=== PATIENT | female | born 1940 | race Caucasian/White ===

== ENCOUNTER 2018-01-16 08:44 | Inpatient (IN) | payer OTHER, SELFPAY ==
[2018-01-10 08:46] VITALS: BMI 42.5
[2018-01-16] VITALS (14 sets, daily range): BP systolic 90–142; BP diastolic 50–87; PULSE 57–69; RESP 10–16; TEMP 35.3–36.8; O2SAT 94–100; BMI 40.6
[2018-01-16] MEDS: LACTATED RINGERS 1,000 ML 42 ML IV ×2 (09:25→15:40)
[2018-01-16 10:02] LABS: HEMOLYSIS < 15 (0-50)
--- NOTE | 2018-01-16 10:18 | PM.PREOP ---
Pre-operative Note Interval Note Pre-op Check: History & Physical Reviewed by Physician and Exam Performed
[2018-01-16] MEDS: APREPITANT 40 MG CAPSULE PO (10:50)
--- NOTE | 2018-01-16 11:19 | PM.OP.1 ---
Operative Date/Time/Diagnoses - Date of procedure: 01/16/18 Time of procedure: 14:48 Pre-op diagnosis: lumbar stenosis with radiculopathy lumbar spondylolisthesis Post-op diagnosis: same Procedure & Clinicians Procedure: L3-4 laminectomy L4-5 laminectomy L4-5 anterior fusion with cage L4-5 posterior fusion L4, L5 pedicle screws iliac crest bone graft use of microscope placement of epidural catheter Same procedure as scheduled: Yes Indications: 77-year-old female with intractable pain from spinal stenosis. She had failed conservative management and requested operative intervention. Risks and benefits of surgery were discussed and appropriate consents were obtained. Surgeon: Ashkan Devi [employer] Assistant: Delaney Jett Anesthesia Type: General Operative Notes Findings: none Closure Type: primary Specimen(s): none sent Implants & Drains: Nuvasive XLIF cage and Reline Screws Applied: catheter Estimated Blood Loss (mL): 30 Blood products transfused: none Procedure in detail: Patient was brought to the operating room and intubated on the table. Time-out was performed. They were then rolled over to the lateral decubitus position with the [id number]. The table was bent and they were taped down in the correct position. X-rays were taken to confirm a true AP and lateral. Preoperative antibiotics. The left flank was prepped and draped in standard sterile fashion. Using fluoroscopy, a 3 cm incision was made above the iliac crest. We bluntly dissected down with Metzenbaum scissors and split the 3 abdominal muscle layers. We dissected out the retroperitoneal space and using finger guidance, brought our 1st dilator down to the psoas muscle. Using neuromonitoring and fluoroscopy, we placed it through the psoas onto the L4-5 disc space in an anterior position and gradually pulled the dilator posteriorly along the disc space. We placed our guidewire and measured our depth for the retractor. We then dilated with the next 2 dilators and then placed our retractor over the dilators. Position was confirmed with fluoroscopy and the retractor was locked down to the bar. We opened up the retractor and checked with neuro monitoring. We then placed the angela and again checked with neuro monitoring. The retractor was opened further and the ALL retractor was placed. An annulotomy was performed. We then performed a complete diskectomy with ring curette, pituitary, box osteotome. A Williamson was advanced across the disc space under fluoroscopy to release the lateral annulus on the opposite side. We then used sequentially larger trials and confirmed under fluoroscopy. An XL IF cage was packed with Osteocell bone graft and impacted into the L4-5 disc space with fluoroscopy for the anterior fusion at this level. The wound was irrigated. The retractor was closed down. The angela was removed. We carefully removed through a tractor with direct visualization to make sure there was no neurovascular or abdominal injury. Final x-rays were taken. The muscle fascia was closed, superficial tissue was closed. The skin was closed. Sterile dressing was placed. The patient was then rolled over on the well-padded prone position on the Harrison table. Using fluoroscopy for localization, a 6 cm incision was made in the midline. We dissected down the left sided paraspinal muscles to expose the lamina and confirmed our position. We then exposed the transverse processes at the level of fusion. We then began placing our screws. A bur was used to decorticate the junction of the facet and transverse process. We then advanced a gear shifter down the pedicle using neuro monitoring. We checked with the ball probe to confirm a floor and 4 bustillos on the pedicle. We then tapped also with neuro monitoring. We checked again with the ball probe and then placed our screw with neuro monitoring. The screws were placed in this fashion down the left pedicles of L4 and L5. The de was loosely placed and x-rays were taken to confirm positioning and then the set screws were locked down. We then brought in the microscope. A laminectomy was performed at L3-4 and L4-5 with a bur and Kerrison rongeurs. We carefully depressed the dura to reach to the opposite side and decompress the entire central canal. We cleared out the neural foramen. In the in the ball probe could be placed cephalad and caudally across to the opposite side in the foramen and everything was opened. The wound was copiously irrigated. A small stab incision was made over the PSIS and a Jamshidi needle was placed into the iliac crest and several mL of bone marrow was aspirated. This was mixed with our locally harvested bone graft as well as the remaining Osteocell and placed in the posterolateral gutter for fusion at L4-5. An epidural catheter was primed with 4mL of 0.5% bupivacaine, 100 mcg fentanyl, 4 mg Duramorph, 1 mg Stadol. The dura was depressed under the cephalad lamina with a ball probe and the epidural catheter was gently advanced 6 cm cephalad. The fascia was then closed. The epidural was then injected without resistance. The catheter was pulled and we closed more over the fascia. Vancomycin powder was placed in the wound. The superficial and skin were closed. Sterile dressing was placed. The patient was then rolled over, extubated, brought to the recovery room with no complications. Complications: none Condition: stable Disposition: PACU Plan for aftercare: inpatient. Up with physical therapy
[2018-01-16] MEDS: CEFAZOLIN 2 GM/100 ML FROZ.PIGGY IV ×2 (11:22→18:48)
--- NOTE | 2018-01-16 11:30 | DI.RAD.S_ITS ---
PROCEDURE: XR LUMBAR SPINE 2-3V INDICATIONS: 77 year-old female with L4-L5 spine surgery. TECHNIQUE: 2 intraoperative views of the lumbar spine were acquired. COMPARISON: [facility], [place], XR LUMBAR SPINE 2 OR 3 VIEWS, 12[facility]23/2017, 15:21[facility] WITH OBLIQUES, 09/16/2017, 10:37. FINDINGS: Bones: Patient is status post L4-L5 discectomy with interbody fusion and left posterior fixation. Surgical hardware appears intact and in expected positions. Grade 1 L4-L5 spondylolisthesis from facet joint degeneration has decreased. Soft tissues: Overlying bowel gas pattern is normal. No suspicious soft tissue calcifications. IMPRESSION: Fluoroscopic guidance for L4-L5 discectomy with interbody fusion in the posterior fixation. Mild L4-L5 spondylolisthesis has decreased from pre-operative films. Dictated by: Brooks Villavicencio M.D. on 01/16/2018 at 13:50 Approved by: Brooks Villavicencio M.D. on 01/16/2018 at 13:51
--- NOTE | 2018-01-16 13:06 | SUR.OPER ---
Right lateral on padded OR table. Head on pillow, gel axillary roll, pillow to support left arm. Legs flexed, pillows between legs, gel pad under down leg and ankle. Multiple passes of 3 inch cloth tape across shoulder, hip, upper and lower legs to secure patient on OR table.
--- NOTE | 2018-01-16 13:06 | SUR.OPER ---
Prone on spine table, head in foam head support, padded chest and pelvic supports, gel pad at knees, lower legs supported by pillows; nipples, genitalia and toes free of pressure, arms secured on foam padded arm boards at <90 degrees abduction. Tape over blanket at thigh secured to table.
[2018-01-16] MEDS: SODIUM CHLORIDE 0.9% 1,000 ML, GENTAMICIN 80 MG IRR (13:31)
[2018-01-16] MEDS: BUPIVACAINE 0.5% (PF) 4 ML, MORPHINE-PF 4 MG, BUTORPHANOL 1 MG, fentaNYL 100 MCG INJ (13:32)
[2018-01-16] MEDS: THROMBIN (BOVINE) 5,000 UNIT VIAL 5000 UNIT TOP (13:34)
[2018-01-16] MEDS: VANCOMYCIN 1,000 MG VIAL 1000 MG TOP (13:34)
--- NOTE | 2018-01-16 16:40 | PC.NURSE ---
Admit note: Patient admitted to AC from PACU with Yulissa OAKLEY in stable condition. Alert and awake, talkative and pleasant. On RA, O2 sat 98%. SCD to feet bilaterally. No c/o nausea, tolerating sips of water. C/O minimal ache to lower back, placed ice packs with relief. Educated regarding surgical precautions such as no bending and twisting or lifting, verbalized understanding. CMS to BLE intact. Educated regarding plan of care, room, environment. VSS and afebrile. BA active, call light within reach. Friends/family at bedside providing support.
[2018-01-16] MEDS: LACTATED RINGERS 1,000 ML 125 ML IV (16:51)
[2018-01-16] MEDS: HYDROMORPHONE PCA 6 MG/30 ML PCA.VIAL IV ×2 (16:51→22:05)
[2018-01-16] MEDS: CELECOXIB 200 MG CAPSULE 400 MG PO (18:51)
[2018-01-16] MEDS: DOCUSATE 100 MG CAPSULE PO (20:48)
[2018-01-16] MEDS: GABAPENTIN 300 MG CAPSULE PO (20:48)
[2018-01-16] MEDS: SENNOSIDES 8.6 MG TABLET 17.2 MG PO (20:48)
[2018-01-16] MEDS: ONDANSETRON 4 MG/2 ML INJ IV (21:00)
[2018-01-16] MEDS: METOCLOPRAMIDE 10 MG/2 ML INJ IV (21:59)
[2018-01-17 00:07] VITALS: BP 101/53; PULSE 60; RESP 16; TEMP 36.9; O2SAT 93
[2018-01-17] MEDS: LACTATED RINGERS 1,000 ML 125 ML IV ×3 (01:32→19:29)
[2018-01-17] MEDS: CEFAZOLIN 2 GM/100 ML FROZ.PIGGY IV (03:19)
[2018-01-17] MEDS: ONDANSETRON 4 MG/2 ML INJ IV (03:28)
[2018-01-17 03:30] VITALS: BP 112/50; PULSE 65; RESP 18; TEMP 36.6; O2SAT 95
[2018-01-17 05:16] LABS: Hematocrit 37.1 % (36-46); Hemoglobin 12.3 g/dL (12.0-16.0)
[2018-01-17 05:20] LABS: BUN Creatinine Ratio 31.7 (6-22); Blood Urea Nitrogen 19 mg/dL (7-17); Calcium 8.8 mg/dL (8.4-10.2); Carbon Dioxide 30 mmol/L (22-32); Chloride 98 mmol/L (98-107); Estimated Glomerular Filt Rate > 60.0 mL/min (>60); Glucose 140 mg/dL (80-110); HEMOLYSIS < 15 (0-50); Sodium 136 mmol/L (137-145)
[2018-01-17] MEDS: HYDROMORPHONE PCA 6 MG/30 ML PCA.VIAL IV ×3 (06:11→21:36)
--- NOTE | 2018-01-17 07:30 | P.PN_ITS ---
Subjective Date Patient Seen: 01/17/18 Time Patient Seen: 07:28 Interval history: She is having minimal pain at this point. Exam Vital Signs (past 8 hours): Vital Signs - 8 hr 3 01/17/18 00:07 01/17/18 03:30 Temperature 98.4 F 97.8 F Pulse Rate 60 65 Respiratory Rate 16 18 Blood Pressure 101/53 L 112/50 L Pulse Oximetry 93 95 Pulse Oximetry 95 Oxygen Delivery Method Room Air Oxygen Flow Rate 2 Const Orientation: alert and oriented x3 Back/Spine/Pelvis Other: Dressings clean dry and intact. 5/5 motor both lower extremities Objective Labs Result Diagrams: 01/17/18 04:50 01/17/18 04:50 Labs: Laboratory Results - last 24 hr 01/16/18 01/17/18 01/17/18 09:46 04:50 04:50 Hgb 12.3 Hct 37.1 Sodium 136 L Potassium 4.0 5.0 Chloride 98 Carbon Dioxide 30 BUN 19 H Creatinine 0.60 Estimated GFR > 60.0 BUN/Creatinine Ratio 31.7 H Glucose 140 H Calcium 8.8 Assessment & Plan Post-op Postoperative Procedures Operation Date: 01/16/18 10:45 Actual Procedures Side Surgeon p L3-4,L4-5 Laminectomy, L4-5 Ant/Post (XLIF) Instru Fusion w/Bone Graft Ashkan Devi MD she is doing great. We are going to get her up with Physical therapy. I did explain that probably a large amount of her pain relief is due to the epidural and that will probably wear off at some time today. Time Spent With Patient less than 15 minutes Quality VTE Deep Vein Thrombosis/Pulmonary Embolism Present on Admission: No
[2018-01-17 08:20] VITALS: BP 109/52; PULSE 60; RESP 16; TEMP 36.4; O2SAT 96
[2018-01-17] MEDS: LISINOPRIL 20 MG TABLET PO (08:43)
[2018-01-17] MEDS: MULTIVITAMIN 1 TABLET 1 TAB PO (08:43)
[2018-01-17] MEDS: ASCORBIC ACID 500 MG TABLET PO (08:43)
[2018-01-17] MEDS: CELECOXIB 200 MG CAPSULE PO ×2 (08:43→20:30)
[2018-01-17] MEDS: FISH OIL 1,000 MG CAPSULE 1000 MG PO (08:43)
[2018-01-17] MEDS: DOCUSATE 100 MG CAPSULE PO ×2 (08:43→20:30)
[2018-01-17] MEDS: FERROUS SULFATE 325 MG TABLET PO (08:44)
--- NOTE | 2018-01-17 09:45 | PT.IIE ---
Current Diagnoses Spondylolisthesis, lumbar region (01/16/18) Spinal stenosis, lumbar region with neurogenic claudication (01/16/18) Surgery Performed Operation Date: 01/16/18 10:45 Actual Procedures p L3-4,L4-5 Laminectomy, L4-5 Ant/Post (XLIF) Instru Fusion w/Bone Graft - Ashkan Devi MD Surgical History (Last Updated 01/13/18 @ 09:23 by Halie Wilburn, RN) History of arthroplasty of right shoulder (Acute) History of bunionectomy of left great toe (Acute) History of bunionectomy of right great toe (Acute) History of discectomy (Acute) History of thumb surgery (Acute) History of tonsillectomy (Acute) History of tympanoplasty of left ear (Acute) Hx of total knee arthroplasty (Acute) S/P epidural steroid injection (Acute) Medical History (Last Updated 01/10/18 @ 09:07 by Halie Wilburn, RN) Colon polyp (Acute) GERD (gastroesophageal reflux disease) (Acute) Hammer toe (Acute) Hemorrhoids (Acute) History of rectocele (Acute) Hyperlipidemia (Acute) Hypertension (Acute) Insomnia (Acute) Iron deficiency anemia (Acute) Joint pain (Acute) Left bundle branch block (Acute) Leg pain (Acute) Low back pain (Acute) 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) Morbid obesity (Acute) Osteoarthritis (Acute) Spinal stenosis, lumbar region with neurogenic claudication (Acute) Spondylolisthesis at L4-L5 level (Acute) Statin intolerance (Acute) Tinnitus of left ear (Acute) Physical Therapy Inpatient Evaluation/Re-Eval M1 PT/OT-IP Prior Functional Status Start: 01/17/18 09:36 Freq: NEEDED Status: Active Protocol: Document 01/17/18 09:36 AB (Rec: 01/17/18 09:45 AB [id number]) Medical Review Prior Functional Status Medical History Reviewed Yes Mobility and Gait pt stated that she is independent with all mobilities and ambulation without AD Social History Household Members none Living Arrangements House Number of Floors (Floors) One Floor Number of Stairs To Enter/Railing? 3 steps with bilateral rails Home Environment Standard Height Toilet Walk in Shower Home Equipment Front Wheel Walker Employment Status Retired Additional Social History Comment pt plans to stay at her friend 's house and her friend will be able to assist her. Her friends house has 3 steps to enter with bilateral rails. Pt is not sure regarding equipement availability at her friends house. M2 PT-IP Current Condition Start: 01/17/18 09:36 Freq: NEEDED Status: Active Protocol: Document 01/17/18 09:36 AB (Rec: 01/17/18 09:45 AB [id number]) Physical Therapy Current Condition Current Condition Evaluation Date 01/17/18 Treatment Diagnosis s/p lumbar fusion and laminectomy Onset Date 01/16/18 Precautions Lumbar Precautions Log Roll No Twisting Limit Bending Lifting Restriction of 10 lbs Gait Belt above Incisional Area M3 PT-IP Subjective Start: 01/17/18 09:36 Freq: NEEDED Status: Active Protocol: Document 01/17/18 09:36 AB (Rec: 01/17/18 09:45 AB [id number]) Subjective Physical Therapy Visit Type Type Initial Evaluation Visit Start Time 08:50 Visit Stop Time 09:35 Total Visit Minutes 45 Number of TWISTHAND Visits 0 Physical Therapy Visit Comments Patient Comments pt agreeable to do therapy Therapy Pain Assessment Pain When Pain Assessed At Rest Pain Present Pain Present Pain Reported Location Left Buttock Intensity 3 Scale Used Numeric (1 - 10) Pain Management Techniques Apply Cold Timing of Activity with Medications M4 PT-IP Mobility and Gait Start: 01/17/18 09:36 Freq: NEEDED Status: Active Protocol: Document 01/17/18 09:36 AB (Rec: 01/17/18 09:45 AB [id number]) PT-Bed Mobility Assessment Supine to Sit Supine to Sit Standby Assistance PT-Transfer Assessment Sit to and From Stand Sit to and from Stand Contact Guard Assistance Equipment Transfer Assistive Device Gait Belt Front Wheeled Walker Transfers Transfer Destination Chair Gait Assessment Gait Gait Assistance Required: Contact Guard Assist Distance (Feet) (feet) 60 Able to Maintain Weight Bearing Status Yes During Gait Assistive Devices Assistive Device Gait Belt Front Wheeled Walker Gait Deviations General Gait Pattern Decreased Stride Length Factors Limiting Gait Function Factors Limiting Gait Function Decreased Activity Tolerance Decreased Strength Pain Poor Balance PT-Balance Assessment Sitting Balance and Reactions Static Sitting Balance Ability Good Dynamic Sitting Balance Ability Good Standing Balance and Reactions Static Standing Balance Ability Fair Dynamic Standing Balance Ability Fair M5 PT-IP Objective Assessments Start: 01/17/18 09:36 Freq: NEEDED Status: Active Protocol: Document 01/17/18 09:36 AB (Rec: 01/17/18 09:45 AB [id number]) Orientation Orientation/Cognition Level of Alertness Alert Orientation Name Age Birthday Month Date Year Day of Week Place Situation Safety Awareness Understands Safety Issues Strength Lower Extremity Strength Assessment Left Impaired Knee 4-/5 Sensation Assessment Sensation Gross Sensation WNL M6 PT-IP Treatment Start: 01/17/18 09:36 Freq: NEEDED Status: Active Protocol: Document 01/17/18 09:36 AB (Rec: 01/17/18 09:45 AB [id number]) Physical Therapy Treatment Education Education Provided Precautions Safety M7 PT-IP Assessment and Plan Start: 01/17/18 09:36 Freq: NEEDED Status: Active Protocol: Document 01/17/18 09:36 AB (Rec: 01/17/18 09:45 AB [id number]) PT Summary Assessment and Plan Potential Rehabilitation Potential Good Status of Condition at Evaluation Evolving Summary Impairments Pain ROM Strength Balance Bed Mobility Transfers Gait Activity Tolerance Assessment Summary pt requiring CGA with mobility and cues for techniques and safety. pt will likely improve during hospital stay. will conduct stair training prior to d/c. Goals Bed Mobility Goal Standby Assistance Transfer Goal Standby Assistance Gait Goal Standby Assistance Gait Distance 100 Other Goals up/down 3 steps with bilateral rails SBA Days to Meet Goals 3 Frequency of Treatment Frequency Of Treatment Twice a Day Treatment Plan Physical Therapy Treatment Plan Bed Mobility Training Transfer Training Gait Training Therapeutic Exercise Balance Retraining Post Op Education Discharge Planning Hot or Cold Pack Neuromuscular Re-ed Manual Therapy Recommendations To Nursing Amount of Assist Needed 1 Person Assist Discharge Recommendations PT Discharge Recommendations Home with Assistance Provider Visit Care Team Role Provider Type Tanya Sanz MD Family Provider Physician Primary Care Provider Specialty: Internal Medicine Ashkan Devi MD Admit Provider Physician Attending Provider Specialty: Orthopedic Surgery
[2018-01-17 11:55] VITALS: BP 96/47; PULSE 62; RESP 16; TEMP 36.4; O2SAT 97
--- NOTE | 2018-01-17 12:51 | OT.IP.EVAL ---
Current Diagnoses Spondylolisthesis, lumbar region (01/16/18) Spinal stenosis, lumbar region with neurogenic claudication (01/16/18) Surgery Performed Operation Date: 01/16/18 10:45 Actual Procedures p L3-4,L4-5 Laminectomy, L4-5 Ant/Post (XLIF) Instru Fusion w/Bone Graft - Ashkan Devi MD Past Medical History (Last Updated 01/10/18 @ 09:07 by Halie Wilburn, RN) Colon polyp (Acute) GERD (gastroesophageal reflux disease) (Acute) Hammer toe (Acute) Hemorrhoids (Acute) History of rectocele (Acute) Hyperlipidemia (Acute) Hypertension (Acute) Insomnia (Acute) Iron deficiency anemia (Acute) Joint pain (Acute) Left bundle branch block (Acute) Leg pain (Acute) Low back pain (Acute) 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) Morbid obesity (Acute) Osteoarthritis (Acute) Spinal stenosis, lumbar region with neurogenic claudication (Acute) Spondylolisthesis at L4-L5 level (Acute) Statin intolerance (Acute) Tinnitus of left ear (Acute) Surgical History (Last Updated 01/13/18 @ 09:23 by Halie Wilburn, RN) History of arthroplasty of right shoulder (Acute) History of bunionectomy of left great toe (Acute) History of bunionectomy of right great toe (Acute) History of discectomy (Acute) History of thumb surgery (Acute) History of tonsillectomy (Acute) History of tympanoplasty of left ear (Acute) Hx of total knee arthroplasty (Acute) S/P epidural steroid injection (Acute) Occupational Therapy Inpatient Evaluation/Re-Eval M1 PT/OT-IP Prior Functional Status Start: 01/17/18 09:36 Freq: NEEDED Status: Active Protocol: Document 01/17/18 09:36 AB (Rec: 01/17/18 09:45 AB [id number]) Medical Review Prior Functional Status Medical History Reviewed Yes Mobility and Gait pt stated that she is independent with all mobilities and ambulation without AD Social History Household Members none Living Arrangements House Number of Floors (Floors) One Floor Number of Stairs To Enter/Railing? 3 steps with bilateral rails Home Environment Standard Height Toilet Walk in Shower Home Equipment Front Wheel Walker Employment Status Retired Additional Social History Comment pt plans to stay at her friend 's house and her friend will be able to assist her. Her friends house has 3 steps to enter with bilateral rails. Pt is not sure regarding equipement availability at her friends house. M1 PT/OT-IP Prior Functional Status Start: 01/17/18 12:33 Freq: NEEDED Status: Active Protocol: Document 01/17/18 11:00 [facility] (Rec: 01/17/18 12:51 [facility] [id number]) Medical Review Prior Functional Status Medical History Reviewed Yes Diet/Fluid Consistency Regular Mobility and Gait pt stated that she is independent with all mobilities and ambulation without AD Activities of Daily Living and IADL's Completely independent with all ADl and IADl needs. Social History Household Members none Living Arrangements House Number of Floors (Floors) One Floor Number of Stairs To Enter/Railing? 3 steps with bilateral rails Home Environment Standard Height Toilet Walk in Shower Home Equipment Front Wheel Walker Employment Status Retired Additional Social History Comment pt plans to stay at her friend 's house and her friend will be able to assist her. Her friends house has 3 steps to enter with bilateral rails. Pt is not sure regarding equipement availability at her friends house. M2 OT-IP Current Condition Start: 01/17/18 12:33 Freq: Status: Active Protocol: Document 01/17/18 11:00 [facility] (Rec: 01/17/18 12:51 [facility] [id number]) Occupational Therapy Current Condition Post Operative Precautions Lumbar Precautions Log Roll No Twisting Limit Bending Lifting Restriction of 10 lbs Gait Belt above Incisional Area M3 OT- IP Subjective and Pain Start: 01/17/18 12:33 Freq: Status: Active Protocol: Document 01/17/18 11:00 [facility] (Rec: 01/17/18 12:51 [facility] [id number]) OT- Subjective Occupational Therapy Visit Type Type Initial Evaluation Visit Start Time 11:00 Visit Stop Time 11:45 Total Visit Minutes 45 Occupational Therapy Visit Comments Patient/Caregiver Goals Pt states wants to be sure medically ready prior to going home. OT Pain Assessment Pain When Pain Assessed During Mobility Pain Present Pain Present Pain Reported Location Left Buttock Intensity 5 Scale Used Numeric (1 - 10) M4 OT- IP ADL's Start: 01/17/18 12:33 Freq: Status: Active Protocol: Document 01/17/18 11:00 [facility] (Rec: 01/17/18 12:51 [facility] [id number]) OT ADL-Dressing General Eval Upper Body Dressing Ability Standby Assistance Lower Body Dressing Ability Maximum Assistance Areas Needing Assistance Retrieving/Set-up of Clothing Socks Shoes Comments OT Dressing Comments Pt educated with LB AED and now able to do LB dressing with SBA. OT ADL-Toileting General Evaluation Toileting Ability Total Assistance Comments OT Toileting Comments Still use of catheter. educated to stand for pericare needs and given information for toilet aid. Pt's friend to look for FWW, showe chair, and RTS. OT ADL-Bathing Comments OT Bathing Comments No ready at this time. M5 OT- IP IADL's Start: 01/17/18 12:33 Freq: Status: Active Protocol: Document 01/17/18 11:00 [facility] (Rec: 01/17/18 12:51 [facility] [id number]) OT-Instrumental Activities of Daily Living Home Safety Awareness Awareness of Need for Assistance at Home Good Awareness Medication Management Medication Management No Deficits Identified M6 OT- IP Functional Cognition Start: 01/17/18 12:33 Freq: Status: Active Protocol: Document 01/17/18 11:00 [facility] (Rec: 01/17/18 12:51 [facility] [id number]) Cognitive Factors Limiting Selfcare Function Cognitive Ability Level of Alertness Alert Patient Orientation Name Age Birthday Month Date Year Day of Week Place Situation Attention Span Ability Capable of Focused Attention Capable of Sustained Attention Ability to Follow Commands Able to Follow Multi-Step Commands Memory Description No Deficits Noted Problem Solving Ability No deficits Noted Cognitive Comments Cognitive Assessment Comments Pt needing reminders to incorporate back precautions for needs. OT- Vision and Hearing OT- Hearing Assessment OT- Hearing Assessment WFL OT- Vision Assessment Visual Acuity WFL M7 OT- IP Mobility and Balance Start: 01/17/18 12:33 Freq: Status: Active Protocol: Document 01/17/18 11:00 [facility] (Rec: 01/17/18 12:51 [facility] [id number]) OT- Bed Mobility Assessment Sit to Supine Sit to Supine Assist Standby Assistance OT-Transfer Assessment Sit to and From Stand Sit to and from Stand Standby Assistance Transfers Transfer Ability Standby Assistance Contact Guard Assistance Technique Transfer Destination Bed Chair Transfer Technique Stand Step Pivot Devices Transfer Assistive Devices Front Wheeled Walker Comments Mobility Comments Pt tend to move a little fast and needing vc to slow down. OT- Balance Assessment Sitting Balance and Reactions Static Sitting Balance Ability Normal Dynamic Sitting Balance Ability Normal Standing Balance and Reactions Static Standing Balance Ability Good Dynamic Standing Balance Ability Fair M8 OT- IP Objective Assessments Start: 01/17/18 12:33 Freq: Status: Active Protocol: Document 01/17/18 11:00 [facility] (Rec: 01/17/18 12:51 [facility] [id number]) OT Strength Comments Strength Comments WFL for all needs for BUE. M9 OT- IP Assessment and Plan Start: 01/17/18 12:33 Freq: Status: Active Protocol: Document 01/17/18 11:00 [facility] (Rec: 01/17/18 12:51 [facility] [id number]) OT Summary Assessment and Plan Potential Rehabilitation Potential Excellent Analytic Complexity at Evaluation Low Summary OT Impairments Pain Strength Functional Mobility Grooming Dressing Toileting Bathing Toilet Transfers Shower Transfers Progress Towards Goals Progressing Toward Goals Assessment Summary Pt doing well as currently does not have pain. Pt continues to need education to incorporate back precautions for needs. Pt to stay with a friend at discharge. Goals Grooming Goal Standby Assistance Dressing Goal Standby Assistance Toileting Goal Standby Assistance Bathing Goal Minimal Assistance Toilet Transfer Goal Standby Assistance Shower Transfer Goal Standby Assistance Patient/Caregiver Education Goal Caregiver Independent Assisting Patient Days to Meet Goals 5 Frequency of Treatment Frequency Of Treatment Once a Day Treatment Plan OT Treatment Plan ADL Training Functional Mobility Patient/Family Education Discharge Planning Discharge Recommendations OT Discharge Recommendations Home with Assistance Home Equipment Needs FWW, shower chair, RTS
--- NOTE | 2018-01-17 15:00 | PT.IPTN ---
Current Diagnoses Spondylolisthesis, lumbar region (01/16/18) Spinal stenosis, lumbar region with neurogenic claudication (01/16/18) Surgery Performed Operation Date: 01/16/18 10:45 Actual Procedures p L3-4,L4-5 Laminectomy, L4-5 Ant/Post (XLIF) Instru Fusion w/Bone Graft - Ashkan Devi MD Physical Therapy Treatment Note M2 PT-IP Current Condition Start: 01/17/18 09:36 Freq: NEEDED Status: Active Protocol: Document 01/17/18 09:36 AB (Rec: 01/17/18 09:45 AB [id number]) Physical Therapy Current Condition Current Condition Evaluation Date 01/17/18 Treatment Diagnosis s/p lumbar fusion and laminectomy Onset Date 01/16/18 Precautions Lumbar Precautions Log Roll No Twisting Limit Bending Lifting Restriction of 10 lbs Gait Belt above Incisional Area M3 PT-IP Subjective Start: 01/17/18 09:36 Freq: NEEDED Status: Active Protocol: Document 01/17/18 14:52 AB (Rec: 01/17/18 14:58 AB [id number]) Subjective Physical Therapy Visit Type Type Treatment Note Visit Start Time 14:13 Visit Stop Time 14:49 Total Visit Minutes 36 Number of DISTILLING DEPARTMENT SUPERVISOR Visits 0 Physical Therapy Visit Comments Patient Comments pt agreeable to do therapy Therapy Pain Assessment Pain When Pain Assessed At Rest Pain Present Pain Present Pain Reported Location Left Buttock Intensity 3 Scale Used Numeric (1 - 10) Pain Management Techniques Apply Cold Timing of Activity with Medications M4 PT-IP Mobility and Gait Start: 01/17/18 09:36 Freq: NEEDED Status: Active Protocol: Document 01/17/18 14:52 AB (Rec: 01/17/18 14:58 AB [id number]) PT-Bed Mobility Assessment Supine to Sit Supine to Sit Standby Assistance Sit to Supine Sit to Supine Standby Assistance PT-Transfer Assessment Sit to and From Stand Sit to and from Stand Contact Guard Assistance Comments Mobility Comments log roll bed mobility training conducted x 4 reps: pt completed with SBA and initial cues but was able to complete without cues after a few reps Gait Assessment Gait Gait Assistance Required: Contact Guard Assist Distance (Feet) (feet) 75 Able to Maintain Weight Bearing Status Yes During Gait Assistive Devices Assistive Device Gait Belt Front Wheeled Walker Orthotic/Prosthetic Devices or Brace: No Factors Limiting Gait Function Factors Limiting Gait Function Decreased Activity Tolerance Decreased Strength Pain Comments Gait Comments nurse stated that pt's BP tends to run low. BP monitored: supine: 90/56 sitting on EOB: 110/68 after first ambulation: sitting on EOB: 99/69 after 2nd ambulation: sitting on EOB: 95/41 pt without c/o dizziness/ lightheadedness or nausea pt completed ambulation in room using FWW 50 ft and in hallway for 2nd walk using FWW ~ 75 ft requiring CGA and cues for safety. pt requested to sit up on chair afterwards. positioned pt on chair. ice pack provided. call light and table placed within reach. M5 PT-IP Objective Assessments Start: 01/17/18 09:36 Freq: NEEDED Status: Active Protocol: Document 01/17/18 09:36 AB (Rec: 01/17/18 09:45 AB [id number]) Orientation Orientation/Cognition Level of Alertness Alert Orientation Name Age Birthday Month Date Year Day of Week Place Situation Safety Awareness Understands Safety Issues Strength Lower Extremity Strength Assessment Left Impaired Knee 4-/5 Sensation Assessment Sensation Gross Sensation WNL M6 PT-IP Treatment Start: 01/17/18 09:36 Freq: NEEDED Status: Active Protocol: Document 01/17/18 09:36 AB (Rec: 01/17/18 09:45 AB [id number]) Physical Therapy Treatment Education Education Provided Precautions Safety M7 PT-IP Assessment and Plan Start: 01/17/18 09:36 Freq: NEEDED Status: Active Protocol: Document 01/17/18 14:58 AB (Rec: 01/17/18 15:00 AB [id number]) PT Summary Assessment and Plan Potential Rehabilitation Potential Good Summary Impairments Pain Strength Balance Bed Mobility Transfers Gait Activity Tolerance Progress Towards Goals Progressing Toward Goals Assessment Summary pt doing well with mobility but has low BP and stair climbing not completed at this time. pt will have her friend to assist her. Pt stated that she was able to get a FWW and everything is set up for her already. Goals Bed Mobility Goal Standby Assistance Transfer Goal Standby Assistance Gait Goal Standby Assistance Gait Distance 100 Other Goals up/down 3 steps with bilateral rails SBA Days to Meet Goals 3 Frequency of Treatment Frequency Of Treatment Twice a Day Treatment Plan Physical Therapy Treatment Plan Bed Mobility Training Transfer Training Gait Training Therapeutic Exercise Balance Retraining Post Op Education Discharge Planning Hot or Cold Pack Neuromuscular Re-ed Manual Therapy Recommendations To Nursing Amount of Assist Needed 1 Person Assist Discharge Recommendations PT Discharge Recommendations Home with Assistance
--- NOTE | 2018-01-17 15:40 | CM.DANOTE ---
Addendum entered by FORTUNATO English 01/17/18 16:11: Faxed initial clinical to [facility] [phone]. Original Note: DCP Assessment: Pt is a 77 yo female, resident of [place]. Pt admitted for scheduled spinal surgery w/ Dr Devi. Pt's PCP is Dr Sanz; Insurance is [facility]. Met w/pt this morning, explained SW role. Pt lives alone and is very indp and active at baseline. Pt expects to DC to her friend Shante's home (who is a retired RN) for assist and has another friend that can assist if needed. Pt's dtr, Katiuska Davies, is her DPOA. Dtr lives in [place], P# [phone]. Pt appreciative of the visit and reiterates no barriers to safe DC home. Pt does admit her epidural has not worn off yet today and she is waiting for that in order to understand what pain/limitations she can expect in recovery. Home once medically cleared. FORTUNATO English
--- NOTE | 2018-01-17 15:51 | PC.NURSE ---
patient is A&O x3, pleasant and cooperative w/ staff and is able to make needs known when nec. Cassie's b/p has been hypotensive w/ 100/40 at 1552. However, patient's B/P was being read w/ large cuff, suggested to aid to try using reg. size adult cuff and reassess B/P, new readin/43. Patient is asymptomatic w/ B/P readings. POD #1, CMS intact, PP ++, Drg. to site is C.D.I w/ exception of the lower leg corner has a scant sero/sang spot of drainage, graft site to left hip is C.D.I. Call light w/ in reach, bed in low pos. alarm active. Patient is content to in bed from being up to chair all afternoon.
[2018-01-17 16:45] VITALS: BP 117/53; PULSE 73; RESP 16; TEMP 36.6; O2SAT 98
[2018-01-17] MEDS: GABAPENTIN 300 MG CAPSULE PO (20:30)
[2018-01-17] MEDS: SENNOSIDES 8.6 MG TABLET 17.2 MG PO (20:30)
[2018-01-17 20:57] VITALS: BP 106/39; PULSE 69; RESP 16; TEMP 37.1; O2SAT 100
[2018-01-18 03:00] VITALS: BP 103/58; PULSE 61; RESP 19; TEMP 36.8; O2SAT 96
[2018-01-18] MEDS: LACTATED RINGERS 1,000 ML 125 ML IV (03:40)
[2018-01-18] MEDS: HYDROMORPHONE PCA 6 MG/30 ML PCA.VIAL IV (06:34)
--- NOTE | 2018-01-18 08:23 | PM.PNPO.1 ---
Subjective Date Patient Seen: 01/18/18 Time Patient Seen: 08:24 Interval history: Pt is s/p L3-4 lami, L4-5 lami/fusion by Dr. Devi. PD 2. Pt had her gambino removed today. Has walked some with PT but her BP has been running low so PT is cautious with her wlking too far. States she feels great. RAMP AGENT will be stopped today and will be transitioned to oral hydrocodone which she has taken in the past with good pain relief. Exam Vital Signs (past 8 hours): Vital Signs - 8 hr 01/18/18 03:00 Temperature 98.2 F Pulse Rate 61 Respiratory Rate 19 Blood Pressure 103/58 L Pulse Oximetry 96 Pulse Oximetry 96 Oxygen Delivery Method Room Air Oxygen Flow Rate 2 Narrative Exam Narrative: Patient is sitting in chair. Appears comfortable. Alert and orient x3. Dressing is clean dry and intact. 5/5 BLE but some discomfort in left hip groin area with hip flexion. No numbness or tingling. Bilateral calves soft and nontender. Objective Labs Result Diagrams: 01/17/18 04:50 01/17/18 04:50 Assessment & Plan Post-op (1) Spinal stenosis of lumbar region with radiculopathy: Problem details: Patient had a L3 -4 laminectomy and L4-5 Lami/fusion with Dr. Devi. PD 2. Patient will be transitioned from RAMP AGENT to oral Vicodin for pain. Continue physical therapy. Possible discharge home tomorrow. Current Visit: Yes Status: Acute Postoperative Procedures Operation Date: 01/16/18 10:45 Actual Procedures Side Surgeon p L3-4,L4-5 Laminectomy, L4-5 Ant/Post (XLIF) Instru Fusion w/Bone Graft Ashkan Devi MD Postoperative day: 2 Postoperative status: doing well Postoperative plan: routine post-op care and ambulate Time Spent With Patient less than 15 minutes Quality VTE Deep Vein Thrombosis/Pulmonary Embolism Present on Admission: No
[2018-01-18 08:27] VITALS: BP 135/68; PULSE 69; RESP 16; TEMP 36.8; O2SAT 100
[2018-01-18] MEDS: ASCORBIC ACID 500 MG TABLET PO (08:28)
[2018-01-18] MEDS: CELECOXIB 200 MG CAPSULE PO ×2 (08:28→20:47)
[2018-01-18] MEDS: FERROUS SULFATE 325 MG TABLET PO (08:28)
[2018-01-18] MEDS: ROSUVASTATIN 10 MG TABLET PO (08:28)
[2018-01-18] MEDS: DOCUSATE 100 MG CAPSULE PO ×2 (08:29→20:47)
[2018-01-18] MEDS: FISH OIL 1,000 MG CAPSULE 1000 MG PO (08:29)
[2018-01-18] MEDS: MULTIVITAMIN 1 TABLET 1 TAB PO (08:29)
[2018-01-18] MEDS: LISINOPRIL 20 MG TABLET PO (08:29)
--- NOTE | 2018-01-18 08:32 | P.PN_ITS ---
Subjective Date Patient Seen: 01/18/18 Time Patient Seen: 08:24 Interval history: Pt is s/p L3-4 lami, L4-5 lami/fusion by Dr. Devi. PD 2. Pt had her gambino removed today. Has walked some with PT but her BP has been running low so PT is cautious with her wlking too far. States she feels great. INTRAMURAL DIRECTOR will be stopped today and will be transitioned to oral hydrocodone which she has taken in the past with good pain relief. Exam Vital Signs (past 8 hours): Vital Signs - 8 hr 3 01/18/18 03:00 Temperature 98.2 F Pulse Rate 61 Respiratory Rate 19 Blood Pressure 103/58 L Pulse Oximetry 96 Pulse Oximetry 96 Oxygen Delivery Method Room Air Oxygen Flow Rate 2 Narrative Exam Narrative: Patient is sitting in chair. Appears comfortable. Alert and orient x3. Dressing is clean dry and intact. 5/5 BLE but some discomfort in left hip groin area with hip flexion. No numbness or tingling. Bilateral calves soft and nontender. Objective Labs Result Diagrams: 01/17/18 04:50 01/17/18 04:50 Assessment & Plan Post-op (1) Spinal stenosis of lumbar region with radiculopathy: Problem details: Patient had a L3 -4 laminectomy and L4-5 Lami/fusion with Dr. Devi. PD 2. Patient will be transitioned from INTRAMURAL DIRECTOR to oral Vicodin for pain. Continue physical therapy. Possible discharge home tomorrow. Current Visit: Yes Status: Acute Postoperative Procedures Operation Date: 01/16/18 10:45 Actual Procedures Side Surgeon p L3-4,L4-5 Laminectomy, L4-5 Ant/Post (XLIF) Instru Fusion w/Bone Graft Ashkan Devi MD Postoperative day: 2 Postoperative status: doing well Postoperative plan: routine post-op care and ambulate Time Spent With Patient less than 15 minutes Quality VTE Deep Vein Thrombosis/Pulmonary Embolism Present on Admission: No
[2018-01-18] MEDS: HYDROCODONE/ACET 5/325 TABLET 1 TAB PO ×4 (08:37→21:01)
--- NOTE | 2018-01-18 10:19 | PT.IPTN ---
Current Diagnoses Spondylolisthesis, lumbar region (01/16/18) Spinal stenosis, lumbar region without neurogenic claudication (01/16/18) Spinal stenosis, lumbar region with neurogenic claudication (01/16/18) Radiculopathy, lumbar region (01/16/18) Surgery Performed Operation Date: 01/16/18 10:45 Actual Procedures p L3-4,L4-5 Laminectomy, L4-5 Ant/Post (XLIF) Instru Fusion w/Bone Graft - Ashkan Devi MD Physical Therapy Treatment Note M2 PT-IP Current Condition Start: 01/17/18 09:36 Freq: NEEDED Status: Active Protocol: Document 01/18/18 09:45 [facility] (Rec: 01/18/18 10:19 [facility] [id number]) Physical Therapy Current Condition Current Condition Evaluation Date 01/17/18 Treatment Diagnosis s/p lumbar fusion and laminectomy Onset Date 01/16/18 Precautions Lumbar Precautions Log Roll No Twisting Limit Bending Lifting Restriction of 10 lbs Gait Belt above Incisional Area Weight Bearing Status Weight Bearing Status Weight Bear as Tolerated M3 PT-IP Subjective Start: 01/17/18 09:36 Freq: NEEDED Status: Active Protocol: Document 01/18/18 09:45 [facility] (Rec: 01/18/18 10:19 RCC [id number]) Subjective Physical Therapy Visit Type Type Treatment Note Visit Start Time 09:30 Visit Stop Time 09:45 Total Visit Minutes 15 Number of SELVAGE MACHINE OPERATOR Visits 0 Physical Therapy Visit Comments Patient Comments Pt wants to walk a lot today. Therapy Pain Assessment Pain When Pain Assessed During Mobility Pain Present Pain Present Pain Reported Location Left Buttock Intensity 1 Scale Used Numeric (1 - 10) Description Aching Pain Management Techniques Timing of Activity with Medications M4 PT-IP Mobility and Gait Start: 01/17/18 09:36 Freq: NEEDED Status: Active Protocol: Document 01/18/18 09:45 [facility] (Rec: 01/18/18 10:19 RCC [id number]) PT-Transfer Assessment Sit to and From Stand Sit to and from Stand Standby Assistance Equipment Transfer Assistive Device Front Wheeled Walker Transfers Transfer Destination Chair Transfer Technique Stand Step Pivot Transfer Ability Level of Assist Standby Assistance Use of Upper Extremities Comments Mobility Comments No VC required. Gait Assessment Gait Gait Assistance Required: Standby Assistance Distance (Feet) (feet) 300 Assistive Devices Assistive Device Front Wheeled Walker Gait Deviations General Gait Pattern Decreased Feet Clearance Factors Limiting Gait Function Factors Limiting Gait Function Decreased Activity Tolerance Decreased Strength Comments Gait Comments step-through gait pattern, no increase in pain with ambulation. Stair Climbing Assessment Evaluation Level of Assist On Stairs Contact Guard Assistance Devices Stair Climbing Assistive Devices Left Railing Right Railing Technique/Endurance Stair Climbing Direction Ascend and Descend Stair Climbing Technique Step to Step Number of Steps Climbed 3 Query Text: PT-Balance Assessment Sitting Balance and Reactions Static Sitting Balance Ability Good Dynamic Sitting Balance Ability Good Standing Balance and Reactions Static Standing Balance Ability Good Dynamic Standing Balance Ability Good Device Used FWW M5 PT-IP Objective Assessments Start: 01/17/18 09:36 Freq: NEEDED Status: Active Protocol: Document 01/17/18 09:36 AB (Rec: 01/17/18 09:45 AB [id number]) Orientation Orientation/Cognition Level of Alertness Alert Orientation Name Age Birthday Month Date Year Day of Week Place Situation Safety Awareness Understands Safety Issues Strength Lower Extremity Strength Assessment Left Impaired Knee 4-/5 Sensation Assessment Sensation Gross Sensation WNL M6 PT-IP Treatment Start: 01/17/18 09:36 Freq: NEEDED Status: Active Protocol: Document 01/18/18 09:45 [facility] (Rec: 01/18/18 10:19 [facility] [id number]) Physical Therapy Treatment Education Education Provided Precautions Safety M7 PT-IP Assessment and Plan Start: 01/17/18 09:36 Freq: NEEDED Status: Active Protocol: Document 01/18/18 09:45 [facility] (Rec: 01/18/18 10:19 RCC [id number]) PT Summary Assessment and Plan Summary Impairments Strength Activity Tolerance Progress Towards Goals Progressing Toward Goals Safe For Discharge Assessment Summary POD #2 lumbar lami, XLIF. Pt tolerated session well, without increased pain with standing and gait. Pt able to perform stairs safely with use of bilateral rails. Pt has her own FWW and demonstrated good standing balance with this device. Pt required some education on not over-exerting herself during this process, particularly as she just had RESEARCH PROFESSOR discontinued and switched to oral medication for pain control. Will continue to monitor progress, but pt at this point is cleared to d/c home when medically stable with assistance. Goals Bed Mobility Goal Standby Assistance Transfer Goal Standby Assistance Gait Goal Standby Assistance Gait Distance 100 Other Goals up/down 3 steps with bilateral rails SBA Days to Meet Goals 2 Frequency of Treatment Frequency Of Treatment Twice a Day Treatment Plan Physical Therapy Treatment Plan Bed Mobility Training Transfer Training Gait Training Therapeutic Exercise Balance Retraining Post Op Education Discharge Planning Hot or Cold Pack Neuromuscular Re-ed Manual Therapy Recommendations To Nursing Amount of Assist Needed 1 Person Assist Discharge Recommendations PT Discharge Recommendations Home with Assistance
--- NOTE | 2018-01-18 14:39 | OT.IP.TRT ---
Current Diagnoses Spondylolisthesis, lumbar region (01/16/18) Spinal stenosis, lumbar region without neurogenic claudication (01/16/18) Spinal stenosis, lumbar region with neurogenic claudication (01/16/18) Radiculopathy, lumbar region (01/16/18) Surgery Performed Operation Date: 01/16/18 10:45 Actual Procedures p L3-4,L4-5 Laminectomy, L4-5 Ant/Post (XLIF) Instru Fusion w/Bone Graft - Ashkan Devi MD Occupational Therapy Treatment Note M2 OT-IP Current Condition Start: 01/17/18 12:33 Freq: Status: Active Protocol: Document 01/18/18 10:50 [facility] (Rec: 01/18/18 14:39 [facility] [id number]) Occupational Therapy Current Condition Post Operative Precautions Lumbar Precautions Log Roll No Twisting Limit Bending Lifting Restriction of 10 lbs Gait Belt above Incisional Area Weight Bearing Status Weight Bearing Status Weight Bear as Tolerated M3 OT- IP Subjective and Pain Start: 01/17/18 12:33 Freq: Status: Active Protocol: Document 01/18/18 10:50 [facility] (Rec: 01/18/18 14:39 [facility] [id number]) OT- Subjective Occupational Therapy Visit Type Type Treatment Note Visit Start Time 09:50 Visit Stop Time 10:50 Total Visit Minutes 60 Occupational Therapy Visit Comments Patient Comments Pt requesting to shower. Patient/Caregiver Goals To be able to remember and incorporate back precautions with 100% accuracy. OT Pain Assessment Pain When Pain Assessed At Rest Pain Present Pain Present Denied Pain M4 OT- IP ADL's Start: 01/17/18 12:33 Freq: Status: Active Protocol: Document 01/18/18 10:50 [facility] (Rec: 01/18/18 14:39 [facility] [id number]) OT ADL-Grooming General Evaluation Grooming Ability Standby Assistance Areas Needing Assistance Retrieving/Set-up of Grooming Items Comments OT Grooming Comments VC to be areful not to twist. OT ADL-Dressing General Eval Upper Body Dressing Ability Standby Assistance Lower Body Dressing Ability Contact Guard Assistance Areas Needing Assistance Socks Assistive Devices Dressing Assistive Devices Sock Aid Comments OT Dressing Comments Pt able to use sock aid after set-up. SBA and able to use bank analyst to help genaro brief over her feet. CGA as pt trying to stand to genaro socks and vc to sit dwon first for safety. OT ADL-Toileting General Evaluation Toileting Ability Standby Assistance Devices Toileting Assistive Devices Grab Bars Comments OT Toileting Comments Use of grab bar. Pt's friend able to get shower chair, FWW, and RTS to pt. OT ADL-Bathing Bathing Type Bathing Type Shower General Evaluation Bathing Ability Contact Guard Assistance Areas Needing Assistance Wash/Dry Back Devices Bathing Equipment Long Handled Sponge or Director Business Travel Held Shower Sprayer Shower Chair with Arms Grab Bars Comments OT Bathing Comments Assist with back and vc to slow down and not twist. Pt able to use toilet aid to assist for pericare needs. M5 OT- IP IADL's Start: 01/17/18 12:33 Freq: Status: Active Protocol: Document 01/17/18 11:00 [facility] (Rec: 01/17/18 12:51 [facility] [id number]) OT-Instrumental Activities of Daily Living Home Safety Awareness Awareness of Need for Assistance at Home Good Awareness Medication Management Medication Management No Deficits Identified M6 OT- IP Functional Cognition Start: 01/17/18 12:33 Freq: Status: Active Protocol: Document 01/18/18 10:50 [facility] (Rec: 01/18/18 14:39 [facility] [id number]) Cognitive Factors Limiting Selfcare Function Cognitive Ability Level of Alertness Alert Patient Orientation Name Age Birthday Month Date Year Day of Week Place Situation Attention Span Ability Capable of Focused Attention Capable of Sustained Attention Ability to Follow Commands Able to Follow Multi-Step Commands Memory Description No Deficits Noted Safety Awareness Decreased Ability to Apply Precautions Cognitive Comments Cognitive Assessment Comments Pt forgetful to incorporate back precautions of no twisting. Suggested pt to post signs at home. M7 OT- IP Mobility and Balance Start: 01/17/18 12:33 Freq: Status: Active Protocol: Document 01/18/18 10:50 [facility] (Rec: 01/18/18 14:39 [facility] [id number]) OT- Bed Mobility Assessment Sit to Supine Sit to Supine Assist Minimal Assistance OT-Transfer Assessment Sit to and From Stand Sit to and from Stand Contact Guard Assistance Transfers Transfer Ability Standby Assistance Technique Transfer Destination Bed Chair Shower Stall Toilet Transfer Technique Stand Step Pivot Devices Transfer Assistive Devices Front Wheeled Walker Comments Mobility Comments TOM to get legs into the bed, CGA to help steady to stand from lower surfaces. OT- Balance Assessment Sitting Balance and Reactions Static Sitting Balance Ability Normal Dynamic Sitting Balance Ability Normal Standing Balance and Reactions Static Standing Balance Ability Good Dynamic Standing Balance Ability Fair M8 OT- IP Objective Assessments Start: 01/17/18 12:33 Freq: Status: Active Protocol: Document 01/17/18 11:00 [facility] (Rec: 01/17/18 12:51 [facility] [email or web address]) OT Strength Comments Strength Comments WFL for all needs for BUE. M9 OT- IP Assessment and Plan Start: 01/17/18 12:33 Freq: Status: Active Protocol: Document 01/18/18 10:50 [facility] (Rec: 01/18/18 14:39 [facility] [id number]) OT Summary Assessment and Plan Potential Rehabilitation Potential Excellent Analytic Complexity at Evaluation Low Summary OT Impairments Functional Cognition Functional Mobility Dressing Toileting Bathing Progress Towards Goals Progressing Toward Goals Assessment Summary Pt doing well as currently does not have pain. Pt continues to need education to incorporate back precautions for needs. Pt to stay with a friend at discharge. Goals Grooming Goal Independent Toileting Goal Independent Toilet Transfer Goal Independent Patient/Caregiver Education Goal Caregiver Independent Assisting Patient Days to Meet Goals 3 Frequency of Treatment Frequency Of Treatment Once a Day Treatment Plan OT Treatment Plan ADL Training Functional Mobility Patient/Family Education Discharge Planning Discharge Recommendations OT Discharge Recommendations Home with Assistance
--- NOTE | 2018-01-18 15:35 | PT.IPTN ---
Current Diagnoses Spondylolisthesis, lumbar region (01/16/18) Spinal stenosis, lumbar region without neurogenic claudication (01/16/18) Spinal stenosis, lumbar region with neurogenic claudication (01/16/18) Radiculopathy, lumbar region (01/16/18) Surgery Performed Operation Date: 01/16/18 10:45 Actual Procedures p L3-4,L4-5 Laminectomy, L4-5 Ant/Post (XLIF) Instru Fusion w/Bone Graft - Ashkan Devi MD Physical Therapy Treatment Note M2 PT-IP Current Condition Start: 01/17/18 09:36 Freq: NEEDED Status: Active Protocol: Document 01/18/18 15:30 [facility] (Rec: 01/18/18 15:35 [facility] [id number]) Physical Therapy Current Condition Current Condition Evaluation Date 01/17/18 Treatment Diagnosis s/p lumbar fusion and laminectomy Onset Date 01/16/18 Precautions Lumbar Precautions Log Roll No Twisting Limit Bending Lifting Restriction of 10 lbs Gait Belt above Incisional Area Weight Bearing Status Weight Bearing Status Weight Bear as Tolerated M3 PT-IP Subjective Start: 01/17/18 09:36 Freq: NEEDED Status: Active Protocol: Document 01/18/18 15:30 [facility] (Rec: 01/18/18 15:35 [facility] [id number]) Subjective Physical Therapy Visit Type Type Treatment Note Visit Start Time 15:05 Visit Stop Time 15:30 Total Visit Minutes 25 Notes Prior to ambulation, assisted pt to BR with SBA and FWW. Number of COFFEE WEIGHER Visits 0 Physical Therapy Visit Comments Patient Comments Pt needing to attempt BM, then would like to walk. Therapy Pain Assessment Pain When Pain Assessed During Mobility Pain Present Pain Present Pain Reported Location Left Lower Back Intensity 2 Scale Used Numeric (1 - 10) Description Aching M4 PT-IP Mobility and Gait Start: 01/17/18 09:36 Freq: NEEDED Status: Active Protocol: Document 01/18/18 15:30 [facility] (Rec: 01/18/18 15:35 [facility] [id number]) PT-Bed Mobility Assessment Supine to Sit Supine to Sit Standby Assistance PT-Transfer Assessment Sit to and From Stand Sit to and from Stand Standby Assistance Equipment Transfer Assistive Device Front Wheeled Walker Transfers Transfer Destination Chair Transfer Technique Stand Step Pivot Transfer Ability Level of Assist Standby Assistance Use of Upper Extremities Gait Assessment Gait Gait Assistance Required: Standby Assistance Distance (Feet) (feet) 300 Assistive Devices Assistive Device Gait Belt Front Wheeled Walker Comments Gait Comments step-through gait pattern, no increase in pain with ambulation. PT-Balance Assessment Sitting Balance and Reactions Static Sitting Balance Ability Good Dynamic Sitting Balance Ability Good Standing Balance and Reactions Static Standing Balance Ability Good Dynamic Standing Balance Ability Good Device Used FWW M5 PT-IP Objective Assessments Start: 01/17/18 09:36 Freq: NEEDED Status: Active Protocol: Document 01/17/18 09:36 [facility] (Rec: 01/17/18 09:45 [facility] [id number]) Orientation Orientation/Cognition Level of Alertness Alert Orientation Name Age Birthday Month Date Year Day of Week Place Situation Safety Awareness Understands Safety Issues Strength Lower Extremity Strength Assessment Left Impaired Knee 4-/5 Sensation Assessment Sensation Gross Sensation WNL M6 PT-IP Treatment Start: 01/17/18 09:36 Freq: NEEDED Status: Active Protocol: Document 01/18/18 15:30 [facility] (Rec: 01/18/18 15:35 [facility] [id number]) Physical Therapy Treatment Education Education Provided Precautions Safety M7 PT-IP Assessment and Plan Start: 01/17/18 09:36 Freq: NEEDED Status: Active Protocol: Document 01/18/18 15:30 [facility] (Rec: 01/18/18 15:35 [facility] [id number]) PT Summary Assessment and Plan Summary Impairments Strength Activity Tolerance Progress Towards Goals Progressing Toward Goals Safe For Discharge Assessment Summary POD #2. Pt able to ambulate with step-through gait pattern with FWW, requires occasional reminders to avoid twisting, but overall is progressing very well. Pt is cleared to d/ c home when medically stable. Goals Bed Mobility Goal Standby Assistance Transfer Goal Standby Assistance Gait Goal Standby Assistance Gait Distance 100 Other Goals up/down 3 steps with bilateral rails SBA Days to Meet Goals 2 Frequency of Treatment Frequency Of Treatment Twice a Day Treatment Plan Physical Therapy Treatment Plan Bed Mobility Training Transfer Training Gait Training Therapeutic Exercise Balance Retraining Post Op Education Discharge Planning Hot or Cold Pack Neuromuscular Re-ed Manual Therapy Recommendations To Nursing Amount of Assist Needed 1 Person Assist Discharge Recommendations PT Discharge Recommendations Home with Assistance
[2018-01-18 16:00] VITALS: BP 114/49; PULSE 63; RESP 18; TEMP 37; O2SAT 96
[2018-01-18] MEDS: GABAPENTIN 300 MG CAPSULE PO (20:47)
[2018-01-18] MEDS: SENNOSIDES 8.6 MG TABLET 17.2 MG PO (20:48)
[2018-01-19 00:24] VITALS: BP 109/51; PULSE 65; RESP 19; TEMP 36.4; O2SAT 95
[2018-01-19] MEDS: diphenhydrAMINE 25 MG TABLET PO (00:29)
[2018-01-19] MEDS: HYDROCODONE/ACET 5/325 TABLET 1 TAB PO ×2 (05:53→10:30)
--- NOTE | 2018-01-19 07:38 | P.PN_ITS ---
Subjective Date Patient Seen: 01/19/18 Time Patient Seen: 07:38 Interval history: Doing great. walking and transferring well. Exam Vital Signs (past 8 hours): Vital Signs - 8 hr 3 01/19/18 00:24 Temperature 97.5 F L Pulse Rate 65 Respiratory Rate 19 Blood Pressure 109/51 L Pulse Oximetry 95 Pulse Oximetry 95 Oxygen Delivery Method Room Air Oxygen Flow Rate 2 Back/Spine/Pelvis Other: cdi 5/5 motor BLE Objective Labs Result Diagrams: 01/17/18 04:50 01/17/18 04:50 Assessment & Plan Post-op Postoperative Procedures Operation Date: 01/16/18 10:45 Actual Procedures Side Surgeon p L3-4,L4-5 Laminectomy, L4-5 Ant/Post (XLIF) Instru Fusion w/Bone Graft Ashkan Devi MD doing great. dc home Time Spent With Patient less than 15 minutes Quality VTE Deep Vein Thrombosis/Pulmonary Embolism Present on Admission: No
--- NOTE | 2018-01-19 07:40 | P.DS_ITS ---
History of Present Illness Date Patient Seen: 01/19/18 Time Patient Seen: 07:38 Chief complaint: [id number] Narrative: 77 year old female with stenosis and spondylolisthesis Discharge Providers Date of admission: 01/16/18 08:44 Primary care physician: Tanya Sanz MD Consults: 01/16/18 16:04 Consult to Discharge Planning Routine Comment: Consult to Occupational Therapy Evaluate & Treat Comment: Physician Instructions: Evaluate and treat Consult to Physical Therapy Evaluate & Treat Comment: Physician Instructions: Evaluate and Treat Discharge provider: Ashkan Devi MD Summary Discharge Diagnosis: lumbar stenosis and spondylolisthesis Hospital Course: She had a L34 and L45 laminectomy with a L34 anterior/ posterior fusion (XLIF) on 01/16/18. She had an uneventful hospital course. Progressed well with PT. Exam Vital Signs (past 8 hours): Vital Signs - 8 hr 3 01/19/18 00:24 Temperature 97.5 F L Pulse Rate 65 Respiratory Rate 19 Blood Pressure 109/51 L Pulse Oximetry 95 Pulse Oximetry 95 Oxygen Delivery Method Room Air Oxygen Flow Rate 2 Back/Spine/Pelvis Other: dressing cdi 5/5 motor BLE Objective Labs Result Diagrams: 01/17/18 04:50 01/17/18 04:50 Discharge Plan Discharge Plan Patient Disposition: Home, Self-Care Discharge comment: f/u 1.5 wks Discharge Med Rec/Prescriptions Prescriptions: New hydroxyzine pamoate 25 mg Capsule 25 mg PO Q4HR PRN (Reason: spasms) Qty: 20 RF: 0 hydrocodone-acetaminophen 5-325 mg Tablet See Label Instructions .ROUTE .COMPLEX PRN (Reason: Pain, Severe) Qty: 40 RF : 0 Continue lisinopril 20 MG tablet 20 mg PO QDAY Qty: 0 RF: 0 multivitamin Tablet 1 tab PO DAILY RF: 0 acetaminophen [Tylenol Extra Strength] 500 mg Tablet 750 mg PO DAILY RF: 0 ascorbic acid (vitamin C) [Vitamin C] 500 mg Tablet 500 mg PO DAILY RF: 0 ferrous sulfate 325 mg (65 mg iron) Tablet 325 mg PO DAILY RF: 0 zolpidem 5 mg Tablet 5 mg PO BEDTIME PRN (Reason: Insomnia) RF: 0 rosuvastatin [Crestor] 10 mg Tablet 10 mg PO DAILY RF: 0 omega 3-xjc-ssi-fish oil [Fish Oil] 1,000 mg (120 mg-180 mg) Capsule 1 cap PO DAILY RF: 0 naproxen sodium [Aleve] 220 mg Capsule 220 mg PO DAILY RF: 0 Provider Discharge Instructions Activity: limited BLT 10 lbs lift Wound Care Dressing: may change dressing and shower POD #5 Discharge Data Primary Care Provider: Tanya Sanz Attending Provider: Ashkan Devi Admit Date/Time: 01/16/18 08:44 Quality VTE Deep Vein Thrombosis/Pulmonary Embolism Present on Admission: No
[2018-01-19 07:44] VITALS: BP 135/69; PULSE 63; RESP 16; TEMP 36.4; O2SAT 99
[2018-01-19] MEDS: ASCORBIC ACID 500 MG TABLET PO (09:26)
[2018-01-19] MEDS: CELECOXIB 200 MG CAPSULE PO (09:26)
[2018-01-19] MEDS: DOCUSATE 100 MG CAPSULE PO (09:26)
[2018-01-19] MEDS: FERROUS SULFATE 325 MG TABLET PO (09:26)
[2018-01-19] MEDS: LISINOPRIL 20 MG TABLET PO (09:27)
[2018-01-19] MEDS: FISH OIL 1,000 MG CAPSULE 1000 MG PO (09:27)
[2018-01-19] MEDS: MULTIVITAMIN 1 TABLET 1 TAB PO (09:27)
[2018-01-19] MEDS: ROSUVASTATIN 10 MG TABLET PO (09:27)
--- NOTE | 2018-01-19 09:42 | PC.NURSE ---
Addendum entered by Mabel Okeefe R.N. 01/19/18 12:12: Discharge: Given all d/c instructions and reviewed thoroughly. Given scripts for Vistaril and Vicodin, order to continue all home meds as before. Understands she can remove dressings and shower post-op day 5, no baths/swimming until cleared by MD. Instructed to call office with s/sx infection, new CMS issues, bowel/bladder trouble, or with any other symptoms that arise prior to follow up. She knows when her follow up is scheduled. Verbalized understanding of all d/c info and stated no further questions. All personal belongings sent at discharge. Taken out to private vehicle by nursing staff (via wheelchair). Original Note: Alert and oriented X3. Denies much back pain. Dressings to mid low back and L flank C/D/I. CMS+, denies paresthesias. Voiding WNL and had BM this morning. Lungs CTA, HRR. SpO2 on RA 96-97%. Able to make needs known and calls appropriately. Plan is to d/c home later this morning. Has call light in reach.
== END 2018-01-19 12:00 | disposition home or self-care (01) | DRG 454 ==
PROVIDERS: Anesthesiology; Admitting Provider Orthopaedic Surgery; Family Provider Internal Medicine; PCP Internal Medicine; Visit Provider Orthopaedic Surgery
PROC: 0SG00A0 Fusion of Lumbar Vertebral Joint with Interbody Fusion Device, Anterior Approach, Anterior Column, Open Approach (ICD-10-PCS; CPT 22558; principal; 2018-01-16 10:45)
DX: M43.16 Spondylolisthesis, lumbar region (principal); Z68.41 Body mass index [BMI] 40.0-44.9, adult; M48.062 Spinal stenosis, lumbar region with neurogenic claudication; I10 Essential (primary) hypertension; E66.01 Morbid (severe) obesity due to excess calories; G47.00 Insomnia, unspecified; K21.9 Gastro-esophageal reflux disease without esophagitis; E78.5 Hyperlipidemia, unspecified
CPT/HCPCS: 36415; 36592; 72100; 76001; 80048; 84132; 85014; 85018; 94760; 94762; 97116; 97162; 97165; 97530; 97535; C1776; A9270; J0330; J0595; J0690; J2250; J2274; J2405; J2704; J2765; J3010; J8501

== ENCOUNTER 2018-02-15 09:14 | Inpatient (IN) | payer OTHER, SELFPAY ==
[2018-01-16 16:00] VITALS: BMI 40.6
[2018-02-15] VITALS (18 sets, daily range): BP systolic 105–147; BP diastolic 53–79; PULSE 59–76; RESP 12–18; TEMP 35.8–37.2; O2SAT 93–100; BMI 40.6
[2018-02-15 10:17] LABS: Add Manual Diff / Slide Review NO; Basophils Percent Auto 0.9 % (0-2); Hematocrit 42.1 % (36-46); Lymphocytes Percent Auto 22.1 % (25-40); Mean Corpuscular HGB Conc 33.3 % (30-36); Mean Corpuscular Volume 93.1 fL (80-100); Monocytes Percent Auto 14.7 % (3-14); Neutrophils Absolute Auto 4200 /uL (3000-5900); Neutrophils Percent Auto 57.3 % (50-75); Platelet Count 300 X10^3/uL (150-400); Red Blood Cell Count 4.52 X10^6/uL (4.0-5.2); Red Cell Distribution Width 14.1 % (11.6-14.8); White Blood Cell Count 7.3 X10^3/uL (4.5-11.0)
[2018-02-15] MEDS: LACTATED RINGERS 1,000 ML 42 ML IV (10:29)
[2018-02-15 10:35] LABS: BUN Creatinine Ratio 23.3 (6-22); Blood Urea Nitrogen 14 mg/dL (7-17); C-Reactive Protein Quant 0.7 mg/dL (<1.0); Calcium 9.4 mg/dL (8.4-10.2); Carbon Dioxide 29 mmol/L (22-32); Chloride 105 mmol/L (98-107); Estimated Glomerular Filt Rate > 60.0 mL/min (>60); Glucose 106 mg/dL (80-110); HEMOLYSIS < 15 (0-50); Sodium 142 mmol/L (137-145)
[2018-02-15 11:14] LABS: Erythrocyte Sedimentation Rate 15 MM/HR (0-20)
--- NOTE | 2018-02-15 11:24 | PM.PREOP ---
Pre-operative Note Interval Note Pre-op Check: History & Physical Reviewed by Physician and Exam Performed
[2018-02-15] MEDS: CEFAZOLIN 2 GM/100 ML FROZ.PIGGY IV ×2 (12:01→20:35)
[2018-02-15] MEDS: SODIUM CHLORIDE IRRIG SOLUTION 3,000 ML, GENTAMICIN 240 MG IRR (12:10)
--- NOTE | 2018-02-15 12:26 | PM.OP.1 ---
Operative Date/Time/Diagnoses Date of procedure: 02/15/18 Time of procedure: 12:26 Pre-op diagnosis: Postoperative wound dehiscence lumbar spine Post-op diagnosis: same Procedure & Clinicians Procedure: Irrigation and excisional debridement of lumbar spine wound Same procedure as scheduled: Yes Indications: 77-year-old female who presented to the office 3 weeks after her surgery with dehiscence of the upper half of her wound. It was felt that she would need surgical debridement and exploration. Risks and benefits of surgery were discussed and appropriate consents were obtained. These include but not limited to medical risks with heart attack, stroke, , PE, DVT, bleeding, further wound breakdown, ongoing infection, need for further surgery. Surgeon: Ashkan Devi Click Yes if Unassisted: Yes Anesthesia Type: General Operative Notes Findings: No evidence of any purulence. Intact fascial layer Closure Type: primary Specimen(s): other (Cultures of the superficial wound) Implants & Drains: Hemovac drain Estimated Blood Loss (mL): 5 Blood products transfused: none Procedure in detail: Patient was brought to the operating room and intubated on the stretcher. She was rolled over to the well-padded Harrison table. The back was prepped and draped in standard sterile fashion. A time-out was performed. Antibiotics were held. I bluntly dissected and opened up her entire wound. There is no evidence of any purulence. There was fibrinous exudate only. The fascial layer appeared intact. I then sharply debrided the adipose tissue and superficial layer all the way down to the muscle fascia with a sharp Williamson. The wound was then copiously irrigated with pulsatile lavage. I then explored further and the fascial layer was definitely intact. As all of her infection lab values were normal and this layer was intact, I did not want open up the deep tissue and expose the 2 potential external source of infection. We then repeated the sharp excisional debridement until we came down to completely fresh tissue and then finished off with pulsatile lavage. A drain was placed on top of the muscle fascia, approximately 4 cm deep. We then closed the superficial tissue in layers. Retention mattress sutures were used to close the skin. Sterile dressing was placed. She was then rolled over extubated brought to recovery with no complications Complications: none Condition: stable Disposition: PACU Plan for aftercare: Inpatient for IV antibiotics. Probable discharge home in 2 days on just prophylactic oral antibiotics. Awaiting culture results, but with her normal lab values I either anticipate no growth or possible minimal contaminant.
[2018-02-15] MEDS: fentaNYL 100 MCG/2 ML INJ 50 MCG IV ×2 (12:55→13:00)
[2018-02-15] MEDS: HYDROMORPHONE 2 MG INJ 0.5 MG IV (13:05)
--- NOTE | 2018-02-15 14:01 | PC.NURSE ---
Addendum entered by Mabel Okeefe R.N. 02/15/18 14:05: Oriented to room and call light, encouraged to make needs known. Bed alarm on. Original Note: Post-op: Arrived to room 222 approx 1330. Wide awake and alert, oriented X3. Dressing to mid low back C/D/I. Hemovac compressed, sanguinous drainage noted in tubing. IV fluids per order, site in L hand WNL. Primary RN Dali in working on admit assessment now.
[2018-02-15] MEDS: LACTATED RINGERS 1,000 ML 125 ML IV ×2 (14:08→20:41)
[2018-02-15] MEDS: HYDROCODONE/ACET 5/325 TABLET 2 TAB PO ×3 (14:16→23:51)
--- NOTE | 2018-02-15 14:59 | OT.IP.EVAL ---
Current Diagnoses Spondylolisthesis, lumbar region (02/15/18) Spinal stenosis, lumbar region with neurogenic claudication (02/15/18) Disruption of external operation (surgical) wound, not elsewhere classified, initial encounter (02/15/18) Surgery Performed Operation Date: 02/15/18 11:00 Actual Procedures p Incision and Drainage Wound/Spine - Ashkan Devi MD Past Medical History (Last Updated 01/10/18 @ 09:07 by Halie Wilburn, RN) Back pain (Acute) Colon polyp (Acute) GERD (gastroesophageal reflux disease) (Acute) Hammer toe (Acute) Hemorrhoids (Acute) History of rectocele (Acute) Hyperlipidemia (Acute) Hypertension (Acute) Insomnia (Acute) Iron deficiency anemia (Acute) Joint pain (Acute) Left bundle branch block (Acute) Leg pain (Acute) Low back pain (Acute) 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) Morbid obesity (Acute) Osteoarthritis (Acute) Spinal stenosis, lumbar region with neurogenic claudication (Acute) Spondylolisthesis at L4-L5 level (Acute) Statin intolerance (Acute) Tinnitus of left ear (Acute) Surgical History (Last Updated 01/13/18 @ 09:23 by Halie Wilburn, RN) History of arthroplasty of right shoulder (Acute) History of bunionectomy of left great toe (Acute) History of bunionectomy of right great toe (Acute) History of discectomy (Acute) History of thumb surgery (Acute) History of tonsillectomy (Acute) History of tympanoplasty of left ear (Acute) Hx of total knee arthroplasty (Acute) S/P epidural steroid injection (Acute) Occupational Therapy Inpatient Evaluation/Re-Eval M1 PT/OT-IP Prior Functional Status Start: 02/15/18 14:41 Freq: NEEDED Status: Active Protocol: Document 02/15/18 14:42 ADH (Rec: 02/15/18 14:58 ADH [id number]) Medical Review Prior Functional Status Medical History Reviewed Yes Mobility and Gait Pt previously I with all functional mobility, no AD Activities of Daily Living and IADL's I with all bADLs and IADLs including driving, shopping, meals, medications & finances Social History Household Members none Living Arrangements Apartment/Condo Number of Floors (Floors) One Floor Number of Stairs To Enter/Railing? 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 OT-IP Current Condition Start: 02/15/18 14:41 Freq: Status: Active Protocol: Document 02/15/18 14:42 ADH (Rec: 02/15/18 14:58 ADH [id number]) Occupational Therapy Current Condition Current Condition Evaluation Date 02/15/18 Treatment Diagnosis wound dehiscence Diagnosis Onset Date 02/15/2018 Post Operative Precautions Lumbar Precautions Log Roll No Twisting Limit Bending Lifting Restriction of 10 lbs Gait Belt above Incisional Area Weight Bearing Status Weight Bearing Status Weight Bear as Tolerated M3 OT- IP Subjective and Pain Start: 02/15/18 14:41 Freq: Status: Active Protocol: Document 02/15/18 14:42 ADH (Rec: 02/15/18 14:58 ADH [id number]) OT- Subjective Occupational Therapy Visit Type Type Initial Evaluation Visit Start Time 02:00 Visit Stop Time 02:40 Total Visit Minutes 40 Notes Pt agreeable to OT evaluation OT Pain Assessment Pain When Pain Assessed During Mobility Pain Present Pain Present Pain Reported Location Left Buttock Intensity 4 Scale Used Numeric (1 - 10) Management Techniques Apply Cold Distraction Modification of Treatment Re-positioning Timing of Activity with Medications M4 OT- IP ADL's Start: 02/15/18 14:41 Freq: Status: Active Protocol: Document 02/15/18 14:42 ADH (Rec: 02/15/18 14:58 ADH [id number]) OT ZUC-Gcwe-[place] General Evaluation Self-Feeding Ability Independent OT ADL-Grooming General Evaluation Grooming Ability Independent OT ADL-Dressing General Eval Lower Body Dressing Ability Moderate Assistance Areas Needing Assistance Socks M6 OT- IP Functional Cognition Start: 02/15/18 14:41 Freq: Status: Active Protocol: Document 02/15/18 14:42 ADH (Rec: 02/15/18 14:58 ADH [id number]) Cognitive Factors Limiting Selfcare Function Cognitive Ability Level of Alertness Alert Patient Orientation Name Age Month Date Year Day of Week Place Situation Attention Span Ability Capable of Focused Attention Capable of Sustained Attention Ability to Follow Commands Able to Follow Multi-Step Commands Memory Description No Deficits Noted Safety Awareness No Deficits Noted Problem Solving Ability No deficits Noted Executive Function Ability No Deficits Noted Abstract Thinking Ability No Deficits Noted OT- Vision and Hearing OT- Hearing Assessment OT- Hearing Assessment WFL OT- Vision Assessment Visual Acuity Glasses All The Time M7 OT- IP Mobility and Balance Start: 02/15/18 14:41 Freq: Status: Active Protocol: Document 02/15/18 14:42 ADH (Rec: 02/15/18 14:58 ADH [id number]) OT- Bed Mobility Assessment Rolling Type of Rolling Log Rolling Level of Assistance Contact Guard Assistance Supine to Sit Supine to Sit Assist Contact Guard Assistance Sit to Supine Sit to Supine Assist Contact Guard Assistance Scooting Scooting to Edge of Bed Standby Assistance Scooting Up and Down in Bed Standby Assistance OT-Transfer Assessment Sit to and From Stand Sit to and from Stand Contact Guard Assistance Transfers Transfer Ability Contact Guard Assistance Devices Transfer Assistive Devices Gait Belt Front Wheeled Walker Comments Mobility Comments Pt able to demo sit/stand from EOB, and march in place for ~ 1 minute, no increase in pain M8 OT- IP Objective Assessments Start: 02/15/18 14:41 Freq: Status: Active Protocol: Document 02/15/18 14:42 ADH (Rec: 02/15/18 14:58 ADH [id number]) OT Gross Range of Motion Upper Extremity Range of Motion Assessment Within Functional Limits OT Strength Upper Extremity Strength Assessment Within Functional Limits OT- Coordination Assessment Upper Extremity Finger Tapping Test Within Functional Limits M9 OT- IP Assessment and Plan Start: 02/15/18 14:41 Freq: Status: Active Protocol: Document 02/15/18 14:42 ADH (Rec: 02/15/18 14:58 ADH [id number]) OT Summary Assessment and Plan Potential Rehabilitation Potential Excellent Analytic Complexity at Evaluation Low Summary OT Impairments Range of Motion Progress Towards Goals Progressing Toward Goals Assessment Summary Pt presenting with high level of functional mobility and good pain management during OT evaluation. Pt would benefit from practice performing functional tasks while maintaining back precautions. Goals Dressing Goal Standby Assistance Toilet Transfer Goal Independent Treatment Plan OT Treatment Plan ADL Training Discharge Recommendations OT Discharge Recommendations Home with Assistance Other Discharge Recommendations Anticipate pt to continue progressing barring medical or pain management complications . Pt will need assistance upon d/c home for heavy ADLs.
--- NOTE | 2018-02-15 15:02 | PC.NURSE ---
Pt to floor at 1330 after wound closure following dehiscence. Has a hemovac patent and draining SS fluid.
--- NOTE | 2018-02-15 15:35 | PT.IPTN ---
Current Diagnoses Spondylolisthesis, lumbar region (02/15/18) Spinal stenosis, lumbar region with neurogenic claudication (02/15/18) Disruption of external operation (surgical) wound, not elsewhere classified, initial encounter (02/15/18) Surgery Performed Operation Date: 02/15/18 11:00 Actual Procedures p Incision and Drainage Wound/Spine - Ashkan Devi MD Physical Therapy Treatment Note M3 PT-IP Subjective Start: 02/15/18 14:11 Freq: NEEDED Status: Active Protocol: Document 02/15/18 15:33 RS (Rec: 02/15/18 15:35 RS [id number]) Subjective Physical Therapy Visit Type Type Administrative Note Physical Therapy Visit Comments Patient Comments Pt reports feeling really loopy from vicodin, would prefer to wait until tomorrow for participation in PT eval. Pt denies having any mobility issues at home since her surgery, ambulates independently without AD, does stairs just fine.
[2018-02-15] MEDS: DOCUSATE 100 MG CAPSULE PO (20:35)
[2018-02-15] MEDS: SENNOSIDES 8.6 MG TABLET 17.2 MG PO (20:35)
[2018-02-15] MEDS: ZOLPIDEM 5 MG TABLET PO (23:51)
[2018-02-16] MEDS: CEFAZOLIN 2 GM/100 ML FROZ.PIGGY IV ×3 (03:57→21:10)
[2018-02-16] MEDS: LACTATED RINGERS 1,000 ML 125 ML IV ×2 (03:58→12:12)
[2018-02-16] MEDS: HYDROCODONE/ACET 5/325 TABLET 1 TAB PO ×5 (04:00→23:51)
[2018-02-16 04:14] VITALS: BP 134/69; PULSE 59; RESP 16; TEMP 36.2; O2SAT 96
[2018-02-16 08:09] VITALS: BP 123/66; PULSE 59; RESP 16; TEMP 36.6; O2SAT 95
--- NOTE | 2018-02-16 08:20 | P.PN_ITS ---
Subjective Date Patient Seen: 02/16/18 Time Patient Seen: 08:17 Interval history: She is doing fine. Minimal pain. Exam Vital Signs (past 8 hours): - 02/16/18 04:14 02/16/18 08:09 Temperature 97.2 F L 98 F Pulse Rate 59 L 59 L Respiratory Rate 16 16 Blood Pressure 134/69 H 123/66 H Pulse Oximetry 96 95 Oxygen Delivery Method Room Air Oxygen Flow Rate 0 Const Orientation: alert and oriented x3 Other: Dressing clean dry and intact. Drain 6 mL output. 5/5 motor both lower extremities Objective Labs Result Diagrams: 02/15/18 10:05 02/15/18 10:05 Labs: Laboratory Results - last 24 hr 02/15/18 02/15/18 10:05 10:05 WBC 7.3 RBC 4.52 Hgb 14.0 Hct 42.1 MCV 93.1 MCH 31.0 MCHC 33.3 RDW 14.1 Plt Count 300 Neut % (Auto) 57.3 Lymph % (Auto) 22.1 L [place] % (Auto) 14.7 H Eos % (Auto) 5.0 H Baso % (Auto) 0.9 Neut # (Auto) 4200 ESR 15 Sodium 142 Potassium 4.0 Chloride 105 Carbon Dioxide 29 BUN 14 Creatinine 0.60 Estimated GFR > 60.0 BUN/Creatinine Ratio 23.3 H Glucose 106 Calcium 9.4 C-Reactive Protein 0.7 Gram stain with 4+ Gram-positive cocci Assessment & Plan Post-op Postoperative Procedures Operation Date: 02/15/18 11:00 Actual Procedures Side Surgeon p Incision and Drainage Wound/Spine Ashkan Devi MD her infection labs were all normal and there was no sign of purulence during surgery but most likely staph aureus was growing from the skin down into the open wound, which is why this was showing up on her Gram stain. She has been thoroughly debrided at this point. I am going to maintain her on 48 hr of Ancef and probably discharge home tomorrow on Keflex unless her sensitivities come back with a resistant organism. Time Spent With Patient less than 15 minutes
[2018-02-16] MEDS: ASCORBIC ACID 500 MG TABLET PO (08:27)
[2018-02-16] MEDS: NAPROXEN 250 MG TABLET PO (08:27)
[2018-02-16] MEDS: DOCUSATE 100 MG CAPSULE PO ×2 (08:28→21:09)
[2018-02-16] MEDS: FERROUS SULFATE 325 MG TABLET PO (08:28)
[2018-02-16] MEDS: MULTIVITAMIN 1 TABLET 1 TAB PO (08:28)
[2018-02-16] MEDS: LISINOPRIL 20 MG TABLET PO (08:29)
--- NOTE | 2018-02-16 09:16 | CM.DANOTE ---
Discharge Planning/Care Management DCP: assessment: case received, EMR reviewed for this admission and prior. Met now with pt and introduced self and role. Pt is a 77 year old female who admitted yesterday to Surgeon: Dr. Devi. Had procedure to repair wound dehiscence s/p spinal surgery last month. PCP: DR. Roseann Sanz Payer: [employer] (initial clinical is now faxed as per weekend protocol and confirmation of fax receipt is given to [employer] to process 02/17. Pt plans to return home when stable for same with prn friends' support. Dr. Devi states in his notes that pt will receive IV antibiotics for a couple of days and then he expects her to go home on oral antibiotics. PT Yoandy is working with pt this morning/initial eval. Pt is noted now to be ambulating around unit with Yoandy, she appears to be moving easily and comforably. P: home when stable...follow prn for any needs that may arise Discharge Assessment Start: 02/16/18 09:12 Freq: Status: Active Protocol: Document 02/16/18 09:13 ITV (Rec: 02/16/18 09:15 ITV [id number]) Discharge Planning Assessment History Provided By Patient Medical Record Has Patient been admitted in last 30 Yes days? Is this patient on Medicare? No Comment [employer]. admission related to last admit: surgical wound dehisc Prior Living Arrangements Apartment/Condo Household Members none Type of transporation used prior to Drives own vehicle admit Independent with ADL's Yes Is patient alert and oriented? Yes Comment pt states she did very well going home post surgery. plans same this time. States has many supportive friends to assist prn. Friend will drive her. Discharge Plan Home Transportation Arrangement Friend Review Status In Process Next Review Type Continued Stay Review
--- NOTE | 2018-02-16 09:30 | PT.IIE ---
Current Diagnoses Spondylolisthesis, lumbar region (02/15/18) Spinal stenosis, lumbar region with neurogenic claudication (02/15/18) Disruption of external operation (surgical) wound, not elsewhere classified, initial encounter (02/15/18) Surgery Performed Operation Date: 02/15/18 11:00 Actual Procedures p Incision and Drainage Wound/Spine - Ashkan Devi MD Surgical History (Last Updated 01/13/18 @ 09:23 by Halie Wilburn, RN) History of arthroplasty of right shoulder (Acute) History of bunionectomy of left great toe (Acute) History of bunionectomy of right great toe (Acute) History of discectomy (Acute) History of thumb surgery (Acute) History of tonsillectomy (Acute) History of tympanoplasty of left ear (Acute) Hx of total knee arthroplasty (Acute) S/P epidural steroid injection (Acute) Medical History (Last Updated 01/10/18 @ 09:07 by Halie Wilburn, RN) Back pain (Acute) Colon polyp (Acute) GERD (gastroesophageal reflux disease) (Acute) Hammer toe (Acute) Hemorrhoids (Acute) History of rectocele (Acute) Hyperlipidemia (Acute) Hypertension (Acute) Insomnia (Acute) Iron deficiency anemia (Acute) Joint pain (Acute) Left bundle branch block (Acute) Leg pain (Acute) Low back pain (Acute) 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) Morbid obesity (Acute) Osteoarthritis (Acute) Spinal stenosis, lumbar region with neurogenic claudication (Acute) Spondylolisthesis at L4-L5 level (Acute) Statin intolerance (Acute) Tinnitus of left ear (Acute) Physical Therapy Inpatient Evaluation/Re-Eval M1 PT/OT-IP Prior Functional Status Start: 02/15/18 14:41 Freq: NEEDED Status: Active Protocol: Document 02/16/18 09:30 RCC (Rec: 02/16/18 10:55 RCC [id number]) Medical Review Prior Functional Status Medical History Reviewed Yes Mobility and Gait Pt previously I with all functional mobility, no AD Activities of Daily Living and IADL's I with all bADLs and IADLs including driving, shopping, meals, medications & finances Social History Household Members none Living Arrangements Apartment/Condo Number of Floors (Floors) One Floor Number of Stairs To Enter/Railing? 3 SE with rail Home Environment Standard Height Toilet Walk in Shower Home Equipment Front Wheel Walker M2 PT-IP Current Condition Start: 02/15/18 14:11 Freq: NEEDED Status: Active Protocol: Document 02/16/18 09:30 RCC (Rec: 02/16/18 10:55 [facility] [id number]) Physical Therapy Current Condition Current Condition Evaluation Date 01/17/18 Precautions Lumbar Precautions Log Roll No Twisting Limit Bending Lifting Restriction of 10 lbs Gait Belt above Incisional Area Weight Bearing Status Weight Bearing Status Weight Bear as Tolerated M3 PT-IP Subjective Start: 02/15/18 14:11 Freq: NEEDED Status: Active Protocol: Document 02/16/18 09:30 RCC (Rec: 02/16/18 10:55 [facility] [id number]) Subjective Physical Therapy Visit Type Type Initial Evaluation Visit Start Time 09:00 Visit Stop Time 09:30 Total Visit Minutes 30 Number of PROCESS EXCELLENCE MANAGER Visits 0 Physical Therapy Visit Comments Patient Comments Pt notes that she is feeling well overall. Patient/Caregiver Goals go home Therapy Pain Assessment Pain Present Pain Present Denied Pain M4 PT-IP Mobility and Gait Start: 02/15/18 14:11 Freq: NEEDED Status: Active Protocol: Document 02/16/18 09:30 RCC (Rec: 02/16/18 10:55 [facility] [id number]) PT-Transfer Assessment Sit to and From Stand Sit to and from Stand Independent Use of Upper Extremities Transfers Transfer Destination Chair Transfer Technique Stand Step Pivot Transfer Ability Level of Assist Independent Comments Mobility Comments no AD Gait Assessment Gait Gait Assistance Required: Standby Assistance Distance (Feet) (feet) 500 Assistive Devices Assistive Device Gait Belt Gait Deviations General Gait Pattern Within Normal Limits Factors Limiting Gait Function Factors Limiting Gait Function Decreased Activity Tolerance Comments Gait Comments no loss of balance, uses rail on wall to rest when fatigued Stair Climbing Assessment Evaluation Level of Assist On Stairs Independent Devices Stair Climbing Assistive Devices Right Railing Technique/Endurance Stair Climbing Direction Ascend and Descend Stair Climbing Technique Step Over Step Number of Steps Climbed 3 Query Text: Stair Climbing Set # Repetitions (reps) 1 PT-Balance Assessment Sitting Balance and Reactions Static Sitting Balance Ability Normal Dynamic Sitting Balance Ability Normal Standing Balance and Reactions Static Standing Balance Ability Normal Dynamic Standing Balance Ability Normal M5 PT-IP Objective Assessments Start: 02/15/18 14:11 Freq: NEEDED Status: Active Protocol: Document 02/16/18 09:30 RCC (Rec: 02/16/18 10:55 [facility] [id number]) Orientation Orientation/Cognition Level of Alertness Alert Orientation Name Age Birthday Month Date Year Day of Week Place Situation Language Function Ability No Deficits Noted Memory Description No Deficits Noted Coordination Assessment Gross Coordination Gross Coordination WNL M6 PT-IP Treatment Start: 02/15/18 14:11 Freq: NEEDED Status: Active Protocol: Document 02/16/18 09:30 RCC (Rec: 02/16/18 10:55 [facility] [id number]) Physical Therapy Treatment Education Education Provided Precautions Safety M7 PT-IP Assessment and Plan Start: 02/15/18 14:11 Freq: NEEDED Status: Active Protocol: Document 02/16/18 09:30 [facility] (Rec: 02/16/18 10:55 [facility] [id number]) PT Summary Assessment and Plan Potential Rehabilitation Potential Excellent Status of Condition at Evaluation Stable Summary Impairments Activity Tolerance Progress Towards Goals Safe For Discharge Assessment Summary POD #1 lumbar spine wound dehiscence with I&D. Pt moving well without the use of an assistive device. She is able to transfer independently and go up/down stairs and ambulate 500 ft without assistance and no assistive devices. Pt is cleared to d/c home when medically stable. No further acute physical therapy needs required. Frequency of Treatment Frequency Of Treatment Discharge Discharge Recommendations PT Discharge Recommendations Home
--- NOTE | 2018-02-16 10:45 | PC.NURSE ---
AM NOTE - alert, states back discomfort 4 on scale 0/10 this am, darius gen diet, discussed pain medications, dosages, timing and given norco 5/325mg x 1 tab, bs clear, ra 98%, reaches 1999 on IS, hemovac compressed, no active drainage noted in tubing, cath is intact, has a dry, non productive cough occassionally, states started a few days prior to surgery, telfa dsg back c,d,i, later up with PT, no dizziness, ambul w/fww out into hallway, ret to chair, states the norco provided good relief, after seated chair awhile, req back to bed.
[2018-02-16 11:13] VITALS: BP 136/74; PULSE 61; RESP 16; TEMP 36.7; O2SAT 95
[2018-02-16 15:34] VITALS: BP 135/76; PULSE 62; RESP 16; TEMP 36.7; O2SAT 97
[2018-02-16 19:48] VITALS: BP 133/71; PULSE 74; RESP 16; TEMP 36.9; O2SAT 96
[2018-02-16] MEDS: ROSUVASTATIN 10 MG TABLET PO (21:09)
[2018-02-16] MEDS: SENNOSIDES 8.6 MG TABLET 17.2 MG PO (21:09)
[2018-02-16 23:47] VITALS: BP 127/69; PULSE 67; RESP 18; TEMP 36.9; O2SAT 95
[2018-02-16] MEDS: ZOLPIDEM 5 MG TABLET PO (23:51)
[2018-02-17] MEDS: LACTATED RINGERS 1,000 ML 125 ML IV (00:01)
[2018-02-17] MEDS: CEFAZOLIN 2 GM/100 ML FROZ.PIGGY IV ×2 (04:41→10:57)
[2018-02-17 05:30] VITALS: BP 149/73; PULSE 62; RESP 17; TEMP 36.8; O2SAT 96
--- NOTE | 2018-02-17 06:31 | PC.NURSE ---
Pt is AxOx3, VSS, with minimal pain. Oxycodone 1 tab given once with pain relief. Hemovac drained 5mL of sanguinous fluid. Site is clean, dry and intact covered by gauze and tegaderm. Pt is ambulatory independently. No BM overnight. LR @125mL/hr running as ordered. IV ABX given.
--- NOTE | 2018-02-17 07:29 | P.DS_ITS ---
History of Present Illness Date Patient Seen: 02/17/18 Time Patient Seen: 07:15 Chief complaint: SURGICAL WOUND Narrative: Patient is seen bedside status post I and D and closure of surgical wound dehiscence. Patient is postop day 2. Patient is doing well pain is well controlled. Cultures are currently negative. Anaerobic culture is still pending however. Discharge Providers Date of admission: 02/15/18 09:14 Primary care physician: Tanya Sanz MD Consults: 02/15/18 13:39 Consult to Occupational Therapy Evaluate & Treat Comment: Physician Instructions: Evaluate and treat Consult to Physical Therapy Evaluate & Treat Comment: Physician Instructions: Evaluate and Treat Consult to Respiratory Therapy Evaluate & Treat Comment: Physician Instructions: Evaluate and treat Discharge provider: Alecia Silva PA-C Summary Discharge Diagnosis: Surgical wound dehiscence Hospital Course: Patient was admitted on 02/15/2018 for surgical wound dehiscence after TLIF 3 weeks ago. Patient brought to the OR on 02/15/2018 for an I and D and closure of the dehiscence. She tolerated the procedure well no major complications cultures were taken at that time gram stain was positive for Staph but cultures are currently negative. Minimal discharge in Hemovac drain. Patient is stable for discharge on oral antibiotics on 02/17/2018. Condition of patient discharged is improved. Status at Discharge Cognitive/behavioral status at discharge: A&Ox4 Functional status at discharge: independent ambulation Time Spent with Patient Less than 30 minutes Exam Vital Signs (past 8 hours): - 02/16/18 23:47 02/17/18 05:30 Temperature 98.5 F 98.3 F Pulse Rate 67 62 Respiratory Rate 18 17 Blood Pressure 127/69 H 149/73 H Pulse Oximetry 95 96 Oxygen Delivery Method Room Air Oxygen Flow Rate 0 Narrative Exam Narrative: The patient is well-developed well-nourished in no acute distress. Patient alert oriented x3. Examination of the patient shows dressing is clean dry and intact minimal discharge and Hemovac drain. She is neurovascularly intact in the bilateral lower extremities. Objective Labs Result Diagrams: 02/15/18 10:05 02/15/18 10:05 Discharge Plan Discharge Plan Patient Disposition: Home, Self-Care Discharge Med Rec/Prescriptions Prescriptions: New hydrocodone-acetaminophen 5-325 mg Tablet 1 tab PO Q4HR PRN (Reason: Pain, Moderate (4-6)) Qty: 30 RF: 0 cephalexin [Keflex] 500 mg capsule 500 mg PO QID 10 Days Qty: 40 RF: 0 Continue lisinopril 20 MG tablet 20 mg PO QDAY Qty: 0 RF: 0 multivitamin Tablet 1 tab PO DAILY RF: 0 acetaminophen [Tylenol Extra Strength] 500 mg Tablet 750 mg PO DAILY RF: 0 ascorbic acid (vitamin C) [Vitamin C] 500 mg Tablet 500 mg PO DAILY RF: 0 ferrous sulfate 325 mg (65 mg iron) Tablet 325 mg PO DAILY RF: 0 zolpidem 5 mg Tablet 5 mg PO BEDTIME PRN (Reason: Insomnia) RF: 0 rosuvastatin [Crestor] 10 mg Tablet 10 mg PO DAILY RF: 0 omega 5-fwp-jld-fish oil [Fish Oil] 1,000 mg (120 mg-180 mg) Capsule 1 cap PO DAILY RF: 0 naproxen sodium [Aleve] 220 mg Capsule 220 mg PO DAILY RF: 0 hydroxyzine pamoate 25 mg Capsule 25 mg PO Q4HR PRN (Reason: spasms) Qty: 20 RF: 0 Discontinued hydrocodone-acetaminophen 5-325 mg Tablet See Label Instructions .ROUTE .COMPLEX PRN (Reason: Pain, Severe) Qty: 40 RF : 0 Follow up/Referrals: Ashkan Devi MD [Physician] - (Follow up at previously scheduled appointment.) Provider Discharge Instructions Diet: Diet as Tolerated Activity: WBAT, limit twisting and bending, no lifting greater than 25 lbs Wound Care Report to your healthcare provider any signs of infection, such as:: chills, fever, night sweats, increased pain and unusual drainage Dressing: Keep dressing clean, dry, and intact Discharge Data Primary Care Provider: Tanya Sanz Attending Provider: Ashkan Devi Admit Date/Time: 02/15/18 09:14 Quality VTE Deep Vein Thrombosis/Pulmonary Embolism Present on Admission: No
[2018-02-17 07:48] VITALS: BP 154/71; PULSE 66; RESP 16; TEMP 37.1; O2SAT 95
[2018-02-17] MEDS: ASCORBIC ACID 500 MG TABLET PO (08:17)
[2018-02-17] MEDS: NAPROXEN 250 MG TABLET PO (08:17)
[2018-02-17] MEDS: FERROUS SULFATE 325 MG TABLET PO (08:18)
[2018-02-17] MEDS: MULTIVITAMIN 1 TABLET 1 TAB PO (08:18)
[2018-02-17] MEDS: LISINOPRIL 20 MG TABLET PO (08:18)
[2018-02-17] MEDS: DOCUSATE 100 MG CAPSULE PO (08:18)
[2018-02-17 11:40] VITALS: BP 155/68; PULSE 63; RESP 16; TEMP 37.2; O2SAT 95
--- NOTE | 2018-02-17 13:31 | PC.NURSE ---
Day shift: Pt left unit at approx 1330. She ambulated to car and friend is driving her home. Paperwork signed and questions answered. She has scrips as well. Pt also has all her personal belongings.
== END 2018-02-17 13:40 | disposition home or self-care (01) | DRG 908 ==
PROVIDERS: Admitting Provider Orthopaedic Surgery; Family Provider Internal Medicine; PCP Internal Medicine; Visit Provider Orthopaedic Surgery
PROC: 0KBG0ZZ Excision of Left Trunk Muscle, Open Approach (ICD-10-PCS; CPT 10180; principal; 2018-02-15 11:00)
DX: T81.32XA Disruption of internal operation (surgical) wound, not elsewhere classified, initial encounter (principal); Z68.41 Body mass index [BMI] 40.0-44.9, adult; I10 Essential (primary) hypertension; E66.9 Obesity, unspecified
CPT/HCPCS: 80048; 85025; 85651; 86140; 87070; 87075; 87205; 97161; 97165; 97535; J0330; J0690; J1170; J2250; J2405; J2704; J2765; J3010

== ENCOUNTER 2018-08-13 15:23 | Emergency (ER) | payer MEDICARE, SELFPAY ==
[2018-02-15 13:46] VITALS: BMI 40.6
[2018-08-13] VITALS (8 sets, daily range): BP systolic 127–160; BP diastolic 62–93; PULSE 64–74; RESP 15–23; TEMP 36.6; O2SAT 95–99; BMI 40.6
--- NOTE | 2018-08-13 15:40 | ED_ITS ---
HPI - Chest Pain General Chief Complaint: Chest Pain Stated Complaint: LT SIDED CHEST PAIN, DIZZINESS Time Seen by Provider: 08/13/18 15:40 Source: patient Mode of arrival: ambulatory Limitations: no limitations History of Present Illness HPI narrative: Patient is a 77-year-old female here for evaluation of left- sided chest tenderness and occasional episodes of which she describes as dizziness. Patient states that she woke this morning at approximately 0400 hr with left-sided chest discomfort. She describes it as a pressure sensation. She states she is not having any shortness of breath. Also had some nausea. States she had a couple bowel movement this morning which seemed to improve all of her symptoms. She went back to sleep and slept for another 30 min. Waking up she reports a complete resolution of her symptoms. Was going about her day when at about 1300 this afternoon had a recurrence of the symptoms. She states it has been a constant left-sided chest pressure since then. Again no shortness of breath. Not worse with palpation or movement or breathing. She also describes episodes of ?dizziness? she states that it is not a room spinning sensation. It is difficult for her to explain however she states that it only lasts for seconds. She is not aware of anything that brings it on. Never had anything like this before. Did take an aspirin prior to arrival. Related Data Home Medications Medication Instructions Recorded Confirmed lisinopril 20 mg PO DAILY #0 07/16/17 08/13/18 acetaminophen [Tylenol Extra 750 mg PO DAILY PRN 01/10/18 08/13/18 Strength] ascorbic acid (vitamin C) [Vitamin 500 mg PO DAILY 01/10/18 08/13/18 C] ferrous sulfate 325 mg PO DAILY 01/10/18 08/13/18 multivitamin 1 tab PO DAILY 01/10/18 08/13/18 naproxen sodium [Aleve] 220 mg PO DAILY PRN 01/10/18 08/13/18 omega 5-nri-xan-fish oil [Fish Oil] 1 cap PO DAILY 01/10/18 08/13/18 zolpidem 5 mg PO BEDTIME PRN 01/10/18 08/13/18 Allergies Allergy/AdvReac Type Severity Reaction Status Date / Time rosuvastatin [From Crestor] AdvReac Severe Muscle Pain Verified 08/13/18 17:41 Review of Systems Constitutional Denies fever(s) Cardiovascular Reports chest pain, Denies diaphoresis, Denies syncope, Denies edema, Denies irregular heart rhythm, Denies leg edema, Reports lightheadedness, Denies radiating jaw, neck or arm pain, Denies palpitations, Denies dyspnea, Denies dyspnea on exertion and Denies slow heart rate Respiratory Denies cough, Denies dyspnea and Denies dyspnea on exertion Gastrointestinal Gastrointestinal: Denies abdominal pain, Reports nausea and Denies vomiting Genitourinary Denies dysuria, Denies pelvic pain and Denies flank pain Musculoskeletal Denies myalgias and Denies arthralgias Integumentary/Breasts Denies rash and Denies wounds Neurologic Denies behavioral changes and Denies syncope Psychiatric Denies behavioral changes Endocrine Denies palpitations Hematologic/Lymphatic Comments: Not on anticoagulation PFSH Medical History Back pain (Acute) Colon polyp (Acute) GERD (gastroesophageal reflux disease) (Acute) Hammer toe (Acute) Hemorrhoids (Acute) History of rectocele (Acute) Hyperlipidemia (Acute) Hypertension (Acute) Insomnia (Acute) Iron deficiency anemia (Acute) Joint pain (Acute) Left bundle branch block (Acute) Leg pain (Acute) Low back pain (Acute) 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) Morbid obesity (Acute) Osteoarthritis (Acute) Spinal stenosis, lumbar region with neurogenic claudication (Acute) Spondylolisthesis at L4-L5 level (Acute) Statin intolerance (Acute) Tinnitus of left ear (Acute) Surgical History History of arthroplasty of right shoulder (Acute) History of bunionectomy of left great toe (Acute) History of bunionectomy of right great toe (Acute) History of discectomy (Acute) History of thumb surgery (Acute) History of tonsillectomy (Acute) History of tympanoplasty of left ear (Acute) Hx of total knee arthroplasty (Acute) S/P epidural steroid injection (Acute) Social History household members: none Smoking Status: Never smoker alcohol intake: current Exam Initial Vital Signs Initial Vital Signs: Vital Signs Temperature 97.8 F 08/13/18 15:25 Pulse Rate 74 08/13/18 15:25 Respiratory Rate 15 08/13/18 15:25 Blood Pressure 160/81 H 08/13/18 15:25 Pulse Oximetry 99 08/13/18 15:25 Const General: cooperative, healthy appearing, comfortable, well developed, well groomed and No acute distress Orientation: alert, awake and oriented x3 HENMT Head: normal to inspection and normocephalic Ears: hearing grossly normal bilaterally Nose: external nose normal Chest Chest: normal inspection of the chest, No crepitus and No tenderness Resp Effort & Inspection: normal respiratory effort Auscultation: clear to auscultation bilaterally Cardio Rate: regular rate Rhythm: regular rhythm Pulses: radial pulses present GI Inspection: non-distended Palpation: soft, No firm and No tender Skin Lesions: no lesions Rashes: no rashes Neuro General: alert, awake and oriented x3 Extrem General: normal to inspection and capillary refill normal Psych Appearance: grossly normal and well kempt Scores HEART Score Heart Score history: Slightly Suspicious Heart Score EKG: Non-Specific repolarization disturbance Heart Score Age: > or = 65 years old Heart Score risk factors: 1-2 risk factors Heart Score troponin: < or = to normal limit Heart Score Total: 4 Course Orders Ordered: ED Orders 08/13/18 15:32 EKG-12 Lead Routine 08/13/18 15:40 XR chest 1V Stat 08/13/18 15:45 Complete Blood Count AUTO DIFF Stat Comprehensive Metabolic Panel Stat Lipase Stat Partial Thromboplastin Time Stat Prothrombin Time INR Stat Troponin & CK Cardiac Panel Stat 08/13/18 16:41 XR chest 2V Stat 08/13/18 16:42 Troponin I Stat Vital Signs - 8 hr 08/13/18 15:25 08/13/18 15:56 08/13/18 16:40 Temperature 97.8 F Pulse Rate 74 67 65 Respiratory Rate 15 17 16 Blood Pressure 160/81 H Blood Pressure [Right Arm] 147/79 H 129/73 Pulse Oximetry 99 98 96 08/13/18 17:00 08/13/18 17:30 08/13/18 18:00 Temperature Pulse Rate 67 64 71 Respiratory Rate 17 16 Blood Pressure Blood Pressure [Right Arm] 127/62 142/93 H 132/63 Pulse Oximetry 97 97 99 08/13/18 18:30 08/13/18 19:00 Temperature Pulse Rate 67 66 Respiratory Rate 22 23 Blood Pressure Blood Pressure [Right Arm] 140/79 133/65 Pulse Oximetry 95 97 MDM - Chest Pain Lab Data Attestation: I reviewed the patient's lab results. Result diagrams: 08/13/18 15:45 08/13/18 15:45 Lab Results 08/13/18 08/13/18 08/13/18 Range/Units 15:45 15:45 15:45 WBC 7.8 (4.5-11.0) X10^3/uL RBC 4.53 (4.0-5.2) X10^6/uL Hgb 14.1 (12.0-16.0) g/dL Hct 42.1 (36-46) % MCV 93.1 (80-100) fL MCH 31.1 (26-34) PG MCHC 33.4 (30-36) % RDW 13.5 (11.6-14.8) % Plt Count 336 (150-400) X10^3/uL Neut % (Auto) 53.3 (50-75) % Lymph % (Auto) 32.0 (25-40) % [place] % (Auto) 11.5 (3-14) % Eos % (Auto) 2.2 (2-4) % Baso % (Auto) 1.0 (0-2) % Neut # (Auto) 4200 (4433-1300) /uL PT 11.4 (10.1-12.7) SECONDS INR 1.0 (0.9-1.3) APTT 29 (26.4-36.2) SECONDS Sodium 138 (137-145) mmol/L Potassium 4.0 (3.4-5.1) mmol/L Chloride 102 (98-107) mmol/L Carbon Dioxide 27 (22-32) mmol/L BUN 20 H (7-17) mg/dL Creatinine 1.20 H (0.52-1.04) mg/dL Estimated GFR 43.7 L (>60) mL/min BUN/Creatinine Ratio 16.7 (6-22) Glucose 102 (80-110) mg/dL Calcium 9.5 (8.4-10.2) mg/dL Total Bilirubin 0.4 (0.2-1.3) mg/dL AST 25 (14-36) IU/L ALT 25 (9-52) IU/L Alkaline Phosphatase 75 (38-126) U/L Total Creatine Kinase 127 (30-135) U/L CK-MB (CK-2) 1.60 (<2.37) ng/mL CK-MB (CK-2) Rel Index 1.3 L (1.5-5.0) % Troponin I < 0.012 (0.01-0.034) ng/mL Total Protein 7.2 (6.3-8.2) g/dL Albumin 4.1 (3.5-5.0) g/dL Globulin 3.1 (1.7-4.1) g/dL Albumin/Globulin Ratio 1.3 (1.0-2.8) Lipase 126 (23-300) U/L 08/13/18 Range/Units 16:42 WBC (4.5-11.0) X10^3/uL RBC (4.0-5.2) X10^6/uL Hgb (12.0-16.0) g/dL Hct (36-46) % MCV (80-100) fL MCH (26-34) PG MCHC (30-36) % RDW (11.6-14.8) % Plt Count (150-400) X10^3/uL Neut % (Auto) (50-75) % Lymph % (Auto) (25-40) % [place] % (Auto) (3-14) % Eos % (Auto) (2-4) % Baso % (Auto) (0-2) % Neut # (Auto) (3151-1812) /uL PT (10.1-12.7) SECONDS INR (0.9-1.3) APTT (26.4-36.2) SECONDS Sodium (137-145) mmol/L Potassium (3.4-5.1) mmol/L Chloride (98-107) mmol/L Carbon Dioxide (22-32) mmol/L BUN (7-17) mg/dL Creatinine (0.52-1.04) mg/dL Estimated GFR (>60) mL/min BUN/Creatinine Ratio (6-22) Glucose (80-110) mg/dL Calcium (8.4-10.2) mg/dL Total Bilirubin (0.2-1.3) mg/dL AST (14-36) IU/L ALT (9-52) IU/L Alkaline Phosphatase (38-126) U/L Total Creatine Kinase (30-135) U/L CK-MB (CK-2) (<2.37) ng/mL CK-MB (CK-2) Rel Index (1.5-5.0) % Troponin I < 0.012 (0.01-0.034) ng/mL Total Protein (6.3-8.2) g/dL Albumin (3.5-5.0) g/dL Globulin (1.7-4.1) g/dL Albumin/Globulin Ratio (1.0-2.8) Lipase (23-300) U/L Urine Dip Bedside Urine Glucose Negative Bedside Urine Bilirubin - Negative Bedside Urine Ketone - Negative Urine Specific [place] 1.015 Bedside Urine Occult Blood - Negative Bedside Urine pH 8.0 Bedside Urine Protein - Negative Bedside Urine Urobilinogen - Negative Bedside Urine Nitrite - Negative Bedside Urine Leukocytes - Negative Esterase Imaging Data Chest x-ray: Radiologist's impression: ROCEDURE: XR CHEST 1V INDICATIONS: chest pain TECHNIQUE: One view of the chest was acquired. COMPARISON: None. FINDINGS: Surgical changes and devices: Right shoulder arthroplasty.. Lungs and pleura: No pleural effusions. There is a possible pleural line projecting in the left apex suggesting pneumothorax although recommend further evaluation with dedicated PA and lateral views. No acute consolidation. Scattered subsegmental atelectasis and/or scarring. Mediastinum: Mediastinal contours appear normal. Heart size is normal. Presumed hiatal hernia, moderate Bones and chest wall: No suspicious bony lesions. Overlying soft tissues appear unremarkable. IMPRESSION: Possible small apical pneumothorax projects in left upper lobe however recommend confirmation with repeat chest radiographs in one hour. Findings immediately and personally telephoned to Dr. Gallego in the emergency department 1610 hours . Moderate hiatal hernia. Dictated by: Minor Foster M.D. on 08/13/2018 at 16:05 Repeat chest x-ray: Radiologist's impression: PROCEDURE: XR CHEST 2V INDICATIONS: Eval for left-sided pneumothorax TECHNIQUE: 2 views of the chest were acquired. COMPARISON: [facility], , XR CHEST 1V, 08/13/2018, 16:03. FINDINGS: Surgical changes and devices: None. Lungs and pleura: No pleural effusions or pneumothorax. Lungs are clear. Mediastinum: Mediastinal contours are normal. Except for presence of a previously noted moderately large hiatal hernia behind the heart at midline. Heart size is normal. Bones and chest wall: No suspicious bony abnormalities. Soft tissues appear unremarkable. IMPRESSION: Moderate-sized hiatal hernia behind the heart. The area of prior concern for possible left apical pneumothorax appears normal. This appears to have represented the upper border of the anterior margin of the left first rib curving inferiorly in that area on the earlier chest plain film. A slightly different orientation allows identification of the source of that radiodensity. Dictated by: Israel Church M.D. on 08/13/2018 at 17:01 Approved by: Israel Church M.D. on 08/13/2018 at 17:03 ECG Data Attestation: I personally reviewed and interpreted this ECG as follows: Prior ECG tracings: not available for review Interpretation: Sinus rhythm Ventricular rate is 65 Left axis deviation Bundle branch block Normal QTC No ST T wave changes MDM Narrative Medical decision making narrative: Initial chest x-ray concerning for left- sided pneumothorax. Patient has no risk factors for pneumothorax. Repeat chest x-ray done 1 hr after the 1st 1 per Radiology recommendation shows no indication for pneumothorax. Patient has left bundle-branch block on her EKG. This is not new for her. She has no other repolarization abnormalities. Patient has had consistent symptoms since 0100 hr this afternoon. Initial troponin was negative. Patient has vague ?dizziness? symptoms. It is not vertigo. When it occurs it lasts seconds. She has no balance issues because of it. Does not seem to be associated with worsening or improvement of her chest discomfort. Patient does have a heart score 4 however the repolarization abnormality is the left bundle branch block which is not new for her. Repeat troponin negative this was drawn greater than 6 hr after the onset of her symptoms. Hold on further workup for now. Patient was instructed to contact her primary care doctor to discuss stress testing. She was given return precautions. Both her and her who is at bedside expressed understanding and agreement with this plan. Discharge Plan Departure Patient Disposition: Home Clinical Impression: Atypical chest pain Instructions: DI for Atypical Chest Pain Activity Restrictions/Additional Instructions: I recommend you contact your primary care doctor to discuss follow-up in to discuss the indications for stress testing. Continue to take all of your medications as directed. Return to the emergency department for any new or worsening symptoms Prescriptions: No Action lisinopril 20 MG tablet 20 mg PO DAILY Qty: 0 RF: 0 multivitamin Tablet 1 tab PO DAILY RF: 0 acetaminophen [Tylenol Extra Strength] 500 mg Tablet 750 mg PO DAILY PRN (Reason: pain) RF: 0 ascorbic acid (vitamin C) [Vitamin C] 500 mg Tablet 500 mg PO DAILY RF: 0 ferrous sulfate 325 mg (65 mg iron) Tablet 325 mg PO DAILY RF: 0 zolpidem 5 mg Tablet 5 mg PO BEDTIME PRN (Reason: Insomnia) RF: 0 omega 4-jdc-tjd-fish oil [Fish Oil] 1,000 mg (120 mg-180 mg) Capsule 1 cap PO DAILY RF: 0 naproxen sodium [Aleve] 220 mg Capsule 220 mg PO DAILY PRN (Reason: pain) RF: 0
--- NOTE | 2018-08-13 15:55 | PC.NURSE ---
Patient reports persistent 3/10 chest pressure since last night after eating a hamburger with onions. She states she thought it was jsut heartburn, however pressure has persisted into today. She also reports some intermittent dizziness for the last week.
[2018-08-13 15:57] LABS: Add Manual Diff / Slide Review NO; Eosinophils Percent Auto 2.2 % (2-4); Hematocrit 42.1 % (36-46); Hemoglobin 14.1 g/dL (12.0-16.0); Mean Corpuscular HGB Conc 33.4 % (30-36); Mean Corpuscular Hemoglobin 31.1 PG (26-34); Mean Corpuscular Volume 93.1 fL (80-100); Monocytes Percent Auto 11.5 % (3-14); Neutrophils Absolute Auto 4200 /uL (1500-7000); Neutrophils Percent Auto 53.3 % (50-75); Platelet Count 336 X10^3/uL (150-400); Red Blood Cell Count 4.53 X10^6/uL (4.0-5.2); Red Cell Distribution Width 13.5 % (11.6-14.8); White Blood Cell Count 7.8 X10^3/uL (4.5-11.0)
[2018-08-13 16:16] LABS: Alanine Aminotransferase 25 IU/L (9-52); Albumin 4.1 g/dL (3.5-5.0); Albumin Globulin Ratio 1.3 (1.0-2.8); Alkaline Phosphatase 75 U/L (38-126); Aspartate Aminotransferase 25 IU/L (14-36); BUN Creatinine Ratio 16.7 (6-22); Bilirubin Total 0.4 mg/dL (0.2-1.3); Blood Urea Nitrogen 20 mg/dL (7-17); Calcium 9.5 mg/dL (8.4-10.2); Carbon Dioxide 27 mmol/L (22-32); Chloride 102 mmol/L (98-107); Creatine Kinase 127 U/L (30-135); Estimated Glomerular Filt Rate 43.7 mL/min (>60); Globulin 3.1 g/dL (1.7-4.1); Glucose 102 mg/dL (80-110); HEMOLYSIS < 15 (0-50); Lipase 126 U/L (23-300); Prothrombin Time 11.4 SECONDS (10.1-12.7); Sodium 138 mmol/L (137-145); Total Protein 7.2 g/dL (6.3-8.2)
[2018-08-13 16:18] LABS: PTT Partial Thromboplastin Tim 29 SECONDS (26.4-36.2)
[2018-08-13 16:28] LABS: Troponin I < 0.012 ng/mL (0.01-0.034)
[2018-08-13 16:31] LABS: CKMB % Relative Index 1.3 % (1.5-5.0)
--- NOTE | 2018-08-13 16:41 | DI.RAD.S_ITS ---
PROCEDURE: XR CHEST 2V INDICATIONS: Eval for left-sided pneumothorax TECHNIQUE: 2 views of the chest were acquired. COMPARISON: [facility], , XR CHEST 1V, 08/13/2018, 16:03. FINDINGS: Surgical changes and devices: None. Lungs and pleura: No pleural effusions or pneumothorax. Lungs are clear. Mediastinum: Mediastinal contours are normal. Except for presence of a previously noted moderately large hiatal hernia behind the heart at midline. Heart size is normal. Bones and chest wall: No suspicious bony abnormalities. Soft tissues appear unremarkable. IMPRESSION: Moderate-sized hiatal hernia behind the heart. The area of prior concern for possible left apical pneumothorax appears normal. This appears to have represented the upper border of the anterior margin of the left first rib curving inferiorly in that area on the earlier chest plain film. A slightly different orientation allows identification of the source of that radiodensity. Dictated by: Israel Church M.D. on 08/13/2018 at 17:01 Approved by: Israel Church M.D. on 08/13/2018 at 17:03
[2018-08-13 19:32] LABS: Troponin I < 0.012 ng/mL (0.01-0.034)
== END 2018-08-13 19:48 | disposition home or self-care (01) ==
PROVIDERS: Emergency Provider Emergency Medicine; Family Provider Internal Medicine; PCP Internal Medicine
DX: R07.89 Other chest pain (principal)
CPT/HCPCS: 36415; 36591; 71045; 71046; 80053; 81003; 82550; 82553; 83690; 84484; 85025; 85610; 85730; 93005; 99283; 99285

== ENCOUNTER → 2018-10-08 08:18 | Outpatient (CLI) | payer MEDICARE, OTHER, SELFPAY ==
[2018-02-15 13:46] VITALS: BMI 40.6
--- NOTE | 2018-10-08 09:33 | PM.TREADMILL ---
Cardiac Stress Test Report Referral & Results Date Patient Seen: 10/08/18 Requesting provider: Tanya Sanz Indication: Chest pain Rest ECG: Unremarkable, old left bundle branch block Procedure Note: After both written and verbal informed consent the patient had an IV started by the diagnostic imaging RN, and then was hooked up to the treadmill monitoring system. The Lexiscan material, and then the Cardiolite tracer, were administered sequentially. An additional 3 min was spent monitoring the patient while supine on the gurney. The patient had a normal response to all infused materials. Impression: Normal response to materials as above Please see perfusion imaging for details regarding possible ischemia Please note: Actual ECG tracings can be found in the PACS system.
--- NOTE | 2018-10-10 07:48 | DI.NM.S_ITS ---
DATE OF SERVICE: ORDERING PROVIDER: Tanya Sanz MD PROCEDURE: Pharmacologic vasodilator stress and rest myocardial perfusion imaging with gating to assess ejection fraction and regional wall motion. INDICATIONS: The patient is a 78-year-old female recently evaluated in the emergency room with an episode of chest pain. PHARMACOLOGIC STRESS: 0.4 mg of regadenoson was infused per protocol with a normal hemodynamic response. There was no reported chest discomfort. The resting ECG shows a left bundle branch block which precludes any significant ST segment analysis. There were no significant changes with stress. No arrhythmias were identified. Per protocol, 24.5 mCi of technetium-99 Myoview was injected and the patient was imaged 20 minutes later using a gated SPECT acquisition protocol. She returned the following day and was reinjected with an additional 24.8 mCi of technetium-99 Myoview and was imaged 30 minutes later, again using a gated SPECT acquisition protocol. FINDINGS: 1. Raw data: There is fair myocardial tracer uptake with moderate breast shadows noted, which likely produce some attenuation artifact. The lung/heart ratio is normal at 0.38, and a TID ratio is normal at 1.02. 2. Quantitated gated SPECT: Post-stress ejection fraction is estimated at 84% without any focal wall motion abnormality and specifically the distal anterior wall and anterior apex appear to have brisk contractility. The resting ejection fraction is estimated at 78% and shows an identical contraction pattern. Resting end-diastolic volume is normal at 97 mL. 3. Myocardial perfusion imaging: Post-stress supine images show a relatively normal perfusion pattern with the exception of a small perfusion defect in the distal anterior wall, extending into the anterior apex in a pattern that could be consistent with breast attenuation artifact. This defect improves and appears to be somewhat shifted inferiorly on the prone images, supporting this possibility. The resting images show an identical perfusion pattern without any areas of improvement. CONCLUSION: 1. Probable normal myocardial perfusion study. 2. Small fixed perfusion defect in the very distal anterior wall and anterior apex that likely reflects breast attenuation artifact, given its improvement on the prone images and the absence of any regional wall motion abnormality in this area. However, a small non-transmural infarction cannot be entirely excluded. There is no evidence for significant myocardial ischemia. 3. Normal left ventricular systolic function without any focal wall motion abnormalities. 4. No apparent angina with pharmacologic stress. Preexisting LBBB precludes ST segment analysis. Holly Bates - KHAI/jarek/kv doc#: [id number]/job#: [id number] dd: 10/09/2018 12:40:00 dt: 10/09/2018 14:20:00 DICTATING MD/COPIES TO: Handy Mustafa MD ; Tanya Sanz MD COPIES MNE: ARNULFO CORTES
== END ==
PROVIDERS: Family Provider Internal Medicine; PCP Internal Medicine; Visit Provider Internal Medicine
DX: R07.9 Chest pain, unspecified (principal); I44.7 Left bundle-branch block, unspecified; E78.5 Hyperlipidemia, unspecified; D64.9 Anemia, unspecified
CPT/HCPCS: 36415; 78452; 80061; 84450; 84460; 85025; 93016; 93017; 93018; A9502; J2785

== ENCOUNTER → 2018-10-08 10:40 | Outpatient (CLI) | payer MEDICARE, OTHER, SELFPAY ==
[2018-02-15 13:46] VITALS: BMI 40.6
[2018-10-08 11:31] LABS: Alanine Aminotransferase 35 IU/L (9-52); Aspartate Aminotransferase 41 IU/L (14-36); Cholesterol 139 mg/dL (140-199); HDL Cholesterol 60 mg/dL (40-60); LDL Cholesterol Calculated 71 mg/dL (<100); Triglycerides 40 mg/dL (35-150)
[2018-10-08 16:56] LABS: Add Manual Diff / Slide Review NO; Basophils Absolute Auto 0 /uL (0-100); Basophils Percent Auto 0.6 % (0-2); Eosinophils Absolute Auto 100 /uL (0-450); Hematocrit 42.1 % (36-46); Hemoglobin 13.7 g/dL (12.0-16.0); Lymphocytes Absolute Auto 1800 /uL (1100-4500); Lymphocytes Percent Auto 26.3 % (25-40); Mean Corpuscular HGB Conc 32.4 % (30-36); Mean Corpuscular Hemoglobin 30.4 PG (26-34); Mean Corpuscular Volume 93.8 fL (80-100); Monocytes Absolute Auto 700 /uL (0-900); Monocytes Percent Auto 10.7 % (3-14); Neutrophils Absolute Auto 4100 /uL (1500-7000); Neutrophils Percent Auto 61.4 % (50-75); Platelet Count 304 X10^3/uL (150-400); Red Blood Cell Count 4.49 X10^6/uL (4.0-5.2); White Blood Cell Count 6.8 X10^3/uL (4.5-11.0)
== END ==
PROVIDERS: Family Provider Internal Medicine; PCP Internal Medicine; Referring Provider Internal Medicine; Visit Provider Internal Medicine
DX: E78.5 Hyperlipidemia, unspecified (principal); D64.9 Anemia, unspecified
CPT/HCPCS: 36415; 80061; 84450; 84460; 85025

== ENCOUNTER → 2018-10-27 13:52 | Outpatient (CLI) | payer MEDICARE, OTHER, SELFPAY ==
[2018-02-15 13:46] VITALS: BMI 40.6
== END ==
PROVIDERS: Family Provider Internal Medicine; PCP Internal Medicine; Visit Provider Internal Medicine
DX: M85.852 Other specified disorders of bone density and structure, left thigh (principal); Z78.0 Asymptomatic menopausal state
CPT/HCPCS: 77080

== ENCOUNTER 2018-11-12 10:14 | Day surgery (SDC) | payer MEDICARE, OTHER, SELFPAY ==
[2018-02-15 13:46] VITALS: BMI 40.6
[2018-11-12 11:12] VITALS: BP 130/76; PULSE 64; RESP 15; TEMP 36.2; O2SAT 95; BMI 37.4
[2018-11-12] MEDS: SODIUM CHLORIDE 0.9% 1,000 ML 200 ML IV (11:22)
--- NOTE | 2018-11-12 12:11 | PM.HP.1 ---
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) Morbid obesity (Acute) Osteoarthritis (Acute) Spinal stenosis, lumbar region with neurogenic claudication (Acute) Spondylolisthesis at L4-L5 level (Acute) Statin intolerance (Acute) Tinnitus of left ear (Acute) Surgical History History of arthroplasty of right shoulder (Acute) History of bunionectomy of left great toe (Acute) History of bunionectomy of right great toe (Acute) History of discectomy (Acute) History of thumb surgery (Acute) History of tonsillectomy (Acute) History of tympanoplasty of left ear (Acute) Hx of total knee arthroplasty (Acute) S/P epidural steroid injection (Acute) Social History household members: none Smoking Status: Never smoker alcohol intake: current Family & Social History Social History: household members none Tobacco & Substance use: Smoking Status Never smoker alcohol intake current alcohol intake frequency a few times a week Substance Use Type does not use Meds Home Medications Medication Instructions Recorded Confirmed Type lisinopril 20 mg PO DAILY #0 07/16/17 08/13/18 History acetaminophen [Tylenol Extra 750 mg PO DAILY PRN 01/10/18 08/13/18 History Strength] ascorbic acid (vitamin C) [Vitamin 500 mg PO DAILY 01/10/18 08/13/18 History C] ferrous sulfate 325 mg PO DAILY 01/10/18 08/13/18 History multivitamin 1 tab PO DAILY 01/10/18 08/13/18 History naproxen sodium [Aleve] 220 mg PO DAILY PRN 01/10/18 08/13/18 History omega 2-peb-ybk-fish oil [Fish Oil] 1 cap PO DAILY 01/10/18 08/13/18 History zolpidem 5 mg PO BEDTIME PRN 01/10/18 08/13/18 History rosuvastatin 5 mg PO DAILY 11/12/18 11/12/18 History Allergies Allergy/AdvReac Type Severity Reaction Status Date / Time No Known Drug Allergies Allergy Verified 11/12/18 11:09 Review of Systems Review of Systems All systems reviewed & are unremarkable except as noted in HPI and below Exam Vital Signs (past 8 hours): - 11/12/18 11:12 Temperature 97.2 F L Pulse Rate 64 Respiratory Rate 15 Blood Pressure 130/76 Pulse Oximetry 95 Oxygen Delivery Method Room Air Narrative Exam Narrative: Awake alert and oriented x3, pupils equal round reactive to light, heart regular rate and rhythm, lungs clear to auscultation bilaterally, abdomen soft nontender nondistended, legs without edema Assessment & Plan Assessment & Plan narrative: Personal history of colon polyp for colonoscopy
[2018-11-12] MEDS: MIDAZOLAM 5 MG/5 ML VIAL IV (12:19)
[2018-11-12] MEDS: fentaNYL 250 MCG/5 ML INJ IV (12:21)
--- NOTE | 2018-11-12 12:36 | PM.OP.ENDO ---
Operative Date/Time/Diagnoses Date of procedure: 11/12/18 Procedure & Clinicians Study performed: Colonoscopy with cold biopsy and snare polypectomy Moderate conscious sedation was administered by the endoscopy nurse and supervised by the endoscopist. The following parameters were monitored: Oxygen saturation, heart rate, blood pressure, and response to care. Sedation: 4 mg of midazolam, 100 mcg fentanyl Indications: Personal history of colon polyps, last colonoscopy was 6 years ago Procedure Notes Procedure in detail: Prior to the procedure, history and physical was performed, and patient medications and allergies were reviewed. Preprocedure nursing history and assessment was reviewed. Patient identification and proposed procedure were verified by the physician and nurse in the procedure room. The physical status of the patient was reassessed after the procedure. After informed consent was obtained including risks, benefits, and alternatives, the scope was passed under direct vision. Throughout the procedure, the patient's blood pressure, pulse, and oxygen saturations were monitored continuously. The colonoscope was introduced through the anus and advanced to the cecum as identified by the appendiceal orifice and ileocecal valve. The patient tolerated the procedure well. Bowel prep was deemed adequate to detect polyps greater than 5 mm. CHRISSIE and perianal examinations were unremarkable. Retroflexion in the rectum revealed grade 2 internal hemorrhoids. Many medium mouth diverticula noted in the ascending colon, descending colon, and sigmoid colon Three sessile polyps ranging in size from 3 mm to 8 mm were noted in the ascending colon. The smaller polyps removed with a Jumbo biopsy forceps and retrieved. The 8 mm polyp was removed in piecemeal using the hot snare and Jumbo biopsy forcep. A 3 mm polyp in the sigmoid colon was removed with a Jumbo biopsy forceps and retrieved Impression: Three polyps in the ascending colon ranging in size from 3-8 mm in diameter removed 3 mm sigmoid colon polyp removed Ascending colon and left-sided diverticulosis Internal hemorrhoids Sedation minutes: 25 Plan for aftercare: Recommendations: Follow-up pathology results Repeat colonoscopy at a date to be determined based on pathology results Resume home medications High fiber diet Discharge home with escort
[2018-11-12 12:39] VITALS: BP 110/63; PULSE 64; RESP 12; TEMP 36.4; O2SAT 100
[2018-11-12 12:44] VITALS: BP 118/68; PULSE 64; RESP 12; O2SAT 100
[2018-11-12 12:49] VITALS: BP 125/67; PULSE 63; RESP 11; O2SAT 100
[2018-11-12 12:54] VITALS: BP 123/70; PULSE 65; RESP 19; O2SAT 100
[2018-11-12 12:59] VITALS: BP 120/81; PULSE 76; RESP 20; TEMP 36.3; O2SAT 99
--- NOTE | 2018-11-12 13:12 | SUR.PHASEII ---
TO OPD, desires to go home. IV dc'd, clothes and glasses returned to patient. Comfortable, no pain, discomfort. Tolerating PO well
--- NOTE | 2018-11-14 | PATH_ITS ---
[facility] Accession Number: [id number] . 01 Material submitted: . PART A: ASCENDING COLON POLYP X3 PART B: SIGMOID COLON POLYP . 02 Diagnosis: A. Ascending Colon Polyp x3: Multiple fragments of tubular adenoma; negative for high-grade dysplasia. . B. Sigmoid Colon Polyp, Biopsy: Sessile serrated adenoma. MRV/11/13/2018 . 02 Electronically signed: . Sangita Ray MD, Pathologist NPI- [id number] . 01 Gross description: . Part A: ASCENDING COLON POLYP X3: Received in formalin are multiple fragment(s) of turner, soft tissue measuring 0.1 x 0.1 x 0.1 cm to 0.5 x 0.4 x 0.3 cm which is entirely submitted and submitted entirely in 1 cassette(s) Part B: SIGMOID COLON POLYP: Received in formalin is 1 fragment(s) of turner, soft tissue measuring 0.4 x 0.2 x 0.2 cm which is entirely submitted and submitted entirely in 1 cassette(s) /DMC /[facility] . 02 Pathologist provided ICD-10: K63.5 . 02 CPT . 636656 Specimen Comment: A duplicate report has been generated due to demographic updates. Performed at: [address] [facility] [address], [place], [place] [id number] MD Hosea Galvan MD Phone: [phone] Performed at: 02 [facility] [address] [place], [place] [id number] MD Yelena Nevarez MD Phone: [phone]
== END 2018-11-12 13:17 | disposition home or self-care (01) ==
PROVIDERS: PCP Internal Medicine; Visit Provider Internal Medicine
PROC: 0DJD8ZZ Inspection of Lower Intestinal Tract, Via Natural or Artificial Opening Endoscopic (ICD-10-PCS; CPT 45378; principal; 2018-11-12 11:30)
DX: Z86.010 Personal history of colon polyps (principal); K57.30 Diverticulosis of large intestine without perforation or abscess without bleeding; K64.1 Second degree hemorrhoids; D12.2 Benign neoplasm of ascending colon; D12.5 Benign neoplasm of sigmoid colon; E78.5 Hyperlipidemia, unspecified; I10 Essential (primary) hypertension; D50.9 Iron deficiency anemia, unspecified; I44.7 Left bundle-branch block, unspecified; E66.01 Morbid (severe) obesity due to excess calories
CPT/HCPCS: 45385; 45380; 88305; J2250; J3010

== ENCOUNTER → 2019-04-18 10:12 | Outpatient (CLI) | payer MEDICARE, OTHER, SELFPAY ==
[2018-02-15 13:46] VITALS: BMI 40.6
[2019-04-18 11:15] LABS: Add Manual Diff / Slide Review NO; Basophils Absolute Auto 0 /uL (0-100); Basophils Percent Auto 0.6 % (0-2); Eosinophils Absolute Auto 100 /uL (0-450); Hematocrit 42.7 % (36-46); Hemoglobin 14.4 g/dL (12.0-16.0); Lymphocytes Absolute Auto 3000 /uL (1100-4500); Lymphocytes Percent Auto 40.5 % (25-40); Mean Corpuscular HGB Conc 33.7 % (30-36); Mean Corpuscular Hemoglobin 31.6 PG (26-34); Mean Corpuscular Volume 93.5 fL (80-100); Monocytes Absolute Auto 900 /uL (0-900); Monocytes Percent Auto 11.7 % (3-14); Neutrophils Absolute Auto 3400 /uL (1500-7000); Neutrophils Percent Auto 46.2 % (50-75); Platelet Count 273 X10^3/uL (150-400); Red Blood Cell Count 4.56 X10^6/uL (4.0-5.2); White Blood Cell Count 7.4 X10^3/uL (4.5-11.0)
[2019-04-18 13:19] LABS: Iron 108 ug/dL (37-170)
[2019-04-18 13:56] LABS: Ferritin 47.4 ng/mL (11.1-264)
[2019-04-20 15:06] LABS: HEMOLYSIS < 15 (0-50); Percent Iron Saturation 33 % (15-50); Total Iron Binding Capacity 331 ug/dL (265-497); Transferrin 287 mg/dL (206-381)
== END ==
PROVIDERS: PCP Internal Medicine; Visit Provider Internal Medicine
DX: D64.9 Anemia, unspecified (principal)
CPT/HCPCS: 36415; 82728; 83540; 83550; 85025

== ENCOUNTER → 2019-10-23 10:43 | Outpatient (CLI) | payer MEDICARE, OTHER, SELFPAY ==
[2018-02-15 13:46] VITALS: BMI 40.6
--- NOTE | 2019-10-23 11:19 | DI.CT.S_ITS ---
PROCEDURE: CT LUMBAR SPINE WO CON INDICATIONS: Spinal stenosis, lumbar region with neurogenic claudication TECHNIQUE: Noncontrast 3 mm thick sections acquired from the T12 level to the sacrum. Sagittal and coronal reformats were constructed. For radiation dose reduction, the following was used: automated exposure control. COMPARISON: [facility] [place], CR, XR LUMBAR SPINE 2 OR 3 VIEWS, 10/23/2018, 13:14. [facility], MR, L-SPINE WITHOUT CONTRAST, 08/19/2017, 7:06. FINDINGS: Image quality: Excellent. Bones: There is left triston-posterior fusion at L4-5 with intervertebral spacer. Hardware is present without evidence of fracture or periprosthetic lucency. No visualized osseous fractures or dislocations. Reactive endplate changes remain most prominent at L4-5 and L5-S1. Severe disc space narrowing vacuum disc is noted L5-S1, T11-12, T12-L1, L5-S1. There is grade 1 anterolisthesis of L4 on L5 measuring 5 mm compared to 4 mm on prior exam. There is trace retrolisthesis of L5 on S1 and trace anterolisthesis of L3 on L4. There is an incompletely visualized focus of calcification at the level of T11 in the posterior right paracentral location. This is suspected to represent calcification related to disc disease. It is likely present on prior exam although not as well characterized on MRI sagittal images only. Mild disc bulges are present at L3-4, and L5-S1. Mild spinal stenosis is present L2-3, slightly progressive mild to moderate spinal stenosis is present at L3-4, minimally progressive. Previous spinal stenosis at L4-5 has improved. Mild bilateral foraminal narrowing is present at L2-3, unchanged moderate left, mild right foraminal narrowing L3-4, unchanged moderate right foraminal narrowing L4-5, moderate to severe bilateral foraminal narrowing at L5-S1, minimally progressive. Soft tissues: No retroperitoneal masses or hematomas. Visualized aorta is normal in caliber. IMPRESSION: 1. Postsurgical changes as above. 2. Improved spinal stenosis at L4-5. 3. Multilevel foraminal narrowing with areas of progression as noted above. Foraminal narrowing is predominantly secondary to facet arthropathy. Dictated by: Maria Fernanda Vasquez M.D. on 10/23/2019 at 17:00 Approved by: Maria Fernanda Vasquez M.D. on 10/23/2019 at 17:09
== END ==
PROVIDERS: PCP Internal Medicine; Referring Provider Orthopaedic Surgery; Visit Provider Orthopaedic Surgery
DX: M48.062 Spinal stenosis, lumbar region with neurogenic claudication (principal); M48.07 Spinal stenosis, lumbosacral region; M47.816 Spondylosis without myelopathy or radiculopathy, lumbar region; Z98.1 Arthrodesis status
CPT/HCPCS: 72131

== ENCOUNTER 2020-07-15 15:18 | Observation (INO) | payer MEDICARE, OTHER, SELFPAY ==
[2018-02-15 13:46] VITALS: BMI 40.6
[2020-07-15] VITALS (21 sets, daily range): BP systolic 114–196; BP diastolic 54–91; PULSE 71–85; RESP 13–25; TEMP 36.3–36.9; O2SAT 91–98; BMI 39.0
--- NOTE | 2020-07-15 | PATH_ITS ---
[facility] Accession Number: [id number] . 01 Material submitted: . appendix - APPENDIX . 01 Clinical history: . ABDOMINAL PAIN WORSENING . 02 Diagnosis: Appendix, Appendectomy: Acute appendicitis. No evidence of neoplasm. [facility] 07/20/2020 1606 Local . 02 Electronically signed: . Adam Ngo MD, PhD, Pathologist NPI- [id number] . 01 Gross description: . Received in formalin, labeled appendix, and consists of an 11.5 cm in length by 1.6 cm in diameter vermiform appendix with attached turner-yellow lobulated mesoappendix measuring 6.5 x 3.5 x 1.8 cm. The serosa is turner-hwang and smooth. Sectioning reveals a turner mucosa and a lumen measuring 1.2 cm in diameter. Reception Interviewer sections are submitted, to include the en face margin (blue), central cross-sections, and bisected tips in cassettes A1-A3. ([id number]) /MRV 07/19/2020 1104 Local . 02 Pathologist provided ICD-10: K35.30 . 02 CPT . 168906 Performed at: 01 [facility] [address] [facility], [place], [place] [id number] MD Hosea Galvan MD Phone: [phone] Performed at: [address] [facility] [address] [place], [place] [id number] MD Yelena Nevarez MD Phone: [phone]
--- NOTE | 2020-07-15 15:35 | ED.ABDPAIN ---
HPI - Abdominal Pain General Chief Complaint: Abdominal Pain Stated Complaint: ABDOMINAL PAIN WORSENING Time Seen by Provider: 07/15/20 15:29 Source: patient Mode of arrival: Ambulatory Limitations: no limitations History of Present Illness HPI narrative: 79-year-old woman with a history of hypertension hyperlipidemia presents with a week of intermittent abdominal pain worse this morning associated with significant vomiting and retching. She describes no fevers, she notes that she had a large bowel movement that did not influence the pain at all this morning. She and her both had a brief episode of diarrhea about a week ago with the onset of her symptoms. She has got no flank pain, no dysuria no vaginal discharge. No cough, palpitations, chest pain, dyspnea or dizziness. She describes no acute neurologic findings. She does note that she has a history of unusual bladder infections. She notes that she has had at least 2 that were completely asymptomatic, the last 4 years ago. She is concerned that this is a recurrent bladder infection and hurting because it has been brewing for the last 7 days. Related Data Home Medications Medication Instructions Recorded Confirmed lisinopril 20 mg PO DAILY #0 07/16/17 08/13/18 acetaminophen [Tylenol Extra 750 mg PO DAILY PRN 01/10/18 08/13/18 Strength] ascorbic acid (vitamin C) [Vitamin 500 mg PO DAILY 01/10/18 08/13/18 C] ferrous sulfate 325 mg PO DAILY 01/10/18 08/13/18 multivitamin 1 tab PO DAILY 01/10/18 08/13/18 naproxen sodium [Aleve] 220 mg PO DAILY PRN 01/10/18 08/13/18 omega 4-yfp-poy-fish oil [Fish Oil] 1 cap PO DAILY 01/10/18 08/13/18 zolpidem 5 mg PO BEDTIME PRN 01/10/18 08/13/18 rosuvastatin 5 mg PO DAILY 11/12/18 11/12/18 Allergies Allergy/AdvReac Type Severity Reaction Status Date / Time No Known Drug Allergies Allergy Verified 11/12/18 11:09 Review of Systems Review of Systems Narrative: Remainder of review of systems including constitutional, ENT, cardiovascular, respiratory, GI, , musculoskeletal, skin, neurologic and psychiatric systems reviewed and are unremarkable except as noted in HPI. 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 Morbid obesity Osteoarthritis Spinal stenosis, lumbar region with neurogenic claudication Spondylolisthesis at L4-L5 level Statin intolerance Tinnitus of left ear Surgical History History of arthroplasty of right shoulder History of bunionectomy of left great toe History of bunionectomy of right great toe History of discectomy History of thumb surgery History of tonsillectomy History of tympanoplasty of left ear Hx of total knee arthroplasty S/P epidural steroid injection Social History household members: none Smoking Status: Never smoker alcohol intake: current Smoking Status: Never smoker alcohol intake frequency: a few times a week Substance Use Type: does not use Exam Narrative Exam Narrative: General: Healthy appearing, in mild distress due to her lower abdominal pain. Able to give a complete and coherent history. Well-nourished well-developed HEENT: Moist mucous membranes, normal sclera with reactive pupils, Neck: No JVD, supple Respiratory: Lungs are clear to auscultation, no wheezing no rales no rhonchi. Full and symmetrical air movement Cardiac: Regular rate and rhythm no murmurs no bruits Abdomen: Soft, mildly tender suprapubic without rebound or guarding, good bowel tones, no flank pain Skin: Warm and dry, no rashes Neurologic: Grossly neurologically intact with no obvious asymmetries or abnormalities Extremities: No trauma, well perfused Psych: Cooperative, appropriate insight and affect Initial Vital Signs Initial Vital Signs: Vital Signs Pulse Rate 76 07/15/20 15:30 Respiratory Rate 18 07/15/20 15:30 Blood Pressure 185/85 H 07/15/20 15:30 Pulse Oximetry 98 07/15/20 15:30 Course Orders Ordered: ED Orders 07/15/20 15:24 EKG-12 Lead Stat 07/15/20 15:40 Complete Blood Count AUTO DIFF Stat Comprehensive Metabolic Panel Stat Lipase Stat Partial Thromboplastin Time Stat Prothrombin Time INR Stat 07/15/20 15:50 CT abdomen pelvis w con Stat 07/15/20 16:29 Urine Culture Stat Urine Microscopic Stat 07/15/20 17:17 COVID19 Stat 07/15/20 17:20 Urinalysis and Microscopic Stat Hydromorphone HCl (Hydromorphone 0.5 Mg Inj) 0.5 mg IV Q15MIN PRN PRN Reason: Pain, Last Admin: 07/15/20 17:11 Dose: 0.5 mg Documented by: Admin: 07/15/20 15:59 Dose: 0.5 mg Documented by: MMINOR Piperacillin/Tazobactam/Dextrose (Zosyn) 3.375 gm in 50 mls @ 100 mls/hr IV NOW ONE Stop: 07/15/20 17:59 Last Admin: 07/15/20 17:35 Dose: 100 mls/hr Documented by: Discontinued Medications Sodium Chloride (Normal Saline 0.9%) 1,000 mls @ 1,000 mls/hr IV BOLUS ONE Stop: 07/15/20 16:52 Last Admin: 07/15/20 15:58 Dose: 1,000 mls/hr Documented by: MMINOR Piperacillin Sod/Tazobactam (Sod 4.5 gm/ Sodium Chloride) 100 mls @ 200 mls/hr IV NOW ONE Stop: 07/15/20 17:48 Ondansetron HCl (Ondansetron 4 Mg/2 Ml Inj) 4 mg IV NOW ONE Stop: 07/15/20 15:54 Last Admin: 07/15/20 15:59 Dose: 4 mg Documented by: MMINOR Ondansetron HCl (Ondansetron 4 Mg/2 Ml Inj) 4 mg IV NOW ONE Stop: 07/15/20 17:20 Last Admin: 07/15/20 17:35 Dose: 4 mg Documented by: Vital Signs Vital signs: Vital Signs - 8 hr 07/15/20 15:30 07/15/20 15:47 07/15/20 15:48 Temperature Pulse Rate 76 71 72 Respiratory Rate 18 Blood Pressure 185/85 H 187/88 H Pulse Oximetry 98 98 98 07/15/20 15:52 07/15/20 15:59 07/15/20 16:00 Temperature 98.3 F 98.3 F Pulse Rate 80 Respiratory Rate Blood Pressure 182/86 H Pulse Oximetry 97 07/15/20 16:30 07/15/20 16:47 07/15/20 17:00 Temperature Pulse Rate 77 81 79 Respiratory Rate Blood Pressure 169/80 H 184/91 H 196/88 H Pulse Oximetry 91 98 94 MDM - Abdominal Pain Medical Records Attestation: I reviewed the patient's medical records. Lab Data Attestation: I reviewed the patient's lab results. Lab results narrative: Urine dip shows mild leukocyte esterase no nitrites and no blood. Will order micro but I am less suspicious for a UTI. Result diagrams: 07/15/20 15:40 07/15/20 15:40 Labs: Lab Results 07/15/20 07/15/20 07/15/20 Range/Units 15:40 15:40 15:40 WBC 15.2 H (4.5-11.0) X10^3/uL RBC 5.51 H (4.0-5.2) X10^6/uL Hgb 16.4 H (12.0-16.0) g/dL Hct 50.5 H (36-46) % MCV 91.6 (80-100) fL MCH 29.8 (26-34) PG MCHC 32.6 (30-36) % RDW 14.5 (11.6-14.8) % Plt Count 327 (150-400) X10^3/uL Neut % (Auto) 77.3 H (50-75) % Lymph % (Auto) 13.4 L (25-40) % [place] % (Auto) 8.3 (3-14) % Eos % (Auto) 0.5 L (2-4) % Baso % (Auto) 0.5 (0-2) % Neut # (Auto) 38538 H (0591-1651) /uL Lymph # (Auto) 2000 (8296-5944) /uL [place] # (Auto) 1300 H (0-900) /uL Eos # (Auto) 100 (0-450) /uL Baso # (Auto) 100 (0-100) /uL PT 11.7 (10.1-12.7) SECONDS INR 1.0 (0.9-1.3) APTT 32 D (26.4-36.2) SECONDS Sodium 138 (137-145) mmol/L Potassium 3.7 (3.4-5.1) mmol/L Chloride 99 (98-107) mmol/L Carbon Dioxide 31 (22-32) mmol/L BUN 14 (7-17) mg/dL Creatinine 0.70 (0.52-1.04) mg/dL Estimated GFR > 60.0 (>60) mL/min BUN/Creatinine Ratio 20.0 (6-22) Glucose 104 (80-110) mg/dL Calcium 10.2 (8.4-10.2) mg/dL Total Bilirubin 0.7 (0.2-1.3) mg/dL AST 51 H (14-36) IU/L ALT 32 (<35) IU/L Alkaline Phosphatase 86 (38-126) U/L Total Protein 9.3 H (6.3-8.2) g/dL Albumin 5.2 H (3.5-5.0) g/dL Globulin 4.1 (1.7-4.1) g/dL Albumin/Globulin Ratio 1.3 (1.0-2.8) Lipase 111 (23-300) U/L Urine RBC (0-5/HPF) Urine WBC (0-5/HPF) Ur Squamous Epith Cells (0-5/HPF) Ur Transition Epith Cell (0-5/HPF) Ur Renal Epithelial Cell (0-1/HPF) Urine Bacteria (None) Ur Culture Indicated? COVID-19 PCR (Negative) 07/15/20 07/15/20 Range/Units 16:29 17:17 WBC (4.5-11.0) X10^3/uL RBC (4.0-5.2) X10^6/uL Hgb (12.0-16.0) g/dL Hct (36-46) % MCV (80-100) fL MCH (26-34) PG MCHC (30-36) % RDW (11.6-14.8) % Plt Count (150-400) X10^3/uL Neut % (Auto) (50-75) % Lymph % (Auto) (25-40) % [place] % (Auto) (3-14) % Eos % (Auto) (2-4) % Baso % (Auto) (0-2) % Neut # (Auto) (6364-5970) /uL Lymph # (Auto) (8485-9643) /uL [place] # (Auto) (0-900) /uL Eos # (Auto) (0-450) /uL Baso # (Auto) (0-100) /uL PT (10.1-12.7) SECONDS INR (0.9-1.3) APTT (26.4-36.2) SECONDS Sodium (137-145) mmol/L Potassium (3.4-5.1) mmol/L Chloride (98-107) mmol/L Carbon Dioxide (22-32) mmol/L BUN (7-17) mg/dL Creatinine (0.52-1.04) mg/dL Estimated GFR (>60) mL/min BUN/Creatinine Ratio (6-22) Glucose (80-110) mg/dL Calcium (8.4-10.2) mg/dL Total Bilirubin (0.2-1.3) mg/dL AST (14-36) IU/L ALT (<35) IU/L Alkaline Phosphatase (38-126) U/L Total Protein (6.3-8.2) g/dL Albumin (3.5-5.0) g/dL Globulin (1.7-4.1) g/dL Albumin/Globulin Ratio (1.0-2.8) Lipase (23-300) U/L Urine RBC 0-1/hpf (0-5/HPF) Urine WBC 5-10/hpf H (0-5/HPF) Ur Squamous Epith Cells 1-5 /hpf (0-5/HPF) Ur Transition Epith Cell 1-5/hpf (0-5/HPF) Ur Renal Epithelial Cell 1-5/hpf H (0-1/HPF) Urine Bacteria Few (2-10) H (None) Ur Culture Indicated? Specimen cultured COVID-19 PCR Negative (Negative) Point of care testing: Urine Dip Bedside Urine Glucose Negative Bedside Urine Bilirubin - Negative Bedside Urine Ketone + 15 Urine Specific [place] 1.025 Bedside Urine Occult Blood - Negative Bedside Urine pH 6.0 Bedside Urine Protein - Negative Bedside Urine Urobilinogen - Negative Bedside Urine Nitrite - Negative Bedside Urine Leukocytes + [address] scan - abdomen/pelvis: Radiologist's Impression: FINDINGS: Image quality: Excellent. ABDOMEN: Lung bases: Lung bases are clear. Heart size is normal. Moderately large hiatal hernia. Solid organs: Liver is normal in size and enhancement. Benign-appearing calcification, right lobe of liver. Gallbladder is unremarkable. Biliary system is non dilated. Pancreas enhances normally. Spleen is normal in size and enhancement. No adrenal nodules. Kidneys demonstrate normal size and enhancement, without hydronephrosis. Peritoneum and bowel: Bowel loops demonstrate normal wall thickness and caliber. No free fluid or air. Acute nonruptured appendicitis. Appendix is markedly dilated, measuring 1.6 cm. There is a calcified fecalith at the base of the appendix as it enters the cecum. Sigmoid diverticulosis without evidence of diverticulitis. Nodes and vessels: No retroperitoneal or mesenteric adenopathy by size criteria. Aorta and inferior vena cava are normal in size. Miscellaneous: No ventral hernias. PELVIS: Genitourinary: Bladder wall thickness is normal. Miscellaneous: No inguinal hernias or adenopathy. Bones: No suspicious bony lesions. No vertebral body compression fractures. IMPRESSION: 1. Acute nonruptured appendicitis. Appendix is markedly dilated. It contains an obstructing calcified fecalith. 2. Moderately large hiatal hernia. 3. Sigmoid diverticulosis. Dictated by: Alexander العلي M.D. on 07/15/2020 at 16:59 ECG Data Attestation: I personally reviewed and interpreted this ECG as follows: Interpretation: Sinus rhythm at a rate of 71 Left axis deviation with left bundle-branch block No evidence of acute ischemia MDM Narrative Medical decision making narrative: CT returns with diagnosis of acute non perforated appendicitis. This fits with her clinical presentation as well as her leukocytosis. Pain is been readdressed as has nausea. Last food was prior to 10:00 a.m. last night. COVID test is done in anticipation going to the operating room. Antibiotics will be started, Zosyn is chosen. Patient is informed that she will be admitted and a page is put out for Dr. Nuno, general surgery. Discharge Plan Departure Patient Disposition: Admitted As Inpatient Clinical Impression: Acute appendicitis Qualifiers: Acute appendicitis type: with localized peritonitis Appendicitis gangrene presence: without gangrene Appendicitis perforation presence: without perforation Appendicitis abscess presence: without abscess Qualified Code(s): K35.30 - Acute appendicitis with localized peritonitis, without perforation or gangrene
--- NOTE | 2020-07-15 15:50 | DI.CT.S_ITS ---
PROCEDURE: CT ABDOMEN PELVIS W CON INDICATIONS: Seven days of increasing abdominal pain, worse suprapubic TECHNIQUE: After the administration of intravenous contrast, 5 mm thick sections acquired from the diaphragm to the symphysis. 5 mm coronal and sagittal reformats were acquired. For radiation dose reduction, the following was used: automated exposure control, adjustment of mA and/or kV according to patient size. COMPARISON: None. FINDINGS: Image quality: Excellent. ABDOMEN: Lung bases: Lung bases are clear. Heart size is normal. Moderately large hiatal hernia. Solid organs: Liver is normal in size and enhancement. Benign-appearing calcification, right lobe of liver. Gallbladder is unremarkable. Biliary system is non dilated. Pancreas enhances normally. Spleen is normal in size and enhancement. No adrenal nodules. Kidneys demonstrate normal size and enhancement, without hydronephrosis. Peritoneum and bowel: Bowel loops demonstrate normal wall thickness and caliber. No free fluid or air. Acute nonruptured appendicitis. Appendix is markedly dilated, measuring 1.6 cm. There is a calcified fecalith at the base of the appendix as it enters the cecum. Sigmoid diverticulosis without evidence of diverticulitis. Nodes and vessels: No retroperitoneal or mesenteric adenopathy by size criteria. Aorta and inferior vena cava are normal in size. Miscellaneous: No ventral hernias. PELVIS: Genitourinary: Bladder wall thickness is normal. Miscellaneous: No inguinal hernias or adenopathy. Bones: No suspicious bony lesions. No vertebral body compression fractures. IMPRESSION: 1. Acute nonruptured appendicitis. Appendix is markedly dilated. It contains an obstructing calcified fecalith. 2. Moderately large hiatal hernia. 3. Sigmoid diverticulosis. Dictated by: Alexander العلي M.D. on 07/15/2020 at 16:59 Approved by: Alexander العلي M.D. on 07/15/2020 at 17:04
[2020-07-15 15:57] LABS: Add Manual Diff / Slide Review NO; Basophils Absolute Auto 100 /uL (0-100); Basophils Percent Auto 0.5 % (0-2); Eosinophils Absolute Auto 100 /uL (0-450); Eosinophils Percent Auto 0.5 % (2-4); Hematocrit 50.5 % (36-46); Hemoglobin 16.4 g/dL (12.0-16.0); Lymphocytes Absolute Auto 2000 /uL (1100-4500); Lymphocytes Percent Auto 13.4 % (25-40); Mean Corpuscular HGB Conc 32.6 % (30-36); Mean Corpuscular Hemoglobin 29.8 PG (26-34); Mean Corpuscular Volume 91.6 fL (80-100); Monocytes Absolute Auto 1300 /uL (0-900); Monocytes Percent Auto 8.3 % (3-14); Neutrophils Absolute Auto 11700 /uL (1500-7000); Neutrophils Percent Auto 77.3 % (50-75); Platelet Count 327 X10^3/uL (150-400); Red Blood Cell Count 5.51 X10^6/uL (4.0-5.2); Red Cell Distribution Width 14.5 % (11.6-14.8); White Blood Cell Count 15.2 X10^3/uL (4.5-11.0)
[2020-07-15] MEDS: SODIUM CHLORIDE 0.9% 1,000 ML 1000 ML IV (15:58)
[2020-07-15] MEDS: ONDANSETRON 4 MG/2 ML INJ IV ×3 (15:59→18:35)
[2020-07-15] MEDS: HYDROMORPHONE 0.5 MG INJ IV ×3 (15:59→17:47)
[2020-07-15 16:04] LABS: Prothrombin Time 11.7 SECONDS (10.1-12.7)
[2020-07-15 16:07] LABS: PTT Partial Thromboplastin Tim 32 SECONDS (26.4-36.2)
[2020-07-15 16:27] LABS: Alanine Aminotransferase 32 IU/L (<35); Albumin 5.2 g/dL (3.5-5.0); Albumin Globulin Ratio 1.3 (1.0-2.8); Alkaline Phosphatase 86 U/L (38-126); Aspartate Aminotransferase 51 IU/L (14-36); Bilirubin Total 0.7 mg/dL (0.2-1.3); Blood Urea Nitrogen 14 mg/dL (7-17); Calcium 10.2 mg/dL (8.4-10.2); Carbon Dioxide 31 mmol/L (22-32); Chloride 99 mmol/L (98-107); Estimated Glomerular Filt Rate > 60.0 mL/min (>60); Globulin 4.1 g/dL (1.7-4.1); Glucose 104 mg/dL (80-110); HEMOLYSIS < 15 (0-50); Lipase 111 U/L (23-300); Potassium 3.7 mmol/L (3.4-5.1); Sodium 138 mmol/L (137-145); Total Protein 9.3 g/dL (6.3-8.2)
[2020-07-15 17:01] LABS: Bacteria Urine Few (2-10); Culture Indicated Urine Specimen Cultured; RBC Urine 0-1/HPF (0-5/HPF); Renal Epithelial Cells Urine 1-5/HPF (0-1/HPF); Squamous Epithelial Cell Urine 1-5 /HPF (0-5/HPF); Transitional Epi Cells Urine 1-5/HPF (0-5/HPF); WBC Urine 5-10/HPF (0-5/HPF)
[2020-07-15] MEDS: PIPERACILLIN-TAZO 3.375 GM/50 ML FROZ.PIGGY IV (17:35)
[2020-07-15 17:55] LABS: COVID19 -Nasal RAPID Negative (Negative)
--- NOTE | 2020-07-15 18:43 | P.HP_ITS ---
History of Present Illness History of Present Illness Date Patient Seen: 07/15/20 Time Patient Seen: 18:43 Chief complaint: ABDOMINAL PAIN WORSENING Narrative: This is a 79 yo woman with one week history of suprapubic pain, which became much worse today, complicated by nausea/vomiting. CT scan in the ER revealed acute appendicitis with a fecalith. Does not appear to be perforated or surrounded by phlegmon. She has an elevated white blood cell count 15. She has a history of morbid obesity, BMI 39, large hiatal hernia, multiple orthopedic operations, HTN, HLD, colon polyps. She denies ever having a heart attack or stroke. She had a colonoscopy in 2019, which revealed several polyps which were removed. None were advanced polyps. She reports pain in her RLQ and his vomiting right now. ROS: Denies dysuria/pyuria; reports supra pubic pain; denies melena, hematochezia; reports nausea/vomiting. Denies chest pain, SOB Reports knee pain Thirteen system review is otherwise negative other than as mentioned below and in HPI. PE: GENERAL: Alert, in moderate distress due to nausea vomiting Appears stated age. Answers questions promptly and appropriately. Vital signs noted. Morbidly obese. HENT: Normocephalic, atraumatic. Somewhat hard of hearing. EYES: Conjunctiva pink, sclera white, no periorbital swelling. CARDIOVASCULAR: Regular rate. No pedal edema. RESPIRATORY: Non-tachypneic, breathing comfortably on room air. GASTROINTESTINAL: Abdomen soft and non-distended; tender palpation in the suprapubic and right lower quadrant GENITALURINARY: No flank tenderness. MUSCULOSKELETAL: Equal tone and mass bilaterally. SKIN: Warm, dry, soft, appropriate color for ethnicity. No other lesions, rashes, or wounds. NEURO: Alert and Oriented X 3. No gross sensory deficits, or cognitive issues. PSYCH: Appropriate affect and mood. 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 Morbid obesity Osteoarthritis Spinal stenosis, lumbar region with neurogenic claudication Spondylolisthesis at L4-L5 level Statin intolerance Tinnitus of left ear Surgical History History of arthroplasty of right shoulder History of bunionectomy of left great toe History of bunionectomy of right great toe History of discectomy History of thumb surgery History of tonsillectomy History of tympanoplasty of left ear Hx of total knee arthroplasty S/P epidural steroid injection Family & Social History Social History: household members spouse,none Prior Living Arrangements House Safety & Behavioral: Feels Safe in Current Yes Environment Been Physically Hurt or No Threatened By a Person Tobacco & Substance use: Smoking Status Never smoker alcohol intake current alcohol intake frequency a few times a week Substance Use Type does not use Meds Home Medications and Allergies Home Medications Medication Instructions Recorded Confirmed Type lisinopril 20 mg PO DAILY #0 07/16/17 08/13/18 History acetaminophen [Tylenol Extra 750 mg PO DAILY PRN 01/10/18 08/13/18 History Strength] ascorbic acid (vitamin C) [Vitamin 500 mg PO DAILY 01/10/18 08/13/18 History C] ferrous sulfate 325 mg PO DAILY 01/10/18 08/13/18 History multivitamin 1 tab PO DAILY 01/10/18 08/13/18 History naproxen sodium [Aleve] 220 mg PO DAILY PRN 01/10/18 08/13/18 History omega 1-rzm-cru-fish oil [Fish Oil] 1 cap PO DAILY 01/10/18 08/13/18 History zolpidem 5 mg PO BEDTIME PRN 01/10/18 08/13/18 History rosuvastatin 5 mg PO DAILY 11/12/18 11/12/18 History Allergies Allergy/AdvReac Type Severity Reaction Status Date / Time No Known Drug Allergies Allergy Verified 11/12/18 11:09 Exam Vital Signs (past 8 hours): - 07/15/20 15:30 07/15/20 15:47 07/15/20 15:48 Temperature Pulse Rate 76 71 72 Respiratory Rate 18 Blood Pressure 185/85 H 187/88 H Pulse Oximetry 98 98 98 07/15/20 15:52 07/15/20 15:59 07/15/20 16:00 Temperature 98.3 F 98.3 F Pulse Rate 80 Respiratory Rate Blood Pressure 182/86 H Pulse Oximetry 97 07/15/20 16:30 07/15/20 16:47 07/15/20 17:00 Temperature Pulse Rate 77 81 79 Respiratory Rate Blood Pressure 169/80 H 184/91 H 196/88 H Pulse Oximetry 91 98 94 07/15/20 18:37 Temperature 98.3 F Pulse Rate 85 Respiratory Rate 20 Blood Pressure 146/83 H Pulse Oximetry 96 Oxygen Delivery Method Room Air Objective Imaging CT scan - abdomen: Radiologist's impression: [address] [id number] Scan ReportSigned Patient: Holly Bates MMR#: [id number]: 2Acct:[id number]/Sex: 79 / FDate of Service: 07/15/20Loc: EDAccession Number: [id number] Procedure: CT abdomen pelvis w con Ordering Provider: Lily Mcarthur MD PROCEDURE: CT ABDOMEN PELVIS W CON INDICATIONS: Seven days of increasing abdominal pain, worse suprapubic TECHNIQUE: After the administration of intravenous contrast, 5 mm thick sections acquired from the diaphragm to the symphysis. 5 mm coronal and sagittal reformats were acquired. For radiation dose reduction, the following was used: automated exposure control, adjustment of mA and/or kV according to patient size. COMPARISON: None. FINDINGS: Image quality: Excellent. ABDOMEN: Lung bases: Lung bases are clear. Heart size is normal. Moderately large hiatal hernia. Solid organs: Liver is normal in size and enhancement. Benign-appearing calcification, right lobe of liver. Gallbladder is unremarkable. Biliary system is non dilated. Pancreas enhances normally. Spleen is normal in size and enhancement. No adrenal nodules. Kidneys demonstrate normal size and enhancement, without hydronephrosis. Peritoneum and bowel: Bowel loops demonstrate normal wall thickness and caliber. No free fluid or air. Acute nonruptured appendicitis. Appendix is markedly dilated, measuring 1.6 cm. There is a calcified fecalith at the base of the appendix as it enters the cecum. Sigmoid diverticulosis without evidence of diverticulitis. Nodes and vessels: No retroperitoneal or mesenteric adenopathy by size criteria. Aorta and inferior vena cava are normal in size. Miscellaneous: No ventral hernias. PELVIS: Genitourinary: Bladder wall thickness is normal. Miscellaneous: No inguinal hernias or adenopathy. Bones: No suspicious bony lesions. No vertebral body compression fractures. IMPRESSION: 1. Acute nonruptured appendicitis. Appendix is markedly dilated. It contains an obstructing calcified fecalith. 2. Moderately large hiatal hernia. 3. Sigmoid diverticulosis. Dictated by: Alexander العلي M.D. on 07/15/2020 at 16:59 Approved by: Alexander العلي M.D. on 07/15/2020 at 17:04 Labs Result Diagrams: 07/15/20 15:40 07/15/20 15:40 Labs: Laboratory Results - last 24 hr 07/15/20 07/15/20 07/15/20 15:40 15:40 15:40 WBC 15.2 H RBC 5.51 H Hgb 16.4 H Hct 50.5 H MCV 91.6 MCH 29.8 MCHC 32.6 RDW 14.5 Plt Count 327 Neut % (Auto) 77.3 H Lymph % (Auto) 13.4 L [place] % (Auto) 8.3 Eos % (Auto) 0.5 L Baso % (Auto) 0.5 Neut # (Auto) 56567 H Lymph # (Auto) 2000 [place] # (Auto) 1300 H Eos # (Auto) 100 Baso # (Auto) 100 PT 11.7 INR 1.0 APTT 32 D Sodium 138 Potassium 3.7 Chloride 99 Carbon Dioxide 31 BUN 14 Creatinine 0.70 Estimated GFR > 60.0 BUN/Creatinine Ratio 20.0 Glucose 104 Calcium 10.2 Total Bilirubin 0.7 AST 51 H ALT 32 Alkaline Phosphatase 86 Total Protein 9.3 H Albumin 5.2 H Globulin 4.1 Albumin/Globulin Ratio 1.3 Lipase 111 Urine RBC Urine WBC Ur Squamous Epith Cells Ur Transition Epith Cell Ur Renal Epithelial Cell Urine Bacteria Ur Culture Indicated? COVID-19 PCR 07/15/20 07/15/20 16:29 17:17 WBC RBC Hgb Hct MCV MCH MCHC RDW Plt Count Neut % (Auto) Lymph % (Auto) [place] % (Auto) Eos % (Auto) Baso % (Auto) Neut # (Auto) Lymph # (Auto) [place] # (Auto) Eos # (Auto) Baso # (Auto) PT INR APTT Sodium Potassium Chloride Carbon Dioxide BUN Creatinine Estimated GFR BUN/Creatinine Ratio Glucose Calcium Total Bilirubin AST ALT Alkaline Phosphatase Total Protein Albumin Globulin Albumin/Globulin Ratio Lipase Urine RBC 0-1/hpf Urine WBC 5-10/hpf H Ur Squamous Epith Cells 1-5 /hpf Ur Transition Epith Cell 1-5/hpf Ur Renal Epithelial Cell 1-5/hpf H Urine Bacteria Few (2-10) H Ur Culture Indicated? Specimen cultured COVID-19 PCR Negative Assessment & Plan Assessment and plan (1) Acute appendicitis: Qualifiers: Acute appendicitis type: with localized peritonitis Appendicitis a bscess presence: without abscess Appendicitis gangrene presence: without gangrene Appendicitis perforation presence: without perforation Qualified Code(s): K35.30 - Acute appendicitis with localized peritonitis, without perforation or gangrene Status: Acute (2) Morbid obesity: Status: Acute (3) Large hiatal hernia: Status: Acute (4) Hypertension: Status: Acute Assessment & Plan narrative: This is a 79-year-old woman with morbid obesity who has acute appendicitis. The risks and benefits of laparoscopic possible open appendectomy were discussed with the patient including risk of bleeding, infection, damage to nearby structures, need for additional procedures, need for open surgery, postoperative abscess, bowel obstruction, hernia. The patient's morbid obesity does increase the risk of surgery and make surgery more difficult in terms of safely placing the ports through her abdominal wall, mobilizing the structures within her abdomen, and closing the operative sites. In addition her obesity makes mobilization and ambulation after surgery more difficult, increasing the risk of DVT, pulmonary embolism, pneumonia, ileus, delayed return of bowel function, and bedsores. Plan: Zosyn, NPO, IV fluids Proceed to OR for laparoscopic possible open appendectomy COVID-19 COVID-19 status: Negative Result date/Date tested (Pos, Neg/Pending): 07/15/20 Time Spent With Patient Time with patient: 25 - 35 minutes Quality VTE Deep Vein Thrombosis/Pulmonary Embolism Present on Admission: No
[2020-07-15] MEDS: LACTATED RINGERS 1,000 ML 42 ML IV ×2 (18:45→20:06)
--- NOTE | 2020-07-15 19:47 | SUR.OPER ---
Supine on padded OR bed, head on pillow, left arm padded and tucked at side, legs uncrossed, safety belt at thigh, tape over blanket over lower legs .
[2020-07-15] MEDS: BUPIVACAINE 0.5% W/ EPI (PF) 30 ML VIAL INJ ×2 (20:07→20:14)
--- NOTE | 2020-07-15 20:43 | PM.OP.1 ---
Operative Date/Time/Diagnoses Date of procedure: 07/15/20 Time of procedure: 20:43 Pre-op diagnosis: Acute appendicitis Post-op diagnosis: same Procedure & Clinicians Procedure: Laparoscopic appendectomy Same procedure as scheduled: Yes Indications: Acute appendicitis Surgeon: Judy Escudero Click Yes if Unassisted: Yes Anesthesia Type: General Operative Notes Findings: Thickened, dilated, firm appendix consistent with acute appendicitis Specimen(s): other (Appendix) Estimated Blood Loss (mL): 5 Procedure in detail: The patient was brought into the operating room and placed supine on the OR table. Sequential compression devices were placed on both legs and turned on. Appropriate perioperative antibiotics were given prior to the start of surgery. General anesthesia was induced the patient was intubated. Mancia catheter was placed sterilely in the bladder. The abdomen was prepped and draped in sterile fashion. Surgical time-out was conducted. Local anesthetic was injected under the skin just superior to the umbilicus and a 1 cm vertical incision was made at this site. The umbilical stalk was grasped with a Jania and elevated. A Veress needle was passed through the fascia into proper position. The position was tested with a saline drop test which was appropriate for intra-abdominal Veress needle placement. The abdomen was then insufflated in the usual fashion. Once insufflated to 15 mm Hg the Veress needle was removed and a 5 mm optical trocar was placed under direct vision using a 5 mm 30 degree scope. Once the camera was inside the abdomen I took a look around. There was no injury from port placement. Two additional ports were placed in a similar fashion in the suprapubic position and left lower quadrant. The umbilical port was upsized to a 12 mm port. The patient was placed in Trendelenburg position with right side up. The omentum and small bowel was swept the left and the cecum was exposed. The base of the appendix was seen coming off of the cecum, it was followed down to the tip of the appendix, and the appendix was elevated away from the surrounding structures. The base of the appendix was dissected out, and the mesoappendix was divided using [place] LigaSure. Good hemostasis was maintained throughout the dissection. The ileum and ileocecal valve were well away from the area of dissection. Once the base of the appendix was completely dissected out I saw that it was fairly normal at the base, and only the middle and tip of the appendix were dilated and thickened. Therefore it was amenable to ligation with endo-loops. Two 0 endo-loops were then brought into the field and placed at the base of the appendix securely. I then elevated the appendix and divided it leaving a 2 mm stump beyond the endo-loops. Those good hemostasis on the stump. There was no spillage of stool. The appendix was placed in a laparoscopic Endo-Catch bag, and removed from the abdomen. I than used the laparoscopic suture passer and closed the umbilical port site with 0 Vicryl suture through the fascia. Generous local anesthetic was injected into the abdominal wall at this site and at the other port sites. One last look at the cecum, and the endo-loops were in good position, and there was very good hemostasis. At this point the insufflation was removed from the abdomen and the port sites were closed with, 3-O Vicryl in the subcutaneous layers, and 4 Monocryl in the skin. Each port site was sealed with Dermabond. This concluded the procedure. At this point the needle sponge and instrument counts were correct. The appendix was passed off the table for pathology. The patient was awakened from anesthesia and extubated. The Mancia catheter was removed. The patient was transferred to the postanesthesia care unit in stable condition. Complications: none Post-operative Condition: stable Disposition: PACU
[2020-07-15] MEDS: fentaNYL 100 MCG/2 ML INJ IV (20:52)
--- NOTE | 2020-07-15 20:57 | SUR.PHASEI ---
Patient awake to verbal and c/o shaking. Denies being cold and denies pain. Requested demerol from anesthesia.
[2020-07-15] MEDS: MEPERIDINE 50 MG/ML INJ 12.5 MG IV (21:03)
[2020-07-15] MEDS: SODIUM CHLORIDE 0.9% 1,000 ML 90 ML IV (22:57)
[2020-07-16] MEDS: ZOLPIDEM 5 MG TABLET PO (01:44)
[2020-07-16] MEDS: ACETAMINOPHEN 325 MG TABLET 650 MG PO (01:45)
[2020-07-16 05:22] VITALS: BP 93/55; PULSE 60; RESP 16; TEMP 36.5; O2SAT 95
[2020-07-16 05:32] VITALS: BP 112/57; PULSE 67; RESP 16
[2020-07-16 05:38] LABS: Add Manual Diff / Slide Review NO; Basophils Absolute Auto 100 /uL (0-100); Basophils Percent Auto 0.7 % (0-2); Eosinophils Absolute Auto 0 /uL (0-450); Hematocrit 41.2 % (36-46); Hemoglobin 13.6 g/dL (12.0-16.0); Lymphocytes Absolute Auto 900 /uL (1100-4500); Lymphocytes Percent Auto 10.1 % (25-40); Mean Corpuscular HGB Conc 32.9 % (30-36); Mean Corpuscular Hemoglobin 30.1 PG (26-34); Mean Corpuscular Volume 91.5 fL (80-100); Monocytes Absolute Auto 300 /uL (0-900); Monocytes Percent Auto 3.1 % (3-14); Neutrophils Absolute Auto 8100 /uL (1500-7000); Neutrophils Percent Auto 86.1 % (50-75); Platelet Count 253 X10^3/uL (150-400); Red Blood Cell Count 4.51 X10^6/uL (4.0-5.2); Red Cell Distribution Width 14.7 % (11.6-14.8); White Blood Cell Count 9.4 X10^3/uL (4.5-11.0)
[2020-07-16 05:51] LABS: BUN Creatinine Ratio 18.5 (6-22); Blood Urea Nitrogen 12 mg/dL (7-17); Calcium 8.9 mg/dL (8.4-10.2); Carbon Dioxide 29 mmol/L (22-32); Chloride 104 mmol/L (98-107); Estimated Glomerular Filt Rate > 60.0 mL/min (>60); Glucose 143 mg/dL (80-110); HEMOLYSIS < 15 (0-50); Magnesium 1.8 mg/dL (1.6-2.3); Phosphorous 3.9 mg/dL (2.8-4.1); Potassium 4.7 mmol/L (3.4-5.1); Sodium 134 mmol/L (137-145)
[2020-07-16 07:45] VITALS: BP 112/57; PULSE 68; RESP 15; TEMP 36.6; O2SAT 94
[2020-07-16 08:56] VITALS: BP 111/57
[2020-07-16] MEDS: HEPARIN 5,000 UNIT/ML VIAL 5000 UNIT SUBCUT (08:56)
--- NOTE | 2020-07-16 09:06 | PC.NURSE ---
Held Lisinopril. BP 112/57 this morning and lower than patient's normal range the last 3 times. Patient agreed to hold lisinopril.
--- NOTE | 2020-07-16 10:34 | CM.DANOTE ---
DCP: Case received, EMR reviewed and met with patient. Introduced self and role. Was able to obtain information from patient regarding her baseline activity status prior to surgery. DCP assessment completed with information currently available. Patient is a 79 year old female who admitted yesterday afternoon to the care of the hospitalist/surgical team. PCP: Dr. Tanya Sanz. Payer: confirmed: Medicare/[facility]. Patient came to the hospital via private vehicle secondary to having intermittent right lower quadrant pain. She holds diagnosis of acute appendicitis with local peritonitis. She had surgery yesterday. Met with patient in her room. She was laying in bed, alert and oriented, pleasant. She is independent at baseline, and resides here in [place] with he spouse Handy. She is retired. P: DCP to continue to follow. Patient should be able to go home when she is medically stable. Vy Vazquez RN/Business Systems Analyst
[2020-07-16] MEDS: SODIUM CHLORIDE 0.9% 1,000 ML 90 ML IV (11:13)
== END 2020-07-16 13:15 | disposition home or self-care (01) ==
LOC: ED 17:34 → AC 18:21
PROVIDERS: Admitting Provider Surgery; Emergency Provider Emergency Medicine; PCP Internal Medicine; Referring Provider Emergency Medicine; Visit Provider Surgery
PROC: 0DTJ4ZZ Resection of Appendix, Percutaneous Endoscopic Approach (ICD-10-PCS; CPT 44970; principal; 2020-07-15 19:15)
DX: K35.80 Unspecified acute appendicitis (principal); R10.9 Unspecified abdominal pain; I10 Essential (primary) hypertension; K21.9 Gastro-esophageal reflux disease without esophagitis; Z68.39 Body mass index [BMI] 39.0-39.9, adult; E66.01 Morbid (severe) obesity due to excess calories; K44.9 Diaphragmatic hernia without obstruction or gangrene; E78.5 Hyperlipidemia, unspecified; Z11.59 Encounter for screening for other viral diseases
CPT/HCPCS: 44970; 36415; 74177; 80048; 80053; 81003; 81015; 83690; 83735; 84100; 85025; 85610; 85730; 87086; 87635; 93005; 96361; 96365; 96372; 96375; 96376; 99220; 99284; G0378; J0330; J1100; J1170; J1644; J2175; J2405; J2543; J2704; J3010; Q9967

== ENCOUNTER → 2020-09-03 08:44 | Outpatient (CLI) | payer MEDICARE, OTHER, SELFPAY ==
[2020-07-15 22:31] VITALS: BMI 39.0
[2020-09-03 10:19] LABS: HEMOLYSIS 17 (0-50); Iron 104 ug/dL (37-170)
[2020-09-03 10:22] LABS: Alanine Aminotransferase 23 IU/L (<35); Albumin 4.6 g/dL (3.5-5.0); Albumin Globulin Ratio 1.4 (1.0-2.8); Alkaline Phosphatase 64 U/L (38-126); Aspartate Aminotransferase 32 IU/L (14-36); BUN Creatinine Ratio 30.3 (6-22); Bilirubin Total 0.6 mg/dL (0.2-1.3); Blood Urea Nitrogen 23 mg/dL (7-17); Calcium 9.6 mg/dL (8.4-10.2); Carbon Dioxide 31 mmol/L (22-32); Chloride 100 mmol/L (98-107); Cholesterol 143 mg/dL (140-199); Estimated Glomerular Filt Rate > 60.0 mL/min (>60); Globulin 3.2 g/dL (1.7-4.1); Glucose 100 mg/dL (80-110); HDL Cholesterol 64 mg/dL (40-60); HEMOLYSIS < 15 (0-50); LDL Cholesterol Calculated 68 mg/dL (<100); Potassium 4.1 mmol/L (3.4-5.1); Sodium 134 mmol/L (137-145); Total Protein 7.8 g/dL (6.3-8.2); Triglycerides 54 mg/dL (35-150)
[2020-09-03 10:29] LABS: Percent Iron Saturation 29 % (15-50); Total Iron Binding Capacity 353 ug/dL (265-497); Transferrin 277 mg/dL (206-381)
[2020-09-03 10:56] LABS: Ferritin 45 ng/mL (11-264)
== END ==
PROVIDERS: PCP Internal Medicine; Referring Provider Internal Medicine; Visit Provider Internal Medicine
DX: I10 Essential (primary) hypertension (principal); D50.9 Iron deficiency anemia, unspecified; E78.5 Hyperlipidemia, unspecified
CPT/HCPCS: 36415; 80053; 80061; 82728; 83540; 83550

== ENCOUNTER → 2021-07-25 15:08 | Outpatient (CLI) | payer MEDICARE, OTHER, SELFPAY ==
[2020-07-15 22:31] VITALS: BMI 39.0
--- NOTE | 2021-07-25 | DI.MG.S_ITS ---
BILATERAL DIGITAL SCREENING MAMMOGRAM 3D/2D WITH CAD: 07/25/2021 CLINICAL: Routine screening. Comparison is made to exams dated: 06/06/2016 mammogram, 02/22/2015 mammogram, and 01/12/2014 mammogram - outside location. The tissue of both breasts is predominantly fatty. Current study was also evaluated with a Computer Aided Detection (CAD) system. There is a round high density mass with a spiculated margin and fine dystrophic calcifications in the right breast at 9 o'clock middle depth. This is more prominent and increased in size. No other significant masses, calcifications, or other findings are seen in either breast. IMPRESSION: INCOMPLETE: NEEDS ADDITIONAL IMAGING EVALUATION The round high density mass in the right breast is indeterminate. A diagnostic mammogram and ultrasound is recommended. This exam was interpreted at Station ID: [id number]. NOTE: For mammograms, a report in lay terms will be sent to the patient. Approximately 15% of breast malignancies will not be visualized mammographically. In the management of a palpable breast mass, a negative mammogram must not discourage biopsy of a clinically suspicious lesion. Electronically Signed By: Laurel benitez/oliver:07/25/2021 17:03:50 letter sent: Additional Imaging Needed ACR BI-RADS Category 0: Incomplete [id number]
== END ==
PROVIDERS: PCP Internal Medicine; Referring Provider Internal Medicine; Visit Provider Internal Medicine
DX: Z12.31 Encounter for screening mammogram for malignant neoplasm of breast (principal)
CPT/HCPCS: 77063; 77067

== ENCOUNTER → 2021-10-05 12:00 | Outpatient (CLI) | payer MEDICARE, OTHER, SELFPAY ==
[2020-07-15 22:31] VITALS: BMI 39.0
--- NOTE | 2021-10-05 | DI.MG.S_ITS ---
UNILATERAL RIGHT DIGITAL DIAGNOSTIC MAMMOGRAM 3D/2D WITH ADDITIONAL VIEWS: 10/05/2021 CLINICAL: Additional evaluation requested from prior study. Comparison is made to exams dated: 07/25/2021 mammogram - [facility], 06/06/2016 mammogram, and 02/22/2015 mammogram - outside location. The tissue of right breast is predominantly fatty. There is a 1 cm round high density mass with a spiculated margin and fine dystrophic calcifications in the right breast at 9 o'clock middle depth. This is seen in additional views. This is more prominent and increased in size. There also is a stable 0.3 cm oval low density focal asymmetry with an indistinct and circumscribed margin in the right breast at 9 o'clock middle depth. No other significant masses or calcifications are seen in the breast. IMPRESSION: INCOMPLETE: NEEDS ADDITIONAL IMAGING EVALUATION The 1 cm round high density mass in the right breast at 9 o'clock middle depth is indeterminate. An ultrasound is recommended. The stable 0.3 cm oval low density focal asymmetry in the right breast at 9 o'clock middle depth is indeterminate. An ultrasound is recommended. This exam was interpreted at Station ID: [id number]. NOTE: For mammograms, a report in lay terms will be sent to the patient. Approximately 15% of breast malignancies will not be visualized mammographically. In the management of a palpable breast mass, a negative mammogram must not discourage biopsy of a clinically suspicious lesion. Electronically Signed By: Yusef ruiz/oliver:10/05/2021 13:25:08 ACR BI-RADS Category 0: Incomplete [id number]
--- NOTE | 2021-10-05 | DI.US.S_ITS ---
LIMITED ULTRASOUND OF RIGHT BREAST AND AXILLA: 10/05/2021 CLINICAL: Patient returns today to evaluate an asymmetry in the right breast. Comparison is made to exams dated: 07/25/2021 mammogram - [facility], 06/06/2016 mammogram, 02/22/2015 mammogram, 01/12/2014 mammogram - outside location, and 10/05/2021 mammogram - [facility]. Color flow ultrasound of the right breast 9 o'clock, and axilla regions was performed. Esposito scale images of the real-time examination were reviewed. There is a 1 cm x 0.9 cm x 0.7 cm irregular mass with an angular and spiculated margin in the right breast at 9 o'clock middle depth 8 cm from the nipple. This irregular mass is hypoechoic with an echogenic boundary and posterior acoustic shadowing. This correlates with mammography findings. There are related micro calcifications. Color flow imaging demonstrates that there is vascularity present. There also is a 0.3 cm x 0.3 cm x 0.3 cm oval cyst with a smooth internal wall in the right breast at 9 o'clock posterior depth 9 cm from the nipple. This oval cyst is hypoechoic with posterior acoustic enhancement. This most likely correlates with the stable mammography finding. No significant abnormalities were seen sonographically in the right axilla. IMPRESSION: HIGHLY SUGGESTIVE OF MALIGNANCY The 1 cm x 0.9 cm x 0.7 cm irregular mass in the right breast at 9 o'clock middle depth is highly suggestive of malignancy. An ultrasound guided biopsy is recommended. Findings and recommendations were discussed with the patient by the onsite radiologist, Dr. Ramos, at the time of the exam. The 0.3 cm x 0.3 cm x 0.3 cm oval cyst in the right breast at 9 o'clock posterior depth is consistent with a complicated cyst and is probably benign. Recommend 6 month follow up right breast ultrasound. This exam was interpreted at Station ID: [id number]. Electronically Signed By: Yusef Winchester M.D. ar/:10/05/2021 13:30:43 letter sent: Biopsy Required Ultrasound BI-RADS: 5 Highly suggestive of malignancy
== END ==
PROVIDERS: PCP Internal Medicine; Referring Provider Internal Medicine; Visit Provider Internal Medicine
DX: R92.8 Other abnormal and inconclusive findings on diagnostic imaging of breast (principal); N63.15 Unspecified lump in the right breast, overlapping quadrants; N60.01 Solitary cyst of right breast
CPT/HCPCS: 76642; 77065; G0279

== ENCOUNTER → 2021-11-07 10:01 | Outpatient (CLI) | payer MEDICARE, OTHER, SELFPAY ==
[2021-10-23 10:12] VITALS: BMI 39.0
[2021-11-07 10:40] LABS: COVID19 -Nasal RAPID Negative (Negative)
== END ==
PROVIDERS: PCP Internal Medicine; Visit Provider Surgery
DX: Z01.812 Encounter for preprocedural laboratory examination (principal); Z20.822 Contact with and (suspected) exposure to COVID-19
CPT/HCPCS: 87635; C9803

== ENCOUNTER 2021-11-08 06:49 | Day surgery (SDC) | payer MEDICARE, OTHER, SELFPAY ==
[2021-10-23 10:12] VITALS: BMI 39.0
[2021-11-07 08:11] VITALS: BMI 43.0
[2021-11-08] VITALS (15 sets, daily range): BP systolic 101–149; BP diastolic 48–87; PULSE 68–92; RESP 8–99; TEMP 36.1–36.7; O2SAT 10–100; BMI 43.0
--- NOTE | 2021-11-08 | DI.MG.S_ITS ---
SPECIMEN RIGHT BREAST: 11/08/2021 CLINICAL: Right breast specimen. Correlation is made to exams dated: 11/08/2021 mammogram - [facility], 10/18/2021 ultrasound biopsy, and 10/18/2021 mammogram - [facility]. A lumpectomy specimen was imaged for the previous biopsy site located in the right breast at 9 o'clock middle depth. IMPRESSION: SPECIMEN The imaged specimen includes a biopsy clip and the distal portion of the localization wire. This exam was interpreted at Station ID: [id number]. Judith Hernandez M.D. lk/:11/08/2021 14:18:52
--- NOTE | 2021-11-08 | PATH_ITS ---
[facility] Accession Number: [id number] . 01 Material submitted: . PART A: lymph node - RIGHT SENTINEL NODES PART B: breast - RIGHT BREAST . 02 Diagnosis: A. Right [place] Nodes: Three lymph nodes negative for metastatic carcinoma by immunohistochemistry studies (0/3). Please see Cancer Case Summary. . B. Right Breast, Needle Guided Lumpectomy: Invasive ductal carcinoma of the breast. Please see Cancer Case Summary. . CANCER CASE SUMMARY . Specimen Procedure: Excision (less than total mastectomy); needle guided lumpectomy with sentinel lymph node biopsy. Specimen laterality: Right. . Tumor Tumor site: 9 o'clock, 6-8 cm (middle depth) from nipple. Histologic type: Invasive carcinoma of no special type (ductal). . Histologic grade: Glandular/tubular differentiation: Score 2 of 3. Nuclear pleomorphism: Score 2 of 3 (poor tissue preservation is obscuring). Mitotic rate: Score 1 of 3 (poor tissue preservation is obscuring). Overall: Grade 1 / low-grade (score 5 of 9). . Tumor size: Greatest dimension of invasive focus: 12 mm (based on glass slide measurement (slice 13, B6). Tumor focality: Single focus of invasive carcinoma. Ductal carcinoma in situ: Present. . DCIS Estimated size of DCIS: Approximately five minute foci adjacent to tumor (each focus approximately 1-2 mm). Number blocks with DCIS: Five (B4-8). Architectural patterns: Cribriform, micropapillary, clinging. Nuclear grade of DCIS: Grade 1 (low-grade); poor tissue preservation is obscuring. Necrosis: Not identified. . Tumor extent Not applicable, skin, nipple, and skeletal muscle are absent. . Lymphovascular invasion: Not identified. . Dermal lymphovascular invasion: No skin present. . Microcalcifications: Not identified. . Treatment effect: No known presurgical therapy. . Treatment effect in lymph nodes: Not applicable. . Margins . Margin status for invasive carcinoma: Positive over a 3 mm region at the posterior margin. Distance of invasive tumor from other margins: Anterior: Greater than 10 mm. Superior: 3 mm. Inferior: Greater than 10 mm. Medial: Greater than 10 mm. Lateral: Greater than 10 mm. . Margin status for DCIS: Negative. Distance from DCIS to closest margin: Less than 1 mm from posterior margin. Distance of DCIS from other margins: Anterior: Greater than 10 mm. Superior: 3 mm. Inferior: Greater than 10 mm. Medial: Greater than 10 mm. Lateral: Greater than 10 mm. . Regional lymph nodes Regional lymph node status: Negative for metastatic carcinoma. Number of lymph nodes with macrometastasis: 0. Number of lymph nodes with micrometastasis: 0. Number of lymph nodes with isolated tumor cells: 0. Size of larges rafal metastatic deposit: Not applicable. Extranodal extension: Not applicable. . Total number of lymph nodes (sentinel and nonsentinel): Three. Number of sentinel lymph nodes examined: Three. . Pathologic stage classification (pTNM, AJCC 8th Edition: pT1c pN0(sn) . Additional findings: Needle localization guidewire present; changes consistent with previous instrumentation; fibrocystic changes consisting of stromal fibrosis, apocrine metaplasia, usual ductal hyperplasia, and cystic dilatation of terminal ductules; ringed-shaped biopsy clip present in slice 13. . CAP BREAST BIOMARKER REPORTING TEMPLATE: . Estrogen Receptor (ER) Status: Positive, 50-75% of tumor nuclei. Average intensity of staining: Strong staining intensity. Primary antibody: SP1 Progesterone Receptor (PgR) Status: Positive, 10-25% of tumor nuclei. Average intensity of staining: Moderate staining intensity. Primary antibody: 1E2 HER2 (by immunohistochemistry): Negative at 0+. Percentage of cells with uniform intense complete membrane staining: Primary antibody: 4B5 . Cold Ischemia and Fixation Times: Meets requirements in the latest version of the ASCO/CAP guidelines. Testing performed on Block Number: B6 . TECHNICAL NOTE: The scoring criteria for breast biomarkers by immunohistochemistry is based on the current ASCO/CAP guidelines (Chani et al, Arch Pathol Lab Med 2010: 134(6): 907-922 / Joseline Hardin al, Arch Pathol Lab Med 2014: 138(2):241-256). Deparaffinized sections of formalin fixed tissue (along with appropriate positive controls) are incubated with the above antibody(s). Using the automated [place]all stainer, tissue is incubated with the designated antibody* which is then localized by a non-biotin, dual polymer detection system. The external controls are reviewed for appropriate reactivity and found to be adequate. Results on the target cell population are indicated above. These tests have not been validated on decalcified tissue. [facility] 11/17/2021 1311 Local . 02 Electronically signed: . Sangita Ray MD, Pathologist NPI- [id number] . 01 Gross description: . Received in two parts. . A. Received in formalin, labeled Holly Bates and designated 1. Right sentinel nodes, is a 3.5 x 3.0 x 1.0 cm aggregate of fibrofatty tissue that contains three 0.7-1.6 cm, focally blue-tinged possible lymph nodes, all of which are serially sectioned and entirely submitted as follows: A1: One possible lymph node. A2: One possible lymph node. A3: One possible lymph node. A4: Residual fat. B. Received in formalin, labeled Holly Bates and designated 2. Right breast lumpectomy tissue, is an oriented lumpectomy specimen with a short suture designating superior and a long suture lateral. There is a needle localization wire inserted laterally. The specimen has dimensions as follows: 10 cm medial to lateral, 7.5 cm superior to inferior, and 2.5 cm anterior to posterior. It is inked as follows: Superior - blue, inferior - green, anterior - red, posterior - black, medial - yellow, lateral - orange. The specimen is serially sectioned from medial to lateral into 20 slices, numbered respectively (slices 1 and 20 = 0.8 cm thick, central slices 0.4-0.5 cm thick). Within slices 11-15, there is a 2.3 x 1.7 x 1.2 cm, ill-defined, brown-turner, speculated mass with an embedded ring-shaped biopsy clip in slice 13 that is within 0.1 cm from the posterior margin, 1.2 cm from the anterior margin, 0.3 cm from the superior margin, 3.0 cm from the inferior margin, and greater than 2.0 cm from the medial and lateral margins. The remaining cut surface is comprised of 90% yellow, lobulated adipose tissue and 10% thin, turner, fibrous tissue with no additional masses or lesions identified. Adult Care Manager sections are submitted as follows: B1: Portion of slice 1, medial margin, perpendicular. B2: Portion of slice 5, uninvolved, attached anterior, posterior, and inferior margins. B3: Portion of slice 10, immediately adjacent to mass, attached anterior and posterior margins. B4: Portion of slice 11 with medial aspect of mass, attached posterior margin. B5: Portion of slice 12 with mass, attached anterior and posterior margins. B6: Portion of slice 13 with mass, biopsy site, attached anterior, posterior, and superior margins. B7: Portion of slice 14 with mass, attached anterior and posterior margins, detached inferior margin. B8: Portion of slice 15 with lateral aspect of mass, attached anterior and posterior margins. B9: Portion of slice 16, immediately lateral to mass, attached anterior and posterior margins. B10: Portion of slice 17, uninvolved, attached anterior and posterior margins. B11: Portion of slice 20, lateral margin, perpendicular. . The specimen was collected on 11/08/2021 and placed on the processor on 11/11/2021 at 11:00 a.m. (IVANIA:[id number]) /Tatianna 11/11/2021 1702 Local . 02 Microscopic: . An immunohistochemistry study is performed to evaluate the cells of interest. The control stains show appropriate reactivity. . RESULTS: Blocks A1, A2 and A3 JORDI: Negative for metatatic carcinoma. . Block B6: Myosin: Absent in region of interest. P63: Absent in region of interest. E-cadherin: Positive in region of interest, consistent with ductal differentiation. ALEJANDRA-3: Positive in region of interest, consistent with breast origin. . The absence of myosin and p63 at the focus of interest supports an interpretation of invasive adenocarcinoma. . Blocks B4, B7, and B8: CK5/6: Diminished staining at focus of interest. ER: Strong staining at focus of interest. . The strong ER immunopositivity and diminished CK5/6 staining supports an interpretation of ductal carcinoma in situ at theses foci. . Block B7: E-cadherin: Negative in region of interest. ALEJANDRA-3: Negative in region of interest. . Site consistent with biopsy changes. The absence of both E-cadherin and ALEJANDRA-3 in the region of interest mitigates against the presence of invasive tumor at this focus which was included in the gross tumor measurement. The invasive tumor is present in slice 13, with a glass slide measurement of 12 mm (B6). . * This test was developed and its performance characteristics determined by [facility]. It has not been cleared or approved by the U.S. Food and Drug Administration. The FDA has determined that such clearance or approval is not necessary. This test is used for clinical purposes. It should not be regarded as investigational or for research. . 02 Pathologist provided ICD-10: C50.911 . 02 CPT . 360881, 473953, 614379, 066272, 208731, M86688, G05862 Specimen Comment: A courtesy copy of this report has been sent to [phone] Performed at: 01 [facility] [address] [id number] MD Hosea Galvan MD Phone: [phone] Performed at: 02 [facility] [id number] [address] [place], [place] [id number] MD Yelena Nevarez MD Phone: [phone]
--- NOTE | 2021-11-08 | DI.MG.S_ITS ---
UNILATERAL RIGHT DIGITAL DIAGNOSTIC MAMMOGRAM 3D/2D: 11/08/2021 CLINICAL: Breast cancer. Post wire localization. Comparison is made to exams dated: 10/18/2021 ultrasound biopsy - [facility], 10/05/2021 mammogram, 07/25/2021 mammogram - [facility], and 06/06/2016 mammogram - outside location. The tissue of right breast is predominantly fatty. There is a localization wire in the appropriate position in the right breast at 9 o'clock middle depth 8 cm from the nipple. IMPRESSION: POST PROCEDURE MAMMOGRAM FOR MARKER PLACEMENT There was a successful localization wire placement in the right breast middle depth. This exam was interpreted at Station ID: [id number]. NOTE: For mammograms, a report in lay terms will be sent to the patient. Approximately 15% of breast malignancies will not be visualized mammographically. In the management of a palpable breast mass, a negative mammogram must not discourage biopsy of a clinically suspicious lesion. Electronically Signed By: Judith Hernandez M.D. lk/:11/08/2021 10:14:37 ACR BI-RADS Category Post-procedure mammogram for marker placement
--- NOTE | 2021-11-08 06:55 | DI.US.S_ITS ---
WIRE LOCALIZATION RIGHT BREAST WITH POST DIGITAL MAMMOGRAPHIC IMAGIN11/08/2021 CLINICAL: Pre-op wire localization with ultrasound guidance. Correlation is made to exams dated: 10/18/2021 ultrasound biopsy, 10/18/2021 mammogram - [facility], 10/05/2021 ultrasound, 10/05/2021 mammogram, 07/25/2021 mammogram - [facility], and 06/06/2016 mammogram - outside location. A wire localization was performed for the marker clip located in the right breast at 9 o'clock middle depth. The skin was prepped in the usual manner. A wire was inserted into the targeted area. Post placement digital mammographic imaging was obtained. IMPRESSION: WIRE LOCALIZATION Wire localization for the marker clip in the right breast at 9 o'clock middle depth was successful. This exam was interpreted at Station ID: [id number]. Judith radford/:11/08/2021 10:13:23
--- NOTE | 2021-11-08 06:55 | DI.NM.S_ITS ---
PROCEDURE: NM SENTINEL NODE INJECT ONLY RADIOPHARMACEUTICAL: 1.0 mCi Millipore filtered Tc-99m sulfur colloid. INDICATIONS: R lumpectomy and SNLB COMPARISON: [facility], , US BREAST RT LIMITED, 10/05/2021, 12:28. [facility], [place], US BIOPSY BREAST 1ST LESION RIGHT, 10/18/2021, 13:56. PROCEDURE: The area around the nipple was prepped and draped in a sterile fashion. Tc-99m sulfur colloid was injected intra-dermally around the outer edge of the areola in the right breast. No image was obtained. IMPRESSION: Administration of radiotracer into the right breast periareolar region for intra-operative sentinel lymph node localization. Dictated by: Mylene Burnham M.D. on 11/08/2021 at 9:24 Approved by: Mylene Burnham M.D. on 11/08/2021 at 9:26
--- NOTE | 2021-11-08 10:34 | PM.PREOP ---
Pre-operative Note Interval Note History & Physical reviewed/Exam performed by Physician: Yes Changes to H&P: No
[2021-11-08] MEDS: LACTATED RINGERS 1,000 ML 100 ML IV (11:55)
[2021-11-08] MEDS: CEFAZOLIN 2 GM/20 ML SYRINGE IV (13:02)
--- NOTE | 2021-11-08 13:28 | SUR.OPER ---
Supine on padded OR bed, head on pillow, arms secured on padded arm boards at <90 degrees abduction, legs uncrossed, safety belt at thigh, tape over blanket over lower legs.
[2021-11-08] MEDS: BUPIVACAINE 0.25% (PF) VIAL 30 ML INJ (13:37)
[2021-11-08] MEDS: METHYLENE BLUE 50 MG/10 ML VIAL INJ (13:41)
--- NOTE | 2021-11-08 14:30 | SUR.PHASEI ---
IV acetaminophen order at bedside from Dr Núñez.
--- NOTE | 2021-11-08 14:35 | PM.OP.1 ---
Operative Date/Time/Diagnoses Date of procedure: 11/08/21 Time of procedure: 14:35 Pre-op diagnosis: Right breast cancer Post-op diagnosis: same Procedure & Clinicians Procedure: Right needle guided lumpectomy with sentinel lymph node biopsy Same procedure as scheduled: Yes Indications: Invasive right breast cancer Surgeon: Dontrell Du Anesthesia Type: General Operative Notes Findings: 1 cm tumor 9 o'clock position middle depth 6 cm from nipple. Two sentinel lymph nodes identified 10 second counts 4711 and 4700 Specimen(s): other (R sentinel lymph nodes. R lumpectomy) Estimated Blood Loss (mL): 10 Procedure in detail: The patient underwent needle localized prior to the operation. They were brought to the operating room and placed supine on the table. Bilateral lower extremity compression devices were applied. They were intubated with an LMA. 1 ml of methlyene blue mixed w 4 ml saline was injected into the dermal space around the areola and massaged into the tissue for 5 minutes. They were prepped and draped in sterile fashion. Time-out was performed. An incision was made in the right axilla 2 cm below the hair bearing region. Dissection was carried down through the subcutaneous tissue towards the chest wall guided by the Neoprobe. Two sentinel nodes were found, the 10 sec count was 471 and 4700 both were blue in appearance. The nodes were removed the tissue was ligated with hemoclips. The background count following removal of the node was minimal there were no other blue appearing nodes or lymphadenopathy. Hemostasis was achieved. The subcutaneous tissue was closed with vicryl the skin with 4-o monocryl followed by dermabond. A periareolar curvilinear incision was made on the right breast was made and subcutaneous tissues were divided. The localizing wire was identified and then brought back within the incision. The end of the wire was within a firm palpable breast mass. The mass was excised with the wire and the clip. Specimen was marked short stitch superior long stitch lateral. Imaging demonstrated that the specimen contained the wire and the associated clip. Subcutaneous tissues were reapproximated with 3 0 Vicryl sutures skin closed with Monocryl followed by application of Dermabond. The counts were correct. They emerged from anesthesia and were transfered to recovery in stable condition. Complications: none Post-operative Condition: stable Disposition: Acute Care
[2021-11-08] MEDS: ACETAMINOPHEN IV 1,000 MG/100 ML VIAL 400 MG IV (14:38)
[2021-11-08] MEDS: HYDROMORPHONE 2 MG INJ 0.5 MG IV ×2 (14:51→15:08)
--- NOTE | 2021-11-08 15:19 | SUR.PHASEI ---
Spoke with Dr Núñez and clarified Dilaudid order for 0.5mg Dilaudid Q5Min
--- NOTE | 2021-11-08 16:12 | SUR.PHASEII ---
1355 Pt OPD bed with this RN. SBAR report from Franchesca OAKLEY. Pt awake, alert, drowsy, 95% on RA continuos pulse ox, tolerating apple juice.
== END 2021-11-08 17:07 | disposition home or self-care (01) ==
PROVIDERS: PCP Internal Medicine; Referring Provider Surgery; Visit Provider Surgery
PROC: (CPT 38500; principal; 2021-11-08 12:15)
DX: C50.411 Malignant neoplasm of upper-outer quadrant of right female breast (principal); Z17.0 Estrogen receptor positive status [ER+]; E66.01 Morbid (severe) obesity due to excess calories; I10 Essential (primary) hypertension; K21.9 Gastro-esophageal reflux disease without esophagitis; Z68.41 Body mass index [BMI] 40.0-44.9, adult; D50.9 Iron deficiency anemia, unspecified
CPT/HCPCS: 38500; 19125; 19285; 36415; 38792; 76098; 77065; 82962; A9541; C1819; J0131; J0690; J1100; J1170; J2250; J2704; J3010; Q9968

== ENCOUNTER 2021-11-15 04:45 | Emergency (ER) | payer MEDICARE, OTHER, SELFPAY ==
[2021-10-23 10:12] VITALS: BMI 39.0
[2021-11-15] VITALS (8 sets, daily range): BP systolic 103–148; BP diastolic 63–84; PULSE 75–97; RESP 18–24; TEMP 36.9; O2SAT 94–97; BMI 36.6
--- NOTE | 2021-11-15 05:02 | ED_ITS ---
HPI - Abdominal Pain General Chief Complaint: Abdominal Pain Stated Complaint: pain lower abd Time Seen by Provider: 11/15/21 05:02 Source: patient Mode of arrival: Ambulatory Limitations: no limitations History of Present Illness HPI narrative: The patient presents with abdominal pain for 5 days. She has breast cancer. She underwent lumpectomy and sentinel node biopsy last week. She took an oxycodone for pain afterwards. She has developed constipation. She still a small bowel movements. She has no back pain. She has no dysuria or hematuria. Her doctor recommended lentel soup and beets for constipation. She vomited yesterday after a beet salad. She has no ongoing vomiting. She denies fever or chills. In [address] at that time revealed diverticulosis. She has no history of diverticulitis. She does have left lower abdominal pain now. She has no urinary complaints. She has chronic low back pain, no acute low back pain. She has no numbness or weakness in her lower extremities. She denies fever or chills. Related Data Home Medications Medication Instructions Recorded Confirmed lisinopril 20 mg tablet 20 mg PO DAILY #0 07/16/17 11/13/21 acetaminophen 500 mg tablet 750 mg PO DAILY PRN 01/10/18 11/13/21 (Tylenol Extra Strength) ascorbic acid (vitamin C) 500 mg 500 mg PO DAILY 01/10/18 11/13/21 tablet (Vitamin C) ferrous sulfate 325 mg (65 mg 325 mg PO DAILY 01/10/18 11/13/21 iron) tablet multivitamin 1 tab PO DAILY 01/10/18 11/13/21 naproxen sodium 220 mg capsule 220 mg PO DAILY PRN 01/10/18 11/13/21 (Aleve) omega 9-ryj-puq-fish oil 1,000 mg 1 cap PO DAILY 01/10/18 11/13/21 (120 mg-180 mg) capsule (Fish Oil) zolpidem 5 mg tablet 5 mg PO BEDTIME PRN 01/10/18 11/13/21 rosuvastatin 5 mg tablet 5 mg PO DAILY 11/12/18 11/13/21 Previous Rx's Medication Instructions Recorded docusate sodium 100 mg capsule 100 mg PO DAILY #10 cap 07/16/20 oxycodone 5 mg tablet See Rx Instructions .ROUTE 07/16/20 .COMPLEX PRN #10 tab docusate sodium 100 mg capsule 100 mg PO BID #30 cap 11/08/21 (Colace) oxycodone 5 mg tablet See Rx Instructions .ROUTE 11/08/21 .COMPLEX PRN #30 tab amoxicillin 875 mg-potassium 1 tab PO Q12H #14 tab 11/15/21 clavulanate 125 mg tablet Allergies Allergy/AdvReac Type Severity Reaction Status Date / Time No Known Drug Allergies Allergy Verified 11/13/21 09:24 Review of Systems Review of Systems ROS Unobtainable: All systems reviewed & are unremarkable except as noted in HPI and below Constitutional Constitutional: Reports as per HPI, Denies body ache(s), Denies fatigue, Denies fever(s) and Denies headache(s) ENT Ears, Nose, Mouth, and Throat: Denies vertigo, Denies dizziness, Denies headache(s), Denies nasal trauma, Denies sinus pressure and Denies sore throat Cardiovascular Cardiovascular: Denies chest pain, Denies syncope, Denies edema and Denies dyspnea Respiratory Respiratory: Denies cough and Denies dyspnea Gastrointestinal Gastrointestinal: Reports as per HPI Genitourinary Genitourinary: Denies dysuria, Denies flank pain and Reports other (No h ematuria) Musculoskeletal Musculoskeletal: Denies back pain Integumentary/Breasts Skin/Breast: Denies lesions and Denies rash Neurologic Neurologic: Denies confusion, Denies vertigo, Denies dizziness, Denies syncope and Denies headache(s) Psychiatric Psychiatric: Denies confusion Endocrine Endocrine: Denies fatigue Hematologic/Lymphatic On Anticoagulants: No 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 Morbid obesity Osteoarthritis Spinal stenosis, lumbar region with neurogenic claudication Spondylolisthesis at L4-L5 level Statin intolerance Tinnitus of left ear Surgical History History of arthroplasty of right shoulder History of bunionectomy of left great toe History of bunionectomy of right great toe History of discectomy History of incision and drainage (02/15/18) History of thumb surgery History of tonsillectomy History of tympanoplasty of left ear Hx of lumbosacral spine surgery (01/16/18) Hx of total knee arthroplasty S/P epidural steroid injection Social History household members: spouse and none Smoking Status: Never smoker alcohol intake: current Smoking Status: Never smoker alcohol intake frequency: a few times a week Substance Use Type: does not use Exam Initial Vital Signs Initial Vital Signs: Vital Signs Temperature 98.5 F 11/15/21 05:08 Pulse Rate 89 11/15/21 05:08 Respiratory Rate 24 11/15/21 05:08 Blood Pressure 103/84 11/15/21 05:08 Pulse Oximetry 96 11/15/21 05:08 Const General: cooperative, healthy appearing and comfortable HENMT Head: normal to inspection, normocephalic and atraumatic Mouth: oral mucosae normal Throat: posterior oropharynx normal Eyes Sclera: sclerae normal Cornea: corneas normal and other Resp Auscultation: clear to auscultation bilaterally Cardio Rate: regular rate Rhythm: regular rhythm Heart Sounds: S1 normal, S2 normal and no click GI Inspection: normal to inspection Palpation: soft and tender (Moderate LLQ tenderness. No distension. No guarding or rebound.) Auscultation: normal bowel sounds Back/Spine/Pelvis Back: No CVA tenderness Skin General: no rashes or lesions noted Neuro General: patient alert, patient awake, patient oriented x3 and no focal motor deficits Extrem General: normal to inspection, no pedal edema and no calf tenderness Psych Mental Status: mental status grossly normal Course Course Course Narrative: The patient's current GI symptoms appear to be from colitis. This was confirmed with CT. I have started her on Augmentin. On his suggesting she is on a liquid diet until symptoms improve. If she has increasing pain or fever, she should return here, if all goes well follow-up with her doctor in 2 weeks. Orders Ordered: ED Orders 11/15/21 05:13 Complete Blood Count AUTO DIFF Stat Comprehensive Metabolic Panel Stat Lipase Stat 11/15/21 05:14 CT abdomen pelvis w con Stat Discontinued Medications Amoxicillin/Clavulanate Potassium (Amoxicillin/Clav 875/125 Mg) 1 tab PO NOW ONE Stop: 11/15/21 07:09 Last Admin: 11/15/21 07:16 Dose: 1 tab Documented by: Sodium Chloride (Normal Saline 0.9%) 1,000 mls @ 150 mls/hr IV CONT SYED Last Infusion: 11/15/21 07:11 Dose: Infused Documented by: Ketorolac Tromethamine (Ketorolac 30 Mg/Ml Vial) 15 mg IV NOW ONE Stop: 11/15/21 05:14 Last Admin: 11/15/21 05:27 Dose: 15 mg Documented by: Ondansetron HCl (Ondansetron 4 Mg/2 Ml Inj) 4 mg IV NOW ONE Stop: 11/15/21 05:14 Last Admin: 11/15/21 05:28 Dose: 4 mg Documented by: Ondansetron HCl (Ondansetron 4 Mg/2 Ml Inj) 4 mg IV NOW ONE Stop: 11/15/21 07:09 Last Admin: 11/15/21 07:16 Dose: 4 mg Documented by: Vital Signs Vital signs: Vital Signs - 8 hr 11/15/21 05:08 11/15/21 05:13 11/15/21 05:30 Temperature 98.5 F Pulse Rate 89 88 88 Respiratory Rate 24 Blood Pressure 103/84 Pulse Oximetry 96 97 95 11/15/21 06:00 11/15/21 06:01 11/15/21 06:31 Temperature Pulse Rate 97 H 88 84 Respiratory Rate Blood Pressure 145/64 H 136/63 Pulse Oximetry 96 97 94 11/15/21 07:00 11/15/21 07:54 Temperature Pulse Rate 84 75 Respiratory Rate 18 Blood Pressure 148/66 H 136/64 Pulse Oximetry 94 96 MDM - Abdominal Pain Lab Data Result diagrams: 11/15/21 05:00 11/15/21 05:00 Labs: Lab Results 11/15/21 11/15/21 Range/Units 05:00 05:00 WBC 11.6 H (4.5-11.0) X10^3/uL RBC 4.39 (4.0-5.2) X10^6/uL Hgb 13.2 (12.0-16.0) g/dL Hct 40.0 (36-46) % MCV 91.2 (80-100) fL MCH 30.0 (26-34) PG MCHC 32.9 (30-36) % RDW 13.7 (11.6-14.8) % Plt Count 297 (150-400) X10^3/uL Neut % (Auto) 86.5 H (50-75) % Lymph % (Auto) 6.3 L (25-40) % Overton % (Auto) 6.7 (3-14) % Eos % (Auto) 0.1 L (2-4) % Baso % (Auto) 0.4 (0-2) % Neut # (Auto) 77083 H (7181-4414) /uL Lymph # (Auto) 700 L (1283-4897) /uL Overton # (Auto) 800 (0-900) /uL Eos # (Auto) 0 (0-450) /uL Baso # (Auto) 0 (0-100) /uL Sodium 138 (137-145) mmol/L Potassium 4.0 (3.4-5.1) mmol/L Chloride 101 (98-107) mmol/L Carbon Dioxide 27 (22-32) mmol/L BUN 26 H (7-17) mg/dL Creatinine 0.80 (0.52-1.04) mg/dL Estimated GFR > 60.0 (>60) mL/min BUN/Creatinine Ratio 32.5 H (6-22) Glucose 181 H (80-110) mg/dL Calcium 9.0 (8.4-10.2) mg/dL Total Bilirubin 0.4 (0.2-1.3) mg/dL AST 23 (14-36) IU/L ALT 16 (<35) IU/L Alkaline Phosphatase 67 (38-126) U/L Total Protein 7.4 (6.3-8.2) g/dL Albumin 4.0 (3.5-5.0) g/dL Globulin 3.4 (1.7-4.1) g/dL Albumin/Globulin Ratio 1.2 (1.0-2.8) Lipase 251 (23-300) U/L Imaging Data CT scan - abdomen/pelvis: Radiologist's Impression: Infectious versus inflammatory colitis extending from the descending colon to the rectum. Sigmoid diverticulosis. Large paraesophageal hiatal hernia. Sludge in the gallbladder, no acute cholecystitis. Discharge Plan Departure Patient Disposition: Home Clinical Impression: Colitis Instructions: DI for Colitis Activity Restrictions/Additional Instructions: Augmentin 1 tablet 2 times daily for 7 days. Advil 2 tablets every 8 hours as needed for pain. You should be on a liquid diet until symptoms have improved. If you develop increasing pain or fever return to the ER. Follow-up with your doctor in 2 weeks to recheck. Prescriptions: New amoxicillin-pot clavulanate 875-125 mg tablet 1 tab PO Q12H Qty: 14 0RF No Action lisinopril 20 MG tablet 20 mg PO DAILY Qty: 0 0RF rosuvastatin 5 mg Tablet 5 mg PO DAILY 0RF oxycodone 5 mg tablet See Rx Instructions .ROUTE .COMPLEX PRN (Reason: painful procedure) Qty: 10 0RF Rx Instructions: take one or two pills every 6 hours if needed for pain. may constipte docusate sodium 100 mg capsule 100 mg PO DAILY Qty: 10 0RF multivitamin Tablet 1 tab PO DAILY 0RF acetaminophen [Tylenol Extra Strength] 500 mg Tablet 750 mg PO DAILY PRN (Reason: pain) 0RF Label Comments: patient states rarely ascorbic acid (vitamin C) [Vitamin C] 500 mg Tablet 500 mg PO DAILY 0RF ferrous sulfate 325 mg (65 mg iron) Tablet 325 mg PO DAILY 0RF zolpidem 5 mg Tablet 5 mg PO BEDTIME PRN (Reason: Insomnia) 0RF omega 8-uls-gom-fish oil [Fish Oil] 1,000 mg (120 mg-180 mg) Capsule 1 cap PO DAILY 0RF naproxen sodium [Aleve] 220 mg Capsule 220 mg PO DAILY PRN (Reason: pain) 0RF Rx Instructions: with food docusate sodium [Colace] 100 mg capsule 100 mg PO BID Qty: 30 0RF oxycodone 5 mg tablet See Rx Instructions .ROUTE .COMPLEX PRN (Reason: pain) Qty: 30 0RF Rx Instructions: 1-2 tabs every 6 hrs as needed for pain Referrals: Tanya Sanz MD [Primary Care Provider] -
--- NOTE | 2021-11-15 05:14 | DI.CT.S_ITS ---
PROCEDURE: CT ABDOMEN PELVIS W CON INDICATIONS: Left lower quadrant pain TECHNIQUE: After the administration of intravenous contrast, axial sections acquired from the lung bases to the pubic symphysis. Coronal and sagittal reformats were performed. For radiation dose reduction, the following was used: automated exposure control, adjustment of mA and/or kV according to patient size. COMPARISON: [facility], CT, CT ABDOMEN PELVIS W CON, 07/15/2020, 16:30. FINDINGS: Image quality: Excellent. Lung bases: Unremarkable. Large hiatal hernia as before. Heart: No significant findings. ABDOMEN: Liver: Liver is unremarkable in appearance without focal intrahepatic abnormalities. No intrahepatic or extrahepatic biliary ductal dilatation. Stable calcifications noted in the right hepatic lobe. Gallbladder: There is layering sludge within the gallbladder. No CT evidence for acute cholecystitis. Biliary ducts: Unremarkable. Pancreas: Unremarkable. Spleen: Unremarkable. Adrenal Glands: Unremarkable. Kidneys and Ureters: Unremarkable. Stomach and Bowel: There is circumferential wall thickening of the descending colon through the level of the rectum with associated pericolonic stranding. Concurrent sigmoid colon diverticula. No evidence for bowel obstruction. Small bowel unremarkable in appearance. Peritoneum: No abnormal intraperitoneal fluid. No free air. Ventral Wall: Small fat containing umbilical hernia without acute inflammation. Abdominal Nodes: No retroperitoneal or mesenteric adenopathy by size criteria. Vessels: Scattered atherosclerotic calcifications of the abdominal aorta and iliac vessels without aneurysmal dilatation. The inferior vena cava appears patent. PELVIS: Pelvic Organs: Unremarkable. Bladder: Unremarkable. Pelvic Nodes: No enlarged lymph nodes. Miscellaneous: No hernias are seen. Bones: Stable postsurgical changes of spinal fusion at L4-5 with unchanged appearance of minimal retrolisthesis of L5 on S1. No acute vertebral body compression fractures. Multilevel spondylitic changes throughout the imaged spine. No suspicious osseous lesions. IMPRESSION: 1. Infectious versus inflammatory colitis extending from the descending colon through the rectum. 2. Sigmoid colonic diverticulosis. Surrounding inflammatory changes likely related to concurrent colitis as described above. 3. Stable appearance of large hiatal hernia. 4. Gallbladder sludge. No CT evidence for acute cholecystitis. 5. Other chronic findings as above. No significant discrepancy with the night club manager radiology preliminary report. Dictated by: Dean Sousa M.D. on 11/15/2021 at 7:44 Approved by: Dean Sousa M.D. on 11/15/2021 at 8:04
[2021-11-15 05:20] LABS: Add Manual Diff / Slide Review NO; Basophils Absolute Auto 0 /uL (0-100); Basophils Percent Auto 0.4 % (0-2); Eosinophils Absolute Auto 0 /uL (0-450); Eosinophils Percent Auto 0.1 % (2-4); Hemoglobin 13.2 g/dL (12.0-16.0); Lymphocytes Absolute Auto 700 /uL (1100-4500); Lymphocytes Percent Auto 6.3 % (25-40); Mean Corpuscular HGB Conc 32.9 % (30-36); Mean Corpuscular Volume 91.2 fL (80-100); Monocytes Absolute Auto 800 /uL (0-900); Monocytes Percent Auto 6.7 % (3-14); Neutrophils Absolute Auto 10100 /uL (1500-7000); Neutrophils Percent Auto 86.5 % (50-75); Platelet Count 297 X10^3/uL (150-400); Red Blood Cell Count 4.39 X10^6/uL (4.0-5.2); Red Cell Distribution Width 13.7 % (11.6-14.8); White Blood Cell Count 11.6 X10^3/uL (4.5-11.0)
[2021-11-15 05:25] LABS: Alanine Aminotransferase 16 IU/L (<35); Albumin Globulin Ratio 1.2 (1.0-2.8); Alkaline Phosphatase 67 U/L (38-126); Aspartate Aminotransferase 23 IU/L (14-36); BUN Creatinine Ratio 32.5 (6-22); Bilirubin Total 0.4 mg/dL (0.2-1.3); Blood Urea Nitrogen 26 mg/dL (7-17); Carbon Dioxide 27 mmol/L (22-32); Chloride 101 mmol/L (98-107); Estimated Glomerular Filt Rate > 60.0 mL/min (>60); Globulin 3.4 g/dL (1.7-4.1); Glucose 181 mg/dL (80-110); HEMOLYSIS < 15 (0-50); Lipase 251 U/L (23-300); Sodium 138 mmol/L (137-145); Total Protein 7.4 g/dL (6.3-8.2)
[2021-11-15] MEDS: SODIUM CHLORIDE 0.9% 1,000 ML 150 ML IV (05:27)
[2021-11-15] MEDS: KETOROLAC 30 MG/ML VIAL 15 MG IV (05:27)
[2021-11-15] MEDS: ONDANSETRON 4 MG/2 ML INJ IV ×2 (05:28→07:16)
[2021-11-15] MEDS: AMOXICILLIN/CLAV 875/125 MG 1 TAB PO (07:16)
== END 2021-11-15 07:55 | disposition home or self-care (01) ==
PROVIDERS: Emergency Provider Emergency Medicine; PCP Internal Medicine
DX: K52.9 Noninfective gastroenteritis and colitis, unspecified (principal)
CPT/HCPCS: 36415; 74177; 80053; 83690; 85025; 96374; 96375; 96376; 99284; J1885; J2405; Q9967

== ENCOUNTER → 2021-11-21 15:15 | Outpatient (CLI) | payer MEDICARE, OTHER, SELFPAY ==
[2021-10-23 10:12] VITALS: BMI 39.0
[2021-11-21 15:40] LABS: COVID19 -Nasal RAPID Negative (Negative)
== END ==
PROVIDERS: PCP Internal Medicine; Visit Provider Surgery
DX: Z20.822 Contact with and (suspected) exposure to COVID-19 (principal); Z01.812 Encounter for preprocedural laboratory examination
CPT/HCPCS: 87635; C9803

== ENCOUNTER 2021-11-23 13:39 | Day surgery (SDC) | payer MEDICARE, OTHER, SELFPAY ==
[2021-10-23 10:12] VITALS: BMI 39.0
[2021-11-22 08:00] VITALS: BMI 39.0
[2021-11-23] VITALS (14 sets, daily range): BP systolic 103–170; BP diastolic 52–93; PULSE 58–75; RESP 12–22; TEMP 35.9–37.2; O2SAT 90–98; BMI 39.0; BMI 43.0
--- NOTE | 2021-11-23 | PATH_ITS ---
[facility] Accession Number: [id number] . 01 Material submitted: . PART A: breast - RIGHT BREAST PART B: breast - RIGHT BREAST LATERAL MARGIN . 01 Clinical history: . A: RIGHT BREAST-SHORT STITCH SUPERIOR, LONG STITCH LATERAL B: RIGHT BREAST LATERAL MARGIN, STITCH PATRICIO TRUE LATERAL MARGIN . 02 Diagnosis: A. Right Breast, Mastectomy: 1. Negative for atypical hyperplasia, in situ, or invasive carcinoma. 2. Changes consistent with prior procedure. . B. Right Breast, Lateral Margin: 1. Negative for atypical hyperplasia, in situ, or invasive carcinoma. 2. Benign fibroadipose tissue. [facility] 11/28/2021 0929 Local . 02 Electronically signed: . Yelena Nevarez MD, Pathologist NPI- [id number] . 01 Gross description: . A. The specimen is received in formalin, labeled right breast, and consists of a right oriented simple mastectomy weighing 647 grams, measuring 16.5 cm from medial to lateral, 12.2 cm from anterior to posterior, and 5.5 cm from superior to inferior, with skin (7.7 x 3.7 cm), nipple (1.3 x 1.1 cm), and nipple areolar complex (2.6 x 2.5 cm). The specimen is received with two sutures designated as short stitch superior, long stitch lateral, and is inked as follows: blue - superior, green - inferior, and black - posterior. The specimen is sectioned into thirteen slices, with slice #1 being most medial. Sectioning the specimen reveals a defect (approximately 6.0 cm in greatest dimension) involving slices 6-11 and the posterior, superior, and inferior margins. The defect is 2.2 cm from the nipple and located in the upper and lower outer quadrants at approximately 9 o'clock to 11 o'clock. The inner lining of the defect is brown to pale yellow and nodular, with firm white-turner to hemorrhagic fat necrosis inferior/anterior to the defect. A distinct mass is not seen grossly. . The uninvolved breast parenchyma has a fat to fibrous tissue ratio of approximately 85 to 15. No additional lesions are identified. The skin and nipple are grossly unremarkable. The specimen is representatively submitted as follows: . A1: Nipple. A2: Rep of fat necrosis nearest nipple, slice 6. A3: Additional rep of fat necrosis adjacent to defect and superior margin, slice 7. A4: Rep of fat necrosis to inferior margin and capsule, slice 8. A5: Defect involving posterior margin, slice 9. A6: Defect involving inferior margin, slice 10. A7: Defect involving superior margin, slice 10. A8-A11: Lateral most aspect of defect inner lining, slice 12 (entirely submitted). A12: Upper inner quadrant, slice 3 (two full thickness reps). A13: Upper inner quadrant, slice 5 (two full thickness reps). A14: Lower inner quadrant, slice 4 (two full thickness reps). A15: Lower inner quadrant, slice 5 (two full thickness reps). . B. The specimen is received in formalin, labeled right breast lateral margin, and consists of an excision of fibroadipose tissue measuring 8.0 x 6.6 x 1.9 cm. The specimen is received with a stitch at one aspect designated as true lateral margin. The stitch surface is inked orange, and the specimen is serially sectioned to reveal fibrofatty cut surfaces with no grossly identifiable lesions or masses. The specimen is representatively submitted in four cassettes. ([id number]) /[facility] 11/24/2021 1735 [facility] . 02 Pathologist provided ICD-10: C50.911 . 02 CPT . 020393, [id number] Specimen Comment: A courtesy copy of this report has been sent to [phone] Performed at: 01 [facility] [address] [id number] MD Hosea Galvan MD Phone: [phone] Performed at: 02 [facility] [place] [address] [place] [id number] MD Yelena Nevarez MD Phone: [phone]
[2021-11-23] MEDS: LACTATED RINGERS 1,000 ML 100 ML IV (14:48)
--- NOTE | 2021-11-23 15:27 | PM.PREOP ---
Pre-operative Note Interval Note History & Physical reviewed/Exam performed by Physician: Yes Changes to H&P: No H&P completed within 30 days and has changed as indicated here:: Will proceed with completion right mastectomy
[2021-11-23] MEDS: CEFAZOLIN 2 GM/20 ML SYRINGE IV (16:15)
--- NOTE | 2021-11-23 16:27 | SUR.OPER ---
Supine on padded OR bed, head on pillow, arms secured on padded arm boards at <90 degrees abduction, legs uncrossed, safety belt at thigh, tape over blanket over lower legs. Pillow under knees
[2021-11-23] MEDS: BUPIVACAINE 0.25% (PF) VIAL 30 ML INJ (16:32)
--- NOTE | 2021-11-23 18:08 | PM.OP.1 ---
Operative Date/Time/Diagnoses Date of procedure: 11/23/21 Time of procedure: 18:08 Pre-op diagnosis: Right breast cancer Post-op diagnosis: same Procedure & Clinicians Procedure: Right simple mastectomy Same procedure as scheduled: Yes Indications: 81-year-old woman with right breast cancer who underwent a lumpectomy with sentinel lymph node biopsy which demonstrated a positive margin. Patient elected for completion right mastectomy Surgeon: Dontrell Du Anesthesia Type: General Operative Notes Specimen(s): other (Right breast. Short stitch superior long stitch lateral. Lateral margin stitch abarca the true lateral margin) Estimated Blood Loss (mL): 50 Procedure in detail: Patient was brought to the operating room placed supine on the table. Bilateral lower extremity compression devices were applied. She received 2 g of Ancef prior to skin incision. She was intubated with an endotracheal tube. She was then prepped and draped in sterile fashion. Time-out was performed . An elliptical incision around the nipple areola complex was made with the knife of the right breast. The subcutaneous tissue was divided with electrocautery. Skin flaps were raised to separate the breast tissue from the skin along the subdermal plexus. The dissection was extended superior to the clavicle, medial to the sternum, inferior the the inframamary fold and lateral to the anterior border of the latisimus dorsi. Next the breast tissue was from the underlying pectoralis fascia. The breast was passed off the field marked short stitch superior long stitch lateral. The lateral flap was thick compared to the remainder of the flaps and therefore an additional lateral margin was excised stitch abarca the true lateral margin. A 19 Amharic [place] drain was placed into the cavity and secured. The wound was copiously irrigated and homeostasis was ensured. The mastectomy was closed with 3 0 Vicryl for the subcutaneous tissue and the skin was closed with 4 0 Monocryl followed by the application of Dermabond. Patient tolerated procedure well she emerged from anesthesia was extubated and transferred to recovery room in stable condition. Complications: none Post-operative Condition: stable Disposition: same day surgery
[2021-11-23] MEDS: fentaNYL 100 MCG/2 ML INJ IV ×3 (18:17→18:45)
[2021-11-23] MEDS: MEPERIDINE 50 MG/ML INJ 25 MG IV (18:23)
[2021-11-23] MEDS: ACETAMINOPHEN 325 MG TABLET 650 MG PO (18:27)
[2021-11-23] MEDS: OXYCODONE IR 5 MG TABLET PO ×2 (18:28→18:58)
[2021-11-23] MEDS: KETOROLAC 30 MG/ML VIAL IV (18:36)
[2021-11-23] MEDS: HYDROMORPHONE 0.5 MG INJ IV ×2 (21:19→23:34)
[2021-11-24] MEDS: HYDROMORPHONE 0.5 MG INJ IV ×5 (01:36→09:53)
[2021-11-24 01:45] VITALS: BP 116/60; PULSE 69; RESP 17; TEMP 36.7; O2SAT 94
[2021-11-24 06:00] VITALS: BP 95/60; PULSE 66; RESP 17; TEMP 36.6; O2SAT 97
[2021-11-24 08:00] VITALS: O2SAT 96
--- NOTE | 2021-11-24 08:26 | CM.DANOTE ---
DCP: Case received, EMR reviewed and met with patient. Introduced self and role. Was able to obtain information regarding patient's baseline activity status at home prior to her surgery. DCP assessment completed with information currently available. Patient is an 81 year old female who admitted yesterday morning to the care of the surgical team. PCP: Dr. Tanya Sanz. Payer: confirmed: Medicare/[facility] PPO. Patient came to the hospital via private vehicle for a surgical procedure. She had a right breast mastectomy. Patient had underwent a lumpectomy with lymph node biopsy which demonstrated a positive margin. Met with patient in her room. She was sitting up in bed having her breakfast. She is alert and oriented. Confirmed with her that she resides here in [place] with her spouse, Handy. At her baseline, she is independent. She stated, she did have pain through the night, but Dilaudid helping. P: DCP to continue to follow for any needs. Patient should be able to go home when she is deemed medically stable. Vy Vazquez RN/Business Proposal Rep Discharge Planning/Care Management CM Discharge Assessment Start: 11/24/21 08:25 Freq: Status: Active Protocol: Document 11/24/21 08:25 (Rec: 11/24/21 08:26 [id number]) Discharge Planning Assessment Assigned Court Bailiff Vy Vazquez RN/Business Proposal Rep Advance Directives? Yes Advance Directives on File No History Provided By Patient,Medical Record Prior Living Arrangements House Household Members spouse Type of transporation used prior to Drives own vehicle admit Independent with ADL's Yes Is patient alert and oriented? Yes Caregiver for Another No Barriers to Discharge No Discharge Plan Home Transportation Arrangement Friend, or spouse Referrals Initiated None needed Whiteboard Updated in Patient Room with Yes name and ext. # of Court Bailiff Review Status In Process Next Review Type Continued Stay Review Pre-Anesthesia Assessment Start: 11/22/21 08:00 Freq: Status: Complete Protocol: Document 11/22/21 08:00 [facility] (Rec: 11/22/21 08:29 [facility] [id number]) Pre-Anesthesia Assessment Patient Information Reviewed Via Chart Review Comment Recent labs @ [facility] 11/15/21, COVID screen @ 11/21/21 Negative Primary Care Provider Tanya Sanz Seen Specialist in Last 12 Months Yes Specialist Seen Emergency,General surgeon Primary Language Bruneian Preferred Language Bruneian Camp Manager Required No Height 5 ft Weight 200 lb Body Mass Index (BMI) 39.0 Hearing Ability Hard of Hearing,Use of Hearing Aid Visual Assist Glasses Hx Anesthesia Reactions No Hx Family Anesthesia Reaction No Hx Malignant Hyperthermia No Hx Blood Transfusions No Hx Blood Transfusion Reaction No: Never had blood transfusion Anesthesia Review Requested No alcohol intake current alcohol intake frequency a few times a week Smoking Status Never smoker Substance Use Type does not use Patient is completely paralyzed or No completely immobile Mental Status Oriented to own ability Is patient on oxygen? No Does patient have WADE/SOB No Hx Sleep Apnea No CPAP/BIPAP use not prescribed Currently Taking a Beta Olinda No Can You Climb a Flight of Stairs Without Yes SOB Hx Chest Pain Yes: Episode R/T dehydration/ UTI Hx SOB No Hx Syncope or Dizziness Yes: Episode R/T dehydration/ UTI Hx Pacemaker/ICD No Pacemaker Rep Required? No Urinary Catheter Present No Hx Urinary Self Catheterization No Diabetes No Patient No Lactating No Hx Drug Resistant Organism No Presence of External or Internal Medical Yes Devices Received a COVID vaccine? Yes Support System Friend(s) Patient Discharge Plan Description Return Home,Other Comment Bianca SOARES RN; Donna Bashir friend - C Do You Have Any Spiritual Beliefs That No May Affect Your HC Choices? Do You Have Any Cultural Practices That No May Affect Your HC Choices? Emergency Contact Name Bianca SOARES RN; Donna Bashir friend - C [phone] Emergency Contact Advance Directives? Yes Advance Directives on File No Power of Professor Of Business Yes Power of Professor Of Business Name Katiuska Davies - daughter Power of Professor Of Business
[2021-11-24 09:00] VITALS: BP 117/54; PULSE 60; RESP 16; TEMP 36.9; O2SAT 95
[2021-11-24 10:38] VITALS: O2SAT 96
[2021-11-24 12:00] VITALS: O2SAT 96
[2021-11-24] MEDS: HYDROCODONE/ACET 5/325 TABLET 1 TAB PO ×2 (12:00→13:47)
--- NOTE | 2021-11-24 12:32 | PM.DS.1 ---
History of Present Illness History of Present Illness Chief complaint: [facility] Discharge Providers Provider Date of admission: 11/23/21 19:54 Discharge Date: 11/24/21 Primary care physician: Tanya Sanz MD Discharge provider: Kranthi Encinas MD Summary Hospital Course Discharge Diagnosis: Right breast cancer Hospital Course: The patient underwent a completion right mastectomy on 11/23/2021. She did well after surgery was discharged home the following morning. She had oral pain medications prescribed. Exam Vital Signs (past 8 hours): - 11/24/21 06:00 11/24/21 08:00 11/24/21 09:00 Temperature 97.9 F 98.4 F Pulse Rate 66 60 Respiratory Rate 17 16 Blood Pressure 95/60 117/54 L Pulse Oximetry 97 96 95 11/24/21 10:38 Temperature Pulse Rate Respiratory Rate Blood Pressure Pulse Oximetry 96 Oxygen Delivery Method Room Air Oxygen Flow Rate 0 PFSH Medical History Acute appendicitis Back pain Colon polyp GERD (gastroesophageal reflux disease) Hammer toe Hemorrhoids History of rectocele Hyperlipidemia Hypertension Insomnia Iron deficiency anemia Joint pain Left bundle branch block Leg pain Low back pain 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 Morbid obesity Osteoarthritis Spinal stenosis, lumbar region with neurogenic claudication Spondylolisthesis at L4-L5 level Statin intolerance Tinnitus of left ear Surgical History History of arthroplasty of right shoulder History of bunionectomy of left great toe History of bunionectomy of right great toe History of discectomy History of incision and drainage (02/15/18) History of lumpectomy of right breast (11/08/21) History of thumb surgery History of tonsillectomy History of tympanoplasty of left ear Hx of appendectomy (2019) Hx of lumbosacral spine surgery (01/16/18) Hx of total knee arthroplasty S/P epidural steroid injection Social History household members: spouse Smoking Status: Never smoker alcohol intake: current Discharge Plan Discharge Plan Patient Disposition: Home Provider Discharge Comment: -no driving while taking narcotics -empty drain as instructed -no lifting greater than 20 lb for 4 weeks -may remove dressings in 2 days then okay to shower. -follow up with surgical clinic next week for drain removal when output is <50 m/day -Sports bra or surgical tube top as needed for support Discharge orders & Medications Prescriptions: New cephalexin 500 mg capsule 500 mg PO BID Qty: 14 0RF Continued lisinopril 20 MG tablet 20 mg PO DAILY Qty: 0 0RF rosuvastatin 5 mg Tablet 5 mg PO DAILY 0RF oxycodone 5 mg tablet 5 mg PO Q6H PRN (Reason: pain) 0RF Rx Instructions: 1-2 tabs every 6 hrs as needed for pain ondansetron HCl 4 mg tablet 4 mg PO Q6H PRN (Reason: Nausea) 0RF omeprazole 10 mg capsule,delayed release(DR/EC) 10 mg PO DAILY 0RF multivitamin Tablet 1 tab PO DAILY 0RF acetaminophen [Tylenol Extra Strength] 500 mg Tablet 750 mg PO DAILY PRN (Reason: pain) 0RF Label Comments: patient states rarely ascorbic acid (vitamin C) [Vitamin C] 500 mg Tablet 500 mg PO DAILY 0RF ferrous sulfate 325 mg (65 mg iron) Tablet 325 mg PO DAILY 0RF zolpidem 5 mg Tablet 5 mg PO BEDTIME PRN (Reason: Insomnia) 0RF naproxen sodium [Aleve] 220 mg Capsule 220 mg PO DAILY PRN (Reason: pain) 0RF Rx Instructions: with food docusate sodium [Colace] 100 mg capsule 100 mg PO BID Qty: 30 0RF Follow up/Referrals: Dontrell Du MD [Physician] - Diet/Activity/Treatments Diet: Diet as Tolerated Skin/Wound/Dressing Care Report to your healthcare provider any signs of infection, such as:: chills, fever, increased pain, unusual drainage and unusual redness Visit Report/Discharge Packet Instructions: DI for Mastectomy, DI for [place] Drains Stand Alone Forms: Surgery Discharge Discharge Data Primary Care Provider: Tanya Sanz Attending Provider: Dontrell Du Quality VTE Deep Vein Thrombosis/Pulmonary Embolism Present on Admission: No
--- NOTE | 2021-11-24 16:09 | PC.NURSE ---
Pt is A&Ox3, VSS, afebrile on RA. She reports pain well controlled with IV dilaudid prn, however as she is planning to discharge today she requested po pain medications to try for pain management. She ambulates well, has good po intake and denies any n/v.She reports pain peaking again up to 5/10 burning in her right chest region and she is medicated with 1 tab 5/325 hrdocone with minimal effect. MD notified to receive a 2nd dose of hydrocodone which was much more effective at controlling her pain. Pt reports that her home dose of oxycodone she did not want to take as she became very sick after taking it. MD notified and added hydrocodone to new home med prescriptions. Pharmacist at bedside reviewing discharge medications with patient. She verbalizes understanding site care, drain care, medications, activity, s/sx of infection as well as follow appoinment next week with MD Du's office. She is educated on emptying her drain (25 cc of bloody serosanguianous fluid emptied from drain for last 10 hours) Pt is escorted by w/ch to private vehicle with this afternoon.
== END 2021-11-24 16:28 | disposition home or self-care (01) ==
LOC: OR 18:07 → AC 19:55
PROVIDERS: PCP Internal Medicine; Referring Provider Surgery; Visit Provider Surgery
PROC: 0HTT0ZZ Resection of Right Breast, Open Approach (ICD-10-PCS; CPT 19303; principal; 2021-11-23 15:15)
DX: C50.411 Malignant neoplasm of upper-outer quadrant of right female breast (principal); I10 Essential (primary) hypertension; K21.9 Gastro-esophageal reflux disease without esophagitis; E66.9 Obesity, unspecified; Z17.0 Estrogen receptor positive status [ER+]; Z68.41 Body mass index [BMI] 40.0-44.9, adult
CPT/HCPCS: 19303; 94760; J0690; J1100; J1170; J1885; J2175; J2250; J2405; J2704; J3010

== ENCOUNTER → 2021-12-22 12:07 | Outpatient (CLI) | payer MEDICARE, OTHER, SELFPAY ==
[2021-11-23 20:05] VITALS: BMI 43.0
[2021-12-05 15:19] VITALS: BMI 43.0
== END ==
PROVIDERS: PCP Internal Medicine; Referring Provider Internal Medicine Hematology & Oncology; Visit Provider Internal Medicine Hematology & Oncology
DX: M81.0 Age-related osteoporosis without current pathological fracture (principal); C50.911 Malignant neoplasm of unspecified site of right female breast; Z78.0 Asymptomatic menopausal state; Z79.890 Hormone replacement therapy
CPT/HCPCS: 77080

== ENCOUNTER 2022-03-05 12:59 | Day surgery (SDC) | payer MEDICARE, OTHER, SELFPAY ==
[2021-12-05 15:19] VITALS: BMI 43.0
--- NOTE | 2022-03-05 | PATH_ITS ---
[facility] Accession Number: [id number] . 01 Material submitted: . stomach - ANTRUM . 01 Clinical history: . COLONOSCOPY/EGD FAMILY HISTORY OF MALIGNANT NEOPLASM OF DIGESTIVE GASTRO-ESOPHAGEAL REFLUX DISEASE WITHOUT ESOPHAGITIS PERSONAL HISTORY OF COLONIC POLYPS . 01 Diagnosis: Stomach, Antrum, Biopsy: Gastric mucosa with mild chronic inflammation. No evidence of Helicobacter pylori organisms on immunohistochemical evaluation ( control stains appropriately). MRV 03/08/2022 1348 Local . 01 Electronically signed: . Lindsay Sellers MD, Pathologist NPI- [id number] . 01 Gross description: . ANTRUM: Received in formalin are 2 fragment(s) of turner, soft tissue measuring 0.3 x 0.2 x 0.1 cm to 0.3 x 0.1 x 0.1 cm submitted entirely in 1 cassette(s) /CPE 03/06/2022 0557 Local . 01 Pathologist provided ICD-10: K29.70 . 01 CPT . 532736, M01120 Specimen Comment: A courtesy copy of this report has been sent to [phone] Performed at: 01 [facility] [address] [place] [address] [address], [place], [place] [id number] MD Hosea Galvan MD Phone: [phone]
[2022-03-05 13:34] VITALS: BP 134/89; PULSE 88; RESP 20; TEMP 36.8; O2SAT 96; BMI 41.2
[2022-03-05 13:41] LABS: COVID19 -Nasal RAPID Negative (Negative)
[2022-03-05] MEDS: SODIUM CHLORIDE 0.9% 1,000 ML 150 ML IV (13:49)
--- NOTE | 2022-03-05 13:53 | PM.HP.1 ---
History of Present Illness History of Present Illness Date Patient Seen: 03/05/22 Time Patient Seen: 13:53 Chief complaint: Colonoscopy/EGD Narrative: I reviewed the clinic note by Dr. Luna. No significant changes. Denies refractory symptoms of reflux. Denies dysphagia. 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 Morbid obesity Osteoarthritis Spinal stenosis, lumbar region with neurogenic claudication Spondylolisthesis at L4-L5 level Statin intolerance Tinnitus of left ear Surgical History History of arthroplasty of right shoulder History of bunionectomy of left great toe History of bunionectomy of right great toe History of discectomy History of incision and drainage (02/15/18) History of lumpectomy of right breast (11/08/21) History of thumb surgery History of tonsillectomy History of tympanoplasty of left ear Hx of appendectomy (2019) Hx of lumbosacral spine surgery (01/16/18) Hx of total knee arthroplasty S/P epidural steroid injection Family & Social History Social History: household members spouse Tobacco & Substance use: Smoking Status Never smoker alcohol intake current alcohol intake frequency 0-2 drinks per day Substance Use Type does not use Meds Home Medications and Allergies Home Medications Medication Instructions Recorded Confirmed Type lisinopril 20 mg tablet 20 mg PO DAILY ##0 07/16/17 03/05/22 History acetaminophen 500 mg tablet 750 mg PO DAILY PRN pain 01/10/18 03/05/22 History (Tylenol Extra Strength) ascorbic acid (vitamin C) 500 mg 500 mg PO DAILY 01/10/18 03/05/22 History tablet (Vitamin C) ferrous sulfate 325 mg (65 mg 325 mg PO DAILY 01/10/18 03/05/22 History iron) tablet multivitamin 1 tab PO DAILY 01/10/18 03/05/22 History naproxen sodium 220 mg capsule 220 mg PO DAILY PRN pain 01/10/18 03/05/22 History (Aleve) zolpidem 5 mg tablet 5 mg PO BEDTIME PRN Insomnia 01/10/18 03/05/22 History rosuvastatin 5 mg tablet 5 mg PO DAILY 11/12/18 03/05/22 History omeprazole 10 mg capsule,delayed 10 mg PO DAILY 11/23/21 03/05/22 History release anastrozole 1 mg tablet 1 mg PO DAILY breast cancer #90 12/04/21 03/05/22 Rx tabs Allergies Allergy/AdvReac Type Severity Reaction Status Date / Time No Known Drug Allergies Allergy Verified 01/04/22 11:08 Review of Systems Review of Systems ROS: Yes All systems reviewed with the patient and are negative except as otherwise documented Exam Vital Signs (past 8 hours): - 03/05/22 13:34 Temperature 98.3 F Pulse Rate 88 Respiratory Rate 20 Blood Pressure 134/89 Pulse Oximetry 96 Oxygen Delivery Method Room Air Oxygen Delivery Method Room Air Const General: cooperative HENMT Head: normal to inspection Eyes General: appearance normal, both eyes and all related structures Neck Neck: normal visual inspection Chest Chest: normal inspection of the chest Resp Effort & Inspection: normal respiratory effort Cardio Rate: regular rate GI Inspection: normal to inspection Skin General: no rashes or lesions noted Neuro General: patient alert and patient awake Extrem General: normal to inspection and no pedal edema Psych Appearance: grossly normal Objective Labs Labs: Laboratory Results - last 24 hr 03/05/22 13:10 SARS-CoV-2 (PCR) Negative Assessment & Plan Assessment & Plan narrative: 81-year-old female with a personal history of colon polyps and a family history of esophageal cancer. She has chronic longstanding reflux. Both EGD and colonoscopy are pursued today. Time Spent With Patient Critical Care time: I spent a total of [] minutes of critical care time on this patient's care today; this time is exclusive of procedural time.
--- NOTE | 2022-03-05 13:55 | PM.PREOP ---
Pre-operative Note COVID-19 COVID-19 status: Negative Result date/Date tested (Pos, Neg/Pending): 03/05/22 Criteria for continued procedure: Possibility delay results in more complex future surgery or treatment Interval Note History & Physical reviewed/Exam performed by Physician: Yes Changes to H&P: No ASA Class (for procedural sedation): III
--- NOTE | 2022-03-05 15:26 | P.OP.EGD&C_ITS ---
Operative Date/Time/Diagnoses Date of procedure: 03/05/22 Time of procedure: 15:26 Pre-op diagnosis: Chronic GERD family history of esophageal cancer personal history of colon polyps Post-op diagnosis: same Procedure & Clinicians Study performed: EGD with biopsies and colonoscopy Same procedure as scheduled: Yes Indications: Chronic GERD family history of esophageal cancer personal history of colon polyps Surgeon: Ramón Kyle Procedure Notes SCOAP/Timeout: Done Procedure in detail: After the risks and benefits were explained, written and verbal informed consent was obtained. The patient was brought into the procedure room and placed into the left lateral decubitus position. Please see nurse printing sales representative notes for sedation details. The scope was introduced into the mouth through the bite block and advanced under direct visualization to the 2nd portion of the duodenum. The scope was slowly withdrawn carefully examining the mucosa for any defects or lesions. Retroflexed views were accomplished in the stomach. The stomach was decompressed, the scope was then removed from the patient who tolerated the procedure well. The patient was then turned around a digital rectal examination accomplished. The scope was introduced into the rectum and advanced to the cecum as identified by the appendiceal orifice and ileocecal valve. The scope was slowly withdrawn to carefully examine the mucosa for any defects or lesions. Multiple direct views were made through the dentate line for exclusion of pathology. The colon was decompressed scope removed from the patient who tolerated the procedure well. Adult colonoscope Bowel prep adequate Scope withdrawal time: 10 minutes Sedation minutes: 29 Complications: none Impression: 1. Duodenum: No significant pathology was appreciated from the bulb through to the 2nd portion. 2. Stomach: No ulcers no outlet obstruction no mass lesions. Moderate streaky erythema was noted with some scattered erosions. I suspect this is going to be related to her underlying NSAID therapy but antral biopsies were taken for exclusion of H pylori I or other pathology. Retroflexed views of the LES disclosed a moderate-sized sliding hiatal hernia. 3. Esophagus: The squamocolumnar junction generally correlated with the top of the gastric folds. The GE junction was at approximately 30 1-32 cm from the incisors. The Z-line was slightly wondering but I did not appreciate any classic evidence of Barretts. No acute erosive features no nodularity no stricturing. The diaphragmatic pinchcock was at approximately 38 cm from the incisors. 4. Colon: No significant polyps mass lesions or inflammatory features identified throughout. Patient had scattered diverticula in both the right and left colon. Mild grade 2 internal hemorrhoids. Endoscopic diagnosis 1. Moderate-sized hiatal hernia 2. Gastropathy 3. Diverticulosis 4. Grade 2 hemorrhoids Post-procedure Plan for aftercare: 1. Continue anti-reflux therapy. 2. Await histopathology. 3. Surveillance colonoscopy would typically be recommended for 5-7 years based on the polyp history. Surveillance is therefore not recommended at this stage. Disposition: PACU
[2022-03-05 15:30] VITALS: BP 119/66; PULSE 69; RESP 12; TEMP 36; O2SAT 98
[2022-03-05 15:35] VITALS: BP 124/73; PULSE 69; RESP 18; O2SAT 98
[2022-03-05 15:40] VITALS: BP 123/69; PULSE 67; RESP 19; O2SAT 98
[2022-03-05 15:45] VITALS: BP 127/69; PULSE 64; RESP 19; O2SAT 98
[2022-03-05 15:46] VITALS: BP 135/74; PULSE 61; RESP 19; O2SAT 97
--- NOTE | 2022-03-05 15:59 | SUR.PHASEII ---
Pt ready to go, ride available, pt left when ready in stable condition.
== END 2022-03-05 16:10 | disposition home or self-care (01) ==
PROVIDERS: PCP Internal Medicine; Referring Provider Internal Medicine Gastroenterology; Visit Provider Internal Medicine Gastroenterology
PROC: 0DJ08ZZ Inspection of Upper Intestinal Tract, Via Natural or Artificial Opening Endoscopic (ICD-10-PCS; CPT 43235; principal; 2022-03-05 14:30)
PROC: 0DJD8ZZ Inspection of Lower Intestinal Tract, Via Natural or Artificial Opening Endoscopic (ICD-10-PCS; CPT 45378; 2022-03-05 14:30)
DX: Z12.11 Encounter for screening for malignant neoplasm of colon (principal); Z86.010 Personal history of colon polyps; K21.9 Gastro-esophageal reflux disease without esophagitis; Z80.0 Family history of malignant neoplasm of digestive organs; K44.9 Diaphragmatic hernia without obstruction or gangrene; Z20.822 Contact with and (suspected) exposure to COVID-19; K31.9 Disease of stomach and duodenum, unspecified; K57.30 Diverticulosis of large intestine without perforation or abscess without bleeding; K64.1 Second degree hemorrhoids; K29.50 Unspecified chronic gastritis without bleeding
CPT/HCPCS: 43239; G0105; 87635; C9803; J2704; J3010

== ENCOUNTER 2022-06-24 15:32 | Emergency (ER) | payer MEDICARE, OTHER, SELFPAY ==
[2021-12-05 15:19] VITALS: BMI 43.0
[2022-06-24 15:52] VITALS: BP 172/79; PULSE 86; RESP 20; TEMP 36.3; O2SAT 94; BMI 44.4
[2022-06-24 16:17] LABS: Add Manual Diff / Slide Review NO; Basophils Absolute Auto 100 /uL (0-100); Basophils Percent Auto 0.8 % (0-2); Eosinophils Absolute Auto 0 /uL (0-450); Eosinophils Percent Auto 0.4 % (2-4); Hematocrit 41.5 % (36-46); Hemoglobin 13.9 g/dL (12.0-16.0); Lymphocytes Absolute Auto 1800 /uL (1100-4500); Lymphocytes Percent Auto 16.3 % (25-40); Mean Corpuscular HGB Conc 33.4 % (30-36); Mean Corpuscular Volume 92.8 fL (80-100); Monocytes Absolute Auto 1500 /uL (0-900); Monocytes Percent Auto 13.2 % (3-14); Neutrophils Absolute Auto 7700 /uL (1500-7000); Neutrophils Percent Auto 69.3 % (50-75); Platelet Count 229 X10^3/uL (150-400); Red Blood Cell Count 4.47 X10^6/uL (4.0-5.2); White Blood Cell Count 11.1 X10^3/uL (4.5-11.0)
[2022-06-24 16:23] LABS: HEMOLYSIS < 15 (0-50); Potassium 4.2 mmol/L (3.4-5.1)
[2022-06-24 16:24] LABS: Alanine Aminotransferase 21 IU/L (<35); Albumin 4.1 g/dL (3.5-5.0); Albumin Globulin Ratio 1.1 (1.0-2.8); Alkaline Phosphatase 62 U/L (38-126); Aspartate Aminotransferase 20 IU/L (14-36); Bilirubin Total 0.7 mg/dL (0.2-1.3); Blood Urea Nitrogen 17 mg/dL (7-17); Calcium 8.9 mg/dL (8.4-10.2); Carbon Dioxide 26 mmol/L (22-32); Chloride 101 mmol/L (98-107); Estimated Glomerular Filt Rate > 60 mL/min (>60); Globulin 3.7 g/dL (1.7-4.1); Glucose 136 mg/dL (80-110); Lipase 52 U/L (23-300); Sodium 135 mmol/L (137-145); Total Protein 7.8 g/dL (6.3-8.2)
[2022-06-24 17:43] VITALS: PULSE 76; O2SAT 96
[2022-06-24 17:44] VITALS: BP 156/72; PULSE 81; O2SAT 96
--- NOTE | 2022-06-24 18:15 | ED_ITS ---
HPI - General Adult General Chief complaint: Abdominal Pain Stated complaint: lower abd. pain Time Seen by Provider: 06/24/22 18:00 Source: patient Mode of arrival: Ambulatory History of Present Illness HPI narrative: 81-year-old female who is here for evaluation of lower abdominal discomfort. Having some nausea but no vomiting. No fevers. No urinary symptoms. Symptoms did start on Saturday when she woke up. Improved somewhat throughout the day however on Saturday they returned. She is been on a liquid diet since then without any improvement. Has had very similar symptoms in the past earlier this year. Was diagnosed with colitis. Related Data Home Medications Medication Instructions Recorded Confirmed lisinopril 20 mg tablet 20 mg PO DAILY ##0 07/16/17 05/27/22 acetaminophen 500 mg tablet 750 mg PO DAILY PRN pain 01/10/18 05/27/22 (Tylenol Extra Strength) ascorbic acid (vitamin C) 500 mg 500 mg PO DAILY 01/10/18 05/27/22 tablet (Vitamin C) ferrous sulfate 325 mg (65 mg 325 mg PO DAILY 01/10/18 05/27/22 iron) tablet multivitamin 1 tab PO DAILY 01/10/18 05/27/22 naproxen sodium 220 mg capsule 220 mg PO DAILY PRN pain 01/10/18 05/27/22 (Aleve) zolpidem 5 mg tablet 5 mg PO BEDTIME PRN Insomnia 01/10/18 05/27/22 rosuvastatin 5 mg tablet 5 mg PO DAILY 11/12/18 05/27/22 omeprazole 10 mg capsule,delayed 10 mg PO DAILY 11/23/21 05/27/22 release Previous Rx's Medication Instructions Recorded anastrozole 1 mg tablet 1 mg PO DAILY breast cancer #90 12/04/21 tabs ciprofloxacin HCl 500 mg tablet 500 mg PO BID 10 days #20 tabs 06/24/22 (Cipro) metronidazole 500 mg tablet 500 mg PO TID 10 days #30 tabs 06/24/22 Allergies Allergy/AdvReac Type Severity Reaction Status Date / Time No Known Drug Allergies Allergy Verified 05/27/22 14:10 Review of Systems Constitutional Constitutional: Reports system reviewed and no additional complaints, except as documented Cardiovascular Cardiovascular: Reports system reviewed and no additional complaints, except as documented Respiratory Respiratory: Reports system reviewed and no additional complaints, except as do cumented Gastrointestinal Gastrointestinal: Reports system reviewed and no additional complaints, except as documented Genitourinary Genitourinary: Reports system reviewed and no additional complaints, except as documented Integumentary/Breasts Skin/Breast: Reports system reviewed and no additional complaints, except as documented Neurologic Neurologic: Reports system reviewed and no additional complaints, except as documented Hematologic/Lymphatic On Anticoagulants: No 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 Morbid obesity Osteoarthritis Spinal stenosis, lumbar region with neurogenic claudication Spondylolisthesis at L4-L5 level Statin intolerance Tinnitus of left ear Surgical History History of arthroplasty of right shoulder History of bunionectomy of left great toe History of bunionectomy of right great toe History of discectomy History of incision and drainage (02/15/18) History of lumpectomy of right breast (11/08/21) History of thumb surgery History of tonsillectomy History of tympanoplasty of left ear Hx of appendectomy (2019) Hx of lumbosacral spine surgery (01/16/18) Hx of total knee arthroplasty S/P epidural steroid injection Social History household members: spouse Smoking Status: Never smoker alcohol intake: current substance use type: does not use Smoking Status: Never smoker alcohol intake frequency: 0-2 drinks per day Substance Use Type: does not use Exam Initial Vital Signs Initial Vital Signs: Vital Signs Temperature 97.4 F L 06/24/22 15:52 Pulse Rate 86 06/24/22 15:52 Respiratory Rate 20 06/24/22 15:52 Blood Pressure 172/79 H 06/24/22 15:52 Pulse Oximetry 94 06/24/22 15:52 Oxygen Delivery Method 06/24/22 15:52 Const General: cooperative and comfortable HENMT Head: normal to inspection and normocephalic Resp Effort & Inspection: normal respiratory effort Auscultation: clear to auscultation bilaterally Cardio Rate: regular rate Rhythm: regular rhythm GI Inspection: normal to inspection Palpation: soft and tender (Lower abdomen) Skin General: no rashes or lesions noted Neuro General: patient alert, patient awake and moves all extremities Course Orders Ordered: ED Orders 06/24/22 16:00 Complete Blood Count AUTO DIFF Stat Comprehensive Metabolic Panel Stat Lipase Stat 06/24/22 18:06 EKG-12 Lead Stat 06/24/22 18:16 CT abdomen pelvis w con Stat Discontinued Medications Ciprofloxacin (Ciprofloxacin 250 Mg Tablet) 500 mg PO NOW ONE Stop: 06/24/22 19:45 Last Admin: 06/24/22 19:58 Dose: 500 mg Documented By: DINO Sodium Chloride (Normal Saline 0.9%) 1,000 mls @ 1,000 mls/hr IV BOLUS ONE Stop: 06/24/22 19:14 Last Infusion: 06/24/22 20:03 Dose: 0 mls/hr Documented By: Admin: 06/24/22 19:00 Dose: 1,000 mls/hr Documented By: EDWARD Metronidazole (Metronidazole 500 Mg Tablet) 500 mg PO NOW ONE Stop: 06/24/22 19:45 Last Admin: 06/24/22 19:58 Dose: 500 mg Documented By: DINO Vital Signs Vital signs: Vital Signs - 8 hr 06/24/22 17:43 06/24/22 17:44 06/24/22 17:44 Pulse Rate 76 81 Respiratory Rate Blood Pressure 156/72 H Pulse Oximetry 96 96 Oxygen Delivery Method 06/24/22 20:09 Pulse Rate 60 Respiratory Rate 16 Blood Pressure 121/57 L Pulse Oximetry 100 Oxygen Delivery Method Room Air Medical Decision Making Lab Data Lab results reviewed: Yes I reviewed the patient's lab results. Result diagrams: 06/24/22 16:00 06/24/22 16:00 Labs: Lab Results 06/24/22 06/24/22 Range/Units 16:00 16:00 WBC 11.1 H (4.5-11.0) X10^3/uL RBC 4.47 (4.0-5.2) X10^6/uL Hgb 13.9 (12.0-16.0) g/dL Hct 41.5 (36-46) % MCV 92.8 (80-100) fL MCH 31.0 (26-34) PG MCHC 33.4 (30-36) % RDW 14.0 (11.6-14.8) % Plt Count 229 (150-400) X10^3/uL Neut % (Auto) 69.3 (50-75) % Lymph % (Auto) 16.3 L (25-40) % Whitfield % (Auto) 13.2 (3-14) % Eos % (Auto) 0.4 L (2-4) % Baso % (Auto) 0.8 (0-2) % Neut # (Auto) 7700 H (5262-9654) /uL Lymph # (Auto) 1800 (6764-4629) /uL Whitfield # (Auto) 1500 H (0-900) /uL Eos # (Auto) 0 (0-450) /uL Baso # (Auto) 100 (0-100) /uL Sodium 135 L (137-145) mmol/L Potassium 4.2 (3.4-5.1) mmol/L Chloride 101 (98-107) mmol/L Carbon Dioxide 26 (22-32) mmol/L BUN 17 (7-17) mg/dL Creatinine 0.63 (0.52-1.04) mg/dL Estimated GFR > 60 (>60) mL/min BUN/Creatinine Ratio 27.0 H (6-22) Glucose 136 H (80-110) mg/dL Calcium 8.9 (8.4-10.2) mg/dL Total Bilirubin 0.7 (0.2-1.3) mg/dL AST 20 (14-36) IU/L ALT 21 (<35) IU/L Alkaline Phosphatase 62 (38-126) U/L Total Protein 7.8 (6.3-8.2) g/dL Albumin 4.1 (3.5-5.0) g/dL Globulin 3.7 (1.7-4.1) g/dL Albumin/Globulin Ratio 1.1 (1.0-2.8) Lipase 52 (23-300) U/L Imaging Data CT scan - abdomen/pelvis: Radiologist's Impression: [address] [address] [address] Scan Report Signed Patient: Holly Bates MR#: [id number] : 1940 Acct:[id number] Age/Sex: 81 / F Date of Service: 06/24/22 Loc: ED Accession Number: [id number] ?? Procedure: CT abdomen pelvis w con Ordering Provider: Cj Gallego D.O. PROCEDURE:? CT ABDOMEN PELVIS W CON ? INDICATIONS:? Lower abdominal pain with nausea ? TECHNIQUE:? After the administration of intravenous contrast, axial sections acquired from the lung bases to the pubic symphysis.? Coronal and sagittal reformats were performed.? For radiation dose reduction, the following was used:? automated exposure control, adjustment of mA and/or kV according to patient size.? ? COMPARISON:? [facility], CT, CT ABDOMEN PELVIS W CON, 11/15/2021, 5:30. ? FINDINGS:? Image quality:? Excellent ? Lower chest:? Moderate hiatal hernia as before ? Solid organs:? Posterior liver granuloma again seen.? Gallbladder is unremarkable.? Similar prominence of the biliary tree.? No pathologic dilation of the pancreatic duct.? Hypoattenuating region again seen in the body, which could represent fatty cleft versus cystic lesion.? This is similar.? No splenomegaly.? No adrenal nodules.? No hydronephrosis. ? Vessels and lymph nodes:? No pathologic adenopathy by size criteria.? No abdominal aortic aneurysm. ? Bowel and peritoneum:? No bowel obstruction.? Small amount pelvic free fluid.? There are colonic diverticula.? Short segment high-grade inflammation of the sigmoid colon, in a similar location to prior.? Moderate surrounding fat stranding.? No drainable abscess at this time. ? Body wall:? Fat containing umbilical hernia. ? Pelvis:? Bladder is unremarkable.? Unremarkable limited evaluation of the reproductive organs. ? Bones:? Posterior decompression and posterior fusion hardware.? No acute or suspicious osseous abnormality.? T11 lucency again seen.? Degenerative changes. ? ? IMPRESSION:? Focal high-grade sigmoid inflammatory changes with wall thickening, in a similar location compared to Neli study.? Although findings could represent recurrent diverticulitis or focal colitis.? Correlation with history of colonoscopy is recommended as differential includes adenocarcinoma. ? Other stable/incidental findings above.? ? Dictated by: Carlos Cortes M.D. on 06/24/2022 at 18:54 ? ? Approved by: Carlos Cortes M.D. on 06/24/2022 at 18:59? MDM Narrative Medical decision making narrative: CT scan is consistent with colitis/diverticulitis in similar spot to earlier this year no signs of perforation or abscess. She states she has had a colonoscopy in the past. Will treat with antibiotics. Was given 1st dose here in the ER. No requirement for admission to the hospital. He was given return precautions. She expressed understanding and agreement. Discharge Plan Departure Patient Disposition: Home Clinical Impression: Diverticulitis, Colitis Instructions: DI for Diverticulitis, DI for Colitis Activity Restrictions/Additional Instructions: I recommend that you take the antibiotics as directed. They were electronically transmitted to [facility] per your request. Contact your primary doctor for a f ollow-up. Return to the emergency department for any new or worsening symptoms. Prescriptions: New ciprofloxacin HCl [Cipro] 500 mg tablet 500 mg PO BID 10 Days Qty: 20 0RF metronidazole 500 mg tablet 500 mg PO TID 10 Days Qty: 30 0RF No Action lisinopril 20 MG tablet 20 mg PO DAILY Qty: 0 rosuvastatin 5 mg Tablet 5 mg PO DAILY omeprazole 10 mg capsule,delayed release(DR/EC) 10 mg PO DAILY multivitamin Tablet 1 tab PO DAILY acetaminophen [Tylenol Extra Strength] 500 mg Tablet 750 mg PO DAILY PRN (Reason: pain) Label Comments: patient states rarely ascorbic acid (vitamin C) [Vitamin C] 500 mg Tablet 500 mg PO DAILY ferrous sulfate 325 mg (65 mg iron) Tablet 325 mg PO DAILY zolpidem 5 mg Tablet 5 mg PO BEDTIME PRN (Reason: Insomnia) naproxen sodium [Aleve] 220 mg Capsule 220 mg PO DAILY PRN (Reason: pain) Rx Instructions: with food anastrozole 1 mg Tablet 1 mg PO DAILY Qty: 90 4RF Referrals: Tanya Sanz MD [Primary Care Provider] - Visit Report Forms: Patient Portal/API
--- NOTE | 2022-06-24 18:16 | DI.CT.S_ITS ---
PROCEDURE: CT ABDOMEN PELVIS W CON INDICATIONS: Lower abdominal pain with nausea TECHNIQUE: After the administration of intravenous contrast, axial sections acquired from the lung bases to the pubic symphysis. Coronal and sagittal reformats were performed. For radiation dose reduction, the following was used: automated exposure control, adjustment of mA and/or kV according to patient size. COMPARISON: [facility], CT, CT ABDOMEN PELVIS W CON, 11/15/2021, 5:30. FINDINGS: Image quality: Excellent Lower chest: Moderate hiatal hernia as before Solid organs: Posterior liver granuloma again seen. Gallbladder is unremarkable. Similar prominence of the biliary tree. No pathologic dilation of the pancreatic duct. Hypoattenuating region again seen in the body, which could represent fatty cleft versus cystic lesion. This is similar. No splenomegaly. No adrenal nodules. No hydronephrosis. Vessels and lymph nodes: No pathologic adenopathy by size criteria. No abdominal aortic aneurysm. Bowel and peritoneum: No bowel obstruction. Small amount pelvic free fluid. There are colonic diverticula. Short segment high-grade inflammation of the sigmoid colon, in a similar location to prior. Moderate surrounding fat stranding. No drainable abscess at this time. Body wall: Fat containing umbilical hernia. Pelvis: Bladder is unremarkable. Unremarkable limited evaluation of the reproductive organs. Bones: Posterior decompression and posterior fusion hardware. No acute or suspicious osseous abnormality. T11 lucency again seen. Degenerative changes. IMPRESSION: Focal high-grade sigmoid inflammatory changes with wall thickening, in a similar location compared to Neli study. Although findings could represent recurrent diverticulitis or focal colitis. Correlation with history of colonoscopy is recommended as differential includes adenocarcinoma. Other stable/incidental findings above. Dictated by: Carlos Cortes M.D. on 06/24/2022 at 18:54 Approved by: Carlos Cortes M.D. on 06/24/2022 at 18:59
[2022-06-24] MEDS: SODIUM CHLORIDE 0.9% 1,000 ML 1000 ML IV (19:00)
[2022-06-24] MEDS: metroNIDAZOLE 500 MG TABLET PO (19:58)
[2022-06-24] MEDS: CIPROFLOXACIN 250 MG TABLET 500 MG PO (19:58)
[2022-06-24 20:09] VITALS: BP 121/57; PULSE 60; RESP 16; O2SAT 100
== END 2022-06-24 20:10 | disposition home or self-care (01) ==
PROVIDERS: Emergency Medicine; Emergency Provider Emergency Medicine; PCP Internal Medicine
DX: K52.9 Noninfective gastroenteritis and colitis, unspecified (principal); K57.92 Diverticulitis of intestine, part unspecified, without perforation or abscess without bleeding; R11.0 Nausea; I44.7 Left bundle-branch block, unspecified; I10 Essential (primary) hypertension
CPT/HCPCS: 36415; 74177; 80053; 83690; 85025; 93005; 93010; 96360; 99284; Q9967

== ENCOUNTER → 2022-09-03 11:32 | Outpatient (CLI) | payer MEDICARE, OTHER, SELFPAY ==
[2021-12-05 15:19] VITALS: BMI 43.0
--- NOTE | 2022-09-03 11:34 | DI.MG.S_ITS ---
UNILATERAL LEFT DIGITAL SCREENING MAMMOGRAM 3D/2D WITH CAD POST MASTECTOMY: 09/03/2022 CLINICAL: Routine screening. Personal history of right breast cancer. Comparison is made to exams dated: 07/25/2021 mammogram - [facility], 06/06/2016 mammogram, and 02/22/2015 mammogram - outside location. The left breast is almost entirely fatty (category a/<25% glandular tissue). Current study was also evaluated with a Computer Aided Detection (CAD) system. No significant masses, calcifications, or other findings are seen in the breast. There has been no significant interval change. IMPRESSION: NEGATIVE There is no mammographic evidence of malignancy. A 1 year screening mammogram is recommended. This exam was interpreted at Station ID: [id number]. NOTE: For mammograms, a report in lay terms will be sent to the patient. Approximately 15% of breast malignancies will not be visualized mammographically. In the management of a palpable breast mass, a negative mammogram must not discourage biopsy of a clinically suspicious lesion. Electronically Signed By: Carlos beckwith/oliver:09/03/2022 12:04:25 copy to: KATE WASHINGTON letter sent: Normal Exam ACR BI-RADS Category 1: Negative [id number]
== END ==
PROVIDERS: PCP Family Medicine; Referring Provider Internal Medicine Hematology & Oncology; Visit Provider Internal Medicine Hematology & Oncology
DX: Z12.31 Encounter for screening mammogram for malignant neoplasm of breast (principal); C50.811 Malignant neoplasm of overlapping sites of right female breast; Z17.0 Estrogen receptor positive status [ER+]
CPT/HCPCS: 77063; 77067

== ENCOUNTER → 2023-06-26 14:59 | Outpatient (CLI) | payer MEDICARE, OTHER, SELFPAY ==
[2021-12-05 15:19] VITALS: BMI 43.0
== END ==
PROVIDERS: PCP Family Medicine; Referring Provider Family Medicine; Visit Provider Surgery
DX: K94.03 Colostomy malfunction (principal); T81.31XA Disruption of external operation (surgical) wound, not elsewhere classified, initial encounter; S31.102A Unspecified open wound of abdominal wall, epigastric region without penetration into peritoneal cavity, initial encounter
CPT/HCPCS: 97597; 99203; 99212

== ENCOUNTER → 2023-07-03 13:11 | Outpatient (CLI) | payer MEDICARE, OTHER, SELFPAY ==
[2021-12-05 15:19] VITALS: BMI 43.0
== END ==
PROVIDERS: PCP Family Medicine; Referring Provider Family Medicine; Visit Provider Surgery
DX: K94.03 Colostomy malfunction (principal); T81.31XD Disruption of external operation (surgical) wound, not elsewhere classified, subsequent encounter; I10 Essential (primary) hypertension
CPT/HCPCS: 99213; 99214

== ENCOUNTER → 2023-07-06 12:11 | Outpatient (CLI) | payer MEDICARE, OTHER, SELFPAY ==
[2021-12-05 15:19] VITALS: BMI 43.0
== END ==
PROVIDERS: PCP Family Medicine; Visit Provider Physician Assistant
DX: R35.0 Frequency of micturition (principal)
CPT/HCPCS: 87086

== ENCOUNTER → 2023-07-10 11:23 | Outpatient (CLI) | payer MEDICARE, OTHER, SELFPAY ==
[2021-12-05 15:19] VITALS: BMI 43.0
== END ==
PROVIDERS: PCP Family Medicine; Referring Provider Family Medicine; Visit Provider Surgery
DX: Z43.3 Encounter for attention to colostomy (principal)
CPT/HCPCS: 99213

== ENCOUNTER → 2023-07-15 10:36 | Outpatient (CLI) | payer MEDICARE, OTHER, SELFPAY ==
[2023-07-12 09:55] VITALS: BMI 43.0
[2023-07-15 12:25] LABS: BUN Creatinine Ratio 22.4 (6-22); Blood Urea Nitrogen 15 mg/dL (7-17); Calcium 9.9 mg/dL (8.4-10.2); Carbon Dioxide 27 mmol/L (22-32); Chloride 102 mmol/L (98-107); Estimated Glomerular Filt Rate > 60 mL/min (>60); Glucose 102 mg/dL (80-110); HEMOLYSIS < 15 (0-50); Potassium 4.5 mmol/L (3.4-5.1); Sodium 136 mmol/L (137-145)
[2023-07-15 12:30] LABS: NT-proBNP (BNP-Adult 18+) 322 pg/mL (<450)
== END ==
PROVIDERS: PCP Family Medicine; Referring Provider Family Medicine; Visit Provider Family Medicine
DX: H53.8 Other visual disturbances (principal); R42 Dizziness and giddiness; R53.1 Weakness; Z79.899 Other long term (current) drug therapy; I10 Essential (primary) hypertension
CPT/HCPCS: 36415; 80048; 83880

== ENCOUNTER → 2023-07-17 10:52 | Outpatient (CLI) | payer MEDICARE, OTHER, SELFPAY ==
[2023-07-12 09:55] VITALS: BMI 43.0
== END ==
PROVIDERS: PCP Family Medicine; Referring Provider Family Medicine; Visit Provider Surgery
DX: Z43.3 Encounter for attention to colostomy (principal)
CPT/HCPCS: 99211

== ENCOUNTER → 2023-07-31 14:45 | Outpatient (CLI) | payer MEDICARE, OTHER, SELFPAY ==
[2023-07-12 09:55] VITALS: BMI 43.0
== END ==
LOC: WC 14:46
PROVIDERS: PCP Family Medicine; Referring Provider Family Medicine; Visit Provider Surgery
DX: Z43.3 Encounter for attention to colostomy (principal)
CPT/HCPCS: 99212

== ENCOUNTER → 2023-08-07 11:20 | Outpatient (CLI) | payer MEDICARE, OTHER, SELFPAY ==
[2023-07-12 09:55] VITALS: BMI 43.0
== END ==
LOC: WC 11:21
PROVIDERS: PCP Family Medicine; Referring Provider Family Medicine; Visit Provider Surgery
DX: Z43.3 Encounter for attention to colostomy (principal)
CPT/HCPCS: 99211

== ENCOUNTER → 2023-08-21 10:36 | Outpatient (CLI) | payer MEDICARE, OTHER, SELFPAY ==
[2023-07-12 09:55] VITALS: BMI 43.0
== END ==
LOC: WC 10:40
PROVIDERS: PCP Family Medicine; Referring Provider Family Medicine; Visit Provider Surgery
DX: Z43.3 Encounter for attention to colostomy (principal)
CPT/HCPCS: 99213

== ENCOUNTER → 2023-09-04 11:02 | Outpatient (CLI) | payer MEDICARE, OTHER, SELFPAY ==
[2023-07-12 09:55] VITALS: BMI 43.0
--- NOTE | 2023-09-04 | DI.MG.S_ITS ---
UNILATERAL LEFT DIGITAL SCREENING MAMMOGRAM 3D/2D WITH CAD POST MASTECTOMY: 09/04/2023 CLINICAL: Routine screening. Personal history of left breast cancer. Comparison is made to exams dated: 09/03/2022 mammogram, 07/25/2021 mammogram - [facility], and 06/06/2016 mammogram - outside location. The left breast is almost entirely fatty (category a/<25% glandular tissue). Current study was also evaluated with a Computer Aided Detection (CAD) system. There are benign vascular calcifications in the left breast. No significant masses, calcifications, or other findings are seen in the breast. There has been no significant interval change. IMPRESSION: BENIGN There is no mammographic evidence of malignancy. A 1 year screening mammogram is recommended. This exam was interpreted at Station ID: [id number]. NOTE: For mammograms, a report in lay terms will be sent to the patient. Approximately 15% of breast malignancies will not be visualized mammographically. In the management of a palpable breast mass, a negative mammogram must not discourage biopsy of a clinically suspicious lesion. Electronically Signed By: Arvind magdaleno/oliver:09/04/2023 16:56:57 copy to: KATE WASHINGTON letter sent: Normal Exam ACR BI-RADS Category 2: Benign Finding(s) 3342F
== END ==
PROVIDERS: PCP Family Medicine; Referring Provider Internal Medicine Hematology & Oncology; Visit Provider Internal Medicine Hematology & Oncology
DX: Z12.31 Encounter for screening mammogram for malignant neoplasm of breast (principal); Z85.3 Personal history of malignant neoplasm of breast
CPT/HCPCS: 77063; 77067

== ENCOUNTER → 2023-09-04 13:14 | Outpatient (CLI) | payer MEDICARE, OTHER, SELFPAY ==
[2023-07-12 09:55] VITALS: BMI 43.0
== END ==
PROVIDERS: PCP Family Medicine; Referring Provider Family Medicine; Visit Provider Surgery
DX: K94.03 Colostomy malfunction (principal); Z93.3 Colostomy status; T81.31XD Disruption of external operation (surgical) wound, not elsewhere classified, subsequent encounter
CPT/HCPCS: 99212

== ENCOUNTER → 2023-09-18 13:17 | Outpatient (CLI) | payer MEDICARE, OTHER, SELFPAY ==
[2023-09-11 11:32] VITALS: BMI 43.0
--- NOTE | 2023-09-18 | OV.WND_ITS ---
Progress Note Details Patient Name: Holly Bates Patient Number: [id number] Clinician: Justina Truong RN Patient Date of : 1940 Physician / Chef Concierge: Aubrey Lea Patient SUBJECTIVE Chief Complaint This information was obtained from the Patient. Will have surgery for reversal for Colostomy on November 27. at [facility] with Yelena Baltazar. Client will go down to [place] two days prior to surgery for bowel prep. Allergies No Known Drug Allergies OBJECTIVE Vitals Height/Length: 59 in (149.86 cm), Weight: 198 lbs (90 kgs), BMI: 40, Temperature: 98.1 ?F (36.72 ?C), Pulse: 84 bpm, Respiratory Rate: 16 breaths/min, Blood Pressure: 168/76 mmHg, Pulse Oximetry: 97 %. PROCEDURES Client will have a reversal on November 18, [address]Jennifer Roberson at [facility]. She has been started on a 1000 calorie diet. She will have a pre-op CT Scan done next week and she has been given her bowel prep and pre-antibiotics and skin disinfectant wipes and verbalized understanding for all her pre-op instructions. Client will not need any follow up for here currently. She will call if she has any concerns. PLAN Additional Orders: Hygiene May shower Dressings Primary dressing - Hydrocolloid to areas that have denuded skin to protect skin. Other order - Use appliance [employer]oplast #[id number] and you may use hypafix to help secure OR the rings. Use the lubercating deodorant or Mineral Oil to put into your pouch to help the stool fall into the pouch and prevent pancaking. Also review the UO[employer] guide to food that help to thin down your stool Try to not use any other products around stoma. Let see if this deep appliance will work. Follow-Up Appointments Return Appointment Holly Bates Merry [id number] 1940 Return for Nurse visit Discharge from Outpatient Services. Scribing Attestation I attest, as the nurse, that I scribed these orders for the physician. General Notes [employer] Form: [email or web address] they have the flowassist. Plan of Care: 01. ENSURE/ESTABLISH OPTIMAL BLOOD FLOW : - Reviewed, not applicable 02. ASSESS FOR/TREAT INFECTION : - Reviewed, not applicable 03. DEBRIDE WEEKLY OR MORE OFTEN PRN : - Reviewed, not applicable 04. OPTIMIZE GLUCOSE CONTROL and NUTRITION : - Reviewed, not applicable 05. OFFLOADING PLAN : - Reviewed, not applicable 06. OPTIMIZE HOST FACTORS: - Reviewed, not applicable 07. DRESSING SELECTION : - Evaluate for dressing-related factors, such as availability, wear time, adaptability and use to better optimize wound healing and patient compliance. - Choose topical treatments and/or dressing based on wound type and appearance, periwound skin condition, wound size and depth, anatomic location, volume of exudate, edema in the lower extremities, and risk or presence of infection. - Educate the patient/family/caregiver to monitor dressing daily. Change dressing only as needed but never less frequently than weekly so that wound bed can be reassessed. 08. ADVANCED MODALITIES : - Reviewed, not applicable 09. FALL PREVENTION : - Reviewed, not applicable 10. PAIN MANAGEMENT : - Reviewed, not applicable 11. MEASURABLE GOALS for Wound Healing and/or Hyperbaric Oxygen Therapy : - Less Drainage - Decrease Inflammation - Wound Closure - Improve quality of life - Implement protocols to promote healing and impede further injury - Reduce/Removal of Necrotic/Devitalized Tissue - Promote angiogenesis - Reduce risk for infection - Reviewed, not applicable 12. DURATION/FREQUENCY of Wound Care Visits : - 1x weekly for 30 days 13. OSTOMY : - Educate the patient on all aspects of ostomy care. - Educate the patient regarding supply ordering. Holly Bates [id number] 1940 - Educate the patient on nutrition/hydration issues. - Instruct the patient on resources available. - Evaluate the patient's understanding on the signs of complications and when to contact the physician. Electronic Signature(s) Signed By: Date: Aubrey Lea MD 09/23/2023 13:55:03 (PT) Entered By: Justina Truong RN on 09/18/2023 14:28:32 (PT) Holly Bates [id number] 1940
== END ==
PROVIDERS: PCP Family Medicine; Referring Provider Family Medicine; Visit Provider Surgery
DX: Z93.3 Colostomy status (principal)
CPT/HCPCS: 99212

== ENCOUNTER → 2023-10-02 07:21 | Outpatient (CLI) | payer MEDICARE, OTHER, SELFPAY ==
[2023-09-11 11:32] VITALS: BMI 43.0
--- NOTE | 2023-10-02 | DI.CT.S_ITS ---
PROCEDURE: CT ABDOMEN PELVIS W CON INDICATIONS: Diverticulitis of intestine TECHNIQUE: After the administration of intravenous contrast, axial sections acquired from the lung bases to the pubic symphysis. Coronal and sagittal reformats were performed. For radiation dose reduction, the following was used: automated exposure control, adjustment of mA and/or kV according to patient size. COMPARISON: [facility], CT, CT ABDOMEN PELVIS W CON, 06/24/2022, 18:20. FINDINGS: Image quality: Diagnostic. Lower Chest: Clear lung bases. Moderate-sized hiatal hernia. Normal size heart. No pleural or pericardial effusion. ABDOMEN: Liver: No solid mass. Course subcapsular calcification in the right hepatic lobe. Gallbladder: Decompressed gallbladder without stones or wall thickening. Biliary ducts: Nondilated. Pancreas: Normal. Spleen: Normal. Adrenal Glands: No adrenal nodules. Kidneys and Ureters: Symmetric enhancement. No nephrolithiasis or hydronephrosis. No hydroureter. Stomach and Bowel: Moderate-sized hiatal hernia. The distal stomach appears normal. Normal caliber nonobstructed small bowel loops without wall thickening. Moderate quantity of stool in the proximal colon. Left lower quadrant colostomy. Prior sigmoidectomy. Stapled off Rabia's pouch is decompressed. Peritoneum: No abnormal intraperitoneal fluid. No free air. Ventral Wall: There is a prominent mid and lower abdominal rectus diastasis with herniated large and small bowel loops. No fluid in the hernia sac. No peristomal hernia. Abdominal Nodes: No retroperitoneal or mesenteric adenopathy by size criteria. Vessels: Aorta and inferior vena cava are normal in size. PELVIS: Pelvic Organs: Age-appropriate and unremarkable. Bladder: Decompressed urinary bladder with wall thickening anteriorly. No stones. Pelvic Nodes: No enlarged lymph nodes. Miscellaneous: No inguinal hernias are seen. Bones: No aggressive osseous abnormality. Left-sided L4-5 posterior fusion hardware. Degenerative disc changes throughout the spine. IMPRESSION: Prior sigmoidectomy without evidence of residual inflammation in the pelvis. Small and large bowel containing rectus diastasis. Decompressed urinary bladder with wall thickening, nonspecific. This may be due to chronic over distension. Correlate with UA. Moderate-sized hiatal hernia. Dictated by: Laurel Tello M.D. on 10/02/2023 at 16:26 Approved by: Laurel Tello M.D. on 10/02/2023 at 16:33
[2023-10-02 07:51] LABS: Estimated Glomerular Filt Rate > 60 mL/min (>60)
== END ==
LOC: CT 07:23
PROVIDERS: Radiology Diagnostic Radiology; PCP Family Medicine; Referring Provider Colon & Rectal Surgery; Visit Provider Colon & Rectal Surgery
DX: K57.80 Diverticulitis of intestine, part unspecified, with perforation and abscess without bleeding (principal); K44.9 Diaphragmatic hernia without obstruction or gangrene; M62.08 Separation of muscle (nontraumatic), other site; Z93.3 Colostomy status; Z98.1 Arthrodesis status
CPT/HCPCS: 36415; 74177; 82565; Q9967

== ENCOUNTER → 2023-12-11 15:45 | Outpatient (CLI) | payer MEDICARE, OTHER, SELFPAY ==
[2023-09-11 11:32] VITALS: BMI 43.0
== END ==
LOC: WC 15:45
PROVIDERS: PCP Family Medicine; Referring Provider Colon & Rectal Surgery; Visit Provider Surgery
DX: T81.89XA Other complications of procedures, not elsewhere classified, initial encounter (principal); S31.101A Unspecified open wound of abdominal wall, left upper quadrant without penetration into peritoneal cavity, initial encounter; I10 Essential (primary) hypertension
CPT/HCPCS: 97597; 99213

== ENCOUNTER → 2023-12-18 15:36 | Outpatient (CLI) | payer MEDICARE, OTHER, SELFPAY ==
[2023-09-11 11:32] VITALS: BMI 43.0
== END ==
PROVIDERS: PCP Family Medicine; Referring Provider Family Medicine; Visit Provider Surgery
DX: S31.109A Unspecified open wound of abdominal wall, unspecified quadrant without penetration into peritoneal cavity, initial encounter (principal); T81.89XA Other complications of procedures, not elsewhere classified, initial encounter; I10 Essential (primary) hypertension
CPT/HCPCS: 17250; 99213

== ENCOUNTER 2023-12-18 20:49 | Emergency (ER) | payer MEDICARE, OTHER, SELFPAY ==
[2023-09-11 11:32] VITALS: BMI 43.0
[2023-12-18 20:50] VITALS: BP 116/58; PULSE 69; RESP 18; TEMP 36.7; O2SAT 95; BMI 40.4
--- NOTE | 2023-12-18 21:03 | DI.CT.S_ITS ---
PROCEDURE: CT HEAD/BRAIN WO CON INDICATIONS: syncope TECHNIQUE: Noncontrast 4.5 mm thick angled axial sections acquired from the foramen magnum to the vertex, with coronal and sagittal reformats. For radiation dose reduction, the following was used: automated exposure control, adjustment of mA and/or kV according to patient size. COMPARISON: None. FINDINGS: Image quality: Diagnostic CSF spaces: Basal cisterns are patent. Lateral ventricles are symmetric. Volume: Vascular calcifications. Periventricular white matter disease is commonly seen with chronic microangiopathy. Volume loss is present. These findings are moderate Brain: No gross loss of hwang-white differentiation. No hematoma. Craniofacial structures: Partially visualized craniofacial structures are unremarkable. IMPRESSION: No acute intracranial abnormality. If there is high concern for parenchymal pathology, consider further evaluation with MRI. (completed images were made available for radiologist review at 11:30 p.m 12/18/23) Dictated by: Carlos Cortes M.D. on 12/18/2023 at 23:42 Approved by: Carlos Cortes M.D. on 12/18/2023 at 23:44
[2023-12-18 21:16] LABS: Add Manual Diff / Slide Review NO; Basophils Absolute Auto 0 /uL (0-100); Basophils Percent Auto 0.4 % (0-2); Eosinophils Absolute Auto 200 /uL (0-450); Eosinophils Percent Auto 2.1 % (2-4); Hematocrit 40.9 % (36-46); Hemoglobin 13.6 g/dL (12.0-16.0); Lymphocytes Absolute Auto 3700 /uL (1100-4500); Lymphocytes Percent Auto 44.6 % (25-40); Mean Corpuscular HGB Conc 33.3 % (30-36); Mean Corpuscular Hemoglobin 30.9 PG (26-34); Mean Corpuscular Volume 92.8 fL (80-100); Monocytes Absolute Auto 1000 /uL (0-900); Monocytes Percent Auto 11.5 % (3-14); Neutrophils Absolute Auto 3500 /uL (1500-7000); Neutrophils Percent Auto 41.4 % (50-75); Platelet Count 231 X10^3/uL (150-400); Red Blood Cell Count 4.41 X10^6/uL (4.0-5.2); Red Cell Distribution Width 14.5 % (11.6-14.8); White Blood Cell Count 8.3 X10^3/uL (4.5-11.0)
[2023-12-18 21:21] LABS: Alanine Aminotransferase 27 IU/L (<35); Albumin 4.8 g/dL (3.5-5.0); Albumin Globulin Ratio 1.5 (1.0-2.8); Alkaline Phosphatase 54 U/L (38-126); Aspartate Aminotransferase 29 IU/L (14-36); BUN Creatinine Ratio 28.4 (6-22); Bilirubin Total 0.6 mg/dL (0.2-1.3); Blood Urea Nitrogen 33 mg/dL (7-17); Calcium 10.2 mg/dL (8.4-10.2); Carbon Dioxide 23 mmol/L (22-32); Chloride 103 mmol/L (98-107); Estimated Glomerular Filt Rate 47 mL/min (>60); Globulin 3.2 g/dL (1.7-4.1); Glucose 92 mg/dL (80-110); HEMOLYSIS < 15 (0-50); Lactate (Lactic Acid) 2.5 mmol/L (0.7-2.1); Potassium 3.7 mmol/L (3.4-5.1); Sodium 137 mmol/L (137-145)
[2023-12-18 21:32] LABS: Troponin I < 0.012 ng/mL (0.01-0.034)
--- NOTE | 2023-12-18 22:42 | ED_ITS ---
HPI - Syncope General Chief Complaint: Syncope Stated Complaint: syncope Time Seen by Provider: 12/18/23 21:50 Source: patient and EMS Mode of arrival: EMS Limitations: no limitations History of Present Illness HPI narrative: 83-year-old female was sitting at a table with her family members after having eaten dinner, then was noted to become unresponsive with slight forward slumping lasting approximately 45 minutes, EMS was called, sugar was apparently okay in the field, initial systolic blood pressure 80, improved to 110 without specific treatment, IV fluid bolus was to be initiated EN route. She denies any recent chest pain, shortness of breath, fevers, chills, diarrhea, black or red stools, focal weakness, history of seizures, shaking, biting of the tongue, prior syncopal episodes. Duration of episode: 45 -: second(s) Prodromal symptoms: none Witnessed: yes - by bystander (by family members at the table) Injuries sustained associated with event: none Current symptoms: none and back to baseline Treatments prior to arrival: none Related Data Home Medications Medication Instructions Recorded Confirmed acetaminophen 500 mg tablet 750 mg PO DAILY PRN pain 01/10/18 09/11/23 (Tylenol Extra Strength) ascorbic acid (vitamin C) 500 mg 500 mg PO DAILY 01/10/18 09/11/23 tablet (Vitamin C) ferrous sulfate 325 mg (65 mg 325 mg PO DAILY 01/10/18 09/11/23 iron) tablet multivitamin 1 tab PO DAILY 01/10/18 09/11/23 naproxen sodium 220 mg capsule 220 mg PO DAILY PRN pain 01/10/18 09/11/23 (Aleve) rosuvastatin 5 mg tablet 5 mg PO DAILY 11/12/18 09/11/23 omeprazole 10 mg capsule,delayed 10 mg PO DAILY 11/23/21 09/11/23 release melatonin 10 mg tablet 20 mg PO BEDTIME PRN 06/21/23 09/11/23 Previous Rx's Medication Instructions Recorded anastrozole 1 mg tablet 1 mg PO DAILY breast cancer #90 01/01/23 tabs lorazepam 0.5 mg tablet 0.5 mg PO BEDTIME PRN insomnia #14 09/11/23 tabs trazodone 50 mg tablet 50 - 100 mg (1 - 2 x 50 mg) PO 11/28/23 BEDTIME PRN sleep #90 tabs Allergies Allergy/AdvReac Type Severity Reaction Status Date / Time No Known Drug Allergies Allergy Verified 09/11/23 10:56 Review of Systems Review of Systems Narrative: As per HPI Patient History Medical History Shoulder pain Foot pain (~2020) Anemia Tinnitus Hearing loss BBB (bundle branch block) Acute appendicitis Colon polyp Hammer toe Hemorrhoids Hyperlipidemia Morbid obesity Joint pain Back pain Leg pain History of rectocele Insomnia Statin intolerance Tinnitus of left ear 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 Low back pain GERD (gastroesophageal reflux disease) Iron deficiency anemia Osteoarthritis Hypertension Spinal stenosis, lumbar region with neurogenic claudication Spondylolisthesis at L4-L5 level Left bundle branch block Surgical History Anesthesia History of cataract removal with insertion of prosthetic lens (~2021) History of bilateral knee replacement (~2016) History of lumpectomy of right breast (11/08/21) Hx of appendectomy (2019) History of incision and drainage (02/15/18) Hx of lumbosacral spine surgery (01/16/18) History of tonsillectomy S/P epidural steroid injection History of tympanoplasty of left ear History of discectomy History of bunionectomy of right great toe History of bunionectomy of left great toe History of thumb surgery History of arthroplasty of right shoulder Hx of total knee arthroplasty Family History Father Cancer Mother Diabetes mellitus History of heart disease Hypertension Brother Cancer Brother Cancer History of heart disease Hypertension Sister Cancer Hypertension Stroke Sister Cancer Grandfather Stroke Grandmother History of heart disease Social History household members: spouse Smoking Status: Never smoker alcohol intake: current substance use type: does not use Smoking Status: Never smoker alcohol intake frequency: 0-2 drinks per day Substance Use Type: does not use Exam Initial Vital Signs Initial Vital Signs: Vital Signs Temperature 98.0 F 12/18/23 20:50 Pulse Rate 69 12/18/23 20:50 Respiratory Rate 18 12/18/23 20:50 Blood Pressure 116/58 L 12/18/23 20:50 Pulse Oximetry 95 12/18/23 20:50 Oxygen Delivery Method Room Air 12/18/23 20:50 Ambulatory in hallway walking bathroom back to [facility], steady gait Const General: cooperative HENMT Head: normal to inspection and atraumatic Ears: hearing grossly normal bilaterally and TM's normal bilaterally Nose: external nose normal Face and sinus: normal facial exam Teeth and gingiva: dentition normal Throat: posterior oropharynx normal Eyes Alignment and Position: alignment normal Periorbital: periorbital findings normal Eyelids: eyelids normal Sclera: sclerae normal EOM: EOM intact bilaterally Neck Neck: normal visual inspection Chest Chest: normal inspection of the chest Resp Effort & Inspection: normal respiratory effort, not labored, no respiratory distress and no retractions Auscultation: clear to auscultation bilaterally, no rhonchi and no wheezes Cardio Rate: regular rate Rhythm: regular rhythm Heart Sounds: no murmurs GI Inspection: normal to inspection Other: Recent takedown surgery from prior diverting colostomy due to diverticular abscess and sepsis, wound site appears clean, dressing overlying which was left in place since she was just seen yesterday at wound clinic and was told the wound looked quite good, no surrounding erythema, no significant tenderness, well-healed scars surrounding. Other: exam deferred Back/Spine/Pelvis Back: normal to inspection and No back tenderness Skin General: no rashes or lesions noted Neuro General: patient alert, gait normal and moves all extremities Speech: speech normal Gait: normal gait Motor: strength 5/5 throughout Extrem General: no pedal edema Left upper extremity: normal to inspection Right lower extremity: normal to inspection Psych Appearance: grossly normal Course Orders Ordered: Discontinued Medications Sodium Chloride (Normal Saline 0.9%) 1,000 mls @ 1,000 mls/hr IV BOLUS ONE Stop: 12/18/23 23:47 Last Infusion: 12/19/23 00:12 Dose: Infused Documented By: Admin: 12/18/23 23:05 Dose: 1,000 mls/hr Documented By: MICHELA Reevaluation(s) Reevaluation #1: Patient ambulated after having gone to the bathroom. EKG and troponin negative. Other labs pending. Patient feels that she was likely dehydrated, we will give IV fluid bolus normal saline 500 cc, though symptoms seem to be resolved, and she tolerated ambulation without symptoms. Reevaluation #2: Lactate 2.5 mildly elevated noted, possible dehydration, IV fluid bolus ordered, repeat lactate to be drawn with repeat interval troponin. CT head with calcifications and age-related atrophy per my prelim review, await radiologist's report. Reevaluation #3: CT head brain without contrast. Impression: ?No acute intracranial abnormality. If there is high concern for parenchymal pathology, consider further evaluation with MRI. ? Please see radiology report Dr. Cortes Additional Reevaluation(s): Repeat interval troponin negative, repeat lactate has normalized. Patient feels well, possible dehydration. Discussed broad differential diagnosis causes for syncope, offered admission, she declined, wanting to go home with family. Family members at bedside were in agreement with patient plan. We discussed return precautions. Improved, stable, home with family per her request Vital Signs Vital signs: Vital Signs - 8 hr 12/19/23 01:25 Pulse Rate 70 Respiratory Rate 18 Blood Pressure 132/61 Pulse Oximetry 96 Oxygen Delivery Method Room Air MDM - Syncope Differential Diagnosis Differential diagnosis: Likely syncope due to orthostatic hypotension, vasovagal syncope, complete atrioventricular block, subarachnoid hemorrhage, pulmonary embolism, dehydration and other Condition is:: Resolved Condition is at treatment goal?: Yes Lab Data 12/18/23 20:40 12/18/23 20:40 Labs: Lab Results 12/18/23 12/18/23 12/18/23 Range/Units 20:40 22:32 23:43 WBC 8.3 (4.5-11.0) X10^3/uL RBC 4.41 (4.0-5.2) X10^6/uL Hgb 13.6 (12.0-16.0) g/dL Hct 40.9 (36-46) % MCV 92.8 (80-100) fL MCH 30.9 (26-34) PG MCHC 33.3 (30-36) % RDW 14.5 (11.6-14.8) % Plt Count 231 (150-400) X10^3/uL Neut % (Auto) 41.4 L (50-75) % Lymph % (Auto) 44.6 H (25-40) % Steele % (Auto) 11.5 (3-14) % Eos % (Auto) 2.1 (2-4) % Baso % (Auto) 0.4 (0-2) % Neut # (Auto) 3500 (3431-5240) /uL Lymph # (Auto) 3700 (6681-8617) /uL Steele # (Auto) 1000 H (0-900) /uL Eos # (Auto) 200 (0-450) /uL Baso # (Auto) 0 (0-100) /uL Sodium 137 (137-145) mmol/L Potassium 3.7 (3.4-5.1) mmol/L Chloride 103 (98-107) mmol/L Carbon Dioxide 23 (22-32) mmol/L BUN 33 H (7-17) mg/dL Creatinine 1.16 H (0.52-1.04) mg/dL Estimated GFR 47 L (>60) mL/min BUN/Creatinine Ratio 28.4 H (6-22) Glucose 92 (80-110) mg/dL Lactate 2.5 H 1.0 (0.7-2.1) mmol/L Calcium 10.2 (8.4-10.2) mg/dL Total Bilirubin 0.6 (0.2-1.3) mg/dL AST 29 (14-36) IU/L ALT 27 (<35) IU/L Alkaline Phosphatase 54 (38-126) U/L Troponin I < 0.012 < 0.012 (0.01-0.034) ng/mL Total Protein 8.0 (6.3-8.2) g/dL Albumin 4.8 (3.5-5.0) g/dL Globulin 3.2 (1.7-4.1) g/dL Albumin/Globulin Ratio 1.5 (1.0-2.8) Urine Color Yellow Urine Appearance Clear Urine pH 5.0 (4.5-8.0) Ur Specific [place] 1.025 (1.000-1.035) Urine Protein Negative (Negative) Urine Glucose (UA) Negative (Negative) g/dL Urine Ketones Trace H (NEGATIVE) Urine Occult Blood Negative (Negative) Urine Nitrate Negative (Negative) Urine Bilirubin Negative (NEGATIVE) Urine Urobilinogen 0.2 (0.2) E.U./dL Ur Leukocyte Esterase Trace H (NEGATIVE) Urine RBC None seen (0-5/HPF) Urine WBC 0-1/hpf (0-5/HPF) Ur Squamous Epith Cells 1-5 /hpf (0-5/HPF) Amorphous Sediment 1+ Urine Bacteria Occasional (0-1) (None) Ur Culture Indicated? Cult not indicated Vol Urine Centrifuged 10ml (spun) MDM Narrative Medical decision making narrative: Patient had brief episode passing out, 45 seconds duration, felt that she was dehydrated, seemed to recovered, CT head negative, serial troponins negative, initial lactate elevated but normalized with IV fluids, she felt better shortly after arrival to the emergency department, did ambulate with normal gait that was not unsteady. She did not want to have further observation or testing. She went home with family, who concurred with her decision. She will follow up with the regular provider for further testing as an outpatient Critical Care Time Critical Care Time Critical Care Time: Yes Total Critical Care Time: 35 Attestation: The high probability of a clinically significant, sudden or life threatening deterioration of the [neurological, cardiac, pulmonary] system(s) required my full and direct attention, intervention and personal management. The aggregate critical care time was [35] minutes. This time is in addition to time spent performing reported procedures but includes the following: [X] Data Review and interpretation [X] Patient assessment and monitoring of vital signs [X] Documentation [X] Medication orders and management Discharge Plan Departure Patient Disposition: Released, Other Clinical Impression: Syncope, Dehydration Instructions: Fainting Activity Restrictions/Additional Instructions: Brief syncopal episode less than 1 minute duration unresponsiveness after eating dinner, of unclear cause. CT head study negative for acute changes. Lab testing showed elevated lactate, can be seen with infection brother infectious markers negative, and lactate normalized after IV fluids, consider dehydration as cause. You believe that you might be dehydrated, that might have been the case. There can be other serious causes of syncope however, and sometimes further evaluation and monitoring is prudent, though you did not want to be in the emergency department any longer, declined admission when offered. Further testing as an outpatient for now. Discharged home per your request, improved. You able to ambulate without symptoms in the emergency department. Discharged home with family. Follow-up with your regular provider. Return to this/nearest emergency department if any change worsening symptoms or any concerns prior Prescriptions: No Action anastrozole 1 mg Tablet 1 mg PO DAILY Qty: 90 4RF trazodone 50 mg tablet 50 - 100 mg PO BEDTIME PRN (Reason: sleep) Qty: 90 1RF melatonin 10 mg tablet 20 mg PO BEDTIME PRN lorazepam 0.5 mg tablet 0.5 mg PO BEDTIME PRN (Reason: insomnia) Qty: 14 0RF Rx Instructions: limit use, caution re sedation rosuvastatin 5 mg Tablet 5 mg PO DAILY omeprazole 10 mg capsule,delayed release(DR/EC) 10 mg PO DAILY multivitamin Tablet 1 tab PO DAILY acetaminophen [Tylenol Extra Strength] 500 mg Tablet 750 mg PO DAILY PRN (Reason: pain) Patient Comments: patient states rarely ascorbic acid (vitamin C) [Vitamin C] 500 mg Tablet 500 mg PO DAILY ferrous sulfate 325 mg (65 mg iron) Tablet 325 mg PO DAILY naproxen sodium [Aleve] 220 mg Capsule 220 mg PO DAILY PRN (Reason: pain) Rx Instructions: with food Referrals: Yulissa Coello DO [Primary Care Provider] - Stand Alone Forms: Patient Portal/API
[2023-12-18 22:45] LABS: Appearance Urine UA CLEAR; Bilirubin Urine UA NEGATIVE (NEGATIVE); Color Urine UA YELLOW; Glucose Urine UA NEGATIVE (Negative); Ketones Urine UA TRACE (NEGATIVE); Leukocyte Esterase Urine UA TRACE (NEGATIVE); Nitrite Urine UA NEGATIVE (Negative); Occult Blood Urine UA NEGATIVE (Negative); Protein Urine UA NEGATIVE (Negative); Specific Gravity Urine UA 1.025 (1.000-1.035); Urobilinogen Urine UA 0.2 E.U./dL (0.2)
[2023-12-18 22:47] LABS: Reflexed Lactate in 2 Hours Y
[2023-12-18 23:04] LABS: RBC Urine None Seen (0-5/HPF); Urine Volume 10mL (spun)
[2023-12-18 23:05] LABS: Amorphous Sediment Urine 1+; Bacteria Urine Occasional (0-1); Culture Indicated Urine Cult Not Indicated; Squamous Epithelial Cell Urine 1-5 /HPF (0-5/HPF); WBC Urine 0-1/HPF (0-5/HPF)
[2023-12-18] MEDS: SODIUM CHLORIDE 0.9% 1,000 ML 1000 ML IV (23:05)
[2023-12-19 00:24] LABS: Troponin I < 0.012 ng/mL (0.01-0.034)
[2023-12-19 01:25] VITALS: BP 132/61; PULSE 70; RESP 18; O2SAT 96
== END 2023-12-19 01:30 | disposition home or self-care (01) ==
PROVIDERS: Emergency Provider Emergency Medicine; PCP Family Medicine
DX: R55 Syncope and collapse (principal); E86.0 Dehydration; S31.109A Unspecified open wound of abdominal wall, unspecified quadrant without penetration into peritoneal cavity, initial encounter; T81.89XA Other complications of procedures, not elsewhere classified, initial encounter; I10 Essential (primary) hypertension
CPT/HCPCS: 17250; 36415; 70450; 80053; 81001; 83605; 84484; 85025; 96360; 99284; 99285

== ENCOUNTER → 2024-01-01 15:40 | Outpatient (CLI) | payer MEDICARE, OTHER, SELFPAY ==
[2023-09-11 11:32] VITALS: BMI 43.0
== END ==
PROVIDERS: PCP Family Medicine; Referring Provider Family Medicine; Visit Provider Surgery
DX: T81.89XA Other complications of procedures, not elsewhere classified, initial encounter (principal); S31.101A Unspecified open wound of abdominal wall, left upper quadrant without penetration into peritoneal cavity, initial encounter; L92.9 Granulomatous disorder of the skin and subcutaneous tissue, unspecified; I10 Essential (primary) hypertension
CPT/HCPCS: 17250; 99213

== ENCOUNTER → 2024-01-15 13:00 | Outpatient (CLI) | payer MEDICARE, OTHER, SELFPAY ==
[2023-09-11 11:32] VITALS: BMI 43.0
== END ==
LOC: WC 13:09
PROVIDERS: PCP Family Medicine; Referring Provider Family Medicine; Visit Provider Surgery
DX: T81.89XA Other complications of procedures, not elsewhere classified, initial encounter (principal); S31.109A Unspecified open wound of abdominal wall, unspecified quadrant without penetration into peritoneal cavity, initial encounter; I10 Essential (primary) hypertension
CPT/HCPCS: 99213

== ENCOUNTER → 2024-01-29 13:18 | Outpatient (CLI) | payer MEDICARE, OTHER, SELFPAY ==
[2023-09-11 11:32] VITALS: BMI 43.0
== END ==
PROVIDERS: PCP Family Medicine; Referring Provider Family Medicine; Visit Provider Surgery
DX: T81.89XD Other complications of procedures, not elsewhere classified, subsequent encounter (principal); S31.109D Unspecified open wound of abdominal wall, unspecified quadrant without penetration into peritoneal cavity, subsequent encounter
CPT/HCPCS: 99212; 99213

== ENCOUNTER 2024-03-16 11:43 | Emergency (ER) | payer MEDICARE, OTHER, SELFPAY ==
[2023-09-11 11:32] VITALS: BMI 43.0
[2024-03-16] VITALS (13 sets, daily range): BP systolic 177–197; BP diastolic 79–98; PULSE 56–71; RESP 12–25; TEMP 36.8; O2SAT 96–99; BMI 38.3
--- NOTE | 2024-03-16 12:05 | DI.RAD.S_ITS ---
PROCEDURE: XR CHEST 1V INDICATIONS: chest pain TECHNIQUE: One view of the chest was acquired. COMPARISON: None. FINDINGS: Surgical changes and devices: None. Lungs and pleura: Lungs are clear considering reduced inspiratory volume. No pleural effusions or pneumothorax. Mediastinum: Mediastinal contours appear normal except for presence of a moderate-sized hiatal hernia behind the heart Heart size is normal. Bones and chest wall: No suspicious bony lesions. Overlying soft tissues appear unremarkable. IMPRESSION: No acute cardiopulmonary abnormality is seen. Inspiratory volume is reduced bilaterally, right greater than left. Moderate-sized hiatal hernia behind the heart. Dictated by: Israel Church M.D. on 03/16/2024 at 12:59 Approved by: Israel Church M.D. on 03/16/2024 at 13:00
--- NOTE | 2024-03-16 12:05 | EKG_ITS ---
[place] [id number] [address] [place] [id number] Test Date: 2024-03-16 Pat Name: Holly Bates Department: [facility] Room: Gender: Female [employer] Man: RADHA : 1940 Requested By: Order Number: [id number] Reading MD: Mike Rudolph MD Measurements Intervals [place]el Rate: 57 P: 9 VT: 184 QRS: -63 QRSD: 142 T: 68 QT: 448 QTc: 436 Interpretive Statements Sinus bradycardia with sinus arrhythmia Left axis deviation Left bundle branch block NO SIGNIFICANT CHANGE FROM PRIOR TRACING Electronically Signed On 03-16-2024 16:44:53 PDT by Mike Rudolph MD
[2024-03-16 12:44] LABS: INR 0.9 (0.9-1.3); Prothrombin Time 10.7 SECONDS (9.4-12.5)
[2024-03-16 12:46] LABS: PTT Partial Thromboplastin Tim 26 SECONDS (25.1-36.5)
[2024-03-16 12:48] LABS: Add Manual Diff / Slide Review NO; Basophils Absolute Auto 100 /uL (0-100); Basophils Percent Auto 0.6 % (0-2); Eosinophils Absolute Auto 0 /uL (0-450); Eosinophils Percent Auto 0.5 % (2-4); Hematocrit 41.7 % (36-46); Hemoglobin 13.8 g/dL (12.0-16.0); Lymphocytes Absolute Auto 3700 /uL (1100-4500); Lymphocytes Percent Auto 39.7 % (25-40); Mean Corpuscular Hemoglobin 30.8 PG (26-34); Mean Corpuscular Volume 93.3 fL (80-100); Monocytes Absolute Auto 1000 /uL (0-900); Neutrophils Absolute Auto 4500 /uL (1500-7000); Neutrophils Percent Auto 48.2 % (50-75); Platelet Count 277 X10^3/uL (150-400); Red Blood Cell Count 4.47 X10^6/uL (4.0-5.2); Red Cell Distribution Width 14.5 % (11.6-14.8); White Blood Cell Count 9.4 X10^3/uL (4.5-11.0)
[2024-03-16 12:53] LABS: Alanine Aminotransferase 29 IU/L (<35); Albumin 4.2 g/dL (3.5-5.0); Albumin Globulin Ratio 1.3 (1.0-2.8); Alkaline Phosphatase 60 U/L (38-126); Aspartate Aminotransferase 28 IU/L (14-36); BUN Creatinine Ratio 36.5 (6-22); Bilirubin Total 0.6 mg/dL (0.2-1.3); Blood Urea Nitrogen 27 mg/dL (7-17); Carbon Dioxide 27 mmol/L (22-32); Chloride 105 mmol/L (98-107); Creatine Kinase 57 U/L (30-135); Estimated Glomerular Filt Rate > 60 mL/min (>60); Globulin 3.3 g/dL (1.7-4.1); Glucose 90 mg/dL (80-110); HEMOLYSIS < 15 (0-50); Lipase 132 U/L (23-300); Magnesium 2.4 mg/dL (1.6-2.3); Potassium 4.2 mmol/L (3.4-5.1); Sodium 135 mmol/L (137-145); Total Protein 7.5 g/dL (6.3-8.2)
[2024-03-16 13:05] LABS: NT-proBNP (BNP-Adult 18+) 313 pg/mL (<450); Troponin I < 0.012 ng/mL (0.01-0.034)
--- NOTE | 2024-03-16 13:46 | ED.DIZZY ---
HPI - Dizziness General Chief Complaint: Dizziness Stated Complaint: Dizzyness, Upset Stomach, High BP Time Seen by Provider: 03/16/24 13:43 Source: patient, RN notes reviewed and old records reviewed Mode of arrival: Wheelchair Limitations: no limitations History of Present Illness HPI Narrative: 83-year-old female with history of hypertension dyslipidemia, GERD, history of breast cancer still on anastrozole who presents with complaint of dizziness some slight nausea and headache which has resolved. Patient states she was seated waiting for her physical therapy session, they had called her name she got up to go walk to the PT provider and felt very dizzy little bit nauseated has a little bit of mild headache. She states it resolved shortly thereafter. She did not pass out but thought that she might. States no headache currently, no fevers or chills, she has had a persistent cough had her lisinopril stopped a week ago and changed to losartan. She notes her blood pressure is a little bit high today. Patient states no chest pain or shortness of breath. She would some nausea with the initial event but none since. No vomiting. States she sometimes gets constipated with bowel movements because she had a reversal of a colostomy in November but states his stools in the last day or so. Denies any dysuria urgency or frequency. No new swelling of extremities. Patient has history of breast cancer with lumpectomy followed by mastectomy in his continued to be on anastrozole. No prior cardiac history. Did have an ostomy that was reversed in November after having ruptured sigmoid colon from diverticulitis. She is on anastrozole, atorvastatin, omeprazole, daily multivitamin had her lisinopril stopped a week ago and changed to losartan 25 mg secondary to cough. Denies any drug allergies. No tobacco, drinks 3-4 weeks drinking of alcohol. No recreational drugs. Dr. Crissy coello as her primary care physician. She was feeling much improved here in the department she is ambulated to the bathroom several times without issue. Related Data Home Medications Medication Instructions Recorded Confirmed acetaminophen 500 mg tablet 750 mg PO DAILY PRN pain 01/10/18 03/03/24 (Tylenol Extra Strength) ascorbic acid (vitamin C) 500 mg 500 mg PO DAILY 01/10/18 03/03/24 tablet (Vitamin C) ferrous sulfate 325 mg (65 mg 325 mg PO DAILY 01/10/18 03/03/24 iron) tablet multivitamin 1 tab PO DAILY 01/10/18 03/03/24 naproxen sodium 220 mg capsule 220 mg PO DAILY PRN pain 01/10/18 03/03/24 (Aleve) rosuvastatin 5 mg tablet 5 mg PO DAILY 11/12/18 03/03/24 omeprazole 10 mg capsule,delayed 10 mg PO DAILY 11/23/21 03/03/24 release melatonin 10 mg tablet 20 mg PO BEDTIME PRN 06/21/23 03/03/24 Previous Rx's Medication Instructions Recorded anastrozole 1 mg tablet 1 mg PO DAILY breast cancer #90 01/01/23 tabs lorazepam 0.5 mg tablet 0.5 mg PO BEDTIME PRN insomnia #14 09/11/23 tabs trazodone 50 mg tablet 50 - 100 mg (1 - 2 x 50 mg) PO 02/26/24 BEDTIME PRN sleep #90 tabs losartan 25 mg tablet 25 mg PO DAILY #90 tabs 03/03/24 Allergies Allergy/AdvReac Type Severity Reaction Status Date / Time No Known Drug Allergies Allergy Verified 03/16/24 12:04 Review of Systems Review of Systems ROS Unobtainable: All systems reviewed & are unremarkable except as noted in HPI and below Patient History Medical History History of breast cancer in female (~2021) Adverse effect of loop diuretic (~06/2023) Colostomy in place (~02/2023) Anemia Tinnitus Hearing loss BBB (bundle branch block) Acute appendicitis Colon polyp Hammer toe Hemorrhoids Hyperlipidemia Morbid obesity Joint pain Leg pain History of rectocele Insomnia Statin intolerance Tinnitus of left ear 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 Low back pain GERD (gastroesophageal reflux disease) Iron deficiency anemia Osteoarthritis Spinal stenosis, lumbar region with neurogenic claudication Spondylolisthesis at L4-L5 level Left bundle branch block Surgical History History of colostomy reversal Anesthesia History of cataract removal with insertion of prosthetic lens (~2021) History of bilateral knee replacement (~2016) History of lumpectomy of right breast (11/08/21) Hx of appendectomy (2019) History of incision and drainage (02/15/18) Hx of lumbosacral spine surgery (01/16/18) History of tonsillectomy S/P epidural steroid injection History of tympanoplasty of left ear History of discectomy History of bunionectomy of right great toe History of bunionectomy of left great toe History of thumb surgery History of arthroplasty of right shoulder Hx of total knee arthroplasty Family History Father Cancer Mother Diabetes mellitus History of heart disease Hypertension Brother Cancer Brother Cancer History of heart disease Hypertension Sister Cancer Hypertension Stroke Sister Cancer Grandfather Stroke Grandmother History of heart disease Social History household members: spouse Smoking Status: Never smoker alcohol intake: current substance use type: does not use Smoking Status: Never smoker alcohol intake frequency: 0-2 drinks per day Substance Use Type: does not use Exam Narrative Exam Narrative: GENERAL: Alert and oriented x three, well-appearing female in mild distress HEENT: Head normocephalic, atraumatic, EOMI, pupils reactive, face symmetric, moist mucous membranes NECK: Supple, full range of motion CARDIOVASCULAR: Regular rate and rhythm without murmurs, rubs or gallops. No JVD. No edema. RESPIRATORY: Breath sounds equal bilaterally, no wheezes rales or rhonchi. ABDOMEN: Soft, nontender. Normoactive bowel sounds all 4 quadrants. No guarding or rebound, rigidity, no mass : No CVA tenderness EXTREMITIES: Normal range of motion, no clubbing or edema. Neurovascularly intact NEUROLOGICAL: Cranial nerves II through XII grossly intact. Moving all extremities SKIN: Warm, dry, no petechiae, no rashes or lesions. Initial Vital Signs Initial Vital Signs: Vital Signs Pulse Rate 61 03/16/24 11:56 Pulse Oximetry 97 03/16/24 11:56 Course Orders Ordered: ED Orders 03/16/24 12:05 XR chest 1V Stat EKG-12 Lead Stat 03/16/24 12:12 Complete Blood Count AUTO DIFF Stat Comprehensive Metabolic Panel Stat Lipase Stat Magnesium Stat NT-proBNP (BNP-Adult 18+) Stat PTT Partial Thromboplastin Hal Stat Prothrombin Time INR Stat Troponin & CK Cardiac Panel Stat Vital Signs Vital signs: Vital Signs - 8 hr 03/16/24 11:56 03/16/24 11:57 03/16/24 11:57 Temperature Pulse Rate 61 62 Respiratory Rate Blood Pressure 189/98 H Pulse Oximetry 97 97 Oxygen Delivery Method 03/16/24 12:02 03/16/24 12:09 03/16/24 12:10 Temperature 98.3 F Pulse Rate 64 71 Respiratory Rate 18 Blood Pressure 189/98 H 186/88 H Pulse Oximetry 97 97 Oxygen Delivery Method Room Air 03/16/24 12:10 03/16/24 12:25 03/16/24 12:25 Temperature Pulse Rate 68 59 L Respiratory Rate 12 Blood Pressure 184/81 H Pulse Oximetry 98 97 Oxygen Delivery Method 03/16/24 12:30 03/16/24 12:30 03/16/24 13:00 Temperature Pulse Rate 58 L 58 L Respiratory Rate 25 H Blood Pressure 177/86 H Pulse Oximetry 97 96 Oxygen Delivery Method 03/16/24 13:01 03/16/24 13:01 03/16/24 13:30 Temperature Pulse Rate 56 L 59 L Respiratory Rate 20 Blood Pressure 191/79 H Pulse Oximetry 96 97 Oxygen Delivery Method 03/16/24 13:31 03/16/24 13:31 Temperature Pulse Rate 60 Respiratory Rate 24 Blood Pressure 197/86 H Pulse Oximetry 98 Oxygen Delivery Method Room Air MDM - Dizziness Lab Data 03/16/24 12:12 03/16/24 12:12 Labs: Lab Results 03/16/24 Range/Units 12:12 WBC 9.4 (4.5-11.0) X10^3/uL RBC 4.47 (4.0-5.2) X10^6/uL Hgb 13.8 (12.0-16.0) g/dL Hct 41.7 (36-46) % MCV 93.3 (80-100) fL MCH 30.8 (26-34) PG MCHC 33.0 (30-36) % RDW 14.5 (11.6-14.8) % Plt Count 277 (150-400) X10^3/uL Neut % (Auto) 48.2 L (50-75) % Lymph % (Auto) 39.7 (25-40) % [place] % (Auto) 11.0 (3-14) % Eos % (Auto) 0.5 L (2-4) % Baso % (Auto) 0.6 (0-2) % Neut # (Auto) 4500 (4400-6597) /uL Lymph # (Auto) 3700 (8450-3749) /uL [place] # (Auto) 1000 H (0-900) /uL Eos # (Auto) 0 (0-450) /uL Baso # (Auto) 100 (0-100) /uL PT 10.7 (9.4-12.5) SECONDS INR 0.9 (0.9-1.3) APTT 26 (25.1-36.5) SECONDS Sodium 135 L (137-145) mmol/L Potassium 4.2 (3.4-5.1) mmol/L Chloride 105 (98-107) mmol/L Carbon Dioxide 27 (22-32) mmol/L BUN 27 H (7-17) mg/dL Creatinine 0.74 (0.52-1.04) mg/dL Estimated GFR > 60 (>60) mL/min BUN/Creatinine Ratio 36.5 H (6-22) Glucose 90 (80-110) mg/dL Calcium 9.0 (8.4-10.2) mg/dL Magnesium 2.4 H (1.6-2.3) mg/dL Total Bilirubin 0.6 (0.2-1.3) mg/dL AST 28 (14-36) IU/L ALT 29 (<35) IU/L Alkaline Phosphatase 60 (38-126) U/L Total Creatine Kinase 57 (30-135) U/L Troponin I < 0.012 (0.01-0.034) ng/mL NT-Pro-B Natriuret Pep 313 (<450) pg/mL Total Protein 7.5 (6.3-8.2) g/dL Albumin 4.2 (3.5-5.0) g/dL Globulin 3.3 (1.7-4.1) g/dL Albumin/Globulin Ratio 1.3 (1.0-2.8) Lipase 132 (23-300) U/L Urine Dip Bedside Urine Glucose Negative Bedside Urine Bilirubin - Negative Bedside Urine Ketone - Negative Urine Specific [place] 1.015 Bedside Urine Occult Blood - Negative Bedside Urine pH 7.0 Bedside Urine Protein - Negative Bedside Urine Urobilinogen - Negative Bedside Urine Nitrite - Negative Bedside Urine Leukocytes - Negative Esterase Imaging Data Chest x-ray: Radiologist's Impression: [address] [address] XRay Report Signed Patient: Holly Bates MR#: [id number] : 1940 Acct:[id number] Age/Sex: 83 / F Date of Service: 03/16/24 Loc: ED Accession Number: [id number] Procedure: XR chest 1V Ordering Provider: Elin Jara D.O. PROCEDURE: XR CHEST 1V INDICATIONS: chest pain TECHNIQUE: One view of the chest was acquired. COMPARISON: None. FINDINGS: Surgical changes and devices: None. Lungs and pleura: Lungs are clear considering reduced inspiratory volume. No pleural effusions or pneumothorax. Mediastinum: Mediastinal contours appear normal except for presence of a moderate-sized hiatal hernia behind the heart Heart size is normal. Bones and chest wall: No suspicious bony lesions. Overlying soft tissues appear unremarkable. IMPRESSION: No acute cardiopulmonary abnormality is seen. Inspiratory volume is reduced bilaterally, right greater than left. Moderate-sized hiatal hernia behind the heart. Dictated by: Israel Church M.D. on 03/16/2024 at 12:59 Approved by: Israel Church M.D. on 03/16/2024 at 13:00 ECG Data Attestation: I personally reviewed and interpreted this ECG as follows: Prior ECG tracings: available for review Interpretation: Sinus bradycardia with sinus arrhythmia rate of 57 OK 184 QRS of 142 QTC 436, left axis deviation, left bundle-branch block. Patient has prior from 06/24/2022 which appears similar. MDM Narrative Medical decision making narrative: 83-year-old female history of hypertension recently had her lisinopril stopped and changed to losartan a week ago secondary to cough. Was at physical therapy has been seated waiting for her appointment when her name was called she got up to walk to the PT provider and got dizzy, from patient's description of symptoms I suspect she got a little orthostatic. She states symptoms have resolved she has not had any persistent symptoms and has ambulated several times in the department without issue. Blood pressure is little elevated here today asked patient to continue to monitor for the next day or so and if it is continually elevated to contact primary care to adjust her new losartan dose. Patient's workup otherwise is overall reassuring and discussed with patient she feels comfortable returning home. Labs show white count of 9.4 hemoglobin of 13 platelets of 277, neutrophils are low, INR 0.9 sodium is 135 potassium 4.2 chloride 105 CO2 is 27 with a BUN 27 creatinine 0.74, glucose of 90, calcium 9 Mag 2.4 with otherwise normal LFTs troponins less than 0.012 and a BNP of 313. Chest x-ray shows acute change inspiratory volume reduced bilaterally right greater than left moderate size hiatal hernia behind heart. EKG shows sinus bradycardia with sinus arrhythmia, left axis deviation and left bundle-branch block. No acute changes comparison to number June of 2022 Point of care urine is negative for acute changes Discharge Plan Departure Patient Disposition: Home Clinical Impression: Lightheadedness Activity Restrictions/Additional Instructions: Follow up with your physician, please check your blood pressure over the next several days and if you are persistently elevated talk with your physician about whether they need to adjust your losartan dose. I hope you continue to feel improved. Please return for recurrent episodes of lightheadedness or passing out, severe headaches, new chest pain or shortness of breath, nausea or vomiting, diaphoresis or sweatiness, new swelling of your extremities or other new or concerning changes. Prescriptions: No Action anastrozole 1 mg Tablet 1 mg PO DAILY Qty: 90 4RF trazodone 50 mg tablet 50 - 100 mg PO BEDTIME PRN (Reason: sleep) Qty: 90 1RF melatonin 10 mg tablet 20 mg PO BEDTIME PRN lorazepam 0.5 mg tablet 0.5 mg PO BEDTIME PRN (Reason: insomnia) Qty: 14 0RF Rx Instructions: limit use, caution re sedation losartan 25 mg tablet 25 mg PO DAILY Qty: 90 3RF rosuvastatin 5 mg Tablet 5 mg PO DAILY omeprazole 10 mg capsule,delayed release(DR/EC) 10 mg PO DAILY multivitamin Tablet 1 tab PO DAILY acetaminophen [Tylenol Extra Strength] 500 mg Tablet 750 mg PO DAILY PRN (Reason: pain) Patient Comments: patient states rarely ascorbic acid (vitamin C) [Vitamin C] 500 mg Tablet 500 mg PO DAILY ferrous sulfate 325 mg (65 mg iron) Tablet 325 mg PO DAILY naproxen sodium [Aleve] 220 mg Capsule 220 mg PO DAILY PRN (Reason: pain) Rx Instructions: with food Referrals: Yulissa Coello DO [Primary Care Provider] - Stand Alone Forms: Patient Portal/API
== END 2024-03-16 14:14 | disposition home or self-care (01) ==
PROVIDERS: Emergency Provider Emergency Medicine; Family Provider Family Medicine; PCP Family Medicine
DX: R42 Dizziness and giddiness (principal); R51.9 Headache, unspecified; R07.9 Chest pain, unspecified; R00.1 Bradycardia, unspecified
CPT/HCPCS: 36415; 71045; 80053; 81003; 82550; 83690; 83735; 83880; 84484; 85025; 85610; 85730; 93005; 93010; 99283; 99284

== ENCOUNTER 2024-03-27 08:15 | Outpatient (RCR) | payer MEDICARE, OTHER, SELFPAY ==
[2023-09-11 11:32] VITALS: BMI 43.0
--- NOTE | 2024-03-02 16:00 | PT.OPPOC ---
Physical, Occupational & Speech Therapy At [facility] Current Diagnoses Difficulty in walking, not elsewhere classified (03/02/24) Other symptoms and signs involving the musculoskeletal system (03/02/24) Weakness (03/02/24) Other malaise (03/02/24) Visit Care Team Role Provider Type Yulissa Coello DO Attending Provider Physician Family Provider Primary Care Provider Referring Provider Specialty: Medical Address: [address] [place] [address], [address], [place], [address] Email: [email or web address] Plan Of Care PT-OP-T Assessment and Plan Start: 03/02/24 11:17 Freq: Status: Active Protocol: Document 03/02/24 11:17 SAK (Rec: 03/03/24 08:50 SAK [id number]) Physical Therapy Assessment Rehab Potential Rehabilitation Potential Good Evaluation Complexity Number of Personal Factors/Comorbidities 1-2 Number of Body Systems Impaired 3 Clinical Presentation at Evaluation Evolving Impairments Impairments Activity Tolerance,Balance, Gait,Strength Other Concerns Fall Risk med Barriers to Rehabilitation left shoulder pain may limit assistive device use if needed Goals Three Impairment unable to go for walks Short Term Goal (STG) Patient will be able to safely go for a 15 minute walk without excess fatigue, and with 6 min walk test will be able to walk at least 1200 feet STG Duration 04/10/24 Council Member Goal (LTG) Patient will be able to resume taking a walk of at least 30 min at least 3 days per week with her as measure of improved fitness and quality of life Two Impairment LE and core weakness Short Term Goal (STG) Patient to be instructed in HEP for purposes of LE and core strengthening STG Duration 04/10/24 Senior Living Goal (LTG) Patient to be independnet and compliant with HEP and test at least 4+/5 all muscle groups for improved activity tolerance LTG Duration 06/03/24 One Impairment Balance dysfunction: Bose balance score 42/56 Short Term Goal (STG) Patient to be instructed in HEP for purposes of balance improvement to support therapy activities in [facility] STG Duration 04/10/24 Senior Living Goal (LTG) Improve Bose Balance score to at least 52/56 as measure of improved balance and safety in the home and community LTG Duration 06/03/24 Assessment Summary Assessment Patient presents with decreased strength and balance dysfunction after mulitple medical complications starting with perforated bowel in January 2022 with need for colostomy, extensive rehab afterwards. At this time her activity level is very limited and she has difficulty with her balance putting her at risk for falls and is unable to physically tolerate going for walks. Was able to complete 6 min walk test today but required significant rest afterward. Feel she would benefit from PT for balance and gait training and strengthening to help her return to prior level of function. POC was discussed and she was in agreement. Physical Therapy Plan Frequency and Duration Frequency of Treatment 2x/Week Duration of treatment (weeks) 12 Plan of Care Start Date 03/03/24 Plan of Care End Date 06/03/24 Therapeutic Interventions Therapeutic Interventions Home Exercise Program, Neuromuscular Re-education, Patient/Caregiver Education, Self-Care/Home Management, Therapeutic Activities, Therapeutic Exercises Next Visit Focus/Plan Next Note Type Treatment Note Next Visit Plan Review initial HEP, progress with strengthening, and gait and balance training. Add heel raises with eccentric lowering to HEP. Plan of Care Dates Plan of Care Start Date 03/03/24 Plan of Care End Date 06/03/24 Electronically Signed by: Shobha Carrillo, PT 03/03/24 0853 If you are in agreement with this Plan of Care, please return a signed and dated copy. I have reviewed this Plan of Care and certify that the skilled therapy services above are required to meet the patient?s needs. Physician Signature Date Printed Name and Credentials Clinical Instructor Signature Printed Name and Credentials
--- NOTE | 2024-03-02 16:00 | PT.OIE ---
Current Diagnoses Difficulty in walking, not elsewhere classified (03/02/24) Other symptoms and signs involving the musculoskeletal system (03/02/24) Weakness (03/02/24) Other malaise (03/02/24) Past Medical History (Last Updated 01/07/24 @ 14:42 by Yulissa Coello DO) Acute appendicitis Adverse effect of loop diuretic (~06/2023) Anemia BBB (bundle branch block) Colon polyp Colostomy in place (~02/2023) GERD (gastroesophageal reflux disease) Hammer toe Hearing loss Hemorrhoids History of breast cancer in female (~2021) History of rectocele Hyperlipidemia Insomnia Iron deficiency anemia Joint pain Left bundle branch block Leg pain Low back pain 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 Morbid obesity Osteoarthritis Spinal stenosis, lumbar region with neurogenic claudication Spondylolisthesis at L4-L5 level Statin intolerance Tinnitus Tinnitus of left ear Past Surgical History (Last Updated 01/07/24 @ 14:40 by Yulissa Coello DO) Anesthesia History of arthroplasty of right shoulder History of bilateral knee replacement (~2016) History of bunionectomy of left great toe History of bunionectomy of right great toe History of cataract removal with insertion of prosthetic lens (~2021) History of colostomy reversal History of discectomy History of incision and drainage (02/15/18) History of lumpectomy of right breast (11/08/21) History of thumb surgery History of tonsillectomy History of tympanoplasty of left ear Hx of appendectomy (2019) Hx of lumbosacral spine surgery (01/16/18) Hx of total knee arthroplasty S/P epidural steroid injection Visit Care Team Role Provider Type Yulissa Coello DO Attending Provider Physician Family Provider Primary Care Provider Referring Provider Specialty: Medical Address: [address] [place] [address], [address], [address] Email: [email or web address] Physical Therapy Initial Evaluation PT-OP-A Visit Information Start: 03/02/24 11:17 Freq: Status: Active Protocol: Document 03/02/24 11:18 LIAN (Rec: 03/02/24 11:56 LIAN [id number]) Out-Patient Physical Therapy Visit Information Visit Information Visit Type Initial Evaluation Visit Start Time 11:17 Visit Stop Time 12:04 Visit Number 1 Precautions Precautions left shoulder pain, recent injection, concerned about balance and stability. history breast cancer, osteoporosis PT-OP-B Current Condition Start: 03/02/24 11:17 Freq: Status: Active Protocol: Document 03/02/24 11:18 SAK (Rec: 03/02/24 11:56 [facility] [id number]) Current Condition History of Current Condition Onset Date 2 years Current Complaints weakness, decreased balance History of Current Condition Complicated medical history January 2022 due to ruptured signmoid and emergency surgery , long recovery. Had reversal of colostomy but still unpredictability of bowels. Has HTN, stopped taking Lisinopril due to side effect of couching. Sees doctor tomorrow. Feels weak and unbalanced. Current activity level very low, no energy, takes very short walks. States she is anemic but taking iron and Vitamin C. Takes meds for osteoporosis. Favorite exercise is to walk but at this time limited to household and short distance community. Future Testing and Treatments Planned seeing Dr. Rodriguez for her hearing, sees GP in April. Wants to see a city jailer. Treatment Goals Patient/Caregiver Goals core strengthening, leg strengthening, balance. Prior Functional Status Baseline Function- ADL's Independent Baseline Function- Mobility Independent Current Functional Impairments (Reported) Functional Limitations- ADL's takes more time, has to sit more frequently Functional Limitations- Mobility/Gait limited distance, unsteadiness Functional Limitations- Recreation/ limited to sedentary Hobbies PT-OP-C Subjective Start: 03/02/24 11:17 Freq: Status: Active Protocol: Document 03/02/24 11:17 SAK (Rec: 03/03/24 08:50 [facility] [id number]) OP-PT Pain Assessment Pain Assessment Grid Paper Pain Assessment Grid Completed Yes Comments Pain Comments 4-02/18 left shoulder PT-OP-D Balance Start: 03/02/24 11:17 Freq: Status: Active Protocol: Document 03/02/24 11:17 SAK (Rec: 03/03/24 08:50 [facility] [id number]) Balance Tests Single Limb Standing Single Limb- Right 1 Single Limb- Left 1 Semi-Tandem Standing Semi-Tandem Standing Balance 4 Bsoe Balance Assessment Evaluation Sitting to Standing Ability Independent w/out Hands Unsupported Stance Safely- 2 minutes Sitting Unsupported, Feet on Floor Safely- 2 minutes Standing to Sitting Ability Safely, Minimal Hand Use Transfer Ability Safely, Minimal Hand Use Unsupported Stance- Eyes Closed Supervision, 10 seconds Unsupported Stance- Eyes Open Independent, 1 minute Reaching Forward Standing Safely, 5 inches Pick- Up Object From Floor Independent/Safe Look Behind Shoulder - Standing Shifts Weight Well Turning 360 Degrees Turns slowly, but safely Unsupported Stance, Alternating Feet on 2 Steps w/Minimum Assist Stair Unsupported Tandem Stance Balance Lost- Step/Stand Unilateral Leg Stance Lifts Leg/Unable to Hold Total Score Bose Total Score (out of 56 points) 42 PT-OP-E Functional Tests Start: 03/02/24 11:17 Freq: Status: Active Protocol: Document 03/02/24 11:17 SAK (Rec: 03/03/24 08:50 SAK [id number]) Functional Tests Timed Up and Go (TUG) Score 11 PT-OP-G Mobility & Gait Start: 03/02/24 11:17 Freq: Status: Active Protocol: Document 03/02/24 11:18 SAK (Rec: 03/02/24 11:56 SAK [id number]) OP Mobility Evaluation Transfers Sit to Stand indep without UE's Floor Transfers did not try OP Gait Assessment Assistive Devices Assistive Device None Gait Deviations General Gait Pattern Decreased Stride Length, Decreased Feet Clearance Comments Gait Comments 6 min walk 983 ft, unsteadiness especially with turns. Stair Climbing Evaluation Evaluation Level of Assist On Stairs Independent Devices Stair Climbing Assistive Devices None,Left Railing Technique/Endurance Stair Climbing Technique Step to Step PT-OP-H Neuro Start: 03/02/24 11:17 Freq: Status: Active Protocol: Document 03/02/24 11:17 SAK (Rec: 03/03/24 08:50 [facility] [id number]) Sensation Evaluation Gross Sensation Gross Sensation WNL PT-OP-M Strength Start: 03/02/24 11:17 Freq: Status: Active Protocol: Document 03/02/24 11:17 SAK (Rec: 03/03/24 08:50 [facility] [id number]) Trunk Strength Trunk Manual Muscle Testing Flexion 3+ Fair+ Extension 3+ Fair+ Core Stabilization poor Hip Strength Hip Manual Muscle Testing ean Flexion (L2) 4- Good- Extension (S1) 3- Fair- Abduction 3- Fair- Adduction 4- Good- External Rotation 4- Good- Internal Rotation 4 Good Knee Strength Knee Manual Muscle Testing ean Flexion (S2) 4 Good Extension (L3) 4 Good Ankle/Foot Strength Ankle and Foot Manual Muscle Testing ean Dorsiflexion (L4) 4+ Good+ Plantarflexion (S1) 4- Good- PT-OP-Q Treatments Start: 03/02/24 11:17 Freq: Status: Active Protocol: Document 03/02/24 11:17 SAK (Rec: 03/03/24 08:50 [facility] [id number]) Self-Care/Home Management Treatment Education Patient Education Home Exercise Program Other Education issued written HO PT-OP-T Assessment and Plan Start: 03/02/24 11:17 Freq: Status: Active Protocol: Document 03/02/24 11:17 [facility] (Rec: 03/03/24 08:50 [facility] [id number]) Physical Therapy Assessment Rehab Potential Rehabilitation Potential Good Evaluation Complexity Number of Personal Factors/Comorbidities 1-2 Number of Body Systems Impaired 3 Clinical Presentation at Evaluation Evolving Impairments Impairments Activity Tolerance,Balance, Gait,Strength Other Concerns Fall Risk med Barriers to Rehabilitation left shoulder pain may limit assistive device use if needed Goals Three Impairment unable to go for walks Short Term Goal (STG) Patient will be able to safely go for a 15 minute walk without excess fatigue, and with 6 min walk test will be able to walk at least 1200 feet STG Duration 04/10/24 Half-Way Goal (LTG) Patient will be able to resume taking a walk of at least 30 min at least 3 days per week with her as measure of improved fitness and quality of life Two Impairment LE and core weakness Short Term Goal (STG) Patient to be instructed in HEP for purposes of LE and core strengthening STG Duration 04/10/24 Half-Way Goal (LTG) Patient to be independnet and compliant with HEP and test at least 4+/5 all muscle groups for improved activity tolerance LTG Duration 06/03/24 One Impairment Balance dysfunction: Bose balance score 42/56 Short Term Goal (STG) Patient to be instructed in HEP for purposes of balance improvement to support therapy activities in [facility] STG Duration 04/10/24 Half-Way Goal (LTG) Improve Bose Balance score to at least 52/56 as measure of improved balance and safety in the home and community LTG Duration 06/03/24 Assessment Summary Assessment Patient presents with decreased strength and balance dysfunction after mulitple medical complications starting with perforated bowel in January 2022 with need for colostomy, extensive rehab afterwards. At this time her activity level is very limited and she has difficulty with her balance putting her at risk for falls and is unable to physically tolerate going for walks. Was able to complete 6 min walk test today but required significant rest afterward. Feel she would benefit from PT for balance and gait training and strengthening to help her return to prior level of function. POC was discussed and she was in agreement. Physical Therapy Plan Frequency and Duration Frequency of Treatment 2x/Week Duration of treatment (weeks) 12 Plan of Care Start Date 03/03/24 Plan of Care End Date 06/03/24 Therapeutic Interventions Therapeutic Interventions Home Exercise Program, Neuromuscular Re-education, Patient/Caregiver Education, Self-Care/Home Management, Therapeutic Activities, Therapeutic Exercises Next Visit Focus/Plan Next Note Type Treatment Note Next Visit Plan Review initial HEP, progress with strengthening, and gait and balance training. Add heel raises with eccentric lowering to HEP.
--- NOTE | 2024-03-02 16:00 | PT.OPPOC ---
Physical, Occupational & Speech Therapy At [facility] Current Diagnoses Difficulty in walking, not elsewhere classified (03/02/24) Other symptoms and signs involving the musculoskeletal system (03/02/24) Weakness (03/02/24) Other malaise (03/02/24) Visit Care Team Role Provider Type Yulissa Coello DO Attending Provider Physician Family Provider Primary Care Provider Referring Provider Specialty: Medical Address: [address] [place] [address], [address], [place], [address] Email: [email or web address] Plan Of Care PT-OP-T Assessment and Plan Start: 03/02/24 11:17 Freq: Status: Active Protocol: Document 03/02/24 11:17 SAK (Rec: 03/03/24 08:50 SAK [id number]) Physical Therapy Assessment Rehab Potential Rehabilitation Potential Good Evaluation Complexity Number of Personal Factors/Comorbidities 1-2 Number of Body Systems Impaired 3 Clinical Presentation at Evaluation Evolving Impairments Impairments Activity Tolerance,Balance, Gait,Strength Other Concerns Fall Risk med Barriers to Rehabilitation left shoulder pain may limit assistive device use if needed Goals Three Impairment unable to go for walks Short Term Goal (STG) Patient will be able to safely go for a 15 minute walk without excess fatigue, and with 6 min walk test will be able to walk at least 1200 feet STG Duration 04/10/24 Electric Meter Setter Goal (LTG) Patient will be able to resume taking a walk of at least 30 min at least 3 days per week with her as measure of improved fitness and quality of life Two Impairment LE and core weakness Short Term Goal (STG) Patient to be instructed in HEP for purposes of LE and core strengthening STG Duration 04/10/24 Retirement Goal (LTG) Patient to be independnet and compliant with HEP and test at least 4+/5 all muscle groups for improved activity tolerance LTG Duration 06/03/24 One Impairment Balance dysfunction: Bose balance score 42/56 Short Term Goal (STG) Patient to be instructed in HEP for purposes of balance improvement to support therapy activities in [facility] STG Duration 04/10/24 Retirement Goal (LTG) Improve Bose Balance score to at least 52/56 as measure of improved balance and safety in the home and community LTG Duration 06/03/24 Assessment Summary Assessment Patient presents with decreased strength and balance dysfunction after mulitple medical complications starting with perforated bowel in January 2022 with need for colostomy, extensive rehab afterwards. At this time her activity level is very limited and she has difficulty with her balance putting her at risk for falls and is unable to physically tolerate going for walks. Was able to complete 6 min walk test today but required significant rest afterward. Feel she would benefit from PT for balance and gait training and strengthening to help her return to prior level of function. POC was discussed and she was in agreement. Physical Therapy Plan Frequency and Duration Frequency of Treatment 2x/Week Duration of treatment (weeks) 12 Plan of Care Start Date 03/03/24 Plan of Care End Date 06/03/24 Therapeutic Interventions Therapeutic Interventions Home Exercise Program, Neuromuscular Re-education, Patient/Caregiver Education, Self-Care/Home Management, Therapeutic Activities, Therapeutic Exercises Next Visit Focus/Plan Next Note Type Treatment Note Next Visit Plan Review initial HEP, progress with strengthening, and gait and balance training. Add heel raises with eccentric lowering to HEP. Plan of Care Dates Plan of Care Start Date 03/03/24 Plan of Care End Date 06/03/24 Electronically Signed by: Shobha Carrillo, PT 03/03/24 0854 If you are in agreement with this Plan of Care, please return a signed and dated copy. I have reviewed this Plan of Care and certify that the skilled therapy services above are required to meet the patient?s needs. Physician Signature Date Printed Name and Credentials Clinical Instructor Signature Printed Name and Credentials
--- NOTE | 2024-03-05 12:15 | PT.OTN ---
Current Diagnoses Difficulty in walking, not elsewhere classified (03/05/24) Other symptoms and signs involving the musculoskeletal system (03/05/24) Weakness (03/05/24) Other malaise (03/05/24) Physical Therapy Treatment Note PT-OP-A Visit Information Start: 03/02/24 11:17 Freq: Status: Active Protocol: Document 03/05/24 11:19 SAK (Rec: 03/05/24 12:15 [facility] [id number]) Out-Patient Physical Therapy Visit Information Visit Information Visit Type Treatment Note Visit Note States exdercises are hard, did take a couple strolls of 3 blocks. Visit Start Time 11:17 Visit Number 2 Precautions Precautions left shoulder pain, recent injection, concerned about balance and stability. history breast cancer, osteoporosis PT-OP-B Current Condition Start: 03/02/24 11:17 Freq: Status: Active Protocol: Document 03/05/24 11:19 SAK (Rec: 03/05/24 12:15 [facility] [id number]) Current Condition History of Current Condition Onset Date 2 years Current Complaints weakness, decreased balance History of Current Condition Complicated medical history January 2022 due to ruptured signmoid and emergency surgery , long recovery. Had reversal of colostomy but still unpredictability of bowels. Has HTN, stopped taking Lisinopril due to side effect of couching. Sees doctor tomorrow. Feels weak and unbalanced. Current activity level very low, no energy, takes very short walks. States she is anemic but taking iron and Vitamin C. Takes meds for osteoporosis. Favorite exercise is to walk but at this time limited to household and short distance community. Future Testing and Treatments Planned seeing Dr. Rodriguez for her hearing, sees GP in April. Wants to see a machinery dismantler. Treatment Goals Patient/Caregiver Goals core strengthening, leg strengthening, balance. PT-OP-C Subjective Start: 03/02/24 11:17 Freq: Status: Active Protocol: Document 03/02/24 11:17 SAK (Rec: 03/03/24 08:50 [facility] [id number]) OP-PT Pain Assessment Pain Assessment Grid Paper Pain Assessment Grid Completed Yes Comments Pain Comments 4-7/10 left shoulder PT-OP-D Balance Start: 03/02/24 11:17 Freq: Status: Active Protocol: Document 03/02/24 11:17 SAK (Rec: 03/03/24 08:50 [facility] [id number]) Balance Tests Single Limb Standing Single Limb- Right 1 Single Limb- Left 1 Semi-Tandem Standing Semi-Tandem Standing Balance 4 Bose Balance Assessment Evaluation Sitting to Standing Ability Independent w/out Hands Unsupported Stance Safely- 2 minutes Sitting Unsupported, Feet on Floor Safely- 2 minutes Standing to Sitting Ability Safely, Minimal Hand Use Transfer Ability Safely, Minimal Hand Use Unsupported Stance- Eyes Closed Supervision, 10 seconds Unsupported Stance- Eyes Open Independent, 1 minute Reaching Forward Standing Safely, 5 inches Pick- Up Object From Floor Independent/Safe Look Behind Shoulder - Standing Shifts Weight Well Turning 360 Degrees Turns slowly, but safely Unsupported Stance, Alternating Feet on 2 Steps w/Minimum Assist Stair Unsupported Tandem Stance Balance Lost- Step/Stand Unilateral Leg Stance Lifts Leg/Unable to Hold Total Score Bose Total Score (out of 56 points) 42 PT-OP-E Functional Tests Start: 03/02/24 11:17 Freq: Status: Active Protocol: Document 03/02/24 11:17 [facility] (Rec: 03/03/24 08:50 [facility] [id number]) Functional Tests Timed Up and Go (TUG) Score 11 PT-OP-G Mobility & Gait Start: 03/02/24 11:17 Freq: Status: Active Protocol: Document 03/02/24 11:18 [facility] (Rec: 03/02/24 11:56 [facility] [id number]) OP Mobility Evaluation Transfers Sit to Stand indep without UE's Floor Transfers did not try OP Gait Assessment Assistive Devices Assistive Device None Gait Deviations General Gait Pattern Decreased Stride Length, Decreased Feet Clearance Comments Gait Comments 6 min walk 983 ft, unsteadiness especially with turns. Stair Climbing Evaluation Evaluation Level of Assist On Stairs Independent Devices Stair Climbing Assistive Devices None,Left Railing Technique/Endurance Stair Climbing Technique Step to Step PT-OP-H Neuro Start: 03/02/24 11:17 Freq: Status: Active Protocol: Document 03/02/24 11:17 SAK (Rec: 03/03/24 08:50 [facility] [id number]) Sensation Evaluation Gross Sensation Gross Sensation WNL PT-OP-M Strength Start: 03/02/24 11:17 Freq: Status: Active Protocol: Document 03/02/24 11:17 SAK (Rec: 03/03/24 08:50 [facility] [id number]) Trunk Strength Trunk Manual Muscle Testing Flexion 3+ Fair+ Extension 3+ Fair+ Core Stabilization poor Hip Strength Hip Manual Muscle Testing ean Flexion (L2) 4- Good- Extension (S1) 3- Fair- Abduction 3- Fair- Adduction 4- Good- External Rotation 4- Good- Internal Rotation 4 Good Knee Strength Knee Manual Muscle Testing ean Flexion (S2) 4 Good Extension (L3) 4 Good Ankle/Foot Strength Ankle and Foot Manual Muscle Testing ean Dorsiflexion (L4) 4+ Good+ Plantarflexion (S1) 4- Good- PT-OP-Q Treatments Start: 03/02/24 11:17 Freq: Status: Active Protocol: Document 03/05/24 11:19 [facility] (Rec: 03/05/24 12:15 [facility] [id number]) Cardio Equipment Recumbent Stepper (Sci-Fit) Duration (Minutes) 5 Resistance 1 Seat Position 9 Gym Equipment Shuttle Balance chains red Details balance and wt shift EO, WBOS fwd/bck, side Therapeutic Exercises Sitting Exercises ball squeeze Reps/Minutes 10x Comments cues for core activation Standing Exercises march Equipment Used parallel bars Reps/Minutes 10x heel raises, toe raises Equipment Used parallel bars Reps/Minutes 10x sit to stand Standing Exercise Name no UE's Reps/Minutes 10x Comments cues for slow, controlled Gait Training Gait Activity trekking poles Level of Assistance SBA, cues Surface level, firm Distance/Duration 200 ft Treatment Focus correct fit and use Comments Patient demonstrated good understanding, steady, no LOB PT-OP-T Assessment and Plan Start: 03/02/24 11:17 Freq: Status: Active Protocol: Document 03/05/24 11:19 [facility] (Rec: 03/05/24 12:15 [facility] [id number]) Physical Therapy Assessment Impairments Impairments Activity Tolerance,Balance, Gait,Strength Other Concerns Fall Risk med Barriers to Rehabilitation left shoulder pain may limit assistive device use if needed Goals Three Impairment unable to go for walks Short Term Goal (STG) Patient will be able to safely go for a 15 minute walk without excess fatigue, and with 6 min walk test will be able to walk at least 1200 feet STG Duration 04/10/24 Halfway Goal (LTG) Patient will be able to resume taking a walk of at least 30 min at least 3 days per week with her as measure of improved fitness and quality of life Two Impairment LE and core weakness Short Term Goal (STG) Patient to be instructed in HEP for purposes of LE and core strengthening STG Duration 04/10/24 Cable Maker Goal (LTG) Patient to be independnet and compliant with HEP and test at least 4+/5 all muscle groups for improved activity tolerance LTG Duration 06/03/24 One Impairment Balance dysfunction: Bose balance score 42/56 Short Term Goal (STG) Patient to be instructed in HEP for purposes of balance improvement to support therapy activities in [facility] STG Duration 04/10/24 Cable Maker Goal (LTG) Improve Bose Balance score to at least 52/56 as measure of improved balance and safety in the home and community LTG Duration 06/03/24 Assessment Summary Assessment Fair tolerance for ther ex, frequent rest breaks. Updated HEP and issued HO. Patient instrsucted in correct fit and use of trekking poles for taking walks; she demnstrated good understanding and was steady with gait with poles. Physical Therapy Plan Frequency and Duration Frequency of Treatment 2x/Week Duration of treatment (weeks) 12 Plan of Care Start Date 03/03/24 Plan of Care End Date 06/03/24 Therapeutic Interventions Therapeutic Interventions Home Exercise Program, Neuromuscular Re-education, Patient/Caregiver Education, Self-Care/Home Management, Therapeutic Activities, Therapeutic Exercises Next Visit Focus/Plan Next Note Type Treatment Note Next Visit Plan Continue progression of strengthening, balance training, conditioning.
--- NOTE | 2024-03-05 12:16 | PT.OTN ---
Current Diagnoses Difficulty in walking, not elsewhere classified (03/05/24) Other symptoms and signs involving the musculoskeletal system (03/05/24) Weakness (03/05/24) Other malaise (03/05/24) Physical Therapy Treatment Note PT-OP-A Visit Information Start: 03/02/24 11:17 Freq: Status: Active Protocol: Document 03/05/24 11:19 SAK (Rec: 03/05/24 12:15 [facility] [id number]) Out-Patient Physical Therapy Visit Information Visit Information Visit Type Treatment Note Visit Note States exdercises are hard, did take a couple strolls of 3 blocks. Visit Start Time 11:17 Visit Number 2 Precautions Precautions left shoulder pain, recent injection, concerned about balance and stability. history breast cancer, osteoporosis PT-OP-B Current Condition Start: 03/02/24 11:17 Freq: Status: Active Protocol: Document 03/05/24 11:19 SAK (Rec: 03/05/24 12:15 [facility] [id number]) Current Condition History of Current Condition Onset Date 2 years Current Complaints weakness, decreased balance History of Current Condition Complicated medical history January 2022 due to ruptured signmoid and emergency surgery , long recovery. Had reversal of colostomy but still unpredictability of bowels. Has HTN, stopped taking Lisinopril due to side effect of couching. Sees doctor tomorrow. Feels weak and unbalanced. Current activity level very low, no energy, takes very short walks. States she is anemic but taking iron and Vitamin C. Takes meds for osteoporosis. Favorite exercise is to walk but at this time limited to household and short distance community. Future Testing and Treatments Planned seeing Dr. Rodriguez for her hearing, sees GP in April. Wants to see a dishcloth folder. Treatment Goals Patient/Caregiver Goals core strengthening, leg strengthening, balance. PT-OP-C Subjective Start: 03/02/24 11:17 Freq: Status: Active Protocol: Document 03/02/24 11:17 SAK (Rec: 03/03/24 08:50 [facility] [id number]) OP-PT Pain Assessment Pain Assessment Grid Paper Pain Assessment Grid Completed Yes Comments Pain Comments 4-7/10 left shoulder PT-OP-D Balance Start: 03/02/24 11:17 Freq: Status: Active Protocol: Document 03/02/24 11:17 SAK (Rec: 03/03/24 08:50 [facility] [id number]) Balance Tests Single Limb Standing Single Limb- Right 1 Single Limb- Left 1 Semi-Tandem Standing Semi-Tandem Standing Balance 4 Bose Balance Assessment Evaluation Sitting to Standing Ability Independent w/out Hands Unsupported Stance Safely- 2 minutes Sitting Unsupported, Feet on Floor Safely- 2 minutes Standing to Sitting Ability Safely, Minimal Hand Use Transfer Ability Safely, Minimal Hand Use Unsupported Stance- Eyes Closed Supervision, 10 seconds Unsupported Stance- Eyes Open Independent, 1 minute Reaching Forward Standing Safely, 5 inches Pick- Up Object From Floor Independent/Safe Look Behind Shoulder - Standing Shifts Weight Well Turning 360 Degrees Turns slowly, but safely Unsupported Stance, Alternating Feet on 2 Steps w/Minimum Assist Stair Unsupported Tandem Stance Balance Lost- Step/Stand Unilateral Leg Stance Lifts Leg/Unable to Hold Total Score Bose Total Score (out of 56 points) 42 PT-OP-E Functional Tests Start: 03/02/24 11:17 Freq: Status: Active Protocol: Document 03/02/24 11:17 [facility] (Rec: 03/03/24 08:50 [facility] [id number]) Functional Tests Timed Up and Go (TUG) Score 11 PT-OP-G Mobility & Gait Start: 03/02/24 11:17 Freq: Status: Active Protocol: Document 03/02/24 11:18 [facility] (Rec: 03/02/24 11:56 [facility] [id number]) OP Mobility Evaluation Transfers Sit to Stand indep without UE's Floor Transfers did not try OP Gait Assessment Assistive Devices Assistive Device None Gait Deviations General Gait Pattern Decreased Stride Length, Decreased Feet Clearance Comments Gait Comments 6 min walk 983 ft, unsteadiness especially with turns. Stair Climbing Evaluation Evaluation Level of Assist On Stairs Independent Devices Stair Climbing Assistive Devices None,Left Railing Technique/Endurance Stair Climbing Technique Step to Step PT-OP-H Neuro Start: 03/02/24 11:17 Freq: Status: Active Protocol: Document 03/02/24 11:17 SAK (Rec: 03/03/24 08:50 [facility] [id number]) Sensation Evaluation Gross Sensation Gross Sensation WNL PT-OP-M Strength Start: 03/02/24 11:17 Freq: Status: Active Protocol: Document 03/02/24 11:17 SAK (Rec: 03/03/24 08:50 [facility] [id number]) Trunk Strength Trunk Manual Muscle Testing Flexion 3+ Fair+ Extension 3+ Fair+ Core Stabilization poor Hip Strength Hip Manual Muscle Testing ean Flexion (L2) 4- Good- Extension (S1) 3- Fair- Abduction 3- Fair- Adduction 4- Good- External Rotation 4- Good- Internal Rotation 4 Good Knee Strength Knee Manual Muscle Testing ean Flexion (S2) 4 Good Extension (L3) 4 Good Ankle/Foot Strength Ankle and Foot Manual Muscle Testing ean Dorsiflexion (L4) 4+ Good+ Plantarflexion (S1) 4- Good- PT-OP-Q Treatments Start: 03/02/24 11:17 Freq: Status: Active Protocol: Document 03/05/24 11:19 [facility] (Rec: 03/05/24 12:15 [facility] [id number]) Cardio Equipment Recumbent Stepper (Sci-Fit) Duration (Minutes) 5 Resistance 1 Seat Position 9 Gym Equipment Shuttle Balance chains red Details balance and wt shift EO, WBOS fwd/bck, side Therapeutic Exercises Sitting Exercises ball squeeze Reps/Minutes 10x Comments cues for core activation Standing Exercises march Equipment Used parallel bars Reps/Minutes 10x heel raises, toe raises Equipment Used parallel bars Reps/Minutes 10x sit to stand Standing Exercise Name no UE's Reps/Minutes 10x Comments cues for slow, controlled Gait Training Gait Activity trekking poles Level of Assistance SBA, cues Surface level, firm Distance/Duration 200 ft Treatment Focus correct fit and use Comments Patient demonstrated good understanding, steady, no LOB PT-OP-T Assessment and Plan Start: 03/02/24 11:17 Freq: Status: Active Protocol: Document 03/05/24 11:19 [facility] (Rec: 03/05/24 12:15 [facility] [id number]) Physical Therapy Assessment Impairments Impairments Activity Tolerance,Balance, Gait,Strength Other Concerns Fall Risk med Barriers to Rehabilitation left shoulder pain may limit assistive device use if needed Goals Three Impairment unable to go for walks Short Term Goal (STG) Patient will be able to safely go for a 15 minute walk without excess fatigue, and with 6 min walk test will be able to walk at least 1200 feet STG Duration 04/10/24 Custodial Goal (LTG) Patient will be able to resume taking a walk of at least 30 min at least 3 days per week with her as measure of improved fitness and quality of life Two Impairment LE and core weakness Short Term Goal (STG) Patient to be instructed in HEP for purposes of LE and core strengthening STG Duration 04/10/24 Director Of Casework Goal (LTG) Patient to be independnet and compliant with HEP and test at least 4+/5 all muscle groups for improved activity tolerance LTG Duration 06/03/24 One Impairment Balance dysfunction: Bose balance score 42/56 Short Term Goal (STG) Patient to be instructed in HEP for purposes of balance improvement to support therapy activities in [facility] STG Duration 04/10/24 Director Of Casework Goal (LTG) Improve Bose Balance score to at least 52/56 as measure of improved balance and safety in the home and community LTG Duration 06/03/24 Assessment Summary Assessment Fair tolerance for ther ex, frequent rest breaks. Updated HEP and issued HO. Patient instrsucted in correct fit and use of trekking poles for taking walks; she demnstrated good understanding and was steady with gait with poles. Physical Therapy Plan Frequency and Duration Frequency of Treatment 2x/Week Duration of treatment (weeks) 12 Plan of Care Start Date 03/03/24 Plan of Care End Date 06/03/24 Therapeutic Interventions Therapeutic Interventions Home Exercise Program, Neuromuscular Re-education, Patient/Caregiver Education, Self-Care/Home Management, Therapeutic Activities, Therapeutic Exercises Next Visit Focus/Plan Next Note Type Treatment Note Next Visit Plan Continue progression of strengthening, balance training, conditioning.
--- NOTE | 2024-03-13 12:15 | PT.OTN ---
Current Diagnoses Difficulty in walking, not elsewhere classified (03/13/24) Other symptoms and signs involving the musculoskeletal system (03/13/24) Weakness (03/13/24) Other malaise (03/13/24) Physical Therapy Treatment Note PT-OP-A Visit Information Start: 03/02/24 11:17 Freq: Status: Active Protocol: Document 03/13/24 11:17 AB (Rec: 03/13/24 12:15 AB [id number]) Out-Patient Physical Therapy Visit Information Visit Information Visit Type Treatment Note Visit Note Visit [email or web address] Access Code: [email or web address] Visit Start Time 11:18 Visit Stop Time 12:00 Visit Number 3 Number of SUPERVISOR BLOOD Visits 1 Precautions Precautions left shoulder pain, recent injection, concerned about balance and stability. history breast cancer, osteoporosis PT-OP-B Current Condition Start: 03/02/24 11:17 Freq: Status: Active Protocol: Document 03/05/24 11:19 SAK (Rec: 03/05/24 12:15 SAK [id number]) Current Condition History of Current Condition Onset Date 2 years Current Complaints weakness, decreased balance History of Current Condition Complicated medical history January 2022 due to ruptured signmoid and emergency surgery , long recovery. Had reversal of colostomy but still unpredictability of bowels. Has HTN, stopped taking Lisinopril due to side effect of couching. Sees doctor tomorrow. Feels weak and unbalanced. Current activity level very low, no energy, takes very short walks. States she is anemic but taking iron and Vitamin C. Takes meds for osteoporosis. Favorite exercise is to walk but at this time limited to household and short distance community. Future Testing and Treatments Planned seeing Dr. Rodriguez for her hearing, sees GP in April. Wants to see a sonogram technician. Treatment Goals Patient/Caregiver Goals core strengthening, leg strengthening, balance. PT-OP-C Subjective Start: 03/02/24 11:17 Freq: Status: Active Protocol: Document 03/13/24 11:17 AB (Rec: 03/13/24 12:15 AB [id number]) OP-PT Subjective Patient Comments Patient Comments Patient reports her balance is better, and when she walks she is not so jerky. Patient comments she is wondering if she needs to continue, she has some good exercises from [employer] and she is walking which helps. PT-OP-D Balance Start: 03/02/24 11:17 Freq: Status: Active Protocol: Document 03/02/24 11:17 SAK (Rec: 03/03/24 08:50 SAK [id number]) Balance Tests Single Limb Standing Single Limb- Right 1 Single Limb- Left 1 Semi-Tandem Standing Semi-Tandem Standing Balance 4 Bose Balance Assessment Evaluation Sitting to Standing Ability Independent w/out Hands Unsupported Stance Safely- 2 minutes Sitting Unsupported, Feet on Floor Safely- 2 minutes Standing to Sitting Ability Safely, Minimal Hand Use Transfer Ability Safely, Minimal Hand Use Unsupported Stance- Eyes Closed Supervision, 10 seconds Unsupported Stance- Eyes Open Independent, 1 minute Reaching Forward Standing Safely, 5 inches Pick- Up Object From Floor Independent/Safe Look Behind Shoulder - Standing Shifts Weight Well Turning 360 Degrees Turns slowly, but safely Unsupported Stance, Alternating Feet on 2 Steps w/Minimum Assist Stair Unsupported Tandem Stance Balance Lost- Step/Stand Unilateral Leg Stance Lifts Leg/Unable to Hold Total Score Bose Total Score (out of 56 points) 42 PT-OP-E Functional Tests Start: 03/02/24 11:17 Freq: Status: Active Protocol: Document 03/02/24 11:17 SAK (Rec: 03/03/24 08:50 SAK [id number]) Functional Tests Timed Up and Go (TUG) Score 11 PT-OP-G Mobility & Gait Start: 03/02/24 11:17 Freq: Status: Active Protocol: Document 03/02/24 11:18 SAK (Rec: 03/02/24 11:56 SAK [id number]) OP Mobility Evaluation Transfers Sit to Stand indep without UE's Floor Transfers did not try OP Gait Assessment Assistive Devices Assistive Device None Gait Deviations General Gait Pattern Decreased Stride Length, Decreased Feet Clearance Comments Gait Comments 6 min walk 983 ft, unsteadiness especially with turns. Stair Climbing Evaluation Evaluation Level of Assist On Stairs Independent Devices Stair Climbing Assistive Devices None,Left Railing Technique/Endurance Stair Climbing Technique Step to Step PT-OP-H Neuro Start: 03/02/24 11:17 Freq: Status: Active Protocol: Document 03/02/24 11:17 SAK (Rec: 03/03/24 08:50 SAK [id number]) Sensation Evaluation Gross Sensation Gross Sensation WNL PT-OP-M Strength Start: 03/02/24 11:17 Freq: Status: Active Protocol: Document 03/02/24 11:17 SAK (Rec: 03/03/24 08:50 SAK [id number]) Trunk Strength Trunk Manual Muscle Testing Flexion 3+ Fair+ Extension 3+ Fair+ Core Stabilization poor Hip Strength Hip Manual Muscle Testing ean Flexion (L2) 4- Good- Extension (S1) 3- Fair- Abduction 3- Fair- Adduction 4- Good- External Rotation 4- Good- Internal Rotation 4 Good Knee Strength Knee Manual Muscle Testing ean Flexion (S2) 4 Good Extension (L3) 4 Good Ankle/Foot Strength Ankle and Foot Manual Muscle Testing ean Dorsiflexion (L4) 4+ Good+ Plantarflexion (S1) 4- Good- PT-OP-Q Treatments Start: 03/02/24 11:17 Freq: Status: Active Protocol: Document 03/13/24 11:17 AB (Rec: 03/13/24 12:15 AB [id number]) Gym Equipment Shuttle Balance chains red Details normal TEJAS, mini stagger Comments CGA to very minimal assist, with head turns and scanning. Therapeutic Exercises Sitting Exercises seated hip abduction with band Reps/Minutes one minute hold X 1 and X 15X 2 without hold Standing Exercises heel raises, toe raises Equipment Used parallel bars Reps/Minutes X15 Comments verbal cues to lower heels to floor slowly sit to stand Standing Exercise Name without UE use Resistance level 3 band above knees Reps/Minutes 2X10 Comments monitored for pain Neuro Re-Education Treatment Balance Activities SLS Details hands above bars Reps/Duration X3 X 2 each LE marching on blue foam pad Details hands above bars CGA Reps/Duration X10 step up taps Details hands above bars CGA Equipment 6 inch step Reps/Duration X10 X 2 Comments with eyes on step then gaze forward mat with obsticals under Details hands above bars CGA Reps/Duration 2 mats X 2 tandem stepping Details hands above bars CGA Reps/Duration 10 feet X 4 hurdles Details hands above bars CGA Reps/Duration 10 feet X 4 PT-OP-T Assessment and Plan Start: 03/02/24 11:17 Freq: Status: Active Protocol: Document 03/13/24 11:17 AB (Rec: 03/13/24 12:15 AB [id number]) Physical Therapy Assessment Goals Three Impairment unable to go for walks Short Term Goal (STG) Patient will be able to safely go for a 15 minute walk without excess fatigue, and with 6 min walk test will be able to walk at least 1200 feet STG Duration 04/10/24 Custodial Goal (LTG) Patient will be able to resume taking a walk of at least 30 min at least 3 days per week with her as measure of improved fitness and quality of life Two Impairment LE and core weakness Short Term Goal (STG) Patient to be instructed in HEP for purposes of LE and core strengthening STG Duration 04/10/24 Custodial Goal (LTG) Patient to be independnet and compliant with HEP and test at least 4+/5 all muscle groups for improved activity tolerance LTG Duration 06/03/24 One Impairment Balance dysfunction: Bose balance score 42/56 Short Term Goal (STG) Patient to be instructed in HEP for purposes of balance improvement to support therapy activities in [facility] STG Duration 04/10/24 Vice President Payer Goal (LTG) Improve Bose Balance score to at least 52/56 as measure of improved balance and safety in the home and community LTG Duration 06/03/24 Assessment Summary Assessment Increased SLS left and right LE post glute med activation. Physical Therapy Plan Frequency and Duration Frequency of Treatment 2x/Week Duration of treatment (weeks) 12 Plan of Care Start Date 03/03/24 Plan of Care End Date 06/03/24 Next Visit Focus/Plan Next Note Type Treatment Note Next Visit Plan Continue progression of strengthening, balance training, conditioning.
[2024-03-16 12:01] VITALS: BP 177/90
--- NOTE | 2024-03-20 12:08 | PT.OTN ---
Current Diagnoses Difficulty in walking, not elsewhere classified (03/20/24) Other symptoms and signs involving the musculoskeletal system (03/20/24) Weakness (03/20/24) Other malaise (03/20/24) Physical Therapy Treatment Note PT-OP-A Visit Information Start: 03/02/24 11:17 Freq: Status: Active Protocol: Document 03/20/24 10:18 AB (Rec: 03/20/24 12:07 AB [id number]) Out-Patient Physical Therapy Visit Information Visit Information Visit Type Treatment Note Visit Note Visit [email or web address] Access Code: [email or web address] Visit Start Time 11:19 Visit Stop Time 12:01 Visit Number 4 Number of REFRIGERATION SERVICE INSPECTOR Visits 1 Precautions Precautions left shoulder pain, recent injection, concerned about balance and stability. history breast cancer, osteoporosis PT-OP-B Current Condition Start: 03/02/24 11:17 Freq: Status: Active Protocol: Document 03/16/24 12:01 SAK (Rec: 03/16/24 12:09 SAK [id number]) Current Condition History of Current Condition Onset Date 2 years Current Complaints weakness, decreased balance History of Current Condition Complicated medical history January 2022 due to ruptured signmoid and emergency surgery , long recovery. Had reversal of colostomy but still unpredictability of bowels. Has HTN, stopped taking Lisinopril due to side effect of couching. Sees doctor tomorrow. Feels weak and unbalanced. Current activity level very low, no energy, takes very short walks. States she is anemic but taking iron and Vitamin C. Takes meds for osteoporosis. Favorite exercise is to walk but at this time limited to household and short distance community. Future Testing and Treatments Planned seeing Dr. Rodriguez for her hearing, sees GP in April. Wants to see a floor finisher. Treatment Goals Patient/Caregiver Goals core strengthening, leg strengthening, balance. PT-OP-C Subjective Start: 03/02/24 11:17 Freq: Status: Active Protocol: Document 03/20/24 10:18 AB (Rec: 03/20/24 12:07 AB [id number]) OP-PT Subjective Patient Comments Patient Comments BP 146/81 HR 64 BPM. Patient into session reporting feeling tired attributes to medication changes, comments they didn't really do anything after going to ER previous session. Patient reports that ER attributed symptoms to med changes and patient reports MD appointment is 8/22 she thinks. PT-OP-D Balance Start: 03/02/24 11:17 Freq: Status: Active Protocol: Document 03/02/24 11:17 SAK (Rec: 03/03/24 08:50 [facility] [id number]) Balance Tests Single Limb Standing Single Limb- Right 1 Single Limb- Left 1 Semi-Tandem Standing Semi-Tandem Standing Balance 4 Bose Balance Assessment Evaluation Sitting to Standing Ability Independent w/out Hands Unsupported Stance Safely- 2 minutes Sitting Unsupported, Feet on Floor Safely- 2 minutes Standing to Sitting Ability Safely, Minimal Hand Use Transfer Ability Safely, Minimal Hand Use Unsupported Stance- Eyes Closed Supervision, 10 seconds Unsupported Stance- Eyes Open Independent, 1 minute Reaching Forward Standing Safely, 5 inches Pick- Up Object From Floor Independent/Safe Look Behind Shoulder - Standing Shifts Weight Well Turning 360 Degrees Turns slowly, but safely Unsupported Stance, Alternating Feet on 2 Steps w/Minimum Assist Stair Unsupported Tandem Stance Balance Lost- Step/Stand Unilateral Leg Stance Lifts Leg/Unable to Hold Total Score Bose Total Score (out of 56 points) 42 PT-OP-E Functional Tests Start: 03/02/24 11:17 Freq: Status: Active Protocol: Document 03/02/24 11:17 SAK (Rec: 03/03/24 08:50 [facility] [id number]) Functional Tests Timed Up and Go (TUG) Score 11 PT-OP-G Mobility & Gait Start: 03/02/24 11:17 Freq: Status: Active Protocol: Document 03/02/24 11:18 SAK (Rec: 03/02/24 11:56 [facility] [id number]) OP Mobility Evaluation Transfers Sit to Stand indep without UE's Floor Transfers did not try OP Gait Assessment Assistive Devices Assistive Device None Gait Deviations General Gait Pattern Decreased Stride Length, Decreased Feet Clearance Comments Gait Comments 6 min walk 983 ft, unsteadiness especially with turns. Stair Climbing Evaluation Evaluation Level of Assist On Stairs Independent Devices Stair Climbing Assistive Devices None,Left Railing Technique/Endurance Stair Climbing Technique Step to Step PT-OP-H Neuro Start: 03/02/24 11:17 Freq: Status: Active Protocol: Document 03/16/24 12:01 SAK (Rec: 03/16/24 12:11 SAK [id number]) Vital Signs Blood Pressure Sitting Blood Pressure (90/60-120/80 mmHg) 177/90 H Blood Pressure Source Automatic Cuff Comments Vital Signs Comments After 5 min BP 168/92 PT-OP-M Strength Start: 03/02/24 11:17 Freq: Status: Active Protocol: Document 03/02/24 11:17 [facility] (Rec: 03/03/24 08:50 [facility] [id number]) Trunk Strength Trunk Manual Muscle Testing Flexion 3+ Fair+ Extension 3+ Fair+ Core Stabilization poor Hip Strength Hip Manual Muscle Testing ean Flexion (L2) 4- Good- Extension (S1) 3- Fair- Abduction 3- Fair- Adduction 4- Good- External Rotation 4- Good- Internal Rotation 4 Good Knee Strength Knee Manual Muscle Testing ean Flexion (S2) 4 Good Extension (L3) 4 Good Ankle/Foot Strength Ankle and Foot Manual Muscle Testing ean Dorsiflexion (L4) 4+ Good+ Plantarflexion (S1) 4- Good- PT-OP-Q Treatments Start: 03/02/24 11:17 Freq: Status: Active Protocol: Document 03/20/24 10:18 AB (Rec: 03/20/24 12:07 AB [id number]) Gym Equipment Shuttle Recovery bilateral Resistance 50 ( 2 royal blue) Reps/Time 15X 2 Therapeutic Exercises Supine Exercises modified restorative pose with breathing from diaphragm Supine Exercise Name Post 4 min this pose/exBP supine post right UE 140/78 HR 62 BPM Reps/Minutes 4 min Comments verbal cues for breathing from diaphragm Sitting Exercises seated hip abduction with band Side bilateral Resistance level 2 band Reps/Minutes one minute hold X 1 and X 15X 2 without hold Other Exercises hip 3 way with band Side bilateral Resistance level 2 band Reps/Minutes X 5 each LE X2 Comments verbal and visual cues Therapeutic Activity Therapeutic Activity supine to sit Name due to pt initiating semi roll sit up with increased effort to perform task Reps/Minutes X1 Comments Verbal cues to roll fully onto side, rest for a moment then push up into sitting immediately after legs are pushed off mat, sit to stand Reps/Minutes X1 Comments BP seated right UE148/90 HR 71 [id number] taken due to reports of dizziness post supine to sit PT-OP-T Assessment and Plan Start: 03/02/24 11:17 Freq: Status: Active Protocol: Document 03/20/24 10:18 AB (Rec: 03/20/24 12:07 [id number]) Physical Therapy Assessment Goals Three Impairment unable to go for walks Short Term Goal (STG) Patient will be able to safely go for a 15 minute walk without excess fatigue, and with 6 min walk test will be able to walk at least 1200 feet STG Duration 04/10/24 Protective Signal Installer Goal (LTG) Patient will be able to resume taking a walk of at least 30 min at least 3 days per week with her as measure of improved fitness and quality of life Assessment Summary Assessment Patient reports feeling better end of session, reporting a little dizzy with transfer to sitting post leg press(shuttle ) compared to earlier in session. Patient reports feeling like she has more energy end of session. Patient drank 3 cups of water during session. Physical Therapy Plan Frequency and Duration Frequency of Treatment 2x/Week Duration of treatment (weeks) 12 Plan of Care Start Date 03/03/24 Plan of Care End Date 06/03/24 Next Visit Focus/Plan Next Note Type Treatment Note Next Visit Plan Continue PT pending outcome of patient ER visit.
--- NOTE | 2024-03-27 09:00 | PT.OTN ---
Current Diagnoses Difficulty in walking, not elsewhere classified (03/27/24) Other symptoms and signs involving the musculoskeletal system (03/27/24) Weakness (03/27/24) Other malaise (03/27/24) Physical Therapy Treatment Note PT-OP-A Visit Information Start: 03/02/24 11:17 Freq: Status: Active Protocol: Document 03/27/24 08:21 SP (Rec: 03/27/24 09:04 SP [id number]) Out-Patient Physical Therapy Visit Information Visit Information Visit Type Treatment Note Visit Note BP LUE manual: 162/82 pre activity Visit Start Time 08:21 Visit Stop Time 09:00 Visit Number 5 Number of SPOT FACER Visits 2 Precautions Precautions left shoulder pain, recent injection, concerned about balance and stability. history breast cancer, osteoporosis PT-OP-B Current Condition Start: 03/02/24 11:17 Freq: Status: Active Protocol: Document 03/16/24 12:01 SAK (Rec: 03/16/24 12:09 SAK [id number]) Current Condition History of Current Condition Onset Date 2 years Current Complaints weakness, decreased balance History of Current Condition Complicated medical history January 2022 due to ruptured signmoid and emergency surgery , long recovery. Had reversal of colostomy but still unpredictability of bowels. Has HTN, stopped taking Lisinopril due to side effect of couching. Sees doctor tomorrow. Feels weak and unbalanced. Current activity level very low, no energy, takes very short walks. States she is anemic but taking iron and Vitamin C. Takes meds for osteoporosis. Favorite exercise is to walk but at this time limited to household and short distance community. Future Testing and Treatments Planned seeing Dr. Rodriguez for her hearing, sees GP in April. Wants to see a maintenance mgr. Treatment Goals Patient/Caregiver Goals core strengthening, leg strengthening, balance. PT-OP-C Subjective Start: 03/02/24 11:17 Freq: Status: Active Protocol: Document 03/27/24 08:21 SP (Rec: 03/27/24 09:04 SP [id number]) OP-PT Subjective Patient Comments Patient Comments Pt reports when went to ER 03/16, ER physician didn't suggest hold PT (but didn't ask) at this time just need for follow up with Dr Coello and possible adjust medication dose. She arrives today reporting BP 150/86 before coffee couple days ago after woke up. She feels the new medication Losartan 25mg to low with higher BP values getting home, will contact Dr Coello. Although very pleased because coughing has gone away , coughed alot on previous medication. She has follow up appt with Dr Coello next week. She notices PT helping, can now put pants on standing while leaning use dresser. PT-OP-D Balance Start: 03/02/24 11:17 Freq: Status: Active Protocol: Document 03/02/24 11:17 [facility] (Rec: 03/03/24 08:50 [facility] [id number]) Balance Tests Single Limb Standing Single Limb- Right 1 Single Limb- Left 1 Semi-Tandem Standing Semi-Tandem Standing Balance 4 Bose Balance Assessment Evaluation Sitting to Standing Ability Independent w/out Hands Unsupported Stance Safely- 2 minutes Sitting Unsupported, Feet on Floor Safely- 2 minutes Standing to Sitting Ability Safely, Minimal Hand Use Transfer Ability Safely, Minimal Hand Use Unsupported Stance- Eyes Closed Supervision, 10 seconds Unsupported Stance- Eyes Open Independent, 1 minute Reaching Forward Standing Safely, 5 inches Pick- Up Object From Floor Independent/Safe Look Behind Shoulder - Standing Shifts Weight Well Turning 360 Degrees Turns slowly, but safely Unsupported Stance, Alternating Feet on 2 Steps w/Minimum Assist Stair Unsupported Tandem Stance Balance Lost- Step/Stand Unilateral Leg Stance Lifts Leg/Unable to Hold Total Score Bose Total Score (out of 56 points) 42 PT-OP-E Functional Tests Start: 03/02/24 11:17 Freq: Status: Active Protocol: Document 03/02/24 11:17 [facility] (Rec: 03/03/24 08:50 [facility] [id number]) Functional Tests Timed Up and Go (TUG) Score 11 PT-OP-G Mobility & Gait Start: 03/02/24 11:17 Freq: Status: Active Protocol: Document 03/02/24 11:18 SAK (Rec: 03/02/24 11:56 [facility] [id number]) OP Mobility Evaluation Transfers Sit to Stand indep without UE's Floor Transfers did not try OP Gait Assessment Assistive Devices Assistive Device None Gait Deviations General Gait Pattern Decreased Stride Length, Decreased Feet Clearance Comments Gait Comments 6 min walk 983 ft, unsteadiness especially with turns. Stair Climbing Evaluation Evaluation Level of Assist On Stairs Independent Devices Stair Climbing Assistive Devices None,Left Railing Technique/Endurance Stair Climbing Technique Step to Step PT-OP-H Neuro Start: 03/02/24 11:17 Freq: Status: Active Protocol: Document 03/16/24 12:01 SAK (Rec: 03/16/24 12:11 SAK [id number]) Vital Signs Blood Pressure Sitting Blood Pressure (90/60-120/80 mmHg) 177/90 H Blood Pressure Source Automatic Cuff Comments Vital Signs Comments After 5 min BP 168/92 PT-OP-M Strength Start: 03/02/24 11:17 Freq: Status: Active Protocol: Document 03/02/24 11:17 SAK (Rec: 03/03/24 08:50 SAK [id number]) Trunk Strength Trunk Manual Muscle Testing Flexion 3+ Fair+ Extension 3+ Fair+ Core Stabilization poor Hip Strength Hip Manual Muscle Testing ean Flexion (L2) 4- Good- Extension (S1) 3- Fair- Abduction 3- Fair- Adduction 4- Good- External Rotation 4- Good- Internal Rotation 4 Good Knee Strength Knee Manual Muscle Testing ean Flexion (S2) 4 Good Extension (L3) 4 Good Ankle/Foot Strength Ankle and Foot Manual Muscle Testing ean Dorsiflexion (L4) 4+ Good+ Plantarflexion (S1) 4- Good- PT-OP-Q Treatments Start: 03/02/24 11:17 Freq: Status: Active Protocol: Document 03/27/24 08:21 SP (Rec: 03/27/24 09:04 SP [id number]) Gym Equipment Shuttle Recovery bilateral Resistance 50> 62# (2 navy ) Reps/Time 20 reps x2 Therapeutic Exercises Supine Exercises modified restorative pose with breathing from diaphragm Supine Exercise Name Post 2 min this pose BP seated after shuttle recovery L UE 142/80 Reps/Minutes 4 min Comments verbal cues for breathing from diaphragm, nose mouth in/out 5 sec Sitting Exercises seated hip abduction with band Sitting Exercise Name HEP reviewed Side bilateral Resistance level 2>3 knik green band Reps/Minutes 1' hold x1 rep, 15 reps in/out , 1' hold Comments good hip abd tiring reported, pnfree Standing Exercises march Standing Exercise Name trialed in PT Resistance Lvl 1 TB light blue around forefeet Equipment Used light to PRN rail Reps/Minutes 10x sit to stand Standing Exercise Name without UE use- HEP reviewed Resistance level 3 band above knees Reps/Minutes 2X10 Comments monitored for pain, good tiring but no pain Other Exercises hip [address] way with band Other Exercise Name standing- in PT Side bilateral Resistance level 1 band at forefoot Equipment Used light 2 fingers each hand on rail Reps/Minutes 5 reps x2 sets Comments verbal and visual cues tall, Excessive tire L UE BP manual 182/82- stopped Self-Care/Home Management Treatment Education Patient Education Home Exercise Program,Posture, Safety Other Education Education Importance of BP checks and data collection to allow Dr Weeks proper assessment in case med changes needed or keep eye on. Taking rest breaks with activity and breath recovery if needed for safety. PT-OP-T Assessment and Plan Start: 03/02/24 11:17 Freq: Status: Active Protocol: Document 03/27/24 08:21 SP (Rec: 03/27/24 09:04 SP [id number]) Physical Therapy Assessment Goals Three Impairment unable to go for walks Short Term Goal (STG) Patient will be able to safely go for a 15 minute walk without excess fatigue, and with 6 min walk test will be able to walk at least 1200 feet STG Duration 04/10/24 Senior Care Goal (LTG) Patient will be able to resume taking a walk of at least 30 min at least 3 days per week with her as measure of improved fitness and quality of life Two Impairment LE and core weakness Short Term Goal (STG) Patient to be instructed in HEP for purposes of LE and core strengthening STG Duration 04/10/24 Senior Care Goal (LTG) Patient to be independnet and compliant with HEP and test at least 4+/5 all muscle groups for improved activity tolerance LTG Duration 06/03/24 One Impairment Balance dysfunction: Bose balance score 42/56 Short Term Goal (STG) Patient to be instructed in HEP for purposes of balance improvement to support therapy activities in the [facility] STG Duration 04/10/24 [employer] Support Planner Goal (LTG) Improve Bose Balance score to at least 52/56 as measure of improved balance and safety in the home and community LTG Duration 06/03/24 Assessment Summary Assessment Pt pre activity LUE BP 162/82, improved lowering and good demonstration diaphramatic breath and discussion support lower BP with relaxation. BP elevated 182/82 with addition of light resisted standing ex but ok with seated breath and end tx 142/80. Discussion AROM standing home, hold off on adding resistance standing at home and suggested BP log until see Dr Coello next week: early am pre activity and with activity to give Dr Coello feedback. Pt verbalized will start BP logging and follow up with Dr Coello phone call and see her next week. Physical Therapy Plan Frequency and Duration Frequency of Treatment 2x/Week Duration of treatment (weeks) 12 Plan of Care Start Date 03/03/24 Plan of Care End Date 06/03/24 Therapeutic Interventions Therapeutic Interventions Home Exercise Program, Neuromuscular Re-education, Patient/Caregiver Education, Self-Care/Home Management, Therapeutic Activities, Therapeutic Exercises Next Visit Focus/Plan Next Note Type Treatment Note Next Visit Plan Vital check pre and with activity! Cancel next appt 03/[address] Coello 04/02. When returns: Ask BP checks doing home, how follow up with Dr Coello and Safety direction for PT. PT Suggestion: Continue PT pending outcome of patient ER visit.
--- NOTE | 2024-03-30 08:16 | PT-OP ANOTE ---
EMPLOYEE DEVELOPMENT DIRECTOR called patient and left voice message regarding cancelation of 03/31 PT appt and await to see what Dr Coello' appt on 04/02 and further assessment on elevated BP and follow up from ER visit and medication changes she has had. Request guidance activity safety for PT. EMPLOYEE DEVELOPMENT DIRECTOR sent message to schedulers to cancel appt.
--- NOTE | 2024-04-21 09:47 | PT-OP ANOTE ---
Patient requests discharge from PT at this time, new supplement lowering her BP too low and is having some dizziness. Wants some time to get stabilized on her meds and will continue HEP and walking as able.
--- NOTE | 2024-04-21 09:50 | PT.OPDS ---
Current Diagnoses Difficulty in walking, not elsewhere classified (03/27/24) Other symptoms and signs involving the musculoskeletal system (03/27/24) Weakness (03/27/24) Other malaise (03/27/24) Visit Care Team Role Provider Type Yulissa Coello DO Attending Provider Physician Family Provider Primary Care Provider Referring Provider Specialty: Medical Address: [address] [place] [address], [address], [place], [address] Email: [email or web address] Visit Number Visit Number 5 Discharge Summary PT-OP-B Current Condition Start: 03/02/24 11:17 Freq: Status: Active Protocol: Document 03/16/24 12:01 SAK (Rec: 03/16/24 12:09 SAK [id number]) Current Condition History of Current Condition Onset Date 2 years Current Complaints weakness, decreased balance History of Current Condition Complicated medical history January 2022 due to ruptured signmoid and emergency surgery , long recovery. Had reversal of colostomy but still unpredictability of bowels. Has HTN, stopped taking Lisinopril due to side effect of couching. Sees doctor tomorrow. Feels weak and unbalanced. Current activity level very low, no energy, takes very short walks. States she is anemic but taking iron and Vitamin C. Takes meds for osteoporosis. Favorite exercise is to walk but at this time limited to household and short distance community. Future Testing and Treatments Planned seeing Dr. Rodriguez for her hearing, sees GP in April. Wants to see a scientist engineer. Treatment Goals Patient/Caregiver Goals core strengthening, leg strengthening, balance. PT-OP-C Subjective Start: 03/02/24 11:17 Freq: Status: Active Protocol: Document 04/21/24 09:46 SAK (Rec: 04/21/24 09:47 SAK [id number]) OP-PT Subjective Patient Comments Patient Comments Patient requests discharge from PT at this time, new supplement lowering her BP too low and is having some dizziness. Wants some time to get stabilized on her meds and will continue HEP and walking as able. PT-OP-D Balance Start: 03/02/24 11:17 Freq: Status: Active Protocol: Document 03/02/24 11:17 SAK (Rec: 03/03/24 08:50 SAK [id number]) Balance Tests Single Limb Standing Single Limb- Right 1 Single Limb- Left 1 Semi-Tandem Standing Semi-Tandem Standing Balance 4 Bose Balance Assessment Evaluation Sitting to Standing Ability Independent w/out Hands Unsupported Stance Safely- 2 minutes Sitting Unsupported, Feet on Floor Safely- 2 minutes Standing to Sitting Ability Safely, Minimal Hand Use Transfer Ability Safely, Minimal Hand Use Unsupported Stance- Eyes Closed Supervision, 10 seconds Unsupported Stance- Eyes Open Independent, 1 minute Reaching Forward Standing Safely, 5 inches Pick- Up Object From Floor Independent/Safe Look Behind Shoulder - Standing Shifts Weight Well Turning 360 Degrees Turns slowly, but safely Unsupported Stance, Alternating Feet on 2 Steps w/Minimum Assist Stair Unsupported Tandem Stance Balance Lost- Step/Stand Unilateral Leg Stance Lifts Leg/Unable to Hold Total Score Bose Total Score (out of 56 points) 42 PT-OP-E Functional Tests Start: 03/02/24 11:17 Freq: Status: Active Protocol: Document 03/02/24 11:17 [facility] (Rec: 03/03/24 08:[address] [facility] [id number]) Functional Tests Timed Up and Go (TUG) Score 11 PT-OP-G Mobility & Gait Start: 03/02/24 11:17 Freq: Status: Active Protocol: Document 03/02/24 11:18 [facility] (Rec: 03/02/24 11:[address] [facility] [id number]) OP Mobility Evaluation Transfers Sit to Stand indep without UE's Floor Transfers did not try OP Gait Assessment Assistive Devices Assistive Device None Gait Deviations General Gait Pattern Decreased Stride Length, Decreased Feet Clearance Comments Gait Comments 6 min walk 983 ft, unsteadiness especially with turns. Stair Climbing Evaluation Evaluation Level of Assist On Stairs Independent Devices Stair Climbing Assistive Devices None,Left Railing Technique/Endurance Stair Climbing Technique Step to Step PT-OP-H Neuro Start: 03/02/24 11:17 Freq: Status: Active Protocol: Document 03/16/24 12:01 [facility] (Rec: 03/16/24 12:11 [facility] [id number]) Vital Signs Blood Pressure Sitting Blood Pressure (90/60-120/80 mmHg) 177/90 H Blood Pressure Source Automatic Cuff Comments Vital Signs Comments After 5 min BP 168/92 PT-OP-M Strength Start: 03/02/24 11:17 Freq: Status: Active Protocol: Document 03/02/24 11:17 SAK (Rec: 03/03/24 08:50 SAK [id number]) Trunk Strength Trunk Manual Muscle Testing Flexion 3+ Fair+ Extension 3+ Fair+ Core Stabilization poor Hip Strength Hip Manual Muscle Testing ean Flexion (L2) 4- Good- Extension (S1) 3- Fair- Abduction 3- Fair- Adduction 4- Good- External Rotation 4- Good- Internal Rotation 4 Good Knee Strength Knee Manual Muscle Testing ean Flexion (S2) 4 Good Extension (L3) 4 Good Ankle/Foot Strength Ankle and Foot Manual Muscle Testing ean Dorsiflexion (L4) 4+ Good+ Plantarflexion (S1) 4- Good- PT-OP-T Assessment and Plan Start: 03/02/24 11:17 Freq: Status: Active Protocol: Document 03/27/24 08:21 SP (Rec: 03/27/24 09:04 SP [id number]) Physical Therapy Assessment Goals Three Impairment unable to go for walks Short Term Goal (STG) Patient will be able to safely go for a 15 minute walk without excess fatigue, and with 6 min walk test will be able to walk at least 1200 feet STG Duration 04/10/24 [facility] Goal (LTG) Patient will be able to resume taking a walk of at least 30 min at least 3 days per week with her as measure of improved fitness and quality of life Two Impairment LE and core weakness Short Term Goal (STG) Patient to be instructed in HEP for purposes of LE and core strengthening STG Duration 04/10/24 Manager Baby Goal (LTG) Patient to be independnet and compliant with HEP and test at least 4+/5 all muscle groups for improved activity tolerance LTG Duration 06/03/24 One Impairment Balance dysfunction: Bose balance score 42/56 Short Term Goal (STG) Patient to be instructed in HEP for purposes of balance improvement to support therapy activities in [facility] STG Duration 04/10/24 Manager Baby Goal (LTG) Improve Bose Balance score to at least 52/56 as measure of improved balance and safety in the home and community LTG Duration 06/03/24 Assessment Summary Assessment Pt pre activity LUE BP 162/82, improved lowering and good demonstration diaphramatic breath and discussion support lower BP with relaxation. BP elevated 182/82 with addition of light resisted standing ex but ok with seated breath and end tx 142/80. Discussion AROM standing home, hold off on adding resistance standing at home and suggested BP log until see Dr Coello next week: early am pre activity and with activity to give Dr Coello feedback. Pt verbalized will start BP logging and follow up with Dr Coello phone call and see her next week. Physical Therapy Plan Frequency and Duration Frequency of Treatment 2x/Week Duration of treatment (weeks) 12 Plan of Care Start Date 03/03/24 Plan of Care End Date 06/03/24 Therapeutic Interventions Therapeutic Interventions Home Exercise Program, Neuromuscular Re-education, Patient/Caregiver Education, Self-Care/Home Management, Therapeutic Activities, Therapeutic Exercises Next Visit Focus/Plan Next Note Type Treatment Note Next Visit Plan Vital check pre and with activity! Cancel next appt 03/[address] Coello 04/02. When returns: Ask BP checks doing home, how follow up with Dr Coello and Safety direction for PT. PT Suggestion: Continue PT pending outcome of patient ER visit.
--- NOTE | 2024-07-06 13:31 | PT.OPDS ---
Current Diagnoses Difficulty in walking, not elsewhere classified (03/27/24) Other symptoms and signs involving the musculoskeletal system (03/27/24) Weakness (03/27/24) Other malaise (03/27/24) Visit Care Team Role Provider Type Yulissa Coello DO Attending Provider Physician Family Provider Primary Care Provider Referring Provider Specialty: Medical Address: [address] [place] [address], [address], [place], [address] Email: [email or web address] Visit Number Visit Number 5 Discharge Summary PT-OP-B Current Condition Start: 03/02/24 11:17 Freq: Status: Active Protocol: Document 03/16/24 12:01 SAK (Rec: 03/16/24 12:09 SAK [id number]) Current Condition History of Current Condition Onset Date 2 years Current Complaints weakness, decreased balance History of Current Condition Complicated medical history January 2022 due to ruptured signmoid and emergency surgery , long recovery. Had reversal of colostomy but still unpredictability of bowels. Has HTN, stopped taking Lisinopril due to side effect of couching. Sees doctor tomorrow. Feels weak and unbalanced. Current activity level very low, no energy, takes very short walks. States she is anemic but taking iron and Vitamin C. Takes meds for osteoporosis. Favorite exercise is to walk but at this time limited to household and short distance community. Future Testing and Treatments Planned seeing Dr. Rodriguez for her hearing, sees GP in April. Wants to see a lathe machine operator. Treatment Goals Patient/Caregiver Goals core strengthening, leg strengthening, balance. PT-OP-C Subjective Start: 03/02/24 11:17 Freq: Status: Active Protocol: Document 04/21/24 09:46 SAK (Rec: 04/21/24 09:47 SAK [id number]) OP-PT Subjective Patient Comments Patient Comments Patient requests discharge from PT at this time, new supplement lowering her BP too low and is having some dizziness. Wants some time to get stabilized on her meds and will continue HEP and walking as able. PT-OP-D Balance Start: 03/02/24 11:17 Freq: Status: Active Protocol: Document 03/02/24 11:17 SAK (Rec: 03/03/24 08:50 SAK [id number]) Balance Tests Single Limb Standing Single Limb- Right 1 Single Limb- Left 1 Semi-Tandem Standing Semi-Tandem Standing Balance 4 Bose Balance Assessment Evaluation Sitting to Standing Ability Independent w/out Hands Unsupported Stance Safely- 2 minutes Sitting Unsupported, Feet on Floor Safely- 2 minutes Standing to Sitting Ability Safely, Minimal Hand Use Transfer Ability Safely, Minimal Hand Use Unsupported Stance- Eyes Closed Supervision, 10 seconds Unsupported Stance- Eyes Open Independent, 1 minute Reaching Forward Standing Safely, 5 inches Pick- Up Object From Floor Independent/Safe Look Behind Shoulder - Standing Shifts Weight Well Turning 360 Degrees Turns slowly, but safely Unsupported Stance, Alternating Feet on 2 Steps w/Minimum Assist Stair Unsupported Tandem Stance Balance Lost- Step/Stand Unilateral Leg Stance Lifts Leg/Unable to Hold Total Score Bose Total Score (out of 56 points) 42 PT-OP-E Functional Tests Start: 03/02/24 11:17 Freq: Status: Active Protocol: Document 03/02/24 11:17 [facility] (Rec: 03/03/24 08:50 [facility] [id number]) Functional Tests Timed Up and Go (TUG) Score 11 PT-OP-G Mobility & Gait Start: 03/02/24 11:17 Freq: Status: Active Protocol: Document 03/02/24 11:18 [facility] (Rec: 03/02/24 11:56 [facility] [id number]) OP Mobility Evaluation Transfers Sit to Stand indep without UE's Floor Transfers did not try OP Gait Assessment Assistive Devices Assistive Device None Gait Deviations General Gait Pattern Decreased Stride Length, Decreased Feet Clearance Comments Gait Comments 6 min walk 983 ft, unsteadiness especially with turns. Stair Climbing Evaluation Evaluation Level of Assist On Stairs Independent Devices Stair Climbing Assistive Devices None,Left Railing Technique/Endurance Stair Climbing Technique Step to Step PT-OP-H Neuro Start: 03/02/24 11:17 Freq: Status: Active Protocol: Document 03/16/24 12:01 [facility] (Rec: 03/16/24 12:11 [facility] [id number]) Vital Signs Blood Pressure Sitting Blood Pressure (90/60-120/80 mmHg) 177/90 H Blood Pressure Source Automatic Cuff Comments Vital Signs Comments After 5 min BP 168/92 PT-OP-M Strength Start: 03/02/24 11:17 Freq: Status: Active Protocol: Document 03/02/24 11:17 [facility] (Rec: 03/03/24 08:50 [facility] [id number]) Trunk Strength Trunk Manual Muscle Testing Flexion 3+ Fair+ Extension 3+ Fair+ Core Stabilization poor Hip Strength Hip Manual Muscle Testing ean Flexion (L2) 4- Good- Extension (S1) 3- Fair- Abduction 3- Fair- Adduction 4- Good- External Rotation 4- Good- Internal Rotation 4 Good Knee Strength Knee Manual Muscle Testing ean Flexion (S2) 4 Good Extension (L3) 4 Good Ankle/Foot Strength Ankle and Foot Manual Muscle Testing ean Dorsiflexion (L4) 4+ Good+ Plantarflexion (S1) 4- Good- PT-OP-T Assessment and Plan Start: 03/02/24 11:17 Freq: Status: Active Protocol: Document 07/06/24 13:31 [facility] (Rec: 07/06/24 13:31 [facility] [id number]) Physical Therapy Plan Discharge Physical Therapy Discharge Reasons Change in Medical Status
== END 2024-07-13 13:56 | disposition home or self-care (01) ==
LOC: PHYS 08:15
PROVIDERS: Family Provider Family Medicine; PCP Family Medicine; Referring Provider Family Medicine; Visit Provider Family Medicine
DX: R29.898 Other symptoms and signs involving the musculoskeletal system (principal); R53.81 Other malaise; R53.1 Weakness; R26.2 Difficulty in walking, not elsewhere classified
CPT/HCPCS: 97110; 97112; 97116; 97140; 97162; 97530; 97535

== ENCOUNTER → 2024-05-01 09:38 | Outpatient (CLI) | payer MEDICARE, OTHER, SELFPAY ==
[2023-09-11 11:32] VITALS: BMI 43.0
[2024-05-01 10:55] LABS: Cholesterol 133 mg/dL (140-199); HDL Cholesterol 60 mg/dL (40-60); LDL Cholesterol Calculated 62 mg/dL (<100); Triglycerides 57 mg/dL (35-150)
[2024-05-01 10:59] LABS: High Sensitivity CRP - Cardiac 1.1 mg/L (1.0-3.0)
[2024-05-01 11:13] LABS: Vitamin D 25 Hydroxy (D3) 68.6 ng/mL (30.0-100.0)
== END ==
PROVIDERS: Family Provider Family Medicine; PCP Family Medicine; Referring Provider Family Medicine; Visit Provider Family Medicine
DX: I10 Essential (primary) hypertension (principal); E78.5 Hyperlipidemia, unspecified
CPT/HCPCS: 36415; 80061; 82306; 86140

== ENCOUNTER → 2024-09-07 12:50 | Outpatient (CLI) | payer MEDICARE, OTHER, SELFPAY ==
[2023-09-11 11:32] VITALS: BMI 43.0
--- NOTE | 2024-09-07 12:51 | DI.MG.S_ITS ---
UNILATERAL LEFT DIGITAL SCREENING MAMMOGRAM 3D/2D WITH CAD: 09/07/2024 CLINICAL: Routine screening. Personal history of right breast cancer. Comparison is made to exams dated: 09/04/2023 mammogram, 09/03/2022 mammogram, and 11/08/2021 mammogram - [facility]. The breasts are almost entirely fatty (category a/<25% glandular tissue). Current study was also evaluated with a Computer Aided Detection (CAD) system. There are benign vascular calcifications in the left breast. No significant masses, calcifications, or other findings are seen in the breast. There has been no significant interval change. IMPRESSION: BENIGN There is no mammographic evidence of malignancy. A 1 year screening mammogram is recommended. This exam was interpreted at Station ID: [id number] NOTE: For mammograms, a report in lay terms will be sent to the patient. Approximately 15% of breast malignancies will not be visualized mammographically. In the management of a palpable breast mass, a negative mammogram must not discourage biopsy of a clinically suspicious lesion. Electronically Signed By: Dean villagran/oliver:09/07/2024 16:38:18 copy to: KATE WASHINGTON letter sent: Normal Exam ACR BI-RADS Category 2: Benign
== END ==
LOC: MAMMO 12:51
PROVIDERS: Family Provider Family Medicine; PCP Family Medicine; Referring Provider Internal Medicine Hematology & Oncology; Visit Provider Internal Medicine Hematology & Oncology
DX: Z12.31 Encounter for screening mammogram for malignant neoplasm of breast (principal); Z85.3 Personal history of malignant neoplasm of breast; R92.313 Mammographic fatty tissue density, bilateral breasts
CPT/HCPCS: 77063; 77067

== ENCOUNTER 2024-10-08 10:47 | Observation (INO) | payer MEDICARE, OTHER, SELFPAY ==
[2023-09-11 11:32] VITALS: BMI 43.0
[2024-10-08] VITALS (29 sets, daily range): BP systolic 159–195; BP diastolic 77–96; PULSE 66–84; RESP 14–26; TEMP 36.6–37.3; O2SAT 92–98; BMI 40.4; BMI 35.9
--- NOTE | 2024-10-08 11:56 | ED_ITS ---
HPI - GI Bleed General Chief complaint: GI Bleed Stated complaint: N/V/D Dizzy vomiting black stuff Time Seen by Provider: 10/08/24 11:18 Source: patient Mode of arrival: Ambulatory History of Present Illness HPI Narrative: Patient here with complains of nausea vomiting diarrhea with abdominal discomfort since this morning. Patient and have had flu-like symptoms for the past 11 days. Patient did not make dinner but nothing spicy. did not get nauseous vomiting or diarrhea. Emesis has been dark. It did test positive Hemoccult positive. Patient in no distress. Denies any chest pain shortness of breath back pain or urinary complaints. No fever chills. Has not been on any antibiotics recently. Related Data Home Medications Medication Instructions Recorded Confirmed acetaminophen 500 mg tablet 750 mg PO DAILY PRN pain 01/10/18 10/12/24 (Tylenol Extra Strength) ascorbic acid (vitamin C) 500 mg 500 mg PO DAILY 01/10/18 10/12/24 tablet (Vitamin C) ferrous sulfate 325 mg (65 mg 325 mg PO DAILY 01/10/18 10/12/24 iron) tablet multivitamin 1 tab PO DAILY 01/10/18 10/12/24 Vascanox PO 10/12/24 10/12/24 calcium 500mg-vitamin D3 PO 10/12/24 10/12/24 1000u-Zinc 7mg denosumab 60 mg/mL subcutaneous 60 mg SUBCUT [id number] 10/12/24 10/12/24 syringe (Prolia) Previous Rx's Medication Instructions Recorded anastrozole 1 mg tablet 1 mg PO DAILY breast cancer #90 01/01/23 tabs losartan 25 mg tablet 25 mg PO DAILY #90 tabs 03/03/24 rosuvastatin 10 mg tablet 10 mg PO DAILY #90 tabs 04/07/24 trazodone 50 mg tablet 50 - 100 mg (1 - 2 x 50 mg) PO 06/01/24 ONCE PM PRN for insomnia #90 tabs tirzepatide 5 mg/0.5 mL 5 mg (0.5 mL) SUBCUT QWEEK #6 mL 07/29/24 subcutaneous pen injector amoxicillin 875 mg-potassium 1 tab PO BID 41 days #82 tabs 10/09/24 clavulanate 125 mg tablet metronidazole 500 mg tablet 500 mg PO TID 41 days #123 tabs 10/09/24 omeprazole 40 mg capsule,delayed 40 mg PO BID 30 days #60 caps 10/09/24 release Allergies Allergy/AdvReac Type Severity Reaction Status Date / Time No Known Drug Allergies Allergy Verified 10/08/24 11:07 Review of Systems Review of Systems Narrative: GENERAL: Negative chills, fatigue, malaise, fever, sweats. HEENT: Negative sinus pain, ear pain, sore throat RESPIRATORY: Negative dyspnea, cough CARDIOVASCULAR: Negative chest pain, palpitations GASTROINTESTINAL: Positive diarrhea, nausea, vomiting, abdominal pain, positive hematemesis/black emesis : Negative dysuria, frequency, hematuria MUSCULOSKELETAL: Negative muscle or bony pain SKIN: Negative rash, skin lesions NEUROLOGIC: Negative weakness, numbness ROS Unobtainable: All systems reviewed & are unremarkable except as noted in HPI and below Patient History Medical History History of breast cancer in female (~2021) Adverse effect of loop diuretic (~06/2023) Colostomy in place (~02/2023) Anemia Tinnitus Hearing loss BBB (bundle branch block) Acute appendicitis Colon polyp Hammer toe Hemorrhoids Hyperlipidemia Morbid obesity Joint pain Leg pain History of rectocele Insomnia Statin intolerance Tinnitus of left ear 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 Low back pain GERD (gastroesophageal reflux disease) Iron deficiency anemia Osteoarthritis Spinal stenosis, lumbar region with neurogenic claudication Spondylolisthesis at L4-L5 level Left bundle branch block Surgical History History of colostomy reversal Anesthesia History of cataract removal with insertion of prosthetic lens (~2021) History of bilateral knee replacement (~2016) History of lumpectomy of right breast (11/08/21) Hx of appendectomy (2019) History of incision and drainage (02/15/18) Hx of lumbosacral spine surgery (01/16/18) History of tonsillectomy S/P epidural steroid injection History of tympanoplasty of left ear History of discectomy History of bunionectomy of right great toe History of bunionectomy of left great toe History of thumb surgery History of arthroplasty of right shoulder Hx of total knee arthroplasty Family History Father Cancer Mother Diabetes mellitus History of heart disease Hypertension Brother Cancer Brother Cancer History of heart disease Hypertension Sister Cancer Hypertension Stroke Sister Cancer Grandfather Stroke Grandmother History of heart disease Social History household members: spouse Smoking Status: Never smoker alcohol intake: current substance use type: does not use Smoking Status: Never smoker alcohol intake frequency: 0-2 drinks per day Alcohol type: wine Exam Narrative Exam Narrative: GENERAL: in no distress, not toxic not dyspneic HEAD: Normocephalic. EYES: Pupils equal round ENT: Mucous membranes moist. NECK: Trachea midline. CARDIOVASCULAR: Regular rate and rhythm RESPIRATORY: Clear to auscultation. Breath sounds equal bilaterally. No wheezes, rales, or rhonchi. GASTROINTESTINAL: Abdomen soft, non-tender no peritoneal signs bowel sounds are present no guarding or rebound. No pain out of portion exam. No Payne sign no McBurney point tenderness EXTREMITIES: No gross deformities. BACK: No flank tenderness. NEURO: AOx4. Clear speech SKIN: Warm and dry PSYCH: Not anxious, is cooperative Initial Vital Signs Initial Vital Signs: Vital Signs Pulse Rate 84 10/08/24 10:56 Blood Pressure 189/93 H 10/08/24 10:56 Pulse Oximetry 96 10/08/24 10:56 Course Orders Ordered: Discontinued Medications Atorvastatin Calcium (Atorvastatin 20 Mg Tablet) 40 mg PO DAILY SYED Last Admin: 10/09/24 09:33 Dose: Not Given Documented By: THAD Atorvastatin Calcium (Atorvastatin 20 Mg Tablet) 40 mg PO BEDTIME SYED Sodium Chloride (Normal Saline 0.9%) 1,000 mls @ 1,000 mls/hr IV BOLUS ONE Stop: 10/08/24 12:54 Last Infusion: 10/08/24 14:06 Dose: Infused Documented By: Admin: 10/08/24 12:09 Dose: 1,000 mls/hr Documented By: WILMA Piperacillin Sod/Tazobactam (Sod 4.5 gm/ Sodium Chloride) 100 mls @ 200 mls/hr IV NOW ONE Stop: 10/08/24 18:26 Last Infusion: 10/08/24 19:13 Dose: Infused Documented By: Admin: 10/08/24 18:37 Dose: 200 mls/hr Documented By: WILMA Piperacillin Sod/Tazobactam (Sod 3.375 gm/ Sodium Chloride) 100 mls @ 25 mls/hr IV Q8H [facility] Last Admin: 10/09/24 11:01 Dose: 25 mls/hr Documented By: Infusion: 10/09/24 06:41 Dose: Infused Documented By: Admin: 10/09/24 02:41 Dose: 25 mls/hr Documented By: Metronidazole (Flagyl) 500 mg in 100 mls @ 100 mls/hr IV Q8H [facility] Last Admin: 10/09/24 13:12 Dose: Not Given Documented By: Admin: 10/09/24 04:51 Dose: 100 mls/hr Documented By: Infusion: 10/09/24 02:42 Dose: Infused Documented By: Admin: 10/08/24 21:29 Dose: 100 mls/hr Documented By: Losartan Potassium (Losartan 25 Mg Tablet) 25 mg PO DAILY [facility] Last Admin: 10/09/24 09:33 Dose: 25 mg Documented By: THAD Naloxone HCl (Naloxone 0.4 Mg/Ml Vial) 0.2 mg IV Q2MIN PRN PRN Reason: Opiate Reversal Ondansetron HCl (Ondansetron 4 Mg/2 Ml Inj) 4 mg IV NOW ONE Stop: 10/08/24 11:55 Last Admin: 10/08/24 12:16 Dose: 4 mg Documented By: WILMA Oxymetazoline HCl (Oxymetazoline Nasal [place] 30 Ml) 2 sprays NASAL NOW ONE Stop: 10/09/24 11:46 Last Admin: 10/09/24 12:30 Dose: 2 sprays Documented By: THAD Pantoprazole Sodium (Pantoprazole 40 Mg Vial) 40 mg IV NOW ONE Stop: 10/08/24 12:00 Last Admin: 10/08/24 12:16 Dose: 40 mg Documented By: WILMA Pantoprazole Sodium (Pantoprazole 40 Mg Vial) 40 mg IV BID [facility] Last Admin: 10/09/24 09:31 Dose: 40 mg Documented By: Admin: 10/08/24 21:29 Dose: 40 mg Documented By: Trazodone HCl (Trazodone 50 Mg Tablet) 100 mg PO BEDTIME [facility] Last Admin: 10/09/24 02:21 Dose: Not Given Documented By: Vital Signs Vital signs: Vital Signs - 8 hr 10/08/24 10:56 02/27/25 10:56 10/08/24 11:00 Temperature Pulse Rate 84 80 Respiratory Rate 15 Blood Pressure 189/93 H Pulse Oximetry 96 97 Oxygen Delivery Method 10/08/24 11:01 10/08/24 11:01 10/08/24 11:07 Temperature 97.9 F Pulse Rate 84 78 Respiratory Rate 20 18 Blood Pressure 185/82 H 185/82 H Pulse Oximetry 97 97 Oxygen Delivery Method Room Air Room Air 10/08/24 11:30 10/08/24 11:30 10/08/24 12:12 Temperature Pulse Rate 75 76 Respiratory Rate Blood Pressure 173/80 H Pulse Oximetry 94 Oxygen Delivery Method 10/08/24 12:14 10/08/24 12:30 10/08/24 12:30 Temperature Pulse Rate 77 75 Respiratory Rate Blood Pressure 179/83 H Pulse Oximetry 98 94 Oxygen Delivery Method 10/08/24 13:00 10/08/24 13:00 10/08/24 14:03 Temperature Pulse Rate 74 81 Respiratory Rate Blood Pressure 163/82 H Pulse Oximetry 94 97 Oxygen Delivery Method Room Air 10/08/24 14:05 10/08/24 14:05 10/08/24 14:30 Temperature Pulse Rate 77 Respiratory Rate 20 Blood Pressure 160/79 H 160/77 H Pulse Oximetry 97 Oxygen Delivery Method Room Air 10/08/24 14:30 10/08/24 15:00 10/08/24 15:00 Temperature Pulse Rate 73 72 Respiratory Rate 14 17 Blood Pressure 174/81 H Pulse Oximetry 94 92 Oxygen Delivery Method 10/08/24 15:30 10/08/24 15:31 10/08/24 15:31 Temperature Pulse Rate 76 73 Respiratory Rate 26 H 21 Blood Pressure 159/96 H Pulse Oximetry 92 97 Oxygen Delivery Method 10/08/24 16:00 10/08/24 16:00 10/08/24 16:30 Temperature Pulse Rate 72 Respiratory Rate 24 Blood Pressure 168/90 H 176/81 H Pulse Oximetry 95 Oxygen Delivery Method 10/08/24 16:30 10/08/24 17:00 10/08/24 17:01 Temperature Pulse Rate 70 71 Respiratory Rate 20 20 Blood Pressure 175/84 H Pulse Oximetry 93 93 Oxygen Delivery Method 10/08/24 17:01 Temperature Pulse Rate 70 Respiratory Rate 21 Blood Pressure Pulse Oximetry 93 Oxygen Delivery Method Room Air [facility] GI Bleed Lab Data 10/09/24 10:36 10/09/24 04:40 Labs: Lab Results 10/08/24 Range/Units 11:00 WBC 10.0 (4.5-11.0) X10^3/uL RBC 4.59 (4.0-5.2) X10^6/uL Hgb 14.1 (12.0-16.0) g/dL Hct 42.6 (36-46) % MCV 92.8 (80-100) fL MCH 30.8 (26-34) PG MCHC 33.1 (30-36) % RDW 13.3 (11.6-14.8) % Plt Count 367 (150-400) X10^3/uL Neut % (Auto) 75.7 H (50-75) % Lymph % (Auto) 15.2 L (25-40) % Mellette % (Auto) 8.1 (3-14) % Eos % (Auto) 0.7 L (2-4) % Baso % (Auto) 0.3 (0-2) % Neut # (Auto) 7500 H (7763-8088) /uL Lymph # (Auto) 1500 (4081-6556) /uL Mellette # (Auto) 800 (0-900) /uL Eos # (Auto) 100 (0-450) /uL Baso # (Auto) 0 (0-100) /uL PT 12.0 (9.4-12.5) SECONDS INR 1.1 (0.9-1.3) APTT 33 (25.1-36.5) SECONDS Sodium 138 (137-145) mmol/L Potassium 4.2 (3.4-5.1) mmol/L Chloride 102 (98-107) mmol/L Carbon Dioxide 28 (22-32) mmol/L BUN 28 H (7-17) mg/dL Creatinine 0.78 (0.52-1.04) mg/dL Estimated GFR > 60 (>60) mL/min BUN/Creatinine Ratio 35.9 H (6-22) Glucose 117 H (80-110) mg/dL Calcium 10.0 (8.4-10.2) mg/dL Total Bilirubin 0.3 (0.2-1.3) mg/dL AST 33 (14-36) IU/L ALT 21 (<35) IU/L Alkaline Phosphatase 72 (38-126) U/L Total Protein 7.8 (6.3-8.2) g/dL Albumin 4.4 (3.5-5.0) g/dL Globulin 3.4 (1.7-4.1) g/dL Albumin/Globulin Ratio 1.3 (1.0-2.8) Lipase 177 (23-300) U/L Imaging Data MRI liver: Radiologist's Impression: [address] [address] Magnetic Resonance Report Signed Patient: Holly Bates MR#: [id number] : 1940 Acct:[id number] Age/Sex: 84 / F Date of Service: 10/08/24 Loc: ED Accession Number: [id number] Procedure: MR Abdomen Liver Protocol Ordering Provider: Ashkan Rust MD PROCEDURE: MR ABDOMEN LIVER PROTOCOL INDICATIONS: Liver mass TECHNIQUE: Coronal HASTE, axial 2D FLASH in- and [id number]; axial breath-hold T2 FSE. Dynamic axial VIBE during the administration of contrast; post-contrast coronal VIBE or 2D FLASH with fat saturation from the hepatic dome to the iliac crests. Optional diffusion weighted imaging and ADC may be performed. COMPARISON: [facility], CT, CT ABDOMEN PELVIS W CON, 06/24/2022, 18:20. [facility], CT, CT ABDOMEN PELVIS W CON, 10/02/2023, 9:01. [facility], CT, CT ABDOMEN PELVIS W CON, 10/08/2024, 12:04. FINDINGS: Image quality: Diagnostic Lower chest: Unremarkable lung bases, suspect small left lower lung nodules Liver: Capsular abscess at the dome of the liver measures 2.2 x 1.5 x 2.2 cm. No other suspicious liver lesions identified. Gallbladder and biliary system: Unremarkable Pancreas: No ductal dilation Spleen: Nonenlarged Adrenals: No discrete nodules Kidneys: No solid renal mass. No hydronephrosis. Vessels and lymph nodes: The main portal vein is patent. No abdominal aortic aneurysm. No pathologic lymph nodes by size criteria. Bowel and peritoneum: Moderate to large hiatal hernia. No bowel obstruction. No pathologic ascites Moderate fecal loading Body wall: Wide neck abdominal wall hernia without obstruction. Bones: Left lower lumbar fusion hardware partially seen. IMPRESSION: 2.2 x 1.5 cm liver dome capsular abscess. The size and location make this not amenable to drainage or aspiration. Other findings above. Dictated by: Carlos Cortes M.D. on 10/08/2024 at 15:16 Approved by: Carlos Cortes M.D. on 10/08/2024 at 15:25 CT scan - abdomen/pelvis: Radiologist's Impression: [address] [address] [address] Scan Report Signed Patient: Holly Bates MR#: [id number] : 1940 Acct:[id number] Age/Sex: 84 / F Date of Service: 10/08/24 Loc: ED Accession Number: [id number] Procedure: CT abdomen pelvis w con Ordering Provider: Ashkan Rust MD PROCEDURE: CT ABDOMEN PELVIS W CON INDICATIONS: abdominal pain TECHNIQUE: After the administration of intravenous contrast, axial sections acquired from the lung bases to the pubic symphysis. Coronal and sagittal reformats were performed. For radiation dose reduction, the following was used: automated exposure control, adjustment of mA and/or kV according to patient size. COMPARISON: [facility], CT, CT ABDOMEN PELVIS W CON, 11/15/2021, 5:30. FINDINGS: Image quality: Diagnostic. Lower Chest: 1.1 and 0.8 centimeter left lower lobe nodules have developed in the interval since prior CT scan.. ABDOMEN: Liver: No solid mass. Stable coarse calcification posterior-inferior subsegment of the right lobe of the liver. 1.6 x 3.5 x 3.2 centimeter low-density, subcapsular lesion involving hepatic segment 7. Gallbladder: No radiopaque gallstones or wall thickening. Biliary ducts: No biliary dilation. Pancreas: No ductal dilation. Spleen: Size is within normal limits. Adrenal Glands: No adrenal nodules. Kidneys and Ureters: No hydronephrosis. No solid mass. No complex renal cystic lesion which requires follow up. Stomach and Bowel: Moderate to large hiatal hernia. Normal colonic caliber, without significant wall thickening. Postsurgical changes in the sigmoid colon. No evidence of appendicitis. L4-L5 fixation hardware. Mild, approximately 6 millimeters of L4-L5 anterolisthesis. Peritoneum: No abnormal intraperitoneal fluid. No free air. Ventral Wall: Diastasis recti with unremarkable appearing herniated loops of small and large bowel. Abdominal Nodes: No retroperitoneal or mesenteric adenopathy by size criteria. Vessels: Aorta and inferior vena cava are normal in size. Scattered atherosclerotic calcifications involving the abdominal and pelvic vasculature. PELVIS: Pelvic Organs: Uterus is atrophied or partially absent. Bladder: No bladder wall thickening, accounting for underdistention. Pelvic Nodes: No enlarged lymph nodes. Miscellaneous: No inguinal hernias are seen. Bones: No aggressive osseous abnormality. Spine degenerative disc disease and facet arthropathy. IMPRESSION: Non-specific 1.6 x 3.5 x 3.2 centimeter right hepatic lobe subcapsular lesion which could represent subcapsular abscess, hematoma or neoplastic process. Recommend correlation with clinical data and MRI of the abdomen without contrast (hepatic protocol) if clinically indicated. Diastasis recti with herniated loops of unremarkable appearing large and small bowel. Moderate to large hiatal hernia. Dictated by: Mireya Ramos MD, PhD on 10/08/2024 at 12:22 Approved by: Mireya Ramos MD, PhD on 10/08/2024 at 12:33 [facility] Narrative Medical decision making narrative: Patient here with complains of nausea vomiting diarrhea with abdominal discomfort since this morning. Patient and have had flu-like symptoms for the past 11 days. Patient did not make dinner but nothing spicy. did not get nauseous vomiting or diarrhea. Emesis has been dark. It did test positive Hemoccult positive. Patient in no distress. Denies any chest pain shortness of breath back pain or urinary complaints. No fever chills. Has not been on any antibiotics recently. After history and exam CBC CMP PT INR PTT CT abdomen pelvis normal saline Protonix [facility] Medical records reviewed: No recent visit for this complaint Differential considered: Includes but not limited to viral gastroenteritis bowel obstruction colitis, Nati-Owens tear Lab Test results independently reviewed as above. Pertinent findings: WBC 10.0 hemoglobin 14.1 INR 1.1 sodium 138 potassium 4.2 AST 33 ALT 21 EKG normal sinus rhythm rate 73 left bundle-branch block no ST elevation or depression Imaging studies independently reviewed: CT abdomen pelvis possible liver abscess, MRI liver, 2 x 2 liver capsular abscess Consultations: 3:48 p.m.. Spoke with General surgery, Dr. Lima, she will review MRI results and interpretation and call me back 5:45 p.m.. Spoke with General surgery again, she has reviewed MRI. She would like continued Zosyn. She would like to EGD for patient tomorrow. Admit to hospitalist. No surgery needed for the abscess on the liver. 6:[address] Quispe, he is going to speak with general surgeon for a plan. Treatments: Protonix normal saline Zofran, Zosyn Re-evaluations: 1:33 p.m.. Patient in distress. No abdominal pain no vomiting or diarrhea. Updated patient MRI is ordered now based on liver findings on CT imaging. 6:30 p.m.. Updated patient and my discussion with General surgery. At this time disposition is pending. There is an abscess on the liver. However she will need endoscopy of the stomach. We are waiting to hear back from hospitalist for decision to admit. Discussion: Appropriate for admission. Patient will follow up with General surgery for EGD tomorrow. Antibiotics have been started. Patient remains hemodynamically stable. Diagnosis: Hematemesis/liver abscess 6:[address] Rust: Sign out to Dr. Merida, hospitalist and surgeon are going to talk about treatment plan Discharge Plan Departure Patient Disposition: Admitted as Observation Clinical Impression: Liver abscess Hematemesis Qualifiers: Nausea presence: unspecified Qualified Code(s): K92.0 - Hematemesis Admit Date/Time: 10/08/24 19:05 Admit Provider: Ryan Quispe
--- NOTE | 2024-10-08 11:59 | EKG_ITS ---
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
[2024-10-08 12:01] LABS: Add Manual Diff / Slide Review NO; Basophils Absolute Auto 0 /uL (0-100); Basophils Percent Auto 0.3 % (0-2); Eosinophils Absolute Auto 100 /uL (0-450); Eosinophils Percent Auto 0.7 % (2-4); Hematocrit 42.6 % (36-46); Hemoglobin 14.1 g/dL (12.0-16.0); Lymphocytes Absolute Auto 1500 /uL (1100-4500); Lymphocytes Percent Auto 15.2 % (25-40); Mean Corpuscular HGB Conc 33.1 % (30-36); Mean Corpuscular Hemoglobin 30.8 PG (26-34); Mean Corpuscular Volume 92.8 fL (80-100); Monocytes Absolute Auto 800 /uL (0-900); Monocytes Percent Auto 8.1 % (3-14); Neutrophils Absolute Auto 7500 /uL (1500-7000); Neutrophils Percent Auto 75.7 % (50-75); Platelet Count 367 X10^3/uL (150-400); Red Blood Cell Count 4.59 X10^6/uL (4.0-5.2); Red Cell Distribution Width 13.3 % (11.6-14.8)
[2024-10-08 12:03] LABS: INR 1.1 (0.9-1.3)
[2024-10-08 12:06] LABS: Alanine Aminotransferase 21 IU/L (<35); Albumin 4.4 g/dL (3.5-5.0); Albumin Globulin Ratio 1.3 (1.0-2.8); Alkaline Phosphatase 72 U/L (38-126); Aspartate Aminotransferase 33 IU/L (14-36); BUN Creatinine Ratio 35.9 (6-22); Bilirubin Total 0.3 mg/dL (0.2-1.3); Blood Urea Nitrogen 28 mg/dL (7-17); Carbon Dioxide 28 mmol/L (22-32); Chloride 102 mmol/L (98-107); Estimated Glomerular Filt Rate > 60 mL/min (>60); Globulin 3.4 g/dL (1.7-4.1); Glucose 117 mg/dL (80-110); HEMOLYSIS < 15 (0-50); Lipase 177 U/L (23-300); PTT Partial Thromboplastin Tim 33 SECONDS (25.1-36.5); Potassium 4.2 mmol/L (3.4-5.1); Sodium 138 mmol/L (137-145); Total Protein 7.8 g/dL (6.3-8.2)
[2024-10-08] MEDS: SODIUM CHLORIDE 0.9% 1,000 ML 1000 ML IV (12:09)
[2024-10-08] MEDS: ONDANSETRON 4 MG/2 ML INJ IV (12:16)
[2024-10-08] MEDS: PANTOPRAZOLE 40 MG VIAL IV ×2 (12:16→21:29)
--- NOTE | 2024-10-08 13:25 | DI.MRI.S_ITS ---
PROCEDURE: MR ABDOMEN LIVER PROTOCOL INDICATIONS: Liver mass TECHNIQUE: Coronal HASTE, axial 2D FLASH in- and [id number]; axial breath-hold T2 FSE. Dynamic axial VIBE during the administration of contrast; post-contrast coronal VIBE or 2D FLASH with fat saturation from the hepatic dome to the iliac crests. Optional diffusion weighted imaging and ADC may be performed. COMPARISON: [facility], CT, CT ABDOMEN PELVIS W CON, 06/24/2022, 18:20. [facility], CT, CT ABDOMEN PELVIS W CON, 10/02/2023, 9:01. [facility], CT, CT ABDOMEN PELVIS W CON, 10/08/2024, 12:04. FINDINGS: Image quality: Diagnostic Lower chest: Unremarkable lung bases, suspect small left lower lung nodules Liver: Capsular abscess at the dome of the liver measures 2.2 x 1.5 x 2.2 cm. No other suspicious liver lesions identified. Gallbladder and biliary system: Unremarkable Pancreas: No ductal dilation Spleen: Nonenlarged Adrenals: No discrete nodules Kidneys: No solid renal mass. No hydronephrosis. Vessels and lymph nodes: The main portal vein is patent. No abdominal aortic aneurysm. No pathologic lymph nodes by size criteria. Bowel and peritoneum: Moderate to large hiatal hernia. No bowel obstruction. No pathologic ascites Moderate fecal loading Body wall: Wide neck abdominal wall hernia without obstruction. Bones: Left lower lumbar fusion hardware partially seen. IMPRESSION: 2.2 x 1.5 cm liver dome capsular abscess. The size and location make this not amenable to drainage or aspiration. Other findings above. Dictated by: Carlos Cotres M.D. on 10/08/2024 at 15:16 Approved by: Carlos Cortes M.D. on 10/08/2024 at 15:25
[2024-10-08] MEDS: PIPERACILLIN/TAZO 4.5 GM in SODIUM CHLORIDE 0.9% 100 ML IV (18:37)
--- NOTE | 2024-10-08 19:13 | PM.HP.1 ---
History of Present Illness History of Present Illness Date Patient Seen: 10/08/24 Chief complaint: N/V/D Dizzy vomiting black stuff Narrative: This is an 84-year-old female with a past medical history of diverticulitis with colon resection (with colostomy s/p reversal in 11/2023), iron-deficiency anemia on chronic iron who presented to the emergency room after an episode what she called vomiting black snot. She reports intermittent bloating and RUQ pain, though has a difficult time decribing it, not worse with food. Patient recently had a trip to [place] where she returned on September 28. She reports flu-like symptoms for the past few weeks with nasal congestion, productive cough which have improved. Ever since her colon surgery she has intermittent diarrhea and current stools are not really changed from normal. She denies overt melena, but stools are always dark on iron supplementation. She does report use of naproxen intermittently. Also takes omeprazole chronically. She denies any chest pain, shortness on breath, lower extremity edema, or rash. She denies any overt fever. In the ER, Hg was 14, CT and then MRI showed a small liver abscess, not amenable for IR drainage. She was mildly hypertensive in the emergency room but the remainder of her vital signs were unremarkable. Patient was admitted under observation status. 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 Low back pain GERD (gastroesophageal reflux disease) Iron deficiency anemia Osteoarthritis Spinal stenosis, lumbar region with neurogenic claudication Spondylolisthesis at L4-L5 level Left bundle branch block Surgical History History of colostomy reversal Anesthesia History of cataract removal with insertion of prosthetic lens (~2021) History of bilateral knee replacement (~2016) History of lumpectomy of right breast (11/08/21) Hx of appendectomy (2019) History of incision and drainage (02/15/18) Hx of lumbosacral spine surgery (01/16/18) History of tonsillectomy S/P epidural steroid injection History of tympanoplasty of left ear History of discectomy History of bunionectomy of right great toe History of bunionectomy of left great toe History of thumb surgery History of arthroplasty of right shoulder Hx of total knee arthroplasty Family History Father Cancer Mother Diabetes mellitus History of heart disease Hypertension Brother Cancer Brother Cancer History of heart disease Hypertension Sister Cancer Hypertension Stroke Sister Cancer Grandfather Stroke Grandmother History of heart disease Social History household members: spouse Smoking Status: Never smoker alcohol intake: current substance use type: does not use Meds Home Medications and Allergies Home Medications Medication Instructions Recorded Confirmed Type acetaminophen 500 mg tablet 750 mg PO DAILY PRN pain 01/10/18 04/03/24 History (Tylenol Extra Strength) ascorbic acid (vitamin C) 500 mg 500 mg PO DAILY 01/10/18 04/03/24 History tablet (Vitamin C) ferrous sulfate 325 mg (65 mg 325 mg PO DAILY 01/10/18 04/03/24 History iron) tablet multivitamin 1 tab PO DAILY 01/10/18 04/03/24 History naproxen sodium 220 mg capsule 220 mg PO DAILY PRN pain 01/10/18 04/03/24 History (Aleve) anastrozole 1 mg tablet 1 mg PO DAILY breast cancer #90 01/01/23 04/03/24 Rx tabs melatonin 10 mg tablet 20 mg PO BEDTIME PRN 06/21/23 04/03/24 History lorazepam 0.5 mg tablet 0.5 mg PO BEDTIME PRN insomnia #14 09/11/23 04/03/24 Rx tabs losartan 25 mg tablet 25 mg PO DAILY #90 tabs 03/03/24 04/03/24 Rx omeprazole 10 mg capsule,delayed 10 mg PO DAILY #90 caps 04/07/24 Rx release rosuvastatin 10 mg tablet 10 mg PO DAILY #90 tabs 04/07/24 Rx trazodone 50 mg tablet 50 - 100 mg (1 - 2 x 50 mg) PO 06/01/24 Rx ONCE PM PRN for insomnia #90 tabs tirzepatide 5 mg/0.5 mL 5 mg (0.5 mL) SUBCUT QWEEK #6 mL 07/29/24 Rx subcutaneous pen injector Allergies Allergy/AdvReac Type Severity Reaction Status Date / Time No Known Drug Allergies Allergy Verified 10/08/24 11:07 Review of Systems Review of Systems Narrative: All other systems reviewed with the patient and are negative unless otherwise stated. Exam Vital Signs (past 8 hours): - 10/08/24 11:30 10/08/24 11:30 10/08/24 12:12 Pulse Rate 75 76 Respiratory Rate Blood Pressure 173/80 H Pulse Oximetry 94 Oxygen Delivery Method 10/08/24 12:14 10/08/24 12:30 10/08/24 12:30 Pulse Rate 77 75 Respiratory Rate Blood Pressure 179/83 H Pulse Oximetry 98 94 Oxygen Delivery Method 10/08/24 13:00 10/08/24 13:00 10/08/24 14:03 Pulse Rate 74 81 Respiratory Rate Blood Pressure 163/82 H Pulse Oximetry 94 97 Oxygen Delivery Method Room Air 10/08/24 14:05 10/08/24 14:05 10/08/24 14:30 Pulse Rate 77 Respiratory Rate 20 Blood Pressure 160/79 H 160/77 H Pulse Oximetry 97 Oxygen Delivery Method Room Air 10/08/24 14:30 10/08/24 15:00 10/08/24 15:00 Pulse Rate 73 72 Respiratory Rate 14 17 Blood Pressure 174/81 H Pulse Oximetry 94 92 Oxygen Delivery Method 10/08/24 15:30 10/08/24 15:31 10/08/24 15:31 Pulse Rate 76 73 Respiratory Rate 26 H 21 Blood Pressure 159/96 H Pulse Oximetry 92 97 Oxygen Delivery Method 10/08/24 16:00 10/08/24 16:00 10/08/24 16:30 Pulse Rate 72 Respiratory Rate 24 Blood Pressure 168/90 H 176/81 H Pulse Oximetry 95 Oxygen Delivery Method 10/08/24 16:30 10/08/24 17:00 10/08/24 17:01 Pulse Rate 70 71 Respiratory Rate 20 20 Blood Pressure 175/84 H Pulse Oximetry 93 93 Oxygen Delivery Method 10/08/24 17:01 10/08/24 17:30 10/08/24 17:31 Pulse Rate 70 71 Respiratory Rate 21 Blood Pressure 180/86 H Pulse Oximetry 93 95 Oxygen Delivery Method Room Air 10/08/24 17:31 10/08/24 18:00 10/08/24 18:00 Pulse Rate 71 68 Respiratory Rate 23 23 Blood Pressure 184/90 H Pulse Oximetry 95 95 Oxygen Delivery Method 10/08/24 18:30 10/08/24 18:30 Pulse Rate 73 Respiratory Rate 22 Blood Pressure 185/86 H Pulse Oximetry 97 Oxygen Delivery Method Room Air Oxygen Delivery Method Room Air Narrative Exam Narrative: General:? Patient is well developed and well nourished, in no distress at this time. HEENT:? Normocephalic, atraumatic, extraocular muscles intact, oral pharynx is clear and mucous membranes are moist. Neck: supple and symmetric, trachea is midline, no cervical adenopathy. Negative for JVD Chest:? Normal AP diameter and contour without kyphoscoliosis, no tachypnea, equal chest rise bilaterally. Lungs:? CTA b/l no wheezing rhonchi or rales. Cardio:?RRR no m/r/g. Abdomen: S, ND, mild RUQ tenderness more laterally. Musculoskeletal:? Muscle strength and tone are equal within normal limits, no deformity. Extremities: No edema or joint effusions. No cyanosis or clubbing. Skin:? Pale,? Warm to touch,dry and intact without rashes, ulcerations or petechiae.? Neuro:? Alert and orientated x3,? sensation to touch intact in all extremities, no gross deficits noted of cranial nerves. Psych:? Patient has a well-kept appearance, appropriate affect, mental status attitude thought context and judgment are appropriate for age. Objective ECG Impression: Normal sinus rhythm with a left bundle branch block, not significantly changed compared to prior tracings. Imaging MRI - abdomen: Radiologist's impression: IMPRESSION: 2.2 x 1.5 cm liver dome capsular abscess. The size and location make this not amenable to drainage or aspiration. Other findings above. Labs 10/08/24 11:00 10/08/24 11:00 Labs: Laboratory Results - last 24 hr 10/08/24 11:00 WBC 10.0 RBC 4.59 Hgb 14.1 Hct 42.6 MCV 92.8 MCH 30.8 MCHC 33.1 RDW 13.3 Plt Count 367 Neut % (Auto) 75.7 H Lymph % (Auto) 15.2 L [place] % (Auto) 8.1 Eos % (Auto) 0.7 L Baso % (Auto) 0.3 Neut # (Auto) 7500 H Lymph # (Auto) 1500 [place] # (Auto) 800 Eos # (Auto) 100 Baso # (Auto) 0 PT 12.0 INR 1.1 APTT 33 Sodium 138 Potassium 4.2 Chloride 102 Carbon Dioxide 28 BUN 28 H Creatinine 0.78 Estimated GFR > 60 BUN/Creatinine Ratio 35.9 H Glucose 117 H Calcium 10.0 Total Bilirubin 0.3 AST 33 ALT 21 Alkaline Phosphatase 72 Total Protein 7.8 Albumin 4.4 Globulin 3.4 Albumin/Globulin Ratio 1.3 Lipase 177 Assessment & Plan Assessment & Plan narrative: 1. Possible GI bleeding - unclear if single episode, differential includes pulmonary sources as well with recent URI reported. Unclear if related to liver abscess noted on imaging. - differential includes PUD, sebastián-chung tear, hemoptysis, amongst others. May have been symptomatic from her new liver abscess as well. - Hg is 14, hemodynamically stable in the ER thus far, slightly hypertensive - CLD, will make NPO overnight in case of possible EGD tomorrow. Discussed with surgery. EGD decision may depend on h/h trend, and symptoms overnight. - continue IV PPI BID - hold any NSAID - check a respiratory panel with recent URI symptoms 2. Small Liver abscess - given small abscess, not in location amenable to IR, will start empiric treatment with zosyn and flagyl (for E. histolytica). She does have recent travel to [place], but denies swimming in the ocean, fresh water lakes, or even pools. - consider repeat imaging, treatment is usually 4-6 weeks of antibiotics (can be PO). May need to monitor on therapy given location is not amenable for IR drainage as these are usually drained for diagnostic and therapeutic purposes. May need to discuss with GI or infectious disease provider on optimal management. 3. HTN - resume home losartan 4. Obesity -The patient is at much higher risk for medical and surgical complications because of their obesity. This increases the difficulty and complexity of medical and surgical interventions and increases the chances of poor outcomes such as morbidity and mortality. - hold home tirzepatide while admitted to the hospital Code: Full, surrogate is patient's spouse DVT: Lovenox daily I have utilized all available immediate resources to obtain, update, or review the patient's current medications. Dispo: patient admitted under observation status, possible discharge home tomorrow, vs possible further workup being needed as noted above depending on her observation course. Additional history obtained via discussions with the ER provider and general surgeon. These discussions contributed to the creation of the above assessment and plan. I have reviewed patient's presenting documentation, labs, and imaging personally. Time-Based Coding :: [TOTAL MINUTES] spent with patient and on the chart (including review of chart, obtaining history, exam, reviewing outside data, placing orders, documenting exam and treatment plan, and counseling patient) on [DATE].
[2024-10-08 20:45] LABS: Adenovirus Not Detected (Not Detect); B. parapertussis Not Detected (Not Detecte); Bordetella pertussis Not Detected (Not Detect); Chlamydophila pneumoniae Not Detected (Not Detect); Coronavirus 229E Not Detected (Not Detect); Coronavirus HKU1 Not Detected (Not Detect); Coronavirus NL 63 Not Detected (Not Detect); Coronavirus OC43 Not Detected (Not Detect); Human Metapneumovirus Not Detected (Not Detect); Human Rhinovirus/Enterovirus Not Detected (Not Detect); Influenza A Not Detected (Not Detect); Influenza B Not Detected (Not Detect); Mycoplasma pneumoniae Not Detected (Not Detect); Parainfluenza Virus 1 Not Detected (Not Detect); Parainfluenza Virus 2 Not Detected (Not Detect); Parainfluenza Virus 3 Not Detected (Not Detect); Parainfluenza Virus 4 Not Detected (Not Detect); Respiratory Syncytial Virus Not Detected (Not Detect); SARS- CoV-2 Not Detected (Not Detecte)
[2024-10-08] MEDS: metroNIDAZOLE 500 MG/100 ML PIGGYBACK 100 MG IV (21:29)
[2024-10-09 00:44] VITALS: O2SAT 97
[2024-10-09 01:00] VITALS: BP 133/80; PULSE 65; RESP 16; TEMP 36.4; O2SAT 94
[2024-10-09] MEDS: PIPERACILLIN/TAZO 3.375 GM in SODIUM CHLORIDE 0.9% 100 ML IV ×2 (02:41→11:01)
[2024-10-09 04:00] VITALS: O2SAT 100
[2024-10-09 04:34] VITALS: BP 148/84; PULSE 84; RESP 18; TEMP 36.9; O2SAT 94
[2024-10-09] MEDS: metroNIDAZOLE 500 MG/100 ML PIGGYBACK 100 MG IV (04:51)
[2024-10-09 05:27] LABS: Add Manual Diff / Slide Review NO; Basophils Absolute Auto 0 /uL (0-100); Basophils Percent Auto 0.4 % (0-2); Eosinophils Absolute Auto 100 /uL (0-450); Eosinophils Percent Auto 1.4 % (2-4); Hematocrit 35.9 % (36-46); Lymphocytes Absolute Auto 2300 /uL (1100-4500); Lymphocytes Percent Auto 27.4 % (25-40); Mean Corpuscular HGB Conc 33.5 % (30-36); Mean Corpuscular Volume 92.4 fL (80-100); Monocytes Absolute Auto 900 /uL (0-900); Monocytes Percent Auto 10.3 % (3-14); Neutrophils Absolute Auto 5100 /uL (1500-7000); Neutrophils Percent Auto 60.5 % (50-75); Platelet Count 329 X10^3/uL (150-400); Red Blood Cell Count 3.89 X10^6/uL (4.0-5.2); Red Cell Distribution Width 13.3 % (11.6-14.8); White Blood Cell Count 8.4 X10^3/uL (4.5-11.0)
[2024-10-09 05:32] LABS: Alanine Aminotransferase 18 IU/L (<35); Albumin 3.7 g/dL (3.5-5.0); Albumin Globulin Ratio 1.3 (1.0-2.8); Alkaline Phosphatase 52 U/L (38-126); Aspartate Aminotransferase 24 IU/L (14-36); BUN Creatinine Ratio 25.6 (6-22); Bilirubin Total 0.3 mg/dL (0.2-1.3); Blood Urea Nitrogen 20 mg/dL (7-17); Calcium 8.6 mg/dL (8.4-10.2); Carbon Dioxide 27 mmol/L (22-32); Chloride 105 mmol/L (98-107); Estimated Glomerular Filt Rate > 60 mL/min (>60); Globulin 2.8 g/dL (1.7-4.1); Glucose 92 mg/dL (80-110); HEMOLYSIS < 15 (0-50); Magnesium 2.1 mg/dL (1.6-2.3); Potassium 3.6 mmol/L (3.4-5.1); Sodium 139 mmol/L (137-145); Total Protein 6.5 g/dL (6.3-8.2)
[2024-10-09 08:00] VITALS: BP 140/88; PULSE 68; RESP 12; TEMP 36.7; O2SAT 96; O2SAT 97
[2024-10-09] MEDS: PANTOPRAZOLE 40 MG VIAL IV (09:31)
[2024-10-09] MEDS: LOSARTAN 25 MG TABLET PO (09:33)
--- NOTE | 2024-10-09 10:28 | CM.DANOTE ---
Addendum entered by FORTUNATO Burt 10/09/24 12:00: per provider, pt cleared to dc home and f/u with PCP in one to two weeks. per pt, only not available 3/6 in afternoon for previously established appt. [employer]PER[employer] messaged TCM group for assistance with PCP f/u appt. ELIU Original Note: DCP Assessment Note Pt is an 84yo F admitted with possible GI bleed and small liver abscess. PCP Yulissa Coello Payer Medicare and [facility] [employer] reviewed EMR Per provider in morning rounds, surgery consult pending to see if scope is needed. will repeat H&H to see if continues to downtrend. if not and no scope needed, may dc later today. [employer]ST[employer] OPERATOR [employer] entered room and introduced self and role. Accompanied by spouse at bedside. Pt cantankerous throughout interaction. reports living in [place] indep with spouse, no DME. reports was dizzy prior to coming to ED but dizziness is gone. mobilizing indep throughout admission so far. [employer]PER[employer] answered questions to best of ability. Pt/spouse deny DCP/CM needs at this time. Will update TCM team when more is known. P: anticipate dc home when medically stable, no CM needs anticipated. pending H&H and surgical consult may or may not need scope. CM team will continue to follow as needed FORTUNATO Burt Discharge Planning/Care Management CM Discharge Assessment Start: 10/09/24 10:27 Freq: Status: Active Protocol: Document 10/09/24 10:27 (Rec: 10/09/24 10:28 [id number]) Discharge Planning Assessment Assigned Briquette Molder FORTUNATO [place] DPOA/Assigned Designee Name Handy spouse Contact Information [phone] Advance Directives? Yes Advance Directives on File No History Provided By Patient,Medical Record Prior Living Arrangements House Household Members spouse Independent with ADL's Yes Is patient alert and oriented? Yes Discharge Plan Home Transportation Arrangement spouse Referrals Initiated None needed Review Status In Process Please Provide Date Initial DC 10/09/24 Assessment Was Performed Next Review Type Continued Stay Review
[2024-10-09 10:42] LABS: Hematocrit 38.9 % (36-46); Hemoglobin 12.8 g/dL (12.0-16.0)
--- NOTE | 2024-10-09 11:35 | P.DS_ITS ---
History of Present Illness History of Present Illness Date Patient Seen: 10/09/24 Chief complaint: N/V/D Dizzy vomiting black stuff Narrative: This is an 84-year-old female with a past medical history of diverticulitis with colon resection (with colostomy s/p reversal in 11/2023), iron-deficiency anemia on chronic iron who presented to the emergency room after an episode what she called vomiting black snot. She reports intermittent bloating and RUQ pain, though has a difficult time decribing it, not worse with food. Patient recently had a trip to [place] where she returned on September 28. She reports flu-like symptoms for the past few weeks with nasal congestion, productive cough which have improved. Ever since her colon surgery she has intermittent diarrhea and current stools are not really changed from normal. She denies overt melena, but stools are always dark on iron supplementation. She does report use of naproxen intermittently. Also takes omeprazole chronically. She denies any chest pain, shortness on breath, lower extremity edema, or rash. She denies any overt fever. In the ER, Hg was 14, CT and then MRI showed a small liver abscess, not amenable for IR drainage. She was mildly hypertensive in the emergency room but the remainder of her vital signs were unremarkable. Patient was admitted under observation status. Discharge Providers Provider Date of admission: 10/08/24 19:05 Discharge Date: 10/09/24 Primary care physician: Yulissa Coello DO Consults: 10/08/24 20:44 Consult to General Surgery Routine Comment: Consulting Provider: Alisia Lima Reason for consultation: GI bleed, Liver abscess Discharge provider: Ryan Quispe DO Summary Hospital Course Discharge Diagnosis: 1. Hematemesis, POA, improved 2. Small Liver abscess. POA, active. 3. HTN, POA stable 4. Obesity, POA Hospital Course: This is an 84-year-old female with a past medical history of colon cancer, hypertension, and obesity who presented to the emergency room after a possible episode of hematemesis and mild right upper quadrant pain. Initial imaging showed a small liver abscess that was not amenable to IR drainage. Initial hemoglobin was 14. The case was discussed with General surgery, who recommended observation overnight and if her H&H did not trend downward she could be deferred to outpatient endoscopy. She was started on empiric treatment for a possible liver abscess. She did report recent travel in the past week to [place], though had no known water exposures that she is aware of as she did not go swimming in the ocean, fresh water legs, or even in pools. The following morning, the patient had no further episodes of nausea, and was able to tolerate a diet without issue. Her hemoglobin up trended on repeat from 12 to 12.8. She does report naproxen use for which she was advised to stop for the time being. She was discharged home on an oral PPI for 1 month, and is recommended to follow-up with general surgery for outpatient endoscopy. She was also started on Augmentin and metronidazole for her small liver abscess empirically. While ideally, these are drained initially for diagnostic and therapeutic purposes, the patient had minimal symptoms and was tolerating a diet at the time of discharge. Given this, she should continue on 6 weeks of antibiotics empirically. The timing of follow-up imaging is not entirely clear based on my reading of available literature, but typically repeat imaging is done after a few months. Recommend continue monitoring of this liver lesion with her primary care provider, possible referral for specialist consultation. The patient was also recommended to returned to the emergency room should she develop worsening fever, right upper quadrant pain, or nausea and vomiting for repeat evaluation. No other changes to her home medications were recommended at the time of discharge. Time Spent with Patient Time spent: Greater than 30 minutes Exam Vital Signs (past 8 hours): - 10/09/24 04:00 10/09/24 04:34 10/09/24 08:00 Temperature 98.4 F 98.0 F Pulse Rate 84 68 Respiratory Rate 18 12 Blood Pressure 148/84 H 140/88 Pulse Oximetry 100 94 96 Oxygen Delivery Method Room Air Oxygen Flow Rate 0 Oxygen Delivery Method Room Air Oxygen Flow Rate 0 Narrative Exam Narrative: General:? Patient is well developed and well nourished, in no distress at this time. HEENT:? Normocephalic, atraumatic, extraocular muscles intact, oral pharynx is clear and mucous membranes are moist. Neck: supple and symmetric, trachea is midline, no cervical adenopathy. Negative for JVD Chest:? Normal AP diameter and contour without kyphoscoliosis, no tachypnea, equal chest rise bilaterally. Lungs:? CTA b/l no wheezing rhonchi or rales. Cardio:?RRR no m/r/g. Abdomen: S, ND, NT (improved today) Musculoskeletal:? Muscle strength and tone are equal within normal limits, no deformity. Extremities: No edema or joint effusions. No cyanosis or clubbing. Skin:? Pale,? Warm to touch,dry and intact without rashes, ulcerations or petechiae.? Neuro:? Alert and orientated x3,? sensation to touch intact in all extremities, no gross deficits noted of cranial nerves. Psych:? Patient has a well-kept appearance, appropriate affect, mental status attitude thought context and judgment are appropriate for age. Objective Labs 10/09/24 10:36 10/09/24 04:40 Labs: Laboratory Results - last 24 hr 10/08/24 10/08/24 10/09/24 11:00 19:54 04:40 WBC 10.0 8.4 RBC 4.59 3.89 L Hgb 14.1 12.0 Hct 42.6 35.9 L MCV 92.8 92.4 MCH 30.8 31.0 MCHC 33.1 33.5 RDW 13.3 13.3 Plt Count 367 329 Neut % (Auto) 75.7 H 60.5 Lymph % (Auto) 15.2 L 27.4 Will % (Auto) 8.1 10.3 Eos % (Auto) 0.7 L 1.4 L Baso % (Auto) 0.3 0.4 Neut # (Auto) 7500 H 5100 Lymph # (Auto) 1500 2300 Will # (Auto) 800 900 Eos # (Auto) 100 100 Baso # (Auto) 0 0 PT 12.0 INR 1.1 APTT 33 Sodium 138 139 Potassium 4.2 3.6 Chloride 102 105 Carbon Dioxide 28 27 BUN 28 H 20 H Creatinine 0.78 0.78 Estimated GFR > 60 > 60 BUN/Creatinine Ratio 35.9 H 25.6 H Glucose 117 H 92 Calcium 10.0 8.6 Magnesium 2.1 Total Bilirubin 0.3 0.3 AST 33 24 ALT 21 18 Alkaline Phosphatase 72 52 Total Protein 7.8 6.5 Albumin 4.4 3.7 Globulin 3.4 2.8 Albumin/Globulin Ratio 1.3 1.3 Lipase 177 Chlamy pneumoniae PCR Not detected Adenovirus (PCR) Not detected B. pertussis DNA (PCR) Not detected B.parapertussis DNA PCR Not detected Coronavirus OC43 (PCR) Not detected Coronavirus HKU1 (PCR) Not detected Coronavirus 229E (PCR) Not detected SARS-CoV-2 (PCR) Not detected Coronavirus NL63 (PCR) Not detected Human Metapneumovir PCR Not detected Influenza Type A (PCR) Not detected Influenza Type B (PCR) Not detected M. pneumoniae (PCR) Not detected Parainfluenza 1 (PCR) Not detected Parainfluenza 2 (PCR) Not detected Parainfluenza 3 (PCR) Not detected Parainfluenza 4 (PCR) Not detected RSV (PCR) Not detected Entero/Rhino (PCR) Not detected 10/09/24 10:36 WBC RBC Hgb 12.8 Hct 38.9 MCV MCH MCHC RDW Plt Count Neut % (Auto) Lymph % (Auto) Will % (Auto) Eos % (Auto) Baso % (Auto) Neut # (Auto) Lymph # (Auto) Will # (Auto) Eos # (Auto) Baso # (Auto) PT INR APTT Sodium Potassium Chloride Carbon Dioxide BUN Creatinine Estimated GFR BUN/Creatinine Ratio Glucose Calcium Magnesium Total Bilirubin AST ALT Alkaline Phosphatase Total Protein Albumin Globulin Albumin/Globulin Ratio Lipase Chlamy pneumoniae PCR Adenovirus (PCR) B. pertussis DNA (PCR) B.parapertussis DNA PCR Coronavirus OC43 (PCR) Coronavirus HKU1 (PCR) Coronavirus 229E (PCR) SARS-CoV-2 (PCR) Coronavirus NL63 (PCR) Human Metapneumovir PCR Influenza Type A (PCR) Influenza Type B (PCR) M. 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 Low back pain GERD (gastroesophageal reflux disease) Iron deficiency anemia Osteoarthritis Spinal stenosis, lumbar region with neurogenic claudication Spondylolisthesis at L4-L5 level Left bundle branch block Surgical History History of colostomy reversal Anesthesia History of cataract removal with insertion of prosthetic lens (~2021) History of bilateral knee replacement (~2016) History of lumpectomy of right breast (11/08/21) Hx of appendectomy (2019) History of incision and drainage (02/15/18) Hx of lumbosacral spine surgery (01/16/18) History of tonsillectomy S/P epidural steroid injection History of tympanoplasty of left ear History of discectomy History of bunionectomy of right great toe History of bunionectomy of left great toe History of thumb surgery History of arthroplasty of right shoulder Hx of total knee arthroplasty Family History Father Cancer Mother Diabetes mellitus History of heart disease Hypertension Brother Cancer Brother Cancer History of heart disease Hypertension Sister Cancer Hypertension Stroke Sister Cancer Grandfather Stroke Grandmother History of heart disease Social History household members: spouse Smoking Status: Never smoker alcohol intake: current substance use type: does not use Discharge Plan Discharge Plan Patient Disposition: Home Provider Discharge Comment: You were admitted to the hospital for observation with a small liver abscess and possible GI bleeding. Your Hg improved / stabilized fairly quickly with medications and you felt improved. For the bleeding, continue omeprazole twice a day (sent to [facility]) and follow up with surgery for possible endoscopy as an outpatient. For the liver abscess, ideally these are drained but given it's location this is not possible at this time. You may need repeat imaging in a few months after treatment to see if there is any change. Discharge orders & Medications Prescriptions: New amoxicillin-pot clavulanate 875-125 mg tablet 1 tab PO BID 41 Days Qty: 82 0RF metronidazole 500 mg tablet 500 mg PO TID 41 Days Qty: 123 0RF omeprazole 40 mg capsule,delayed release(DR/EC) 40 mg PO BID 30 Days Qty: 60 0RF Continued anastrozole 1 mg Tablet 1 mg PO DAILY Qty: 90 4RF rosuvastatin 10 mg tablet 10 mg PO DAILY Qty: 90 3RF trazodone 50 mg tablet 50 - 100 mg PO ONCE PM PRN (Reason: for insomnia) Qty: 90 7RF tirzepatide 5 mg/0.5 mL pen injector 5 mg SUBCUT QWEEK Qty: 6 0RF losartan 25 mg tablet 25 mg PO DAILY Qty: 90 3RF multivitamin Tablet 1 tab PO DAILY acetaminophen [Tylenol Extra Strength] 500 mg Tablet 750 mg PO DAILY PRN (Reason: pain) Patient Comments: patient states rarely ascorbic acid (vitamin C) [Vitamin C] 500 mg Tablet 500 mg PO DAILY ferrous sulfate 325 mg (65 mg iron) Tablet 325 mg PO DAILY Discontinued omeprazole 10 mg capsule,delayed release(DR/EC) 10 mg PO DAILY Qty: 90 3RF naproxen sodium [Aleve] 220 mg Capsule 220 mg PO DAILY PRN (Reason: pain) Rx Instructions: with food Medication counseling provided by Pharmacist: Yes Follow up/Referrals: Yulissa Coello DO [Primary Care Provider] - 1 Week (Hospital follow up, liver abscess and ? GI bleeding) Alisia Lima MD [Physician] - 2 Weeks (Possible endoscopy, hematemesis stable h/h in hospital) Diet/Activity/Treatments Diet: Diet as Tolerated and Regular Activity: no restrictions Visit Report/Discharge Packet Instructions: How to Prevent Falls, DI for Vomiting -- Adult, Metronidazole, DI for Dizziness-Nonvertigo, DI for Intra-Abdominal Abscess Stand Alone Forms: Patient Portal/API, Stroke Signs & Symptoms Discharge Data Primary Care Provider: Yulissa Coello Attending Provider: Ryan Quispe Admearline Date/Time: 10/08/24 19:05 Quality VTE Deep Vein Thrombosis/Pulmonary Embolism Present on Admission: No
[2024-10-09 12:00] VITALS: BP 163/98; PULSE 79; RESP 16; TEMP 36.4; O2SAT 94
[2024-10-09] MEDS: OXYMETAZOLINE NASAL SPRAY 30 ML 2 SPRAYS NASAL (12:30)
--- NOTE | 2024-10-09 16:25 | PC.NURSE ---
Discharge: Pt feels ready to d/c to home. Seen by Hospitalist and he gave discharge instructions. Reviewed d/c packet. Questions answered. Pt will make her own follow up appt's. Rx has been esent and pt is aware.
== END 2024-10-09 14:37 | disposition home or self-care (01) ==
LOC: ED 18:40 → AC 19:05
PROVIDERS: Admitting Provider Internal Medicine; Emergency Provider Emergency Medicine; Family Provider Family Medicine; PCP Family Medicine; Referring Provider Emergency Medicine; Visit Provider Internal Medicine
DX: R11.11 Vomiting without nausea (principal); R10.11 Right upper quadrant pain; K75.0 Abscess of liver; I10 Essential (primary) hypertension; D50.9 Iron deficiency anemia, unspecified; Z85.038 Personal history of other malignant neoplasm of large intestine; Z90.49 Acquired absence of other specified parts of digestive tract; E66.9 Obesity, unspecified; Z11.52 Encounter for screening for COVID-19
CPT/HCPCS: 36415; 74177; 74183; 80053; 83690; 83735; 85014; 85018; 85025; 85610; 85730; 87633; 93005; 96361; 96365; 96366; 96375; 96376; 99284; G0378; A9579; J2405; J2470; J2543; Q9967

== ENCOUNTER → 2024-12-02 12:52 | Outpatient (CLI) | payer MEDICARE, OTHER, SELFPAY ==
[2024-10-08 20:40] VITALS: BMI 35.9
--- NOTE | 2024-12-02 12:57 | DI.CT.S_ITS ---
PROCEDURE: CT ABDOMEN WO/W CON INDICATIONS: liver abscess TECHNIQUE: 4 phase scanning was performed. Non-contrast 5 mm axial sections acquired from the diaphragm to the iliac crests. Following the administration of intravenous contrast, 5 mm thick arterial-phase, portal venous-phase, and 5-minute delayed phase images were acquired through the liver. 5 mm thick coronal and sagittal reformats were performed. For radiation dose reduction, the following was used: automated exposure control, adjustment of mA and/or kV according to patient size. COMPARISON: [facility], , MR ABDOMEN LIVER PROTOCOL, 10/08/2024, 13:35. FINDINGS: Image quality: Excellent. Lower chest: Large hiatal hernia. ABDOMEN: Liver: Non cirrhotic liver morphology. Similar hypoattenuating collection at the liver dome measuring 2.2 x 1.3 x 2.3 cm, previously 2.1 x 1.3 x 2.0 cm using similar measuring techniques. No additional fluid collection identified. Coarse calcification along the posterior right hepatic lobe. Gallbladder: No radiopaque gallstones or wall thickening. Biliary ducts: No biliary dilation. Pancreas: No ductal dilation. A few coarse pancreatic calcifications. Spleen: Size is within normal limits. Adrenal Glands: No adrenal nodules. Kidneys and Ureters: No hydronephrosis. No solid mass. No complex renal cystic lesion which requires follow up. Stomach and Bowel: Normal colonic caliber, without significant wall thickening. Peritoneum: No abnormal intraperitoneal fluid. No free air. Ventral Wall: Diastasis rectus. Abdominal Nodes: No retroperitoneal or mesenteric adenopathy by size criteria. Vessels: Aorta and inferior vena cava are normal in size. PELVIS: Pelvic Organs: Unremarkable. Bladder: Unremarkable. Pelvic Nodes: No enlarged lymph nodes. Miscellaneous: No inguinal hernias are seen. Bones: No aggressive osseous abnormality. Partially visualized surgical fusion of the lower lumbar spine. IMPRESSION: Similar hypoattenuating collection at the liver dome measuring 2.2 x 1.3 x 2.3 cm, previously 2.1 x 1.3 x 2.0 cm using similar measuring techniques. No additional fluid collection identified. Early changes of chronic pancreatitis. Dictated by: Sabas Mendenhall M.D. on 12/02/2024 at 20:30 Approved by: Sabas Mendenhall M.D. on 12/02/2024 at 20:35
[2024-12-02 13:21] LABS: Estimated Glomerular Filt Rate > 60 mL/min (>60)
== END ==
PROVIDERS: Family Provider Family Medicine; PCP Family Medicine; Referring Provider Surgery; Visit Provider Surgery
DX: K75.0 Abscess of liver (principal); K92.0 Hematemesis; K44.9 Diaphragmatic hernia without obstruction or gangrene; K86.1 Other chronic pancreatitis
CPT/HCPCS: 36415; 74170; 82565; Q9967

== ENCOUNTER → 2025-02-15 09:48 | Outpatient (CLI) | payer MEDICARE, OTHER, SELFPAY ==
[2024-10-08 20:40] VITALS: BMI 35.9
[2025-02-15 11:16] LABS: Hematocrit 42.7 % (36-46); Hemoglobin 14.2 g/dL (12.0-16.0); Mean Corpuscular HGB Conc 33.1 % (30-36); Mean Corpuscular Hemoglobin 31.6 PG (26-34); Mean Corpuscular Volume 95.4 fL (80-100); Platelet Count 293 X10^3/uL (150-400)
[2025-02-15 11:39] LABS: Alanine Aminotransferase 20 IU/L (<35); Albumin 4.5 g/dL (3.5-5.0); Albumin Globulin Ratio 1.4 (1.0-2.8); Alkaline Phosphatase 62 U/L (38-126); Blood Urea Nitrogen 17 mg/dL (7-17); Calcium 9.3 mg/dL (8.4-10.2); Carbon Dioxide 28 mmol/L (22-32); Chloride 102 mmol/L (98-107); Cholesterol 218 mg/dL (140-199); Estimated Glomerular Filt Rate > 60 mL/min (>60); Globulin 3.3 g/dL (1.7-4.1); Glucose 96 mg/dL (70-99); HDL Cholesterol 66 mg/dL (40-60); HEMOLYSIS < 15 (0-50); Potassium 4.3 mmol/L (3.4-5.1); Sodium 135 mmol/L (137-145); Total Protein 7.8 g/dL (6.3-8.2); Triglycerides 70 mg/dL (35-150)
[2025-02-15 12:14] LABS: Ferritin 21 ng/mL (11-264)
[2025-02-16 03:39] LABS: CRP, High Sensitivity 1.23 mg/L (0.00-3.00)
== END ==
PROVIDERS: Family Provider Family Medicine; PCP Family Medicine; Referring Provider Family Medicine; Visit Provider Family Medicine
DX: K75.0 Abscess of liver (principal); E78.5 Hyperlipidemia, unspecified; I10 Essential (primary) hypertension; D64.9 Anemia, unspecified
CPT/HCPCS: 36415; 80053; 80061; 82728; 85027; 86140

== ENCOUNTER → 2025-05-04 10:19 | Outpatient (CLI) | payer MEDICARE, OTHER, SELFPAY ==
[2025-03-16 11:04] VITALS: BMI 35.9
[2025-05-04 11:42] LABS: Cholesterol 119 mg/dL (140-199); HDL Cholesterol 63 mg/dL (40-60); Triglycerides 63 mg/dL (35-150)
[2025-05-04 12:15] LABS: Ferritin 34 ng/mL (11-264)
== END ==
PROVIDERS: PCP Family Medicine; Referring Provider Family Medicine; Visit Provider Family Medicine
DX: D50.9 Iron deficiency anemia, unspecified (principal); E66.01 Morbid (severe) obesity due to excess calories; E78.00 Pure hypercholesterolemia, unspecified
CPT/HCPCS: 36415; 80061; 82728